=== PATIENT | female | born 1955 | race Caucasian/White ===

== ENCOUNTER → 2021-01-14 08:43 | Outpatient (BNVA) | payer MEDICARE, SELFPAY | PROVIDERS: PCP Family Medicine; Visit Provider Hospitalist | DX: J45.50 Severe persistent asthma, uncomplicated (principal); F19.20 Other psychoactive substance dependence, uncomplicated | CPT/HCPCS: 99212 ==

== ENCOUNTER 2021-05-17 10:59 | Outpatient (REF) | payer MEDICARE, SELFPAY ==
[2021-05-17 11:12] LABS: MANUAL DIFF FLAG NO
[2021-05-17 11:59] LABS: Basophils Absolute Auto 0.1 X10*3/uL (0.0-0.2); Basophils Percent Auto 1.3 % (0-2); Eosinophils Absolute Auto 0.3 X10*3/uL (0.0-0.4); Eosinophils Percent Auto 3.7 % (0-4); Hematocrit 37.8 % (37.0-47.0); Imm Gran Abs Auto 0.05 X10*3/uL (0.00-0.03); Imm Gran Pct Auto 0.7 % (0.0-0.4); Lymphocytes Absolute Auto 1.1 X10*3/uL (1.2-4.9); Lymphocytes Percent Auto 15.7 % (20-40); Mean Corpuscular HGB Conc 31.7 g/dl (31.0-35.0); Mean Corpuscular Hemoglobin 33.2 pg (27.0-33.0); Mean Corpuscular Volume 104.7 fL (80.0-98.0); Mean Platelet Volume 11.7 fL (9.4-12.3); Monocytes Absolute Auto 0.4 X10*3/uL (0.1-1.2); Monocytes Percent Auto 5.3 % (2-11); Neutrophils Percent Auto 73.3 % (45-73); Platelet Count 364 X10*3/uL (160-400); Red Blood Count 3.61 X10*6/uL (4.20-5.50); Red Cell Distribution Width 17.5 % (11.0-16.0); White Blood Count 6.8 X10*3/uL (4.8-10.8)
[2021-05-17 12:52] LABS: Erythrocyte Sedimentation Rate 12 MM/HR (0-20)
[2021-05-18 10:57] LABS: Immunoglobulin E 227 kU/L (<OR=114)
[2021-05-19 11:51] LABS: IgA 116 mg/dL (70-320); IgG 635 mg/dL (600-1540); IgM 51 mg/dL (50-300)
== END 2021-05-17 11:00 | disposition home or self-care (01) ==
LOC: HO.LAB 10:59
PROVIDERS: PCP Family Medicine; Visit Provider Hospitalist
DX: J45.909 Unspecified asthma, uncomplicated (principal)
CPT/HCPCS: 36415; 82784; 82785; 85025; 85652

== ENCOUNTER → 2021-05-25 08:20 | Outpatient (BNVA) | payer MEDICARE, SELFPAY | PROVIDERS: PCP Family Medicine; Visit Provider Hospitalist | DX: J45.50 Severe persistent asthma, uncomplicated (principal); F19.20 Other psychoactive substance dependence, uncomplicated | CPT/HCPCS: 99212 ==

== ENCOUNTER → 2021-06-04 08:54 | Outpatient (BNVA) | payer MEDICARE, SELFPAY | PROVIDERS: PCP Family Medicine; Visit Provider Hospitalist | DX: J45.50 Severe persistent asthma, uncomplicated (principal); Z87.891 Personal history of nicotine dependence | CPT/HCPCS: 99211 ==

== ENCOUNTER 2021-07-27 08:28 | Outpatient (REF) | payer MEDICARE, SELFPAY ==
--- NOTE | ~2021-07-27 | XR_ITS ---
EXAMINATION: XR CHEST 2 VIEWS CLINICAL INFORMATION: History of asthma. COMPARISON: Chest radiographs dated 03/14/2019. TECHNIQUE: Frontal and lateral views of the chest were obtained. FINDINGS: The heart, great vessels, pulmonary vasculature and mediastinum are normal. The lungs show no focal infiltrate, effusion or pneumothorax. There is no acute osseous abnormality. There is multi-level thoracolumbar degenerative disc disease and spondylosis. XR/XR chest 2V IMPRESSION: No active cardiopulmonary disease.
== END 2021-07-27 08:29 | disposition home or self-care (01) ==
LOC: HO.XRAY 08:28
PROVIDERS: PCP Family Medicine; Visit Provider Hospitalist
DX: J45.50 Severe persistent asthma, uncomplicated (principal); J45.909 Unspecified asthma, uncomplicated; F19.20 Other psychoactive substance dependence, uncomplicated
CPT/HCPCS: 71046; 99212

== ENCOUNTER → 2021-11-29 10:42 | Outpatient (BNVA) | payer MEDICARE, SELFPAY | PROVIDERS: PCP Family Medicine; Visit Provider Hospitalist | DX: J45.50 Severe persistent asthma, uncomplicated (principal); F19.20 Other psychoactive substance dependence, uncomplicated; Z79.52 Long term (current) use of systemic steroids | CPT/HCPCS: 99212 ==

== ENCOUNTER 2022-07-27 09:50 | Outpatient (REF) | payer MEDICARE, SELFPAY ==
--- NOTE | ~2022-07-27 | XR_ITS ---
EXAMINATION: XR CHEST CLINICAL INFORMATION: Asthma uncomplicated. Cough x2 weeks COMPARISON: None TECHNIQUE: 2 views of the chest were obtained. FINDINGS: The lungs are well-expanded with patchy atelectatic changes in left lung base.. The heart size and pulmonary vascularity is normal. No gross bony abnormality seen. XR/XR chest 2V IMPRESSION: Minimal atelectatic changes left lung base
== END 2022-07-27 09:51 | disposition home or self-care (01) ==
LOC: HO.XRAY 09:50
PROVIDERS: PCP Family Medicine; Visit Provider Hospitalist
DX: J40 Bronchitis, not specified as acute or chronic (principal); J45.51 Severe persistent asthma with (acute) exacerbation; R06.2 Wheezing; F19.20 Other psychoactive substance dependence, uncomplicated; Z79.52 Long term (current) use of systemic steroids
CPT/HCPCS: 71046; 94640; 96372; 99212; J2930

== ENCOUNTER → 2022-08-12 15:02 | Outpatient (BNVA) | payer MEDICARE, SELFPAY | PROVIDERS: PCP Family Medicine; Visit Provider Hospitalist | DX: J45.50 Severe persistent asthma, uncomplicated (principal); J40 Bronchitis, not specified as acute or chronic; F19.20 Other psychoactive substance dependence, uncomplicated | CPT/HCPCS: 99212 ==

== ENCOUNTER → 2022-10-05 10:27 | Outpatient (BNVA) | payer MEDICARE, SELFPAY | PROVIDERS: PCP Family Medicine; Visit Provider Nurse Practitioner Family | DX: M54.32 Sciatica, left side (principal); J45.50 Severe persistent asthma, uncomplicated; J40 Bronchitis, not specified as acute or chronic; F19.20 Other psychoactive substance dependence, uncomplicated | CPT/HCPCS: 99212 ==

== ENCOUNTER 2022-10-06 09:59 | Outpatient (REF) | payer MEDICARE, SELFPAY ==
[2022-10-06 10:51] LABS: D Dimer High Sensitivity 490 NG/ML
== END 2022-10-06 10:00 | disposition home or self-care (01) ==
LOC: HO.LAB 09:59
PROVIDERS: PCP Family Medicine; Visit Provider Nurse Practitioner Family
DX: R06.02 Shortness of breath (principal)
CPT/HCPCS: 36415; 85379

== ENCOUNTER 2022-10-07 09:50 | Outpatient (REF) | payer MEDICARE, SELFPAY ==
--- NOTE | ~2022-10-07 | CT_ITS ---
EXAMINATION: CT ANGIOGRAM OF THE CHEST WITH AND WITHOUT CONTRAST (CT PULMONARY ANGIOGRAM FOR PE) CLINICAL INFORMATION: Reason for Exam R78.89 - Finding of other specified substances, not normally found in blood COMPARISON: Previous chest x-ray July 2022 TECHNIQUE: Prior to contrast administration, noncontrast localization images were obtained. Subsequently, multidetector volumetric imaging was performed from the thoracic inlet to below the diaphragms following the administration of 80 mL Omnipaque 350 intravenous contrast. No contrast reaction reported Sagittal, coronal, and MIP oblique sagittal reformatted images were obtained on the CT workstation, uploaded to PACS, and reviewed. This CT examination was performed using dose optimization techniques as appropriate, variously including the following: *Automated exposure control *Adjustment of mA and/or kV according to patient size (this includes techniques or standardized protocols for targeted exams where dose is matched to indication/reason for exam; i.e. extremities or head) *Use of iterative reconstruction technique Total exam dose-length product 232 mGy-cm FINDINGS: QUALITY OF STUDY/CONTRAST BOLUS: Satisfactory. PULMONARY ARTERIES: No pulmonary emboli. THORACIC AORTA: No aneurysm. LUNG: No focal consolidation, nodules or masses. PLEURA: No pleural effusion or pneumothorax. MEDIASTINUM: Normal heart size. No pericardial effusion. No hilar or mediastinal lymphadenopathy. No evidence of septal bowing or right heart strain. CORONARY ARTERY CALCIFICATION: None visualized on this study. CHEST WALL/AXILLA: No axillary or internal mammary lymphadenopathy. OSSEOUS STRUCTURES: Degenerative changes of the spine. Old severe T12 vertebral body compression fracture. UPPER ABDOMEN: Gastric lap band. There may be diverticulosis of the colon. No reflux of contrast into the hepatic veins to suggest elevated right heart pressures. CT/CT angio chest PE protocol IMPRESSION: No evidence of pulmonary embolism. Gastric lap band. Old severe T12 vertebral body compression fracture. VTE: negative
[2022-10-07 11:14] LABS: Anion Gap 18 (12-20); Blood Urea Nitrogen 25 mg/dL (9-16); Calcium 9.7 mg/dL (8.4-10.2); Carbon Dioxide 24 mmol/L (22-29); Chloride 106 mmol/L (96-108); Estimated Glomerular Filt Rate > 60; Glucose Random 165 mg/dL (60-115); Potassium 5.6 mmol/L (3.3-5.1); Sodium 142 mmol/L (135-145)
[2022-10-07] MEDS: iohexoL 350 MG/ML 100 ML INFUS..BTL 65 ML IV (11:59)
== END 2022-10-07 09:51 | disposition home or self-care (01) ==
LOC: HO.CT 09:50
PROVIDERS: PCP Family Medicine; Visit Provider Hospitalist
DX: R06.00 Dyspnea, unspecified (principal); R00.2 Palpitations; R78.89 Finding of other specified substances, not normally found in blood
CPT/HCPCS: 36415; 71275; 80048; Q9967

== ENCOUNTER → 2022-10-18 13:03 | Outpatient (BNVA) | payer MEDICARE, SELFPAY | PROVIDERS: PCP Family Medicine; Visit Provider Internal Medicine Cardiovascular Disease | DX: R06.02 Shortness of breath (principal); R00.2 Palpitations | CPT/HCPCS: 99202 ==

== ENCOUNTER → 2022-11-01 07:46 | Outpatient (REF) | payer MEDICARE, SELFPAY ==
--- NOTE | ~2022-11-01 | NM_ITS ---
Myocardial perfusion study Indication: Dyspnea to evaluate for myocardial ischemia Technique: The patient was brought in for a Lexiscan perfusion study on 11/01/2022. Patient performed low-level exercise and was injected 0.4 mg of Lexiscan intravenously. Within a minute of injection, 40 mCi of sestamibi was given intravenously. Images were obtained using the SPECT gamma camera interlaced with the gating device. Images were obtained in supine position. Resting perfusion study was performed on 11/02/2022. Patient was administered 40 mCi of sestamibi intravenously at rest. Images were then obtained in supine position. Images obtained with and without CT attenuation. Total DLP 178 mGy-cm. Images were processed with the software and compared side to side in short axis, horizontal long axis and vertical long axis views. Findings: The stress perfusion study showed non attenuated images show minimal thinning of the basal and mid septum of the LV myocardium. Remainder of the LV myocardium is normally perfused. There is suggestion of left ventricle hypertrophy. Attenuation corrected images show normal uptake of radiotracer in all segments of LV myocardium. The gated study shows normal LV systolic function with calculated LVEF of 47%, although visually LV ejection fraction appears to be higher. LV cavity is normal in size. The gated study shows normal systolic wall thickening and contraction of segments. Resting study shows non attenuated images show mildly reduced uptake in the anterolateral wall of the LV myocardium. Attenuation corrected images show minimally reduced uptake in the apical septum.. Gating at rest reveals normal systolic wall motion with ejection fraction at 53%. The findings are consistent with normal myocardial perfusion. NM/NM tor perf SPECT rest & str Impression: 1. Myocardial perfusion imaging study shows normal myocardial perfusion 2. Gated LVEF is 53% 3. Transient ischemic dilatation not present EKG is nondiagnostic for ischemia
--- NOTE | 2022-11-01 07:49 | CA_ITS ---
Acquisition Time: 2022-11-01 07:55:30 Total Exercise Time: 00:02:00 Test Indications: Dyspnea Medications: SEE H Protocol: LEXISCAN Max HR: 123 BPM 81% of Pred: 151 BPM Max BP: 134/086 mmHG Max Work Load: 1.0 METS Pharmacological stress test with Lexican injection, while sitting and squeezing ball in left hand, without anginal symptoms, with nausea and dry heaves post injection, with very frequent PACs, with normotensive response to injection, with nondiagnostic EKG for ischemia. In recovery she was treated with Aminophylline 75mg IVP to reverse Lexiscan. Nuclear images pending. Test reviewed with Dr Steward. Referred By: Varinder Steward Overread By: NAHUM REDD
== END ==
LOC: HO.CARD 07:46
PROVIDERS: PCP Family Medicine; Visit Provider Internal Medicine Cardiovascular Disease
DX: R06.00 Dyspnea, unspecified (principal)
CPT/HCPCS: 78452; 93017; A9500; J0280; J2785

== ENCOUNTER → 2022-11-08 09:05 | Outpatient (REF) | payer MEDICARE, SELFPAY ==
--- NOTE | 2022-11-08 09:08 | CA_ITS ---
Transthoracic Echocardiogram Patient (Last, First, Middle): Vanessa Isaacs, Gender: Female Date of : 1955 Age: 67 Procedure Date: 11/08/2022 Procedure Type: Transthoracic Echocardiogram Location: OP Height: 162.56 cm Weight: 112.04 kg BSA: 2.14 m2 Heart Rate: bpm BP: 138 / 64 mmHg Cash Accountant: TO Referring MD: Varinder Steward MD Symptoms: R06.00 - Dyspnea, unspecified Study Quality: Adequate with contrast ECG Rhythm: Sinus with PACs Conclusions: - The left ventricular systolic function is normal. The calculated ejection fraction is 61% by biplane method. - There is moderate septal and moderate basal asymmetric hypertrophy. - No obvious valvular pathology seen on this study. - Small plaque is seen in the sino tubular ridge. Findings Left Ventricle Normal left ventricular cavity size. The left ventricular systolic function is normal. The calculated ejection fraction is 61% by biplane method. There is no evidence of regional wall motion abnormalities. Diastolic function is normal for age. There is moderate septal and moderate basal asymmetric hypertrophy. Right Ventricle Normal right ventricular cavity size and systolic function. Atria Both atria are normal in size. Aortic Valve There is a normal trileaflet aortic valve. There is mild calcification of the aortic valve. There is no aortic valve stenosis. There is no aortic valve regurgitation. Mitral Valve The mitral valve appears normal. There is mild mitral valve regurgitation. There is no mitral valve stenosis. Pulmonic Valve The pulmonic valve is likely normal. Tricuspid Valve There is trace tricuspid valve regurgitation. Mild pulmonary hypertension is present. Great Vessels There is mild dilatation of the ascending aorta measuring 3.70 cm. Small plaque is seen in the sino tubular ridge. Venous The inferior vena cava is mildly dilated and collapses greater than 50% with inspiration. Pericardium/Pleural There is no evidence of pericardial effusion. Prior Study Comparison No prior study available for comparison. Recommendations, Care & Conclusions No obvious valvular pathology seen on this study. Measurements 2D Linear Measurements IVSd: 1.31 0.6-0.9/0.6-1.0 cm LVIDd: 4.43 3.9-5.3/4.2-5.9 cm LVIDd Index: 2.07 2.4-3.2/2.2-3.1 cm/m2 LVIDs: 2.72 2.0-3.6 cm LVPWd: 0.97 0.7-1.1 cm LA Diam: 3.20 2.7-3.8/3.0-4.0 cm LAIDs Index: 1.50 1.5-2.3 cm/m2 LV Mass: 224.34 67-162/88-224 g LV Mass Index: 104.83 43-95/49-115 g/m2 LVOT Diam: 2.00 3.0+(-)1.3 cm 2D Systolic Function EF 4C: 60.10 >55% EF 2C: 61.40 >55% EF BiP: 61.00 >55% Mitral Valve MV VTI: 0.29 MV Pk Lauri: 1.02 MV Mn Lauri: 0.66 MV Pk Grad: 4.00 MV Mn Grad: 2.00 MV Pk E: 1.07 MV PK A: 0.80 MV Decel Time: 217.00 E/A: 1.30 E'Lateral: 9.14 E'Medial: 6.74 E/E' Med: 15.90 E/E' Lat: 11.70 PHT: 64.00 MVA PHT: 3.44 MVA Continuity: 2.40 Decel Saunders: 4.93 Aortic Valve AoV Pk Lauri: 1.57 AoV Mn Lauri: 1.08 AoV VTI: 0.32 AoV Pk Grad: 10.00 Aov Mn Grad: 5.00 JORGE Cont.VTI: 2.14 LVOT LVOT Pk Lauri: 0.97 LVOT Mn Lauri: 0.68 LVOT VTI: 0.22 LVOT Pk Grad: 4.00 LVOT Mn Grad: 2.00 LVOT Diam: 2.00 LVOT Area: 3.14 Diastolic Function MV Pk E: 1.07 MV Pk A: 0.80 E/A: 1.30 E'Medial: 6.74 E/E' Med: 15.90 E' Laterial: 9.14 E/E' Lat: 11.70 Right Ventricle TAPSE (mm): 26.30 TVS' Lauri: 11.60 Tricuspid Valve TR Pk Lauri: 2.88 TR Pk Grad: 33.00 RA Press: 8.00 RVSP: 41.00 Great Vessels Aorta Sinus of Valsalva: 3.18 2.0-3.5 cm Ao Asc: 3.70 2.1-3.4 cm Updated in Other Vendor System with Status of Final Gaetano Johnson MD electronically signed on 11/10/2022 9:43:15 AM with status of Final
== END ==
LOC: HO.CARD 09:05
PROVIDERS: PCP Family Medicine; Visit Provider Internal Medicine Cardiovascular Disease
DX: R06.00 Dyspnea, unspecified (principal)
CPT/HCPCS: 93306; Q9957

== ENCOUNTER → 2022-11-10 14:47 | Outpatient (BNVA) | payer MEDICARE, SELFPAY | PROVIDERS: PCP Family Medicine; Visit Provider Hospitalist | DX: R06.00 Dyspnea, unspecified (principal); J44.9 Chronic obstructive pulmonary disease, unspecified; J40 Bronchitis, not specified as acute or chronic; J45.50 Severe persistent asthma, uncomplicated; Z87.891 Personal history of nicotine dependence; Z79.52 Long term (current) use of systemic steroids | CPT/HCPCS: 99212 ==

== ENCOUNTER 2022-11-11 06:39 | Outpatient (REF) | payer MEDICARE, SELFPAY ==
[2022-11-11 07:28] LABS: Basophils Absolute Auto 0.3 X10*3/uL (0.0-0.2); Basophils Percent Auto 3.1 % (0-2); Eosinophils Absolute Auto 0.6 X10*3/uL (0.0-0.4); Eosinophils Percent Auto 6.5 % (0-4); Hematocrit 29.6 % (37.0-47.0); Imm Gran Pct Auto 1.2 % (0.0-0.4); Lymphocytes Absolute Auto 1.2 X10*3/uL (1.2-4.9); Lymphocytes Percent Auto 13.7 % (20-40); MANUAL DIFF FLAG SCAN; Mean Corpuscular HGB Conc 30.4 g/dl (31.0-35.0); Mean Corpuscular Hemoglobin 36.1 pg (27.0-33.0); Monocytes Absolute Auto 0.7 X10*3/uL (0.1-1.2); Monocytes Percent Auto 8.6 % (2-11); Neutrophils Absolute Auto 5.6 x10*3/uL (2.0-8.3); Neutrophils Percent Auto 66.9 % (45-73); Platelet Count 535 X10*3/uL (160-400); Red Blood Count 2.49 X10*6/uL (4.20-5.50); Red Cell Distribution Width 18.4 % (11.0-16.0); SCAN SMEAR FLAG 1; White Blood Count 8.4 X10*3/uL (4.8-10.8)
[2022-11-11 07:31] LABS: Mean Corpuscular Volume 118.9 fL (80.0-98.0)
[2022-11-11 07:57] LABS: SLIDE REVIEW VERIFIED
[2022-11-11 08:01] LABS: Anion Gap 15 (12-20); Blood Urea Nitrogen 21 mg/dL (9-16); Calcium 9.8 mg/dL (8.4-10.2); Carbon Dioxide 26 mmol/L (22-29); Chloride 106 mmol/L (96-108); Estimated Glomerular Filt Rate > 60; Glucose Random 170 mg/dL (60-115); Potassium 4.6 mmol/L (3.3-5.1); Sodium 142 mmol/L (135-145)
[2022-11-11 08:12] LABS: Erythrocyte Sedimentation Rate 33 MM/HR (0-20)
[2022-11-15 02:53] LABS: Immunoglobulin E 201 kU/L (<OR=114)
== END 2022-11-11 06:40 | disposition home or self-care (01) ==
LOC: HO.MRI 06:39
PROVIDERS: Absent Provider Hospitalist; PCP Family Medicine; Visit Provider Neurological Surgery
DX: R06.00 Dyspnea, unspecified (principal)
CPT/HCPCS: 36415; 80048; 82785; 85025; 85652

== ENCOUNTER 2022-12-20 12:29 | Outpatient (AMB) | payer MEDICARE, SELFPAY ==
[2022-12-20 13:19] VITALS: BP 132/60; PULSE 88; BMI 41.8
--- NOTE | 2022-12-20 13:19 | A.OFFVIS_ITS ---
Intake Vital Signs 12/20/22 13:19 Height 5 ft 3 in Weight 236 lb BMI 41.8 BP 132/60 Blood Pressure Location Rt brachial Position Sitting Pulse 88 Pulse Source Pulse Oximeter Intake Visit Reasons: f/up echo/ mibi Intake Note: f/u echo /mibi Senior Policy Analyst Required: No Allergies pregabalin Allergy (Severe, Verified 12/20/22 13:25) Manic Sulfa (Sulfonamide Antibiotics) Allergy (Severe, Verified 12/20/22 13:25) Hives Medication List - Last Reconciled 12/20/22 by Eileen Looney NP-C albuterol sulfate 2.5 mg (3 mL) inhalation Q6H PRN 30 days alendronate (Fosamax) 70 mg PO QWEEK cholecalciferol (vitamin D3) 25 mcg PO DAILY mlfvkidzxlh-ngkvextlp-axukjzot 200-62.5-25 mcg (Trelegy Ellipta) 1 inh inhalation DAILY 30 days folic acid 1 mg PO DAILY gabapentin 800 mg PO BEDTIME gabapentin 400 mg PO .am levothyroxine 112 mcg PO DAILY losartan 50 mg PO DAILY metformin 500 mg PO BID nebulizers As directed omeprazole 20 mg PO DAILY paroxetine HCl 40 mg PO DAILY prednisone PO daily; Take 6 tabs daily x 3 days, then 5 tabs x 3 days, then 4 tabs x 3 days, then 3 tabs x 3 days, then 2 tabs daily x 3 days, then 1 tab x 3 days to complete. 18 days prednisone 10 mg PO DAILY simvastatin 40 mg PO DAILY tirzepatide (Mounjaro) 5 mg subcut QWEEK Ventolin HFA 90 mcg/actuation (albuterol sulfate) 2 puffs PO Q4H PRN NS HPI f/up echo/ mibi HPI Details Vanessa is a 67-year-old female with past medical history of morbid obesity advanced COPD with steroid dependence who was recently evaluated for shortness of breath. She underwent an echocardiogram and stress test and now presents for follow-up. Today she reports that her chronic shortness of breath has been stable. She follows closely with Dr. Peña for pulmonology. Her prednisone doses adjusted as needed for symptoms. No recent illness with fever. No chest discomfort at rest or with activity. She has not been using updraft treatments recently. She has been noticing less heart palpitations. No PND, orthopnea or edema. Does light physical activity only. She ambulates with a cane. Takes all her meds as directed. [facility] Medical History Asthma Compression fracture COPD (chronic obstructive pulmonary disease) Steroid dependence Family History Father COPD (chronic obstructive pulmonary disease) Mother ASCVD (arteriosclerotic cardiovascular disease) Sister Stented coronary artery Social History Patient Tobacco Use Status: Former Tobacco user Tobacco use type: Cigarette Years Smoked: 30 years Review of Systems Const All systems reviewed & are unremarkable except as noted in HPI and below ENT Reports dizziness Card Denies chest pain, Denies chest pain at rest, Denies chest pain with activity, Denies rapid heart rate, Denies pedal edema, Denies edema, Denies leg edema, Denies lightheadedness, Denies palpitations, Denies dyspnea, Reports dyspnea on exertion and Denies orthopnea Resp Denies cough, Denies dyspnea and Reports dyspnea on exertion GI Denies hematochezia and Denies change in stool character Musc Denies abnormal gait, Reports limited range of motion, Reports muscle cramps, Denies muscle weakness, Denies numbness, Denies radiating pain into limb, Denies stiffness and Denies tingling Neuro Denies abnormal gait, Reports dizziness, Denies numbness and Denies tingling Endo Denies palpitations Physical Exam Vital Signs: Last Vital Signs Pulse 88 12/20/22 13:19 BP 132/60 12/20/22 13:19 BMI result Body Mass Index 41.8 Const Other: Ambulates with cane, morbidly obese General: cooperative, comfortable and no acute distress Orientation/consciousness: patient oriented x3 Neck Neck: Yes normal visual inspection Resp Other: Lung sounds diminished bilaterally Effort & Inspection: normal respiratory effort Auscultation: clear to auscultation bilaterally, no rales, no rhonchi and no wheezes Cardio Jugular venous distension: no JVD Rate: regular rate Rhythm: regular rhythm Heart sounds: S1 normal heart sound present, S2 normal heart sound present, no murmurs and no rubs Neuro General: patient oriented x3 Extrem General: Yes normal to inspection and No no pedal edema Psych Appearance: grossly normal Mental Status: mental status grossly normal Speech and movement: Normal speech and movement present Assessment & Plan Assessment & Plan (1) Dyspnea: Code(s): R06.00 - Dyspnea, unspecified Plan: Cardiac evaluation for shortness of breath. She has history of asthma, COPD, steroid dependent. She follows with Dr. Peña for pulmonology. EKG done 10/05/2022 showed sinus tach with T-wave abnormality, rate 103. He then underwent echocardiogram on 11/08/2022 showing EF 61%, moderate septal and moderate basal asymmetric hypertrophy, no report of obstruction, No valve abnormalities. A pharmacological nuclear stress test was done on 11/01/2022 showing normal myocardial perfusion imaging, EF 53%. She has no cardiac history and no reports of any cardiac sounding chest discomfort. Her shortness of breath is chronic and most likely related to COPD. At present no cardiac recommendations with the exception of cardiac risk factor modification. Blood pressure normal range at present. Continue with blood pressure goal ideally less than 130/85. Continue good diabetes control with hemoglobin A1c goal less than 70. Follow closely with pulmonology. Cardiology follow-up as needed. (2) COPD (chronic obstructive pulmonary disease): Code(s): J44.9 - Chronic obstructive pulmonary disease, unspecified (3) Steroid dependence: Code(s): F19.20 - Other psychoactive substance dependence, uncomplicated (4) Anemia: Code(s): D64.9 - Anemia, unspecified Plan: Recent finding of mild anemia. Labs done on 11/11/22 shows hemoglobin 9.0. She tells me she did this stool test for her PCP and it came back normal. No evidence of bleeding. No bleeding history. She will continue to follow with her PCP regarding this informed that increasing anemia can cause symptoms of fatigue and shortness of breath. Coding Level of Care Code Est Pt Level 3 (58833) Diagnoses Dyspnea R06.00 COPD (chronic obstructive pulmonary disease) J44.9 Steroid dependence F19.20 Anemia D64.9 Time Spent (min) 24 Comment Chart review, documentation, interview, assessment
== END 2022-12-20 13:52 | disposition home or self-care (01) ==
PROVIDERS: Visit Provider Nurse Practitioner Family
DX: R06.00 Dyspnea, unspecified (principal); J44.9 Chronic obstructive pulmonary disease, unspecified; F19.20 Other psychoactive substance dependence, uncomplicated; D64.9 Anemia, unspecified
CPT/HCPCS: 99213

== ENCOUNTER → 2022-12-20 12:29 | Outpatient (BNVA) | payer MEDICARE, SELFPAY | PROVIDERS: Visit Provider Nurse Practitioner Family | DX: R06.00 Dyspnea, unspecified (principal); J44.9 Chronic obstructive pulmonary disease, unspecified; F19.20 Other psychoactive substance dependence, uncomplicated; D64.9 Anemia, unspecified | CPT/HCPCS: 99212 ==

== ENCOUNTER → 2023-01-17 10:48 | Outpatient (BNV) | payer MEDICARE, SELFPAY | PROVIDERS: PCP Family Medicine; Visit Provider Internal Medicine | DX: D46.9 Myelodysplastic syndrome, unspecified (principal) | CPT/HCPCS: 99204; 99212; 99213; 99214; G2211 ==

== ENCOUNTER 2023-02-09 08:13 | Day surgery (SDC) | payer MEDICARE, SELFPAY ==
--- NOTE | ~2023-02-09 | CT_ITS ---
Bone marrow biopsy INDICATIONS: Macrocytic anemia After informed and written consent was obtained an official timeout was performed immediately prior to the procedure. I was personally responsible for the administration of moderate sedation services, all requirements were followed, an independent trained observer was utilized. PROCEDURE: With the patient in a prone position scans through the pelvis were obtained. The skin was prepped and draped in usual fashion. 1% Xylocaine was used for local anesthetic. Under CT guidance a bone biopsy needle was placed into the right initial wing. Bloody aspirates were obtained in the syringes coated with heparin as well as EDTA . The needle was then repositioned into the anterior aspect of the initial wing and a core bone biopsy specimen was obtained. The needles were removed and manual pressure held for [address]/CT biopsy aspirate bone marrow IMPRESSION: CT-guided bone marrow biopsy of the right initial wing
[2023-02-09 09:09] LABS: Glucose, Whole Blood 124 mg/dL (60-115)
[2023-02-09 09:14] VITALS: BP 151/69; PULSE 96; RESP 20; TEMP 36.1; O2SAT 96; BMI 39.5
[2023-02-09 09:21] LABS: MANUAL DIFF FLAG NO
[2023-02-09 09:26] LABS: Basophils Absolute Auto 0.2 X10*3/uL (0.0-0.2); Basophils Percent Auto 2.1 % (0-2); Eosinophils Absolute Auto 0.3 X10*3/uL (0.0-0.4); Eosinophils Percent Auto 3.6 % (0-4); Hematocrit 30.9 % (37.0-47.0); Hemoglobin 9.9 g/dl (12.0-16.0); Imm Gran Abs Auto 0.09 X10*3/uL (0.00-0.03); Lymphocytes Percent Auto 11.1 % (20-40); Mean Corpuscular Hemoglobin 34.4 pg (27.0-33.0); Mean Corpuscular Volume 107.3 fL (80.0-98.0); Mean Platelet Volume 11.4 fL (9.4-12.3); Monocytes Absolute Auto 0.8 X10*3/uL (0.1-1.2); Monocytes Percent Auto 8.5 % (2-11); Neutrophils Absolute Auto 6.6 x10*3/uL (2.0-8.3); Neutrophils Percent Auto 73.7 % (45-73); Platelet Count 535 X10*3/uL (160-400); Red Blood Count 2.88 X10*6/uL (4.20-5.50); Red Cell Distribution Width 21.2 % (11.0-16.0)
[2023-02-09 09:32] LABS: INTERNATIONAL NORM RATIO 0.9 (0.9-1.1)
[2023-02-09 09:39] LABS: Blood Urea Nitrogen 15 mg/dL (9-16)
[2023-02-09 11:22] LABS: Bone Marrow SEE SEPARATE REPORT
[2023-02-09 11:25] VITALS: BP 100/42; PULSE 92; RESP 14; TEMP 36.8; O2SAT 100
[2023-02-09 11:40] VITALS: BP 114/43; PULSE 98; RESP 18; O2SAT 92
[2023-02-09 11:55] VITALS: BP 109/30; PULSE 109; RESP 18; O2SAT 94
[2023-02-09 12:10] VITALS: BP 127/64; PULSE 98; RESP 18; TEMP 36.9; O2SAT 95
== END 2023-02-09 13:05 | disposition home or self-care (01) ==
LOC: HO.SSS 08:15
PROVIDERS: Pathology Anatomic Pathology & Clinical Pathology; Radiology Diagnostic Radiology; PCP Family Medicine; Visit Provider Internal Medicine
DX: D64.9 Anemia, unspecified (principal); R53.83 Other fatigue; D75.89 Other specified diseases of blood and blood-forming organs; I10 Essential (primary) hypertension; E11.9 Type 2 diabetes mellitus without complications; J44.9 Chronic obstructive pulmonary disease, unspecified; J45.40 Moderate persistent asthma, uncomplicated; Z87.891 Personal history of nicotine dependence; Z79.85 Long-term (current) use of injectable non-insulin antidiabetic drugs
CPT/HCPCS: 36415; 38222; 82947; 84520; 85025; 85610; 85730; 88184; 88185; 88237; 88264; 88280; 88305; 88311; 88313; 88374; 99152; J1642; J2250; J3010

== ENCOUNTER → 2023-02-09 10:32 | Outpatient (BNV) | payer MEDICARE, SELFPAY | PROVIDERS: PCP Family Medicine; Visit Provider Radiology Vascular & Interventional Radiology | DX: D53.9 Nutritional anemia, unspecified (principal) | CPT/HCPCS: 38222; 77012 ==

== ENCOUNTER 2023-02-22 10:53 | Outpatient (REF) | payer MEDICARE, SELFPAY | END 2023-02-22 10:54 | disposition home or self-care (01) | LOC: HO.HMGCX 10:53 | PROVIDERS: PCP Family Medicine; Visit Provider Internal Medicine | DX: D64.9 Anemia, unspecified (principal); D75.839 Thrombocytosis, unspecified | CPT/HCPCS: 76700 ==

== ENCOUNTER 2023-03-27 07:36 | Outpatient (AMB) | payer MEDICARE, SELFPAY ==
--- NOTE | 2023-03-27 07:54 | A.OFFVIS_ITS ---
Intake Vital Signs 03/27/23 07:59 Height 5 ft 4 in Weight 236 lb BMI 40.5 BP 126/57 L Blood Pressure Location Lt brachial Position Sitting Pulse 96 Intake Visit Reasons: Anemia, [place] Screening Intake Note: Patient new consult for Anemia and 2nd pre colonoscopy screening. Patient cc: diarrhea on and off, fatigue, dizziness, and denies any other GI issues. Allergies pregabalin Allergy (Severe, Verified 03/27/23 07:51) Manic Sulfa (Sulfonamide Antibiotics) Allergy (Severe, Verified 03/27/23 07:51) Hives Medication List - Last Reconciled 03/27/23 by Iris Blackman PA-C albuterol sulfate 2.5 mg (3 mL) inhalation Q6H PRN 30 days alendronate (Fosamax) 70 mg PO QWEEK cholecalciferol (vitamin D3) 25 mcg PO DAILY dulaglutide (Trulicity) 0.75 mg subcut QWEEK fluticasone propion-salmeterol 115-21 mcg/actuation (Advair HFA) 2 puffs inhalation Q12H 30 days ojasjlsyiyo-acdtaxnnc-mbvpcger 200-62.5-25 mcg (Trelegy Ellipta) 1 inh inhalation DAILY 30 days folic acid 1 mg PO DAILY gabapentin 800 mg PO BEDTIME gabapentin 400 mg PO .am levothyroxine 112 mcg PO DAILY losartan 50 mg PO DAILY metformin 500 mg PO ONCE metformin 1,000 mg PO DAILY nebulizers As directed nirmatrelvir-ritonavir 300 mg (150 mg x 2)-100 mg (Paxlovid) take TWO 150 mg tablets of nirmatrelvir with ONE 100 mg tablet of ritonavir twice daily for 5 days PO 5 days omeprazole 20 mg PO DAILY paroxetine HCl 40 mg PO DAILY prednisone PO daily; Take 6 tabs daily x 3 days, then 5 tabs x 3 days, then 4 tabs x 3 days, then 3 tabs x 3 days, then 2 tabs daily x 3 days, then 1 tab x 3 days to complete. 18 days prednisone 10 mg PO DAILY simvastatin 40 mg PO DAILY Ventolin HFA 90 mcg/actuation (albuterol sulfate) 2 puffs PO Q4H PRN NS HPI HPI Comments History of Present Illness Details A 67 y/o female myelodysplastic syndrome-anemia transfusion dependent, she follows with Hematology -she will follow there today, she has questions about a up her disease She has been referred by PCP for screening colonoscopy. She does not feel she is up to having a colonoscopy- [place]- missed transfusion- feeling fatigued-she did not enjoy her vacation, she had leg swelling. Did not have much energy. No CP- She has intermittent diarrhea- when it happens -2-3 times a day- no blood She is fatigued appetite is fair-she is using a walker it gives her better support- Intermittent nausea, no vomiting, fever or chills. No hematemesis or hematochezia - FORMERLY [facility], 1928–1983 Medical History Current chronic use of systemic steroids T12 compression fracture Breast calcifications Macular degeneration of both eyes Lumbar spondylolysis Adrenal insufficiency Moderate persistent asthma in adult without complication Anxiety Obstructive sleep apnea Osteoporosis Osteopenia Fibromyalgia GERD (gastroesophageal reflux disease) Hypothyroidism Mixed hyperlipidemia Essential hypertension Morbid obesity Diabetes mellitus, type II Steroid dependence Compression fracture Asthma COPD (chronic obstructive pulmonary disease) Surgical History History of cataract surgery History of left hip replacement History of total right knee replacement (TKR) Family History Father COPD (chronic obstructive pulmonary disease) Mother ASCVD (arteriosclerotic cardiovascular disease) Sister Stented coronary artery Social History Household Members: Spouse Housing: House Patient Tobacco Use Status: Former Tobacco user Tobacco use type: Cigarette Years Smoked: 30 years Use of substances other than those prescribed or required for medical reasons: No Have you been hit, kicked, punched, or otherwise hurt by someone within the past year? If so, by whom?: No Do you feel safe in your current relationship?: Yes Do you have thoughts of harming others: None Do you have a plan to hurt others: No Plan Do you have the means to hurt others: No Recently lost weight without trying: No service: No Current occupational status: retired Review of Systems Const All systems reviewed & are unremarkable except as noted in HPI and below Denies chills, Reports fatigue, Denies fever(s) and Reports headache(s) ENT Reports headache(s) GI Denies hematochezia Neuro Reports headache(s) Endo Reports fatigue Physical Exam Vital Signs: Last Vital Signs Pulse 96 03/27/23 07:59 BP 126/57 L 03/27/23 07:59 BMI result Body Mass Index 40.5 Pallor Const Other: Pallor General: cooperative and comfortable Orientation/consciousness: patient oriented x3 Limitations: ambulation with walker Cardio Rate: tachycardic (APR 100- regular) Rhythm: regular rhythm GI Palpation (GI): Soft to palpation and nontender Auscultation: normal bowel sounds Skin General skin exam: no rashes or lesions noted Neuro General: patient oriented x3 Extrem General: Yes edema Psych Appearance: well kempt Mental Status: mental status grossly normal Speech and movement: Normal speech and movement present and Clear speech present Affect: normal affect Attitude: cooperative Thought process: Normal thought process present Thought content: Normal thought content present Insight: Good insight present (Psych) Judgement: Good judgement present (Psych) Assessment & Plan Assessment & Plan (1) Anemia: Comment: Anemia, infusion dependent Code(s): D64.9 - Anemia, unspecified Plan: ? plan input Dr Waters (2) Asthma: Code(s): J45.909 - Unspecified asthma, uncomplicated Qualifiers: Asthma complication type: uncomplicated Asthma persistence: persistent Asthma severity: severe Qualified Code(s): J45.50 - Severe persistent asthma, uncomplicated Plan: Follows usual medications (3) COPD (chronic obstructive pulmonary disease): Code(s): J44.9 - Chronic obstructive pulmonary disease, unspecified (4) Steroid dependence: Code(s): F19.20 - Other psychoactive substance dependence, uncomplicated Plan Anesthesia consult Patient Instructions: She will discuss Colonoscopy-vs he Cologuard with shop helper today, plan dependent on above anesthesia consult, COPD, asthma Discussed procedure, rare risks However we did discuss procedure, rare risks, Need for escorted due to anesthesia Continue usual medications Encouraged to call with any questions or concerns Coding Level of Care Code New Pt Level 4 (63970) Diagnoses Anemia D64.9 Severe persistent asthma without complication J45.50 Asthma complication type: uncomplicated Asthma persistence: persistent Asthma severity: severe COPD (chronic obstructive pulmonary disease) J44.9 Steroid dependence F19.20 Time Spent (min) 40
[2023-03-27 07:59] VITALS: BP 126/57; PULSE 96; BMI 40.5
== END 2023-03-27 09:18 | disposition home or self-care (01) ==
PROVIDERS: PCP Family Medicine; Visit Provider Physician Assistant
DX: D64.9 Anemia, unspecified (principal); J45.50 Severe persistent asthma, uncomplicated; J44.9 Chronic obstructive pulmonary disease, unspecified; F19.20 Other psychoactive substance dependence, uncomplicated
CPT/HCPCS: 99204

== ENCOUNTER → 2023-03-27 07:36 | Outpatient (BNVA) | payer MEDICARE, SELFPAY | PROVIDERS: PCP Family Medicine; Visit Provider Physician Assistant | DX: D64.9 Anemia, unspecified (principal); J45.50 Severe persistent asthma, uncomplicated; J44.9 Chronic obstructive pulmonary disease, unspecified; F19.20 Other psychoactive substance dependence, uncomplicated | CPT/HCPCS: 99202 ==

== ENCOUNTER 2023-04-10 10:48 | Outpatient (AMB) | payer MEDICARE, SELFPAY ==
--- NOTE | 2023-04-10 10:52 | MHC.OFFVIS ---
Intake Vital Signs 04/10/23 10:53 Height 5 ft 3.5 in Weight 228 lb BMI 39.8 Pulse 92 Pulse Source Pulse Oximeter Pulse Oximetry (%) 93 Oxygen Delivery Method Room Air Intake Visit Reasons: copd Chip Tuner Required: No Allergies pregabalin Allergy (Severe, Verified 04/10/23 10:54) Manic Sulfa (Sulfonamide Antibiotics) Allergy (Severe, Verified 04/10/23 10:54) Hives HPI HPI Comments History of Present Illness Details The patient is a 67-year-old woman with a known history of severe persistent asthma now steroid dependent. She has tried to come off the prednisone but has been unsuccessful. She also had issues with a vertebral fracture causing significant back pain but that now is better. She continues to use all her respiratory inhalers. More recently she started developing worsening cough productive in nature with yellow sputum. She has been using her rescue inhaler more often as well. Symptoms seem to be worse at nighttime. ? 05/25/2021 the patient is here for a pulmonary follow-up visit. She continues on 10 mg of prednisone. He has been difficult to cut her down because of her significant symptoms. Unfortunately she has had issues with osteopenia and I am concerned that the current use of prednisone is going to result in more complications in the future. We did review her blood work demonstrating significant elevations in her IgE suggesting an allergic component to her asthma. Her eosinophils are normal but, she is on chronic steroids which will affect the eosinophil measurement. Based on her severe persistent asthma and her need for prednisone she will be a good candidate for Dupixent. I will request Dupixent to be started from her pharmacy. In the meantime the patient will start weaning down the prednisone when she is able to start the biologic therapy. The patient has been on prednisone now for many years we have to be very careful in decreasing the steroids slowly and closely monitoring for any symptoms of secondary adrenal insufficiency. 07/27/2021 the patient is here for a pulmonary follow-up visit. Overall the patient has been feeling better now. Initially she cut down the prednisone in addition to starting the Dupixent and she started developing significant bone pain and tingling sensations. Moderate severity. She was unsure if he was cutting down the prednisone or if it was a Dupixent. Now she is doing well on the 8 mg of prednisone and she is tolerating it well. She has not taking that Dupixent as of yet. Now that his symptoms subsided will rechallenge with the Dupixent. If she has recurrent symptoms as stated above then will have to consider being adverse effect from the biologic medication. In the meantime will continue with the prednisone 8 mg. She has been on prednisone for more than 30 years therefore it is likely that she will be able to come off completely. However, just trying to get her to the lowest most effective dose. She does have some dyspnea on exertion. Her pulse ox has been on the low side. She has been complaining of a cough at times. Her exam is relatively normal except for diminished breath sounds. Will have her get a chest x-ray today. 11/29/2021 the patient is here for a pulmonary follow-up visit. Overall the patient has been doing well from a respiratory status. Unfortunately, she could not tolerate the Dupixent. She has subsequently stopped it. She continues to be on prednisone. she has been taking 10 mg daily. She also has been taking Fosamax for her osteoporosis. She is also dealing with significant hyper paresthesias of her upper extremities and neck pain. In addition to sacroiliac discomfort. She is working closely with her physicians regarding these issues. She did undergo an MRI of her cervical spine and a CT scan of her lower back. She still waiting for the results. She continues on the other respiratory medicine. We did talk about other biologics to consider in the future. In concerned that with her osteoporosis the prednisone is going to cause significant have it. She also is going to work on trying to decrease her dose of prednisone to the lowest most effective dose. Ideally around 7.5 Mg. 07/27/2022 the patient is here for sick visit. She has had worsening respiratory symptoms now for little bit more than a week. Started having significant chest tightness and wheezing. She also had a productive cough with dark sputum. She did call the office and she was sent a course of prednisone in addition to levofloxacin. She is now almost completed the levofloxacin and is down to 30 mg of prednisone. However, she is no better still having significant chest tightness and wheezing. Denies any fevers and chills. In the office she was given 2 DuoNeb treatments. He has significantly helped her breathing although she still having significant wheezing. Therefore, she was given 125 mg of Solu-Medrol IM. The patient did benefit from the nebulizer and she does not have an available. I will make when available for her before she is discharged. In addition to that the patient will increase her prednisone to 40 and start doxycycline. If the patient is no better worsen she may need to go to the ER require office for further recommendations. I do not appreciate any focality, but, with her significant symptoms she will have an x-ray before she goes home. 11/10/2022 the patient is here for pulmonary follow-up visit. The patient overall complains of dyspnea on exertion. Even with minimal activity. The patient is having back issues and leg issues and will be getting MRI soon. She does use a walker. The patient complains that her breathing is very limited. Even with minimal things like getting dressed she gets very short of breath breath less. She feels a heaviness in the chest area. She had a full cardiac workup including echocardiogram demonstrating hypertrophy in a nuclear stress test that was reasonable. The patient has been using the new inhaler Trelegy 200 and seems to be working well for her. On examination she does not have any wheezing just diminished breath sounds. I do pre she ate some pale conjunctiva in the patient has not had any recent blood work. I would definitely check her for anemia to make sure that this is not the cause of her underlying shortness of breath as her respiratory exam is relatively normal. Will go ahead and request additional PFTs and she can increase the prednisone some to see if this provides some relief. 04/10/2023 the patient is here for a pulmonary follow-up visit. The patient continues to have fatigue and also headaches and dyspnea on exertion. Moderate in severity. In part this is likely a component of her significant anemia. She has been working closely with Hematology regarding the her myelodysplastic syndrome. She is also on the Procrit. The patient has required multiple transfusions in the past. She did have blood work today demonstrating her hemoglobin now drop below 8. She is going to monitor that closely with her bilingual sales representative. She also has a follow-up in [place] [facility] for stem cell therapy. From a respiratory status the patient is responding well to the current respiratory regimen which will continue at this time. PENDING SALE TO [facility] Medical History Current chronic use of systemic steroids T12 compression fracture Breast calcifications Macular degeneration of both eyes Lumbar spondylolysis Adrenal insufficiency Moderate persistent asthma in adult without complication Anxiety Obstructive sleep apnea Osteoporosis Osteopenia Fibromyalgia GERD (gastroesophageal reflux disease) Hypothyroidism Mixed hyperlipidemia Essential hypertension Morbid obesity Diabetes mellitus, type II Steroid dependence Compression fracture Asthma COPD (chronic obstructive pulmonary disease) Surgical History History of cataract surgery History of left hip replacement History of total right knee replacement (TKR) Family History Father COPD (chronic obstructive pulmonary disease) Mother ASCVD (arteriosclerotic cardiovascular disease) Sister Stented coronary artery Social History Household Members: Spouse Housing: House Patient Tobacco Use Status: Former Tobacco user Tobacco use type: Cigarette Years Smoked: 30 years service: No Current occupational status: retired Review of Systems Const Reports fatigue, Denies fever(s), Reports headache(s), Denies malaise and Denies night sweats ENT Denies change in voice, Reports headache(s), Denies lip swelling, Denies mouth pain, Reports nasal congestion, Reports nasal discharge and Denies tongue swelling Card Denies chest pain, Denies dyspnea and Reports dyspnea on exertion Resp Denies change in phlegm color, Denies chest congestion, Reports cough, Denies dyspnea, Reports dyspnea on exertion and Reports wheezing GI Denies abdominal pain Musc Denies no additional complaints, Reports abnormal gait and Reports back pain Neuro Denies Neuro-related abnormal movements, Reports abnormal gait and Reports headache(s) Psych Denies no additional complaints Endo Reports fatigue Chris/Lymph Denies easy bleeding and Denies lymphadenopathy Aller/Immun Denies lip swelling, Denies tongue swelling and Reports wheezing Physical Exam Vital Signs: Last Vital Signs Pulse 92 04/10/23 10:53 Pulse Ox 93 04/10/23 10:53 Oxygen Delivery Method Room Air 04/10/23 10:53 BMI result Body Mass Index 39.8 Const General: alert Neck Neck: Yes normal visual inspection, Yes full ROM and Yes no lymphadenopathy Chest Chest palpation & inspection: normal inspection of the chest Resp Effort & Inspection: normal respiratory effort and able to speak in complete sentences Auscultation: no rhonchi, no wheezes and diminished lung sounds Cardio Rate: regular rate Rhythm: regular rhythm Heart sounds: S1 normal heart sound present and S2 normal heart sound present GI Palpation (GI): Soft to palpation and nontender Auscultation: normal bowel sounds Skin General skin exam: rashes and/or lesions noted Immunizations pneumoc 20-quinn conj-dip cr(PF) 0.5 mL IM syringe Performing Provider: Josiah Peña MD Performing Location: [facility] [place] Administered by: Jacinta Torres LPN on 04/10/23 11:16 Dose Route Admin Location Dispensed Lot Number Expiration Date NDC Planning Manager 0.5 mL IM Right Deltoid 0.5 mL [id number] 12/20/23 6058-4387-30 [employer] VIS Given Date VIS Provided VIS Publication Date 04/10/23 Single Vaccine 22 Eligibility Eligibility Date Funding Source Not [facility] Eligible 04/10/23 Private Assessment & Plan Assessment & Plan (1) Asthma: Code(s): J45.909 - Unspecified asthma, uncomplicated Qualifiers: Asthma severity: severe Asthma persistence: persistent Asthma complication type: uncomplicated Qualified Code(s): J45.50 - Severe persistent asthma, uncomplicated (2) Steroid dependence: Code(s): F19.20 - Other psychoactive substance dependence, uncomplicated (3) Compression fracture: (4) Bronchitis: Code(s): J40 - Bronchitis, not specified as acute or chronic (5) Dyspnea: Code(s): R06.00 - Dyspnea, unspecified (6) Myelodysplasia, 5q- syndrome: Code(s): D46.C - 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 consider Tezspire. Holding for now while dealing with the MDS continue Trelegy Short-acting beta agonist as needed Follow-up in 6 months Orders: Orders Pneumococcal 20 Immunization Today Z23 - Encounter for immunization Coding Level of Care Code Est Pt Level 4 (61145) Diagnoses Severe persistent asthma without complication J45.50 Asthma severity: severe Asthma persistence: persistent Asthma complication type: uncomplicated Steroid dependence F19.20 Compression fracture Bronchitis J40 Dyspnea R06.00 Myelodysplasia, 5q- syndrome D46.C Time Spent (min) 16
[2023-04-10 10:53] VITALS: PULSE 92; O2SAT 93; BMI 39.8
== END 2023-04-10 11:17 | disposition home or self-care (01) ==
PROVIDERS: PCP Family Medicine; Visit Provider Hospitalist
DX: J45.50 Severe persistent asthma, uncomplicated (principal); F19.20 Other psychoactive substance dependence, uncomplicated; J40 Bronchitis, not specified as acute or chronic; R06.00 Dyspnea, unspecified; D46.C Myelodysplastic syndrome with isolated del(5q) chromosomal abnormality
CPT/HCPCS: 99214

== ENCOUNTER → 2023-04-10 10:48 | Outpatient (BNVA) | payer MEDICARE, SELFPAY | PROVIDERS: PCP Family Medicine; Visit Provider Hospitalist | DX: J44.9 Chronic obstructive pulmonary disease, unspecified (principal); J45.50 Severe persistent asthma, uncomplicated; J40 Bronchitis, not specified as acute or chronic; R06.00 Dyspnea, unspecified; D46.C Myelodysplastic syndrome with isolated del(5q) chromosomal abnormality; F19.20 Other psychoactive substance dependence, uncomplicated; Z23 Encounter for immunization; Z87.891 Personal history of nicotine dependence; Z79.52 Long term (current) use of systemic steroids | CPT/HCPCS: 90471; 90677; 99212 ==

== ENCOUNTER 2023-06-23 09:31 | Outpatient (AMB) | payer MEDICARE, SELFPAY ==
[2023-06-23 09:48] VITALS: PULSE 89; O2SAT 95; BMI 40.9
--- NOTE | 2023-06-23 09:48 | A.OFFVIS_ITS ---
Intake Vital Signs 06/23/23 09:48 Height 5 ft 3 in Weight 231 lb BMI 40.9 Pulse 89 Pulse Source Pulse Oximeter Pulse Oximetry (%) 95 Oxygen Delivery Method Room Air Intake Visit Reasons: copd Chief Dispatcher Service Required: No Allergies pregabalin Allergy (Severe, Verified 06/23/23 09:50) Manic Sulfa (Sulfonamide Antibiotics) Allergy (Severe, Verified 06/23/23 09:50) Hives HPI HPI Comments History of Present Illness Details The patient is a 68-year-old woman with a known history of severe persistent asthma now steroid dependent. She has tried to come off the prednisone but has been unsuccessful. She also had issues with a vertebral fracture causing significant back pain but that now is better. She continues to use all her respiratory inhalers. More recently she started developing worsening cough productive in nature with yellow sputum. She has been using her rescue inhaler more often as well. Symptoms seem to be worse at nighttime. ? 05/25/2021 the patient is here for a pulmonary follow-up visit. She continues on 10 mg of prednisone. He has been difficult to cut her down because of her significant symptoms. Unfortunately she has had issues with osteopenia and I am concerned that the current use of prednisone is going to result in more complications in the future. We did review her blood work demonstrating significant elevations in her IgE suggesting an allergic component to her asthma. Her eosinophils are normal but, she is on chronic steroids which will affect the eosinophil measurement. Based on her severe persistent asthma and her need for prednisone she will be a good candidate for Dupixent. I will request Dupixent to be started from her pharmacy. In the meantime the patient will start weaning down the prednisone when she is able to start the biologic therapy. The patient has been on prednisone now for many years we have to be very careful in decreasing the steroids slowly and closely monitoring for any symptoms of secondary adrenal insufficiency. 07/27/2021 the patient is here for a pulmonary follow-up visit. Overall the patient has been feeling better now. Initially she cut down the prednisone in addition to starting the Dupixent and she started developing significant bone pain and tingling sensations. Moderate severity. She was unsure if he was cutting down the prednisone or if it was a Dupixent. Now she is doing well on the 8 mg of prednisone and she is tolerating it well. She has not taking that Dupixent as of yet. Now that his symptoms subsided will rechallenge with the Dupixent. If she has recurrent symptoms as stated above then will have to consider being adverse effect from the biologic medication. In the meantime will continue with the prednisone 8 mg. She has been on prednisone for more than 30 years therefore it is likely that she will be able to come off completely. However, just trying to get her to the lowest most effective dose. She does have some dyspnea on exertion. Her pulse ox has been on the low side. She has been complaining of a cough at times. Her exam is relatively normal except for diminished breath sounds. Will have her get a chest x-ray today. 11/29/2021 the patient is here for a pulmonary follow-up visit. Overall the patient has been doing well from a respiratory status. Unfortunately, she could not tolerate the Dupixent. She has subsequently stopped it. She continues to be on prednisone. she has been taking 10 mg daily. She also has been taking Fosamax for her osteoporosis. She is also dealing with significant hyper paresthesias of her upper extremities and neck pain. In addition to sacroiliac discomfort. She is working closely with her physicians regarding these issues. She did undergo an MRI of her cervical spine and a CT scan of her lower back. She still waiting for the results. She continues on the other respiratory medicine. We did talk about other biologics to consider in the future. In concerned that with her osteoporosis the prednisone is going to cause significant have it. She also is going to work on trying to decrease her dose of prednisone to the lowest most effective dose. Ideally around 7.5 Mg. 07/27/2022 the patient is here for sick visit. She has had worsening respiratory symptoms now for little bit more than a week. Started having significant chest tightness and wheezing. She also had a productive cough with dark sputum. She did call the office and she was sent a course of prednisone in addition to levofloxacin. She is now almost completed the levofloxacin and is down to 30 mg of prednisone. However, she is no better still having significant chest tightness and wheezing. Denies any fevers and chills. In the office she was given 2 DuoNeb treatments. He has significantly helped her breathing although she still having significant wheezing. Therefore, she was given 125 mg of Solu-Medrol IM. The patient did benefit from the nebulizer and she does not have an available. I will make when available for her before she is discharged. In addition to that the patient will increase her prednisone to 40 and start doxycycline. If the patient is no better worsen she may need to go to the ER require office for further recommendations. I do not appreciate any focality, but, with her significant symptoms she will have an x-ray before she goes home. 11/10/2022 the patient is here for pulmonary follow-up visit. The patient overall complains of dyspnea on exertion. Even with minimal activity. The patient is having back issues and leg issues and will be getting MRI soon. She does use a walker. The patient complains that her breathing is very limited. Even with minimal things like getting dressed she gets very short of breath breath less. She feels a heaviness in the chest area. She had a full cardiac workup including echocardiogram demonstrating hypertrophy in a nuclear stress test that was reasonable. The patient has been using the new inhaler Trelegy 200 and seems to be working well for her. On examination she does not have any wheezing just diminished breath sounds. I do pre she ate some pale conjunctiva in the patient has not had any recent blood work. I would definitely check her for anemia to make sure that this is not the cause of her underlying shortness of breath as her respiratory exam is relatively normal. Will go ahead and request additional PFTs and she can increase the prednisone some to see if this provides some relief. 04/10/2023 the patient is here for a pulmonary follow-up visit. The patient continues to have fatigue and also headaches and dyspnea on exertion. Moderate in severity. In part this is likely a component of her significant anemia. She has been working closely with Hematology regarding the her myelodysplastic syndrome. She is also on the Procrit. The patient has required multiple transfusions in the past. She did have blood work today demonstrating her hemoglobin now drop below 8. She is going to monitor that closely with her digital research analyst. She also has a follow-up in [place] or [facility] for an evaluation for stem cell therapy. From a respiratory status the patient is responding well to the current respiratory regimen which will continue at this time. 06/23/2023 the patient is here for a pulmonary follow-up visit. She continues to have significant fatigue headaches dizziness and dyspnea on exertion. Unfortunately a lot of her symptoms have to do with her significant anemia and myelodysplastic syndrome. She will be following up with Hematology in [place]. She is also being followed closely here. We did go for brief walking oximetry in her oxygen was actually very very good so therefore oxygen supplementation will not help her situation. Respiratory status breathing well. No significant wheezing. Therefore, the Trelegy is working just fine. She is also on small dose of prednisone. [facility] Medical History Current chronic use of systemic steroids T12 compression fracture Breast calcifications Macular degeneration of both eyes Lumbar spondylolysis Adrenal insufficiency Moderate persistent asthma in adult without complication Anxiety Obstructive sleep apnea Osteoporosis Osteopenia Fibromyalgia GERD (gastroesophageal reflux disease) Hypothyroidism Mixed hyperlipidemia Essential hypertension Morbid obesity Diabetes mellitus, type II Steroid dependence Compression fracture Asthma COPD (chronic obstructive pulmonary disease) Surgical History History of cataract surgery History of left hip replacement History of total right knee replacement (TKR) Family History Father COPD (chronic obstructive pulmonary disease) Mother ASCVD (arteriosclerotic cardiovascular disease) Sister Stented coronary artery Social History Household Members: Spouse Housing: House Patient Tobacco Use Status: Former Tobacco user Tobacco use type: Cigarette Years Smoked: 30 years service: No Current occupational status: retired Review of Systems Const Reports fatigue, Denies fever(s), Reports headache(s), Denies malaise and Denies night sweats ENT Denies change in voice, Reports headache(s), Denies lip swelling, Denies mouth pain, Reports nasal congestion, Reports nasal discharge and Denies tongue swelling Card Denies chest pain, Denies dyspnea and Reports dyspnea on exertion Resp Denies change in phlegm color, Denies chest congestion, Reports cough, Denies dyspnea, Reports dyspnea on exertion and Reports wheezing GI Denies abdominal pain Musc Denies no additional complaints, Reports abnormal gait and Reports back pain Neuro Denies Neuro-related abnormal movements, Reports abnormal gait and Reports headache(s) Psych Denies no additional complaints Endo Reports fatigue Chris/Lymph Denies easy bleeding and Denies lymphadenopathy Aller/Immun Denies lip swelling, Denies tongue swelling and Reports wheezing Physical Exam Vital Signs: Last Vital Signs Pulse 89 06/23/23 09:48 Pulse Ox 95 06/23/23 09:48 Oxygen Delivery Method Room Air 06/23/23 09:48 BMI result Body Mass Index 40.9 Const General: alert Neck Neck: Yes normal visual inspection, Yes full ROM and Yes no lymphadenopathy Chest Chest palpation & inspection: normal inspection of the chest Resp Effort & Inspection: normal respiratory effort and able to speak in complete sentences Auscultation: clear to auscultation bilaterally, no rhonchi and no wheezes Cardio Rate: regular rate Rhythm: regular rhythm Heart sounds: S1 normal heart sound present and S2 normal heart sound present GI Palpation (GI): Soft to palpation and nontender Auscultation: normal bowel sounds Skin General skin exam: rashes and/or lesions noted Assessment & Plan Assessment & Plan (1) Asthma: Code(s): J45.909 - Unspecified asthma, uncomplicated Qualifiers: Asthma complication type: uncomplicated Asthma persistence: persistent Asthma severity: severe Qualified Code(s): J45.50 - Severe persistent asthma, uncomplicated (2) Steroid dependence: Code(s): F19.20 - Other psychoactive substance dependence, uncomplicated (3) Compression fracture: (4) Dyspnea: Code(s): R06.00 - Dyspnea, unspecified (5) Myelodysplasia, 5q- syndrome: Comment: with significant anemia Code(s): D46.C - 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 consider Tezspire. Holding for now while dealing with the MDS continue Trelegy Short-acting beta agonist as needed pain management Follow-up in 6 months Medications: New tramadol 50 mg PO Q8H 10 days PRN 30 tabs 0RF pain Coding Level of Care Code Est Pt Level 4 (54584) Diagnoses Severe persistent asthma without complication J45.50 Asthma complication type: uncomplicated Asthma persistence: persistent Asthma severity: severe Steroid dependence F19.20 Compression fracture Dyspnea R06.00 Myelodysplasia, 5q- syndrome D46.C Time Spent (min) 17
== END 2023-06-23 10:30 | disposition home or self-care (01) ==
PROVIDERS: PCP Family Medicine; Visit Provider Hospitalist
DX: J45.50 Severe persistent asthma, uncomplicated (principal); F19.20 Other psychoactive substance dependence, uncomplicated; R06.00 Dyspnea, unspecified; D46.C Myelodysplastic syndrome with isolated del(5q) chromosomal abnormality
CPT/HCPCS: 99214

== ENCOUNTER → 2023-06-23 09:31 | Outpatient (BNVA) | payer MEDICARE, SELFPAY | PROVIDERS: PCP Family Medicine; Visit Provider Hospitalist | DX: J45.50 Severe persistent asthma, uncomplicated (principal); R06.00 Dyspnea, unspecified; D46.C Myelodysplastic syndrome with isolated del(5q) chromosomal abnormality; F19.20 Other psychoactive substance dependence, uncomplicated | CPT/HCPCS: 99212 ==

== ENCOUNTER → 2023-08-09 09:04 | Outpatient (BNV) | payer MEDICARE, SELFPAY | PROVIDERS: PCP Family Medicine; Visit Provider Internal Medicine | DX: R00.2 Palpitations (principal) | CPT/HCPCS: 93010 ==

== ENCOUNTER 2023-08-10 14:11 | Outpatient (AMB) | payer MEDICARE, SELFPAY ==
--- NOTE | 2023-08-10 15:59 | MHC.OFFVIS ---
Intake Vital Signs 08/10/23 16:01 Height 5 ft 3 in BMI Reason not done Patient refused/unable BP 138/68 Blood Pressure Location Lt brachial Position Sitting Pulse 82 Intake Visit Reasons: Anemia; EKG PACs/Bigeminy Intake Note: PT is following up with [employer] Due to results in EKG PT feels good with no chest pain Allergies pregabalin Allergy (Severe, Verified 07/05/23 09:30) Manic Sulfa (Sulfonamide Antibiotics) Allergy (Severe, Verified 07/05/23 09:30) Hives Medication List - Last Reconciled 08/10/23 by KISHAN Archer albuterol sulfate 2.5 mg (3 mL) inhalation Q6H PRN 30 days alendronate (Fosamax) 70 mg PO QWEEK aspirin (Aspirin Childrens) 81 mg PO DAILY bisacodyl (Dulcolax (bisacodyl)) 20 mg (4 x 5 mg) PO ONCE 1 day cholecalciferol (vitamin D3) 25 mcg PO DAILY dulaglutide (Trulicity) 0.75 mg subcut QWEEK fluticasone propion-salmeterol 115-21 mcg/actuation (Advair HFA) 2 puffs inhalation Q12H 30 days [id number]-ikcgiqjqg-nsioncqc 200-62.5-25 mcg (Trelegy Ellipta) 1 inh inhalation DAILY 30 days folic acid 1 mg PO DAILY gabapentin 800 mg PO BEDTIME gabapentin 400 mg PO .am lenalidomide 10 mg PO DAILY lenalidomide (Revlimid) 10 mg PO DAILY levothyroxine 112 mcg PO DAILY losartan 50 mg PO DAILY meclizine 12.5 mg PO TID PRN metformin 500 mg PO ONCE metformin 1,000 mg PO DAILY nebulizers As directed omeprazole 20 mg PO DAILY ondansetron 8 mg PO Q8H PRN paroxetine HCl 40 mg PO DAILY polyethylene glycol 3350 (Miralax) 238 grams PO ONCE 1 day prednisone 10 mg PO DAILY simvastatin 40 mg PO DAILY tramadol 50 mg PO Q8H PRN 10 days Ventolin HFA 90 mcg/actuation (albuterol sulfate) 2 puffs PO Q4H PRN NS HPI Anemia; EKG PACs/Bigeminy HPI Details Vanessa is a 68-year-old female past medical history of morbid obesity, advanced COPD with steroid dependence, myelodysplastic syndrome, receives regular blood transfusions who was in Oncology yesterday and had elevated heart rate. An EKG was done showing sinus rhythm with atrial bigeminy. She was referred back to cardiology for evaluation. Today she reports that she is feeling good today as she got her blood transfusions yesterday. Prior to the transfusion she notices fatigue and shortness of breath. She has no signs of active bleeding. She denies having any chest discomfort, lightheadedness, presyncope, syncope, PND, orthopnea or edema. She will notice some occasional heart palpitations. No sustained rapid or irregular rates. Taking meds as directed. [facility] Medical History Current chronic use of systemic steroids T12 compression fracture Breast calcifications Macular degeneration of both eyes Lumbar spondylolysis Adrenal insufficiency Moderate persistent asthma in adult without complication Anxiety Obstructive sleep apnea Osteoporosis Osteopenia Fibromyalgia GERD (gastroesophageal reflux disease) Hypothyroidism Mixed hyperlipidemia Essential hypertension Morbid obesity Diabetes mellitus, type II Steroid dependence Compression fracture Asthma COPD (chronic obstructive pulmonary disease) Surgical History History of cataract surgery History of left hip replacement History of total right knee replacement (TKR) Family History Father COPD (chronic obstructive pulmonary disease) Mother ASCVD (arteriosclerotic cardiovascular disease) Sister Stented coronary artery Social History Household Members: Spouse Housing: House Patient Tobacco Use Status: Former Tobacco user Tobacco use type: Cigarette Years Smoked: 30 years service: No Current occupational status: retired Review of Systems Const All systems reviewed & are unremarkable except as noted in HPI and below Denies weakness ENT Denies dizziness Card Denies chest pain, Denies chest pain with activity, Denies syncope, Denies rapid heart rate, Denies pedal edema, Denies edema, Denies leg edema, Denies lightheadedness, Denies palpitations, Denies dyspnea, Reports dyspnea on exertion and Denies orthopnea Resp Denies cough, Denies dyspnea and Reports dyspnea on exertion GI Denies hematochezia and Denies change in stool character Musc Denies abnormal gait, Denies muscle cramps, Denies muscle weakness, Denies numbness, Denies radiating pain into limb and Denies tingling Neuro Denies abnormal gait, Denies dizziness, Denies syncope, Denies numbness, Denies tingling and Denies weakness Endo Denies palpitations Physical Exam Vital Signs: Last Vital Signs Pulse 82 08/10/23 16:01 BP 138/68 08/10/23 16:01 Const General: cooperative, healthy appearing, comfortable and no acute distress Orientation/consciousness: patient oriented x3 Neck Neck: Yes normal visual inspection and Yes no JVD Resp Effort & Inspection: normal respiratory effort Auscultation: clear to auscultation bilaterally, no rales, no rhonchi and no wheezes Cardio Jugular venous distension: no JVD Rate: regular rate and tachycardic Heart sounds: S1 normal heart sound present, S2 normal heart sound present, no murmurs and no rubs Neuro General: patient oriented x3 Extrem General: Yes normal to inspection and No no pedal edema Psych Appearance: grossly normal Mental Status: mental status grossly normal Speech and movement: Normal speech and movement present Office Procedures EKG Details: Today, read by me, sinus rhythm with run of atrial tachycardia, confirmed with Dr. Steward, rate 97, QTC 462 milliseconds [id number], Complete Assessment & Plan Assessment & Plan (1) Atrial tachycardia: Code(s): I47.19 - Other supraventricular tachycardia Plan: Pulse elevated when in Oncology yesterday with anemia and receiving blood transfusions. An EKG showing atrial bigeminy, rate 74. She will notice occasional palpitations however no sustained rapid or irregular rates. On my exam today she is noted to have bursts of rapid heart rate when auscultating heart tones. EKG done confirming runs of we will tachycardia followed by sinus beats. For the most part she is asymptomatic. Reviewed EKG tracings with Dr. Steward and confirmed to be atrial tachycardia. She has no known history of atrial fibrillation. She does have chronic pulmonary issues. An echocardiogram was done 11/08/2022 showing EF 61%, moderate septal and moderate basal asymmetric hypertrophy, normal atria sizes. Will avoid use of beta-lakesha with her advanced COPD. Will start on diltiazem CD 120 mg daily. Will check a Holter monitor to further assess rate and rhythm. Plan to call her with results and adjust medications if warranted. Cardiology office visit 1 month, sooner if needed (2) PAC (premature atrial contraction): Code(s): I49.1 - Atrial premature depolarization Plan: Atrial bigeminy noted on EKG done 08/09/2023 (3) Dyspnea: Code(s): R06.00 - Dyspnea, unspecified Plan: Prior Cardiac evaluation for shortness of breath. She has history of asthma, COPD, steroid dependent. She follows with Dr. Peña for pulmonology. EKG done 10/05/2022 showed sinus tach with T-wave abnormality, rate 103. She had echocardiogram on 11/08/2022 showing EF 61%, moderate septal and moderate basal asymmetric hypertrophy, no report of obstruction, No valve abnormalities. A pharmacological nuclear stress test was done on 11/01/2022 showing normal myocardial perfusion imaging, EF 53%. She has no cardiac history and no reports of any cardiac sounding chest discomfort. Her shortness of breath is chronic and most likely related to COPD. At present no cardiac recommendations with the exception of cardiac risk factor modification. Blood pressure normal range at present. Continue with blood pressure goal ideally less than 130/85. Continue good diabetes control with hemoglobin A1c goal less than 70. Follow closely with pulmonology. (4) COPD (chronic obstructive pulmonary disease): Code(s): J44.9 - Chronic obstructive pulmonary disease, unspecified Plan: As above (5) Anemia: Comment: Anemia, infusion dependent Code(s): D64.9 - Anemia, unspecified Plan: Recent finding of mild anemia. Currently following with Oncology/Hematology. Notes indicate myelodysplastic syndrome. Has symptomatic anemia and is transfusion dependent. Was given blood transfusions yesterday. She has no reported history of bleeding. No need for antibiotic time with atrial tach. If she is noted to have atrial flutter then will need is coagulation use with her labor standards director Dr. Rashid. Plan Time spent on chart review, documentation, interview and assessment Orders: Orders ECG 3 day holter monitor 3 Days I47.19 - Other supraventricular tachycardia, I49.1 - Atrial premature depolarization Medications: New diltiazem HCl 120 mg PO DAILY 30 caps 5RF atorvastatin Replaces Simvastatin which does not go well with Diltiazem 20 mg PO BEDTIME 30 tabs 3RF Coding Level of Care Code Est Pt Level 4 (26824) Diagnoses Atrial tachycardia I47.19 PAC (premature atrial contraction) I49.1 Dyspnea R06.00 COPD (chronic obstructive pulmonary disease) J44.9 Anemia D64.9 CPT Codes EKG - CPT: 11709-[id number], Complete ([id number]) Time Spent (min) 30
[2023-08-10 16:01] VITALS: BP 138/68; PULSE 82
== END 2023-08-10 16:46 | disposition home or self-care (01) ==
PROVIDERS: PCP Family Medicine; Visit Provider Nurse Practitioner Family
DX: R00.0 Tachycardia, unspecified (principal)
CPT/HCPCS: 93010; 99214

== ENCOUNTER → 2023-08-10 14:11 | Outpatient (BNVA) | payer MEDICARE, SELFPAY | PROVIDERS: PCP Family Medicine; Visit Provider Nurse Practitioner Family | DX: I47.19 Other supraventricular tachycardia (principal); I49.1 Atrial premature depolarization; J44.9 Chronic obstructive pulmonary disease, unspecified; D64.9 Anemia, unspecified; R06.00 Dyspnea, unspecified | CPT/HCPCS: 93005; 99212 ==

== ENCOUNTER 2023-09-05 10:23 | Day surgery (SDC) | payer MEDICARE, SELFPAY ==
--- NOTE | ~2023-09-05 | CT_ITS ---
MDS. Oncology requests repeat bone marrow biopsy to assess treatment response. PROCEDURES: 1. Limited preprocedure CT of the pelvis. Permanent images saved in PACS. 2. 11 g bone marrow core biopsy of the right posterior iliac spine 3. 11 g bone marrow aspirate of the right posterior iliac spine CLINICIANS: Rafal Ivory PA-C MEDICATIONS: -Versed 2 mg, Fentanyl 100 mcg, and lidocaine 1% 10 mL SQ -Antibiotics: None -For additional details, please see nursing flowsheet. COMPLICATIONS: None ESTIMATED BLOOD LOSS: < 5 ml CONTRAST: None SPECIMENS: 11 g core placed in formalin. Bone marrow aspirate placed in EDTA and sodium heparin tubes MODERATE SEDATION TIME: 20 min PROCEDURE NOTE: The procedure, risks, benefits, and alternatives were carefully explained to the patient and written informed consent was obtained. The patient was placed prone on the CT table. A timeout was performed. A limited CT of the pelvis was performed to localize posterior iliac spine and choose appropriate needle entry and trajectory. The patient was prepped and draped in usual sterile fashion. The skin, subcutaneous tissues, and periosteum were anesthetized with lidocaine. Under CT guidance, an 11-gauge bone marrow biopsy needle was advanced into the posterior iliac spine, with the tip positioned slightly cephalad. An 11-gauge core biopsy of the bone marrow was performed and was placed in formalin. Next, the 11-gauge bone marrow biopsy needle was then advanced into the posterior iliac spine, under CT guidance, with the tip positioned slightly caudal. A bone marrow aspirate was performed. The specimen was placed in the provided EDTA and sodium heparin tubes. The needle was removed. A dry dressing was applied and secured with Tegaderm. There were no immediate complications. The patient was stable after the procedure and was transferred to the post anesthesia care unit. The procedure was done under moderate sedation with a dedicated nurse for monitoring of vital signs. CT/CT biopsy asp core bone marrow Impression: CT-guided bone marrow biopsy and aspirate This procedure was performed by Rafal Ivory PA-C and supervised by Dr. Bustos.
[2023-09-05 12:03] VITALS: BMI 39.9
[2023-09-05 12:17] LABS: Glucose, Whole Blood 139 mg/dL (60-115)
--- NOTE | 2023-09-05 13:07 | MHC.SHP ---
Pre-Procedural Eval Section A - 24 Hr Update-Section A only Date of Service: 09/05/23 Section B - Complete if H&P > 30 days Chief Complaint: BONE MARROW BIO/ASPIRATION,MYELODYSPLASTIC SYND Details of Present Illness: MDS, assess for treatment response Relevant Family History (Specify if Yes): No Relevant Social History: None Present Medications: see Short Stay Collaborative assessment Medical History: Significant History History of Previous Operations: No relevant previous surgery Allergies: Allergies Allergy/AdvReac Type Severity Reaction Status Date / Time pregabalin Allergy Severe Manic Verified 08/23/23 08:12 Sulfa (Sulfonamide Allergy Severe Hives Verified 08/23/23 08:12 Antibiotics) Review of Systems Sugical H&P ROS: Negative: Cardiovascular, Respiratory and Gastrointestinal Exam Surgical H&P Exam: Normal: Heart, Normal: Lungs, Normal: Skin and Normal: Neurological and Not Evaluated: HEENT Plan Diagnosis/Plan: Unchanged I have reviewed the history and physical and performed a pertinent physical examination on my patient. No changes have occurred unless specified. Time Spent With Patient Time: Total time managing care of this patient today ____ minutes.
[2023-09-05 13:50] VITALS: BP 115/49; PULSE 84; RESP 16; TEMP 37.2; O2SAT 94
[2023-09-05] MEDS: Lidocaine HCl 1 % MPF 30 ML VIAL 15 ML SUBCUT (13:58)
[2023-09-05 14:05] VITALS: BP 104/54; PULSE 80; RESP 16; O2SAT 94
[2023-09-05 14:14] LABS: Bone Marrow SEE SEPARATE REPORT
[2023-09-05 14:15] VITALS: BP 110/26; PULSE 88; RESP 16; TEMP 36.9; O2SAT 94
== END 2023-09-05 14:19 | disposition home or self-care (01) ==
PROVIDERS: Pathology Anatomic Pathology & Clinical Pathology; Radiology Vascular & Interventional Radiology; PCP Family Medicine; Visit Provider Internal Medicine
PROC: (CPT 38221; principal; 2023-09-05 13:00)
DX: D46.C Myelodysplastic syndrome with isolated del(5q) chromosomal abnormality (principal); E11.9 Type 2 diabetes mellitus without complications; I10 Essential (primary) hypertension; E78.2 Mixed hyperlipidemia; J44.9 Chronic obstructive pulmonary disease, unspecified; J45.40 Moderate persistent asthma, uncomplicated; G47.33 Obstructive sleep apnea (adult) (pediatric); Z79.84 Long term (current) use of oral hypoglycemic drugs; Z79.85 Long-term (current) use of injectable non-insulin antidiabetic drugs; Z79.52 Long term (current) use of systemic steroids; Z88.2 Allergy status to sulfonamides; Z88.8 Allergy status to other drugs, medicaments and biological substances; Z98.890 Other specified postprocedural states; Z98.84 Bariatric surgery status; Z87.891 Personal history of nicotine dependence
CPT/HCPCS: 36415; 38222; 81455; 82947; 88184; 88185; 88237; 88264; 88280; 88305; 88311; 88313; 88341; 88342; 99152; J2250; J2310; J3010

== ENCOUNTER → 2023-09-05 13:08 | Outpatient (BNV) | payer MEDICARE, SELFPAY | PROVIDERS: PCP Family Medicine; Visit Provider Physician Assistant Surgical | DX: D46.C Myelodysplastic syndrome with isolated del(5q) chromosomal abnormality (principal) | CPT/HCPCS: 38222; 77012; 99152 ==

== ENCOUNTER 2023-09-18 08:14 | Outpatient (AMB) | payer MEDICARE, SELFPAY ==
[2023-09-18 09:28] VITALS: BP 122/60; PULSE 84
--- NOTE | 2023-09-18 09:28 | MHC.OFFVIS ---
Vital Signs 09/18/23 09:28 Height 5 ft 3 in BP 122/60 Blood Pressure Location Lt brachial Position Sitting Pulse 84 Pulse Source Pulse Oximeter Intake Visit Reasons: 1 month follow-up with ekg [employer] Required: No Allergies pregabalin Allergy (Severe, Verified 09/18/23 09:30) Manic Sulfa (Sulfonamide Antibiotics) Allergy (Severe, Verified 09/18/23 09:30) Hives Medication List - Last Reconciled 09/18/23 by KISHAN Archer albuterol sulfate 2.5 mg (3 mL) inhalation Q6H PRN 30 days alendronate (Fosamax) 70 mg PO QWEEK aspirin (Aspirin Childrens) 81 mg PO DAILY atorvastatin 20 mg PO BEDTIME bisacodyl (Dulcolax (bisacodyl)) 20 mg (4 x 5 mg) PO ONCE 1 day cholecalciferol (vitamin D3) 25 mcg PO DAILY diltiazem HCl CD 120 mg PO DAILY dulaglutide (Trulicity) 0.75 mg subcut QWEEK fluticasone propion-salmeterol 115-21 mcg/actuation (Advair HFA) 2 puffs inhalation Q12H 30 days vjesansraqz-zgnpipjqc-rvddpswm 200-62.5-25 mcg (Trelegy Ellipta) 1 inh inhalation DAILY 30 days folic acid 1 mg PO DAILY gabapentin 800 mg PO BEDTIME gabapentin 400 mg PO .am lenalidomide (Revlimid) 10 mg PO DAILY levothyroxine 112 mcg PO DAILY losartan 50 mg PO DAILY meclizine 12.5 mg PO TID PRN metformin 500 mg PO ONCE metformin 1,000 mg PO DAILY nebulizers As directed omeprazole 20 mg PO DAILY ondansetron 8 mg PO Q8H PRN paroxetine HCl 40 mg PO DAILY polyethylene glycol 3350 (Miralax) 238 grams PO ONCE 1 day prednisone 10 mg PO DAILY tramadol 50 mg PO Q8H PRN 10 days Ventolin HFA 90 mcg/actuation (albuterol sulfate) 2 puffs PO Q4H PRN NS HPI HPI 1 month follow-up with ekg: Details: Vanessa is a 68-year-old female past medical history of morbid obesity, advanced COPD with steroid dependence, myelodysplastic syndrome, receives regular blood transfusions who was in Oncology recently and had elevated heart rate. An EKG was done showing sinus rhythm with atrial bigeminy. She was referred back to cardiology for evaluation. On last visit her EKG did show sinus rhythm with short atrial runs. He was started on diltiazem for heart rate control. A Holter monitor was ordered however not completed as of yet. Today she reports that she is feeling fatigued today. She says she is going to get her blood counts checked after this visit. She frequently has issues with anemia and notices fatigue, shortness of breath. She does not have signs of active bleeding. She denies having any chest discomfort, lightheadedness, presyncope, syncope, PND, orthopnea or edema. She is currently not bothered by heart palpitations. No sustained rapid or irregular rates. Taking meds as directed. [facility] Medical History Current chronic use of systemic steroids T12 compression fracture Breast calcifications Macular degeneration of both eyes Lumbar spondylolysis Adrenal insufficiency Moderate persistent asthma in adult without complication Anxiety Obstructive sleep apnea Osteoporosis Osteopenia Fibromyalgia GERD (gastroesophageal reflux disease) Hypothyroidism Mixed hyperlipidemia Essential hypertension Morbid obesity Diabetes mellitus, type II Steroid dependence Compression fracture Asthma COPD (chronic obstructive pulmonary disease) Surgical History History of cataract surgery History of left hip replacement History of total right knee replacement (TKR) Family History Father COPD (chronic obstructive pulmonary disease) Mother ASCVD (arteriosclerotic cardiovascular disease) Sister Stented coronary artery Social History Household Members: Spouse Housing: House Patient Tobacco Use Status: Former Tobacco user Tobacco use type: Cigarette Years Smoked: 30 years service: No Current occupational status: retired Review of Systems Const All systems reviewed & are unremarkable except as noted in HPI and below ENT Denies dizziness Card Denies chest pain, Denies chest pain at rest, Denies chest pain with activity, Denies rapid heart rate, Denies pedal edema, Denies edema, Reports leg edema, Denies lightheadedness, Denies palpitations, Denies dyspnea, Denies dyspnea on exertion and Denies orthopnea Resp Denies cough, Denies dyspnea and Denies dyspnea on exertion GI Denies hematochezia and Denies change in stool character Musc Denies abnormal gait, Reports limited range of motion, Reports muscle cramps, Denies muscle weakness, Denies numbness, Denies radiating pain into limb, Denies stiffness and Denies tingling Neuro Denies abnormal gait, Denies dizziness, Denies numbness and Denies tingling Endo Denies palpitations Physical Exam Vital Signs: Last Vital Signs Pulse 84 09/18/23 09:28 BP 122/60 09/18/23 09:28 Const General: cooperative, healthy appearing, comfortable and no acute distress Orientation/consciousness: patient oriented x3 Neck Neck: Yes normal visual inspection and Yes no JVD Resp Effort & Inspection: normal respiratory effort Auscultation: clear to auscultation bilaterally, no rales, no rhonchi and no wheezes Cardio Jugular venous distension: no JVD Rate: regular rate and tachycardic Heart sounds: S1 normal heart sound present, S2 normal heart sound present, no murmurs and no rubs Neuro General: patient oriented x3 Extrem General: Yes normal to inspection and No no pedal edema Psych Appearance: grossly normal Mental Status: mental status grossly normal Speech and movement: Normal speech and movement present Office Procedures EKG Details: Today, read by me, sinus rhythm with sinus arrhythmia and PACs, first-degree AV block, nonspecific T-wave abnormality, rate 84, QTC 415 milliseconds [id number], Complete Assessment & Plan Assessment & Plan (1) Atrial tachycardia: Code(s): I47.19 - Other supraventricular tachycardia Category: Medical Plan: Pulse elevated when in Oncology recently with anemia and receiving blood transfusions. An EKG showing atrial bigeminy, rate 74. She reported occasional palpitations however no sustained rapid or irregular rates. On last visit she was noted to have bursts of rapid heart rate when auscultating heart tones. EKG done confirming runs of atrial tachycardia followed by sinus beats. For the most part she is asymptomatic. Reviewed EKG tracings with Dr. Steward and confirmed to be atrial tachycardia. She has no known history of atrial fibrillation. She does have chronic pulmonary issues. An echocardiogram was done 11/08/2022 showing EF 61%, moderate septal and moderate basal asymmetric hypertrophy, normal atria sizes. We avoided use of beta-lakesha with her advanced COPD. She was started on diltiazem CD 120 mg daily. Holter monitor was ordered however not completed as of yet. Today she reports she has not been having heart palpitations. An EKG does show sinus rhythm with frequent PACs, atrial bigeminy pattern noted, rate 84. Blood pressure 122/60. At this time will continue on current diltiazem dose. Will complete the Holter monitor. May need to increase diltiazem to lessen atrial ectopy. Plan to call her with results. Cardiology office visit in 4 months, sooner if needed. (2) PAC (premature atrial contraction): Code(s): I49.1 - Atrial premature depolarization Category: Medical Plan: Atrial bigeminy noted on EKG done 08/09/2023, again on EKG today. (3) Dyspnea: Code(s): R06.00 - Dyspnea, unspecified Category: Medical Plan: Prior Cardiac evaluation for shortness of breath. She has history of asthma, COPD, steroid dependent. She follows with Dr. Peña for pulmonology. EKG done 10/05/2022 showed sinus tach with T-wave abnormality, rate 103. She had echocardiogram on 11/08/2022 showing EF 61%, moderate septal and moderate basal asymmetric hypertrophy, no report of obstruction, No valve abnormalities. A pharmacological nuclear stress test was done on 11/01/2022 showing normal myocardial perfusion imaging, EF 53%. She has no known history of CAD. Her shortness of breath is chronic and most likely related to COPD. Recommend she continue with cardiac risk factor modification. Blood pressure normal range at present. Continue with blood pressure goal ideally less than 130/85. Continue good diabetes control with hemoglobin A1c goal less than 70. Follow closely with pulmonology. (4) COPD (chronic obstructive pulmonary disease): Code(s): J44.9 - Chronic obstructive pulmonary disease, unspecified Category: Medical Plan: As above (5) Anemia: Comment: Anemia, infusion dependent Code(s): D64.9 - Anemia, unspecified Category: Medical Plan: Recent finding of mild anemia. Currently following with Oncology/Hematology. Notes indicate myelodysplastic syndrome. Has symptomatic anemia and is transfusion dependent. She has no reported history of bleeding. No need for anticoagulation with atrial tach. If she is noted to have atrial fibrillation/ flutter then will need to discuss anticoagulation use with her fac engineer Dr. Rashid. Plan Time spent on chart review, documentation, interview and assessment Coding Level of Care Code Est Pt Level 3 (67627) Diagnoses Atrial tachycardia I47.19 PAC (premature atrial contraction) I49.1 Dyspnea R06.00 COPD (chronic obstructive pulmonary disease) J44.9 Anemia D64.9 CPT Codes EKG - CPT: [id number], Complete ([id number]) Time Spent (min) 24
== END 2023-09-18 09:58 | disposition home or self-care (01) ==
PROVIDERS: PCP Family Medicine; Visit Provider Nurse Practitioner Family
DX: I47.19 Other supraventricular tachycardia (principal); I49.1 Atrial premature depolarization; R06.00 Dyspnea, unspecified; J44.9 Chronic obstructive pulmonary disease, unspecified; D64.9 Anemia, unspecified
CPT/HCPCS: 93010; 99213

== ENCOUNTER → 2023-09-18 08:14 | Outpatient (BNVA) | payer MEDICARE, SELFPAY | PROVIDERS: PCP Family Medicine; Visit Provider Nurse Practitioner Family | DX: I47.19 Other supraventricular tachycardia (principal); I49.1 Atrial premature depolarization; J44.9 Chronic obstructive pulmonary disease, unspecified; R06.00 Dyspnea, unspecified; D64.9 Anemia, unspecified; E66.01 Morbid (severe) obesity due to excess calories | CPT/HCPCS: 93005; 99212 ==

== ENCOUNTER → 2023-09-27 08:06 | Outpatient (REF) | payer MEDICARE, SELFPAY ==
--- NOTE | 2023-09-27 08:10 | HM_ITS ---
* Total monitoring time 3 days. * Underlying rhythm is sinus with an average rate of 78/Min. * Frequent supraventricular ectopy with a burden of 12%. Multiple short runs noted. Longest is 1 minute 33 seconds. Maximum rate 136/Min. * Rare ventricular ectopy. * No significant pauses or high grade AV blocks. * Patient marker used in association with sinus rhythm and supraventricular ectopy. * No diary events. MTDD
== END ==
LOC: HO.CARD 08:06
PROVIDERS: PCP Family Medicine; Visit Provider Nurse Practitioner Family
DX: I47.19 Other supraventricular tachycardia (principal); I49.1 Atrial premature depolarization
CPT/HCPCS: 93242

== ENCOUNTER → 2023-09-27 08:10 | Outpatient (BNV) | payer MEDICARE, SELFPAY | PROVIDERS: PCP Family Medicine; Visit Provider Internal Medicine | DX: I47.10 Supraventricular tachycardia, unspecified (principal) | CPT/HCPCS: 93244 ==

== ENCOUNTER 2023-11-22 10:16 | Outpatient (AMB) | payer MEDICARE, SELFPAY ==
[2023-11-22 10:35] VITALS: PULSE 79; O2SAT 94; BMI 40.1
--- NOTE | 2023-11-22 10:35 | A.OFFVIS_ITS ---
Vital Signs 11/22/23 10:35 Height 5 ft 3.5 in Weight 229 lb 15.074 oz BMI 40.1 Pulse 79 Pulse Source Pulse Oximeter Pulse Oximetry (%) 94 Oxygen Delivery Method Room Air Intake Visit Reasons: COPD Unishear Operator Required: No Allergies pregabalin Allergy (Severe, Verified 11/22/23 10:36) Manic Sulfa (Sulfonamide Antibiotics) Allergy (Severe, Verified 11/22/23 10:36) Hives HPI Comments Details: The patient is a 68-year-old woman with a known history of severe persistent asthma now steroid dependent. She has tried to come off the prednisone but has been unsuccessful. She also had issues with a vertebral fracture causing significant back pain but that now is better. She continues to use all her respiratory inhalers. More recently she started developing worsening cough pr oductive in nature with yellow sputum. She has been using her rescue inhaler more often as well. Symptoms seem to be worse at nighttime. ? 05/25/2021 the patient is here for a pulmonary follow-up visit. She continues on 10 mg of prednisone. He has been difficult to cut her down because of her significant symptoms. Unfortunately she has had issues with osteopenia and I am concerned that the current use of prednisone is going to result in more complications in the future. We did review her blood work demonstrating significant elevations in her IgE suggesting an allergic component to her asthma. Her eosinophils are normal but, she is on chronic steroids which will affect the eosinophil measurement. Based on her severe persistent asthma and her need for prednisone she will be a good candidate for Dupixent. I will request Dupixent to be started from her pharmacy. In the meantime the patient will start weaning down the prednisone when she is able to start the biologic therapy. The patient has been on prednisone now for many years we have to be very careful in decreasing the steroids slowly and closely monitoring for any symptoms of secondary adrenal insufficiency. 07/27/2021 the patient is here for a pulmonary follow-up visit. Overall the patient has been feeling better now. Initially she cut down the prednisone in addition to starting the Dupixent and she started developing significant bone pain and tingling sensations. Moderate severity. She was unsure if he was cutting down the prednisone or if it was a Dupixent. Now she is doing well on the 8 mg of prednisone and she is tolerating it well. She has not taking that Dupixent as of yet. Now that his symptoms subsided will rechallenge with the Dupixent. If she has recurrent symptoms as stated above then will have to consider being adverse effect from the biologic medication. In the meantime will continue with the prednisone 8 mg. She has been on prednisone for more than 30 years therefore it is likely that she will be able to come off completely. However, just trying to get her to the lowest most effective dose. She does have some dyspnea on exertion. Her pulse ox has been on the low side. She has been complaining of a cough at times. Her exam is relatively normal except for diminished breath sounds. Will have her get a chest x-ray today. 11/29/2021 the patient is here for a pulmonary follow-up visit. Overall the patient has been doing well from a respiratory status. Unfortunately, she could not tolerate the Dupixent. She has subsequently stopped it. She continue s to be on prednisone. she has been taking 10 mg daily. She also has been taking Fosamax for her osteoporosis. She is also dealing with significant hyper paresthesias of her upper extremities and neck pain. In addition to sacroiliac discomfort. She is working closely with her physicians regarding these issues. She did undergo an MRI of her cervical spine and a CT scan of her lower back. She still waiting for the results. She continues on the other respiratory medicine. We did talk about other biologics to consider in the future. In concerned that with her osteoporosis the prednisone is going to cause significant have it. She also is going to work on trying to decrease her dose of prednisone to the lowest most effective dose. Ideally around 7.5 Mg. 07/27/2022 the patient is here for sick visit. She has had worsening respiratory symptoms now for little bit more than a week. Started having significant chest tightness and wheezing. She also had a productive cough with dark sputum. She did call the office and she was sent a course of prednisone in addition to levofloxacin. She is now almost completed the levofloxacin and is down to 30 mg of prednisone. However, she is no better still having significant chest tightness and wheezing. Denies any fevers and chills. In the office she was given 2 DuoNeb treatments. He has significantly helped her breathing although she still having significant wheezing. Therefore, she was given 125 mg of Solu-Medrol IM. The patient did benefit from the nebulizer and she does not have an available. I will make when available for her before she is discharged. In addition to that the patient will increase her prednisone to 40 and start doxycycline. If the patient is no better worsen she may need to go to the ER require office for further recommendations. I do not appreciate any focality, but, with her significant symptoms she will have an x-ray before she goes home. 11/10/2022 the patient is here for pulmonary follow-up visit. The patient overall complains of dyspnea on exertion. Even with minimal activity. The patient is having back issues and leg issues and will be getting MRI soon. She does use a walker. The patient complains that her breathing is very limited. Even with minimal things like getting dressed she gets very short of breath breath less. She feels a heaviness in the chest area. She had a full cardiac workup including echocardiogram demonstrating hypertrophy in a nuclear stress test that was reasonable. The patient has been using the new inhaler Trelegy 200 and seems to be working well for her. On examination she does not have any wheezing just diminished breath sounds. I do pre she ate some pale conjunctiva in the patient has not had any recent blood work. I would definitely check her for anemia to make sure that this is not the cause of her underlying shortness of breath as her respiratory exam is relatively normal. Will go ahead and request additional PFTs and she can increase the prednisone some to see if this provides some relief. 04/10/2023 the patient is here for a pulmonary follow-up visit. The patient continues to have fatigue and also headaches and dyspnea on exertion. Moderate in severity. In part this is likely a component of her significant anemia. She has been working closely with Hematology regarding the her myelodysplastic syndrome. She is also on the Procrit. The patient has required multiple transfusions in the past. She did have blood work today demonstrating her hemoglobin now drop below 8. 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 She also has a follow-up in [place] or [facility] for an evaluation for stem cell therapy. From a respiratory status the patient is responding well to the current respiratory regimen which will continue at this time. 06/23/2023 the patient is here for a pulmonary follow-up visit. She continues to have significant fatigue headaches dizziness and dyspnea on exertion. Unfortunately a lot of her symptoms have to do with her significant anemia and myelodysplastic syndrome. She will be following up with Hematology in [place]. She is also being followed closely here. We did go for brief walking oximetry in her oxygen was actually very very good so therefore oxygen supplementation will not help her situation. Respiratory status breathing well. No significant wheezing. Therefore, the Trelegy is working just fine. She is also on small dose of prednisone. 11/22/2023 the patient is here for a pulmonary follow-up visit. Overall she is doing better. Seems like her myelodysplastic syndrome has been better controlled with medications. Hemoglobin stable. Therefore she is less short of breath and she has not having any significant headaches. Her main complaint is diarrhea. She is working closely with GI on primary care. I do not see any medications at least will result in diarrhea symptoms that is from a respiratory status. She will continue with the Trelegy. The patient is doing well off the biologics. Asthma stable. She continues on the 10 mg of prednisone without any adverse effects. Otherwise patient is without any other respiratory complaints. Will follow-up in 6-8 months. If she has any problems prior to that she will call for an earlier assessment. [facility] Medical History Current chronic use of systemic steroids T12 compression fracture Breast calcifications Macular degeneration of both eyes Lumbar spondylolysis Adrenal insufficiency Moderate persistent asthma in adult without complication Anxiety Obstructive sleep apnea Osteoporosis Osteopenia Fibromyalgia GERD (gastroesophageal reflux disease) Hypothyroidism Mixed hyperlipidemia Essential hypertension Morbid obesity Diabetes mellitus, type II Steroid dependence Compression fracture Asthma COPD (chronic obstructive pulmonary disease) Surgical History History of cataract surgery History of left hip replacement History of total right knee replacement (TKR) Family History Father COPD (chronic obstructive pulmonary disease) Mother ASCVD (arteriosclerotic cardiovascular disease) Sister Stented coronary artery Social History Household Members: Spouse Housing: House Patient Tobacco Use Status: Former Tobacco user Tobacco use type: Cigarette Years Smoked: 30 years service: No Current occupational status: retired Review of Systems Const Reports fatigue, Denies fever(s), Reports headache(s), Denies malaise and Denies night sweats ENT Denies change in voice, Reports headache(s), Denies lip swelling, Denies mouth pain, Reports nasal congestion, Reports nasal discharge and Denies tongue swelling Card Denies chest pain, Denies dyspnea and Reports dyspnea on exertion Resp Denies change in phlegm color, Denies chest congestion, Reports cough, Denies dyspnea, Reports dyspnea on exertion and Reports wheezing GI Reports as per HPI, Reports diarrhea and Reports loose stools Musc Denies no additional complaints, Reports abnormal gait and Reports back pain Neuro Denies Neuro-related abnormal movements, Reports abnormal gait and Reports headache(s) Psych Denies no additional complaints Endo Reports fatigue Chris/Lymph Denies easy bleeding and Denies lymphadenopathy Aller/Immun Denies lip swelling, Denies tongue swelling and Reports wheezing Physical Exam Vital Signs: Last Vital Signs Pulse 79 11/22/23 10:35 Pulse Ox 94 11/22/23 10:35 Oxygen Delivery Method Room Air 11/22/23 10:35 BMI result Body Mass Index 40.1 Const General: alert Neck Neck: Yes normal visual inspection, Yes full ROM and Yes no lymphadenopathy Chest Chest palpation & inspection: normal inspection of the chest Resp Effort & Inspection: normal respiratory effort and able to speak in complete sentences Auscultation: clear to auscultation bilaterally, no rhonchi and no wheezes Cardio Rate: regular rate Rhythm: regular rhythm Heart sounds: S1 normal heart sound present and S2 normal heart sound present GI Palpation (GI): Soft to palpation and nontender Auscultation: normal bowel sounds Skin General skin exam: rashes and/or lesions noted Assessment & Plan Assessment & Plan (1) Asthma: Code(s): J45.909 - Unspecified asthma, uncomplicated Category: Medical Qualifiers: Asthma complication type: uncomplicated Asthma persistence: persistent Asthma severity: severe Qualified Code(s): J45.50 - Severe persistent asthma, uncomplicated (2) Steroid dependence: Code(s): F19.20 - Other psychoactive substance dependence, uncomplicated Category: Medical (3) Compression fracture: Category: Medical (4) Dyspnea: Code(s): R06.00 - Dyspnea, unspecified Category: Medical Qualifiers: Dyspnea type: dyspnea on exertion Qualified Code(s): R06.09 - Other forms of dyspnea (5) Myelodysplasia, 5q- syndrome: Comment: with significant anemia Code(s): D46.C - Myelodysplastic syndrome with isolated del(5q) chromosomal abnormality Category: Medical Plan continue Prednisone 10mg daily continue Trelegy Short-acting beta agonist as needed pain management Follow-up in 6-8 months Medications: New loperamide (Imodium A-D) administer after each loose stool until symptoms controlled; do not exceed 8 mg per 24 hrs 2 mg PO Q4H PRN 30 caps 3RF Diarrhea Agustina Farr MD cetirizine (Zyrtec) 10 mg PO DAILY 30 tabs 6RF 30 days Josiah Peña MD Coding Level of Care Code Est Pt Level 4 (00287) Diagnoses Severe persistent asthma without complication J45.50 Asthma complication type: uncomplicated Asthma persistence: persistent Asthma severity: severe Steroid dependence F19.20 Compression fracture Dyspnea on exertion R06.09 Dyspnea type: dyspnea on exertion Myelodysplasia, 5q- syndrome D46.C Time Spent (min) 16
== END 2023-11-22 10:58 | disposition home or self-care (01) ==
PROVIDERS: PCP Family Medicine; Visit Provider Hospitalist
DX: J45.50 Severe persistent asthma, uncomplicated (principal); F19.20 Other psychoactive substance dependence, uncomplicated; R06.09 Other forms of dyspnea; D46.C Myelodysplastic syndrome with isolated del(5q) chromosomal abnormality
CPT/HCPCS: 99214

== ENCOUNTER → 2023-11-22 10:16 | Outpatient (BNVA) | payer MEDICARE, SELFPAY | PROVIDERS: PCP Family Medicine; Visit Provider Hospitalist | DX: J44.9 Chronic obstructive pulmonary disease, unspecified (principal); J45.50 Severe persistent asthma, uncomplicated; R19.7 Diarrhea, unspecified; R06.09 Other forms of dyspnea; D46.C Myelodysplastic syndrome with isolated del(5q) chromosomal abnormality; Z87.891 Personal history of nicotine dependence; Z79.52 Long term (current) use of systemic steroids | CPT/HCPCS: 99212 ==

== ENCOUNTER 2024-01-29 13:05 | Outpatient (AMB) | payer MEDICARE, SELFPAY ==
--- NOTE | 2024-01-29 14:03 | MHC.OFFVIS ---
Vital Signs 01/29/24 14:04 Height 5 ft 3.5 in Weight 223 lb BMI 38.9 BP 142/52 H Blood Pressure Location Rt brachial Position Sitting Pulse 67 Pulse Source Pulse Oximeter Intake Visit Reasons: r/s 01/18/24 4 mos followup Hotel Service Supervisor Required: No Allergies pregabalin Allergy (Severe, Verified 01/29/24 14:21) Manic Sulfa (Sulfonamide Antibiotics) Allergy (Severe, Verified 01/29/24 14:21) Hives Medication List - Last Reconciled 01/29/24 by KISHAN Archer albuterol sulfate 2.5 mg (3 mL) inhalation Q6H PRN 30 days alendronate (Fosamax) 70 mg PO QWEEK aspirin (Aspirin Childrens) 81 mg PO DAILY atorvastatin 20 mg PO BEDTIME cetirizine (Zyrtec) 10 mg PO DAILY 30 days cholecalciferol (vitamin D3) 25 mcg PO DAILY ciprofloxacin HCl 500 mg PO BID diltiazem HCl CD 180 mg PO DAILY dulaglutide (Trulicity) 0.75 mg subcut QWEEK fluticasone propion-salmeterol 115-21 mcg/actuation (Advair HFA) 2 puffs inhalation Q12H 30 days zkohjlzhmdo-phwfdgatx-iketazyh 200-62.5-25 mcg (Trelegy Ellipta) 1 inh inhalation DAILY 30 days folic acid 1 mg PO DAILY gabapentin 800 mg PO BEDTIME gabapentin 400 mg PO .am lenalidomide (Revlimid) 10 mg PO DAILY levothyroxine 112 mcg PO DAILY loperamide (Imodium A-D) 2 mg PO Q4H PRN loperamide (Imodium A-D) 2 mg PO Q4H PRN losartan 50 mg PO DAILY meclizine 12.5 mg PO TID PRN metformin 1,000 mg PO .AM metformin 500 mg PO .PM nebulizers As directed omeprazole 20 mg PO DAILY ondansetron 8 mg PO Q8H PRN paroxetine HCl 40 mg PO DAILY prednisone 10 mg PO DAILY tramadol 100 mg PO Q6H PRN Ventolin HFA 90 mcg/actuation (albuterol sulfate) 2 puffs PO Q4H PRN NS HPI HPI r/s 01/18/24 4 mos followup: Details: Vanessa is a 68-year-old female past medical history of morbid obesity, advanced COPD with steroid dependence, myelodysplastic syndrome, receives regular blood transfusions who follows with Oncology, newer finding of atrial tachycardia who presents for follow-up. Today she reports that she was recently admitted to [facility] with weakness and found to have UTI and sepsis. She tells me she is still on antibiotics at this time. She is not fully recovered as she still has weakness and fatigue. She frequently has issues with anemia and notices fatigue, shortness of breath but her last CBC was quite good. She does not have signs of active bleeding. She denies having any chest discomfort, lightheadedness, presyncope, syncope, PND, orthopnea or edema. She is currently not bothered by heart palpitations. No sustained rapid or irregular rates. Taking meds as directed. [facility] Medical History Current chronic use of systemic steroids T12 compression fracture Breast calcifications Macular degeneration of both eyes Lumbar spondylolysis Adrenal insufficiency Moderate persistent asthma in adult without complication Anxiety Obstructive sleep apnea Osteoporosis Osteopenia Fibromyalgia GERD (gastroesophageal reflux disease) Hypothyroidism Mixed hyperlipidemia Essential hypertension Morbid obesity Diabetes mellitus, type II Steroid dependence Compression fracture Asthma COPD (chronic obstructive pulmonary disease) Surgical History History of cataract surgery History of left hip replacement History of total right knee replacement (TKR) Family History Father COPD (chronic obstructive pulmonary disease) Mother ASCVD (arteriosclerotic cardiovascular disease) Sister Stented coronary artery Social History Household Members: Spouse Housing: House Patient Tobacco Use Status: Former Tobacco user Tobacco use type: Cigarette Years Smoked: 30 years service: No Current occupational status: retired Review of Systems Const All systems reviewed & are unremarkable except as noted in HPI and below Reports fatigue and Reports weakness ENT Denies dizziness Card Denies chest pain, Denies chest pain at rest, Denies chest pain with activity, Denies rapid heart rate, Denies pedal edema, Denies edema, Denies leg edema, Denies lightheadedness, Denies palpitations, Denies dyspnea, Denies dyspnea on exertion and Denies orthopnea Resp Denies cough, Denies dyspnea and Denies dyspnea on exertion GI Denies hematochezia and Denies change in stool character Musc Details: hand tremors Denies abnormal gait, Denies limited range of motion, Denies muscle cramps, Denies muscle weakness, Denies numbness, Denies radiating pain into limb, Denies stiffness and Denies tingling Neuro Denies abnormal gait, Denies dizziness, Denies numbness, Denies tingling and Reports weakness Endo Reports fatigue and Denies palpitations Physical Exam Vital Signs: Last Vital Signs Pulse 67 01/29/24 14:04 BP 142/52 H 01/29/24 14:04 BMI result Body Mass Index 38.9 Const General: cooperative, healthy appearing, comfortable and no acute distress Orientation/consciousness: patient oriented x3 Neck Neck: Yes normal visual inspection and Yes no JVD Resp Effort & Inspection: normal respiratory effort Auscultation: clear to auscultation bilaterally, no rales, no rhonchi and no wheezes Cardio Jugular venous distension: no JVD Rate: regular rate and tachycardic Heart sounds: S1 normal heart sound present, S2 normal heart sound present, no murmurs and no rubs Neuro General: patient oriented x3 Extrem Other: hand tremors noted General: No normal to inspection and No no pedal edema Psych Appearance: grossly normal Mental Status: mental status grossly normal Speech and movement: Normal speech and movement present Assessment & Plan Assessment & Plan (1) Atrial tachycardia: Code(s): I47.19 - Other supraventricular tachycardia Category: Medical Plan: Newer finding of short runs of atrial tachycardia. Patient did have symptoms of heart palpitations. She was put on diltiazem for heart rate control. We avoided use of beta-lakesha with her advanced COPD. An echocardiogram was done 11/08/2022 showing EF 61%, moderate septal and moderate basal asymmetric hypertrophy, normal atria sizes. Holter monitor done on 09/27/2023 for 3 days showed sinus rhythm with average heart rate 78, PACs 12% of the time, short runs, longest 1 minute 33 seconds with max heart rate 136. At that time her diltiazem dose was increased to 180 mg daily. Today she reports she has not been having heart palpitations. Pulse is regular on examination. Blood pressure initially mildly elevated at 140 2/52 however recheck done by me 118/48. Will continue on current med management. Cardiology office visit in 6 months, sooner if needed. (2) PAC (premature atrial contraction): Code(s): I49.1 - Atrial premature depolarization Category: Medical Plan: Atrial bigeminy noted on EKG done 08/09/2023. Frequent PACs and brief atrial runs noted on Holter monitor. On diltiazem. (3) Dyspnea: Code(s): R06.00 - Dyspnea, unspecified Category: Medical Qualifiers: Dyspnea type: dyspnea on exertion Qualified Code(s): R06.09 - Other forms of dyspnea Plan: Prior Cardiac evaluation for shortness of breath. She has history of asthma, COPD, steroid dependent. She follows with Dr. Peña for pulmonology. EKG done 10/05/2022 showed sinus tach with T-wave abnormality, rate 103. She had echocardiogram on 11/08/2022 showing EF 61%, moderate septal and moderate basal asymmetric hypertrophy, no report of obstruction, No valve abnormalities. A pharmacological nuclear stress test was done on 11/01/2022 showing normal myocardial perfusion imaging, EF 53%. She has no known history of CAD. Her shortness of breath is chronic and most likely related to COPD. Recommend she continue with cardiac risk factor modification. Blood pressure normal range at present. Continue with blood pressure goal ideally less than 130/85. Continue good diabetes control with hemoglobin A1c goal less than 70. Follow closely with pulmonology. (4) COPD (chronic obstructive pulmonary disease): Code(s): J44.9 - Chronic obstructive pulmonary disease, unspecified Category: Medical Plan: As above (5) Anemia: Comment: Anemia, infusion dependent Code(s): D64.9 - Anemia, unspecified Category: Medical Plan: Recent finding of mild anemia. Currently following with Oncology/Hematology. Notes indicate myelodysplastic syndrome. Has symptomatic anemia and is transfusion dependent. She has no reported history of bleeding. No need for anticoagulation with atrial tach. If she is noted to have atrial fibrillation/ flutter then will need to discuss anticoagulation use with her activities specialist Dr. Rashid. Plan Time spent on chart review, documentation, interview and assessment Coding Level of Care Code Est Pt Level 4 (76239) Diagnoses Atrial tachycardia I47.19 PAC (premature atrial contraction) I49.1 Dyspnea on exertion R06.09 Dyspnea type: dyspnea on exertion COPD (chronic obstructive pulmonary disease) J44.9 Anemia D64.9 Time Spent (min) 28
[2024-01-29 14:04] VITALS: BP 142/52; PULSE 67; BMI 38.9
== END 2024-01-29 14:47 | disposition home or self-care (01) ==
PROVIDERS: PCP Family Medicine; Visit Provider Nurse Practitioner Family
DX: I47.19 Other supraventricular tachycardia (principal); I49.1 Atrial premature depolarization; R06.09 Other forms of dyspnea; J44.9 Chronic obstructive pulmonary disease, unspecified; D64.9 Anemia, unspecified
CPT/HCPCS: 99214

== ENCOUNTER → 2024-01-29 13:05 | Outpatient (BNVA) | payer MEDICARE, SELFPAY | PROVIDERS: PCP Family Medicine; Visit Provider Nurse Practitioner Family | DX: J44.9 Chronic obstructive pulmonary disease, unspecified (principal); I47.19 Other supraventricular tachycardia; I49.1 Atrial premature depolarization; R06.09 Other forms of dyspnea; D64.9 Anemia, unspecified; E66.01 Morbid (severe) obesity due to excess calories; Z79.52 Long term (current) use of systemic steroids; Z68.38 Body mass index [BMI] 38.0-38.9, adult | CPT/HCPCS: 99212 ==

== ENCOUNTER 2024-05-08 11:37 | Outpatient (AMB) | payer MEDICARE, SELFPAY ==
--- OUTSIDE RECORDS SUMMARY | 2024-05-08 11:39 | XMS_ITS | Clinical Summary ---
Author Organization Unknown Care Team Providers Care Bottom P[employer] Name Role Phone MARYANN GOULD, ANTOINE Unavailable Unavailable REY PT, ARIEL Unavailable Unavailable APRIL SECURITY DIRECTOR, [facility] Unavailable Unavailable Payers Payer Name Policy Type Policy Number Effective Date Expira tion Date [facility] [id number] Problems Condition Name Condition Details Condition Category Status Onset Date Resolution Date Last Treatment Date Treating Clinician Comments OTHER CYSTITIS WITHOUT HEMATURIA Active 01-15 00:00: 00 KLEBSIELLA PNEUMONIAE THE CAUSE OF DISEASES CLASSD ELSWHR Active 01-15 00:00: 00 ESSENTIAL (PRIMARY) HYPERTENSION Active 05-22 00:00: 00 TYPE 2 DIABETES MELLITUS WITH DIABETIC CATARACT Active 05-22 00:00: 00 OTHER SPECIFIED CHRONIC OBSTRUCTIVE PULMONARY DISEASE Active 05-22 00:00: 00 OBSTRUCTIVE SLEEP APNEA (ADULT) (PEDIATRIC) Active 05-22 00:00: 00 OBESITY, UNSPECIFIED Active 05-22 00:00: 00 MYELODYSPLAS TIC SYNDROME, UNSPECIFIED Active 05-22 00:00: 00 HYPOTHYROIDI SM, UNSPECIFIED Active 05-22 00:00: 00 ANXIETY DISORDER, UNSPECIFIED Active 05-22 00:00: 00 DEPRESSION, UNSPECIFIED Active 05-22 00:00: 00 HYPERLIPIDEM IA, UNSPECIFIED Active 05-22 00:00: 00 OTH DISRD OF BONE DENSITY AND STRUCTURE, UNSPECIFIED SITE Active 05-22 00:00: 00 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 OF ORAL HYPOGLYCEMIC DRUGS Active 05-22 00:00: 00 LNG TRM (CRNT) USE INJECTABLE NON-INSULIN ANTIDIABETIC DRUGS Active 05-22 00:00: 00 BODY MASS INDEX [BMI]40.0-44 .9, ADULT Active 05-22 00:00: 00 PERSONAL HISTORY OF NICOTINE DEPENDENCE Active 05-22 00:00: 00 Allergies, Adverse Reactions, Alerts Allergy Name Allergy Type Status Severity Reaction(s) Onset Date Inactive Date Treating Clinician Comments PENICILLINS Propensity to adverse reactions Active 01-15 15:41: 02 BACTRIM Propensity to adverse reactions Active 01-15 15:41: 07 LYRICA Propensity to adverse reactions Active 01-15 15:41: 13 BANDAGE ADHESIVE Propensity to adverse reactions Active 01-15 15:41: 24 Medications Ordered Medication Name Filled Medication Name Start Date Stop Date Current Medication? Ordering Clinician Indication Dosage Frequency Signature (SIG) Comments Components cephalexin 500 mg capsule 01-15 00:00: 00 01-17 00:00 :00 No [id number] Per instruc tions Per instructio ns (route: oral) Med Classific ation: Anti-Infe ctive Agents aspirin 81 mg chewable tablet 01-03 00:00: 00 Yes [id number] BLOOD THINNER 1 tablet DAILY 1 tablet DAILY (route: oral) Med Classific ation: Hematolog ical Agents gabapentin 400 mg capsule 01-03 00:00: 00 01-18 09:19 :02.1 23 No [id number] PAIN Per instruc tions 2 TIMES DAILY Per instructio ns 2 TIMES DAILY (route: oral) Med Classific ation: Central Nervous System Agents Trelegy Ellipta 200 mcg-62.5 mcg-25 mcg powder for inhalation 01-03 00:00: 00 01-17 00:00 :00 No [id number] Per instruc tions ONE INHALATION DAILY Per instructio ns ONE INHALATION DAILY (route: inhalation ) Med Classific ation: Respirato ry Therapy Agents metformin 500 mg tablet 12-26 00:00: 00 01-18 09:19 :51.2 No [id number] DM Per instruc tions EVERY EVERY Per instructio ns EVERY EVERY (route: oral) Med Classific ation: Endocrine Revlimid 10 mg capsule 12-18 00:00: 00 Yes [id number] CANCER 1 capsule DAILY 1 capsule DAILY (route: oral) Med Classific ation: Antineopl astics Advair HFA 115 mcg-21 mcg/actuati on aerosol inhaler 01-17 00:00: 00 Yes [id number] COPD 2 puff 2 TIMES DAILY 2 puff 2 TIMES DAILY (route: inhalation ) Med Classific ation: Respirato ry Therapy Agents albuterol sulfate 2.5 mg/3 mL (0.083 %) solution for nebulizatio n 01-17 00:00: 00 Yes [id number] COPD Per instruc tions EVERY 6 HOURS Per instructio ns EVERY 6 HOURS (route: inhalation ) Med Classific ation: Respirato ry Therapy Agents atorvastati n 20 mg tablet 01-17 00:00: 00 Yes [id number] CHOLESTEROL 1 tablet DAILY 1 tablet DAILY (route: oral) Med Classific ation: Cardiovas cular Therapy Agents diltiazem CD 180 mg capsule,ext ended release 24 hr 01-17 00:00: 00 01-18 09:25 :24.2 33 No [id number] HEART DISEASE 1 capsule DAILY 1 capsule DAILY (route: oral) Med Classific ation: Cardiovas cular Therapy Agents folic acid 1 mg tablet 01-17 00:00: 00 Yes [id number] SUPPLEMENT 1 tablet DAILY 1 tablet DAILY (route: oral) Med Classific ation: Electroly te Balance-N utritiona l Products Fosamax 70 mg tablet 01-17 00:00: 00 Yes [id number] OSTEOPOROSI S 1 tablet WEEKLY 1 tablet WEEKLY (route: oral) Med Classific ation: Endocrine levothyroxi ne 112 mcg capsule 01-17 00:00: 00 Yes [id number] THYROID 1 capsule DAILY 1 capsule DAILY (route: oral) Med Classific ation: Endocrine losartan 50 mg tablet 01-17 00:00: 00 01-18 09:25 :51.5 No [id number] BP 1 tablet DAILY 1 tablet DAILY (route: oral) Med Classific ation: Cardiovas cular Therapy Agents meclizine 12.5 mg tablet 01-17 00:00: 00 Yes [id number] DIZZINESS 1 tablet DAILY 1 tablet DAILY (route: oral) Med Classific ation: Gastroint estinal Therapy Agents omeprazole 20 mg capsule,del ayed release 01-17 00:00: 00 Yes [id number] INDIGESTION 1 capsule DAILY 1 capsule DAILY (route: oral) Med Classific ation: Gastroint estinal Therapy Agents paroxetine 40 mg tablet 01-17 00:00: 00 Yes [id number] DEPRESION 1 tablet DAILY 1 tablet DAILY (route: oral) Med Classific ation: Central Nervous System Agents prednisone 10 mg tablet 01-17 00:00: 00 Yes [id number] STEROID 1 tablet DAILY 1 tablet DAILY (route: oral) Med Classific ation: Endocrine tramadol 100 mg tablet 01-17 00:00: 00 Yes [id number] PAIN 1 tablet EVERY 6 HOURS 1 tablet EVERY 6 HOURS (route: oral) Med Classific ation: Analgesic , Anti-infl ammatory or Antipyret ic Trelegy Ellipta 200 mcg-62.5 mcg-25 mcg powder for inhalation 01-17 00:00: 00 Yes [id number] COPD 1 inhalat ion DAILY 1 inhalation DAILY (route: inhalation ) Med Classific ation: Respirato ry Therapy Agents Trulicity 0.75 mg/0.5 mL subcutaneou s pen injector 01-17 00:00: 00 Yes [id number] DM 0.75 mg WEEKLY 0.75 mg WEEKLY (route: subcutaneo us) Alternate Route: SUBCUTANE OUS. Med Classific ation: Endocrine Tylenol Extra Strength 500 mg tablet 01-17 00:00: 00 Yes [id number] PAIN 1-2 tablet EVERY 6 HOURS 1-2 tablet EVERY 6 HOURS (route: oral) Med Classific ation: Analgesic , Anti-infl ammatory or Antipyret ic Vitamin D3 125 mcg (5,000 unit) tablet 01-17 00:00: 00 Yes [id number] SUPPLEMENT 1 tablet DAILY 1 tablet DAILY (route: oral) Med Classific ation: Electroly te Balance-N utritiona l Products Zyrtec 10 mg capsule 01-17 00:00: 00 Yes [id number] ALLERGY 1 capsule DAILY 1 capsule DAILY (route: oral) Med Classific ation: Respirato ry Therapy Agents gabapentin 300 mg capsule 01-15 00:00: 00 Yes [id number] PAIN 1 capsule 3 TIMES DAILY 1 capsule 3 TIMES DAILY (route: oral) Med Classific ation: Central Nervous System Agents glipizide 5 mg tablet 01-15 00:00: 00 Yes [id number] DM 2 tablet 2 TIMES DAILY 2 tablet 2 TIMES DAILY (route: oral) Med Classific ation: Endocrine losartan 25 mg tablet 01-15 00:00: 00 Yes [id number] HTN 1 tablet DAILY 1 tablet DAILY (route: oral) Med Classific ation: Cardiovas cular Therapy Agents albuterol sulfate HFA 90 mcg/actuati on aerosol inhaler 01-15 00:00: 00 Yes [id number] SOB/WHEEZIN G 2 puff 4 TIMES DAILY 2 puff 4 TIMES DAILY (route: inhalation ) Med Classific ation: Respirato ry Therapy Agents metformin 1,000 mg tablet 01-15 00:00: 00 Yes [id number] DM 1 tablet 2 TIMES DAILY 1 tablet 2 TIMES DAILY (route: oral) Med Classific ation: Endocrine Incruse Ellipta 62.5 mcg/actuati on powder for inhalation 01-15 00:00: 00 Yes [id number] COPD 1 inhalat ion DAILY 1 inhalation DAILY (route: inhalation ) Med Classific ation: Respirato ry Therapy Agents ciprofloxac in 500 mg tablet 01-25 00:00: 00 01-31 23:59 :00 No [id number] UTI 1 tablet 2 TIMES DAILY 1 tablet 2 TIMES DAILY (route: oral) Med Classific ation: Anti-Infe ctive Agents Vital Signs Vital Name Observation Time Observation Value Commen ts Temperature 2024-03-01 09:07:00.000 97.4 [degF] Temperature 2024-02-20 10:22:00.000 97.1 [degF] Temperature 2024-02-13 11:03:00.000 97.1 [degF] Temperature 2024-02-06 09:53:00.000 97.5 [degF] Temperature 2024-01-30 10:59:00.000 97.1 [degF] Temperature 2024-01-26 10:31:00.000 97.3 [degF] Temperature 2024-01-24 11:11:00.000 97.3 [degF] Temperature 2024-01-18 08:58:00.000 97.9 [degF] BMI (%) 2024-01-18 08:58:00.000 40 kg/m2 Height 2024-01-18 08:58:00.000 63 [in_us] Pulse 2024-03-01 09:07:00.000 70 /min Pulse 2024-02-20 10:22:00.000 69 /min Pulse 2024-02-13 11:03:00.000 74 /min Pulse 2024-02-06 09:53:00.000 76 /min Pulse 2024-01-30 10:59:00.000 72 /min Pulse 2024-01-26 10:31:00.000 75 /min Pulse 2024-01-24 11:11:00.000 62 /min Pulse 2024-01-18 08:58:00.000 85 /min O2 Saturation (%) 2024-03-01 09:07:00.000 96 % O2 Saturation (%) 2024-02-20 10:22:00.000 96 % O2 Saturation (%) 2024-02-13 11:03:00.000 97 % O2 Saturation (%) 2024-02-06 09:53:00.000 97 % O2 Saturation (%) 2024-01-30 10:59:00.000 96 % O2 Saturation (%) 2024-01-26 10:31:00.000 96 % O2 Saturation (%) 2024-01-24 11:11:00.000 96 % Respirations 2024-03-01 09:07:00.000 16 /min Respirations 2024-02-20 10:22:00.000 18 /min Respirations 2024-02-13 11:03:00.000 16 /min Respirations 2024-02-06 09:53:00.000 16 /min Respirations 2024-01-30 10:59:00.000 18 /min Respirations 2024-01-26 10:31:00.000 18 /min Respirations 2024-01-24 11:11:00.000 18 /min Respirations 2024-01-18 08:58:00.000 18 /min Weight (lbs) 2024-01-18 08:58:00.000 226 [lb_av] Systolic Blood Pressure 2024-03-01 09:07:00.000 138 mm [Hg] Systolic Blood Pressure 2024-02-20 10:22:00.000 138 mm [Hg] Systolic Blood Pressure 2024-02-13 11:03:00.000 132 mm [Hg] Systolic Blood Pressure 2024-02-06 09:53:00.000 140 mm [Hg] Systolic Blood Pressure 2024-01-30 10:59:00.000 120 mm [Hg] Systolic Blood Pressure 2024-01-26 10:31:00.000 120 mm [Hg] Systolic Blood Pressure 2024-01-24 11:11:00.000 130 mm [Hg] Systolic Blood Pressure 2024-01-18 08:58:00.000 126 mm [Hg] Diastolic Blood Pressure 2024-03-01 09:07:00.000 70 mm [Hg] Diastolic Blood Pressure 2024-02-20 10:22:00.000 70 mm [Hg] Diastolic Blood Pressure 2024-02-13 11:03:00.000 60 mm [Hg] Diastolic Blood Pressure 2024-02-06 09:53:00.000 66 mm [Hg] Diastolic Blood Pressure 2024-01-30 10:59:00.000 54 mm [Hg] Diastolic Blood Pressure 2024-01-26 10:31:00.000 60 mm [Hg] Diastolic Blood Pressure 2024-01-24 11:11:00.000 60 mm [Hg] Diastolic Blood Pressure 2024-01-18 08:58:00.000 64 mm [Hg] Plan of Treatment Planned Activity Planned Date Details Comments Future Scheduled Test PT/SECURITY DIRECTOR TO PROVIDE GAIT TRAINING FOR IMPROVED MOBILITY AND /OR TO NORMALIZE GAIT PATTERN [code = PT/SECURITY DIRECTOR TO PROVIDE GAIT TRAINING FOR IMPROVED MOBILITY AND /OR TO NORMALIZE GAIT PATTERN] Future Scheduled Test THERAPEUTI C EXERCISES AND ESTABLISHING A HOME EXERCISE PROGRAM (PT/SECURITY DIRECTOR) [code = THERAPEUTIC EXERCISES AND ESTABLISHING A HOME EXERCISE PROGRAM (PT/SECURITY DIRECTOR)] Future Scheduled Test PT/SECURITY DIRECTOR TO IDENTIFY FALL RISK FACTORS; EDUCATE THE PATIENT/CAREGIVER ON WAYS TO REDUCE FALL RISK FACTORS AND ESTABLISH HOME EXERCISE PROGRAM TO MINIMIZE FALL RISK. MAY TEACH THE PATIENT FLOOR RECOVERY WHEN CLINICALLY APPROPRIATE [code = PT/SECURITY DIRECTOR TO IDENTIFY FALL RISK FACTORS; EDUCATE THE PATIENT/CAREGIVER ON WAYS TO REDUCE FALL RISK FACTORS AND ESTABLISH HOME EXERCISE PROGRAM TO MINIMIZE FALL RISK. MAY TEACH THE PATIENT FLOOR RECOVERY WHEN CLINICALLY APPROPRIATE] Future Scheduled Test PT/SECURITY DIRECTOR TO PROVIDE STAIR TRAINING [code = PT/SECURITY DIRECTOR TO PROVIDE STAIR TRAINING] Future Scheduled Test SIT TO/FRO M STAND TRANSFERS (PT/SECURITY DIRECTOR) [code = SIT TO/FROM STAND TRANSFERS (PT/SECURITY DIRECTOR)] Future Scheduled Test PT / SECURITY DIRECTOR T O MONITOR AND EDUCATE ON OXYGEN SATURATION DURING ADLS/IADLS, NOTIFY PHYSICIAN AND/OR THE RN CLINICAL NETWORK ANNOUNCER FOR PHYSICIAN NOTIFICATION AND IF O2 SATS BELOW PHYSICIAN ORDERED PARAMETERS AFTER 10 MIN OF REST [code = PT / SECURITY DIRECTOR TO MONITOR AND EDUCATE ON OXYGEN SATURATION DURING ADLS/IADLS, NOTIFY PHYSICIAN AND/OR THE RN CLINICAL NETWORK ANNOUNCER FOR PHYSICIAN NOTIFICATION AND IF O2 SATS BELOW PHYSICIAN ORDERED PARAMETERS AFTER 10 MIN OF REST] Future Scheduled Test PT / SECURITY DIRECTOR M AY EDUCATE ON PAIN MANAGEMENT CLINICALLY INDICATED, INCLUDING NON-PHARMACOLOGICAL PAIN REDUCTION TECHNIQUES. [code = PT / SECURITY DIRECTOR MAY EDUCATE ON PAIN MANAGEMENT CLINICALLY INDICATED, INCLUDING NON-PHARMACOLOGICAL PAIN REDUCTION TECHNIQUES.] Future Scheduled Test AGENCY MAY PERFORM A RESUMPTION OF CARE VISIT FOLLOWING ANY HOSPITAL ADMISSION. PT TO EVALUATE, OBSERVE / ASSESS, AND MONITOR, SECURITY DIRECTOR TO OBSERVE AND MONITOR, PROVIDE SKILLED THERAPEUTIC INTERVENTION, ACTIVITY, EDUCATION, AND TRAINING TO ADDRESS; [code = AGENCY MAY PERFORM A RESUMPTION OF CARE VISIT FOLLOWING ANY HOSPITAL ADMISSION. PT TO EVALUATE, OBSERVE / ASSESS, AND MONITOR, SECURITY DIRECTOR TO OBSERVE AND MONITOR, PROVIDE SKILLED THERAPEUTIC INTERVENTION, ACTIVITY, EDUCATION, AND TRAINING TO ADDRESS;] Future Scheduled Test NEUROMUSCU LAR RE-EDUCATION / BALANCE / POSTURAL CONTROL (PT) [code = NEUROMUSCULAR RE-EDUCATION / BALANCE / POSTURAL CONTROL (PT)] Goal 2024-03-01 Patient Goal - I WANT TO GE T STRONGER Goal Provider Goal - PATIENT WILL IMPROVE HOUSEHOLD AMBULATION AND STAIRS FROM CGA AND MINIMAL ASSISTANCE TO INDEPENDENT WITH SPC INCLUDING COMMUNITY ACCESS IN 8 WEEKS TO ALLOW IMPROVED FUNCTIONAL MOBILITY Goal Provider Goal - PATIENT WILL DEMO INDEPENDENT PERFORMANCE OF STANDING HEP AND BALANCE ACTIVITY INCLUDING AMBULATION PROGRAM IN 4 WEEKS TO PROMOTE LE STABILITY AND ACTIVITY TOLERANCE Goal Provider Goal - PT LTG: PATIENT/CAREGIVER WILL DEMONSTRATE ADHERENCE TO FALL REDUCTION SELF-MANAGEMENT AND REDUCING FALL RISK FACTORS TO MINIMIZE FALL RISK BY END OF EPISODE PT LTG: PATIENT WILL BE INDEPENDENT WITH IMPLEMENTATION OF HEP WITHIN 5 WEEKS PT LTG: CAREGIVER WILL BE INDEPENDENT ASSISTING PATIENT TO COMPLETE HEP WITHIN 4 WEEKS Goal Provider Goal - PATIENT WILL IMPROVE HOUSEHOLD TRANSFERS FROM CGA TO INDEPENDENT WITH SPC USE IN 4 WEEKS TO ALLOW SAFE MOBILITY AND HOME ENVIRONMENT Goal Provider Goal - PT LTG: PATIENT WILL MAINTAIN OXYGEN SATURATION WITHIN PHYSICIAN ORDERED PARAMETERS THROUGHOUT EPISODE OF CARE. Goal Provider Goal - PT GOAL: PATIENT WILL DEMONSTRATE UNDERSTANDING OF PAIN MANAGEMENT TECHNIQUES BY END OF EPISODE. Goal Provider Goal - PATIENT WILL IMPROVE TUG SCORE WITH SPC FROM 24 DOWN TO 20 SECONDS AND FIVE TIMES SIT TO STAND FROM 28 TO 20 SECONDS IN 8 WEEKS TO PROMOTE BALANCE INPUT INTEGRATION. Reason for Visit INDEPENDENT WITH USE OF ASSISTIVE DEVICE Encounters Start Date/Time End Date/Time Encounter Type Admission Type Attending [facility] Care Department Encounter ID Discharge Date Discharge Status Discharge Condition Discharge Reason Percent Goals Met 2024-01-18 00:00:00 2024-03-01 00:00:00 Outpatient NEW ADMISSION [facility] [id number] 2024-03-01 00:00:00 DISCHARGE TO HOME OR SELF CARE INDEPENDEN T WITH USE OF ASSISTIVE DEVICE HH OR PAL- GOALS MET 100.00
--- NOTE | 2024-05-08 11:44 | A.OFFVIS_ITS ---
Vital Signs 05/08/24 11:52 Height 5 ft 3.5 in BMI Reason not done Patient refused/unable BP 146/65 H Blood Pressure Location Lt brachial Position Sitting Pulse 88 Intake Visit Reasons: Fecal Incontinence (Previous Patient of [facility] [place]) Intake Note: Vanessa presents in the office as a [facility] patient for Fecal Incontinence. CC: She states that she is here today. She states that she went through cologuard about 3 times and they never came and picked it up but she states that she would rather just do the colonoscopy. She states that she is having both bowel and bladder incontinence. She states there are days she can have 8 BMs and no warning that she will need to go. She wants to talk to you about a possible side effect to a medication that could be causing the diarrhea. She states she takes imodium but she feels she might need to take it daily. Chief [employer] Shelter Required: No Allergies pregabalin Allergy (Severe, Verified 05/08/24 12:09) Manic Sulfa (Sulfonamide Antibiotics) Allergy (Severe, Verified 05/08/24 12:09) Hives HPI Comments Details: 69 y.o F with PMH of MDS on Revlimid who is here to discuss colo for issues as below. 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 However, since starting Revlimid, pt has noticed severe diarrhea with loose watery BMs 2-5 times a day often with urgency. NO abd pain, no blood in stool. No unintentional weight loss. Last colo was > 10 years ago. Diarrhea seems to have been worse the last couple of months and she has therefore reached out to our office. [facility] Medical History Current chronic use of systemic steroids T12 compression fracture Breast calcifications Macular degeneration of both eyes Lumbar spondylolysis Adrenal insufficiency Moderate persistent asthma in adult without complication Anxiety Obstructive sleep apnea Osteoporosis Osteopenia Fibromyalgia GERD (gastroesophageal reflux disease) Hypothyroidism Mixed hyperlipidemia Essential hypertension Morbid obesity Diabetes mellitus, type II Steroid dependence Compression fracture Asthma COPD (chronic obstructive pulmonary disease) Surgical History History of cataract surgery History of left hip replacement History of total right knee replacement (TKR) Family History Father COPD (chronic obstructive pulmonary disease) Mother ASCVD (arteriosclerotic cardiovascular disease) Sister Stented coronary artery Social History Household Members: Spouse Housing: House Patient Tobacco Use Status: Former Tobacco user Tobacco use type: Cigarette Years Smoked: 30 years service: No Current occupational status: retired Review of Systems Const All systems reviewed & are unremarkable except as noted in HPI and below Physical Exam Vital Signs: Last Vital Signs Pulse 88 05/08/24 11:52 BP 146/65 H 05/08/24 11:52 No apparent distress Nonicteric Abdomen soft, nondistended Alert and oriented x3, normal gait Assessment & Plan Assessment & Plan (1) Diarrhea: Code(s): R19.7 - Diarrhea, unspecified Category: Medical (2) Anemia: Code(s): D64.9 - Anemia, unspecified Category: Medical Plan 1. Chronic diarrhea Ddx include med side effect vs IBD vs microscopic colitis vs chronic infection Plan: - Hold off on imodium for now - Labs as below - EGD/colo to be booked - Suprep Rxed as per pt preference. - Can discuss imodium vs cholestyramine if non-infectious, non-inflammatory diarrhea 2. Macrocytic anemia Likely 2/2 MDS. Plan: - Will get iron B12 and folate for any correctable causes Follow up after scopes Orders: Orders Ferritin Today D64.9 - Anemia, unspecified TSH reflex Free T4 Today R19.7 - Diarrhea, unspecified IRON PROFILE Today D64.9 - Anemia, unspecified Vitamin B12 and Folate Today D64.9 - Anemia, unspecified Transglutaminase IgA Today R19.7 - Diarrhea, unspecified Immunoglobulin A Today R19.7 - Diarrhea, unspecified CDiff Gene PCR Today R19.7 - Diarrhea, unspecified Calprotectin, Fecal Today R19.7 - Diarrhea, unspecified C Reactive Protein Today R19.7 - Diarrhea, unspecified Medications: New sodium,potassium,mag sulfates 17.5-3.13-1.6 gram (Suprep Bowel Prep Kit) DILUTE; drink full amount early evening before AND next morning at least 2 hr before procedure; follow w 960 mL water PO 354 mL 0RF Coding Level of Care Code Est Pt Level 4 (28215) Diagnoses Diarrhea R19.7 Anemia D64.9
[2024-05-08 11:52] VITALS: BP 146/65; PULSE 88
== END 2024-05-08 12:56 | disposition home or self-care (01) ==
PROVIDERS: PCP Family Medicine; Visit Provider Internal Medicine
DX: R19.7 Diarrhea, unspecified (principal); D64.9 Anemia, unspecified
CPT/HCPCS: 99214

== ENCOUNTER → 2024-05-08 11:37 | Outpatient (BNVA) | payer MEDICARE, SELFPAY | PROVIDERS: PCP Family Medicine; Visit Provider Internal Medicine | DX: R19.7 Diarrhea, unspecified (principal); D64.9 Anemia, unspecified | CPT/HCPCS: 99212 ==

== ENCOUNTER 2024-05-20 06:30 | Outpatient (REF) | payer MEDICARE, SELFPAY ==
--- OUTSIDE RECORDS SUMMARY | 2024-05-20 06:32 | XMS_ITS | Clinical Summary ---
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 DRUGS Active [...] 01-15 00:00: 00 01-17 00:00 :00 No [id number] Per instruc tions Per instructio ns (route: oral) Med Classific ation: Anti-Infe ctive Agents aspirin 81 mg chewable tablet 01-03 00:00: 00 Yes [id number] BLOOD THINNER 1 tablet DAILY 1 tablet DAILY (route: oral) Med Classific ation: Hematolog ical Agents gabapentin 400 mg capsule 01-03 00:00: 00 01-18 09:19 :02.1 23 No [id number] PAIN Per instruc tions 2 TIMES DAILY Per instructio ns 2 TIMES DAILY (route: oral) Med Classific ation: Central Nervous System Agents Trelegy Ellipta 200 mcg-62.5 mcg-25 mcg powder for inhalation 01-03 00:00: 00 01-17 00:00 :00 No [id number] Per instruc tions ONE INHALATION DAILY Per instructio ns ONE INHALATION DAILY (route: inhalation ) Med Classific ation: Respirato ry Therapy Agents metformin 500 mg tablet 12-26 00:00: 00 01-18 09:19 :51.2 No [id number] DM Per instruc tions EVERY EVERY Per instructio ns EVERY EVERY (route: oral) Med Classific ation: Endocrine Revlimid 10 mg capsule 12-18 00:00: 00 Yes [id number] CANCER 1 capsule DAILY 1 capsule DAILY (route: oral) Med Classific ation: Antineopl astics Advair HFA 115 mcg-21 mcg/actuati on aerosol inhaler 01-17 00:00: 00 Yes [id number] COPD 2 puff 2 TIMES DAILY 2 puff 2 TIMES DAILY (route: inhalation ) Med Classific ation: Respirato ry Therapy Agents albuterol sulfate 2.5 mg/3 mL (0.083 %) solution for nebulizatio n 01-17 00:00: 00 Yes [id number] COPD Per instruc tions EVERY 6 HOURS Per instructio ns EVERY 6 HOURS (route: inhalation ) Med Classific ation: Respirato ry Therapy Agents atorvastati n 20 mg tablet 01-17 00:00: 00 Yes [id number] CHOLESTEROL 1 tablet DAILY 1 tablet DAILY (route: oral) Med Classific ation: Cardiovas cular Therapy Agents diltiazem CD 180 mg capsule,ext ended release 24 hr 01-17 00:00: 00 01-18 09:25 :24.2 33 No [id number] HEART DISEASE 1 capsule DAILY 1 capsule DAILY (route: oral) Med Classific ation: Cardiovas cular Therapy Agents folic acid 1 mg tablet 01-17 00:00: 00 Yes [id number] SUPPLEMENT 1 tablet DAILY 1 tablet DAILY (route: oral) Med Classific ation: Electroly te Balance-N utritiona l Products Fosamax 70 mg tablet 01-17 00:00: 00 Yes [id number] OSTEOPOROSI S 1 tablet WEEKLY 1 tablet WEEKLY (route: oral) Med Classific ation: Endocrine levothyroxi ne 112 mcg capsule 01-17 00:00: 00 Yes [id number] THYROID 1 capsule DAILY 1 capsule DAILY (route: oral) Med Classific ation: Endocrine losartan 50 mg tablet 01-17 00:00: 00 01-18 09:25 :51.5 No [id number] BP 1 tablet DAILY 1 tablet DAILY (route: oral) Med Classific ation: Cardiovas cular Therapy Agents meclizine 12.5 mg tablet 01-17 00:00: 00 Yes [id number] DIZZINESS 1 tablet DAILY 1 tablet DAILY (route: oral) Med Classific ation: Gastroint estinal Therapy Agents omeprazole 20 mg capsule,del ayed release 01-17 00:00: 00 Yes [id number] INDIGESTION 1 capsule DAILY 1 capsule DAILY (route: oral) Med Classific ation: Gastroint estinal Therapy Agents paroxetine 40 mg tablet 01-17 00:00: 00 Yes [id number] DEPRESION 1 tablet DAILY 1 tablet DAILY (route: oral) Med Classific ation: Central Nervous System Agents prednisone 10 mg tablet 01-17 00:00: 00 Yes [id number] STEROID 1 tablet DAILY 1 tablet DAILY (route: oral) Med Classific ation: Endocrine tramadol 100 mg tablet 01-17 00:00: 00 Yes [id number] PAIN 1 tablet EVERY 6 HOURS 1 tablet EVERY 6 HOURS (route: oral) Med Classific ation: Analgesic , Anti-infl ammatory or Antipyret ic Trelegy Ellipta 200 mcg-62.5 mcg-25 mcg powder for inhalation 01-17 00:00: 00 Yes [id number] COPD 1 inhalat ion DAILY 1 inhalation DAILY (route: inhalation ) Med Classific ation: Respirato ry Therapy Agents Trulicity 0.75 mg/0.5 mL subcutaneou s pen injector 01-17 00:00: 00 Yes [id number] DM 0.75 mg WEEKLY 0.75 mg WEEKLY (route: subcutaneo us) Alternate Route: SUBCUTANE OUS. Med Classific ation: Endocrine Tylenol Extra Strength 500 mg tablet 01-17 00:00: 00 Yes [id number] PAIN 1-2 tablet EVERY 6 HOURS 1-2 tablet EVERY 6 HOURS (route: oral) Med Classific ation: Analgesic , Anti-infl ammatory or Antipyret ic Vitamin D3 125 mcg (5,000 unit) tablet 01-17 00:00: 00 Yes [id number] SUPPLEMENT 1 tablet DAILY 1 tablet DAILY (route: oral) Med Classific ation: Electroly te Balance-N utritiona l Products Zyrtec 10 mg capsule 01-17 00:00: 00 Yes [id number] ALLERGY 1 capsule DAILY 1 capsule DAILY (route: oral) Med Classific ation: Respirato ry Therapy Agents gabapentin 300 mg capsule 01-15 00:00: 00 Yes [id number] PAIN 1 capsule 3 TIMES DAILY 1 capsule 3 TIMES DAILY (route: oral) Med Classific ation: Central Nervous System Agents glipizide 5 mg tablet 01-15 00:00: 00 Yes [id number] DM 2 tablet 2 TIMES DAILY 2 tablet 2 TIMES DAILY (route: oral) Med Classific ation: Endocrine losartan 25 mg tablet 01-15 00:00: 00 Yes [id number] HTN 1 tablet DAILY 1 tablet DAILY (route: oral) Med Classific ation: Cardiovas cular Therapy Agents albuterol sulfate HFA 90 mcg/actuati on aerosol inhaler 01-15 00:00: 00 Yes [id number] SOB/WHEEZIN G 2 puff 4 TIMES DAILY 2 puff 4 TIMES DAILY (route: inhalation ) Med Classific ation: Respirato ry Therapy Agents metformin 1,000 mg tablet 01-15 00:00: 00 Yes [id number] DM 1 tablet 2 TIMES DAILY 1 tablet 2 TIMES DAILY (route: oral) Med Classific ation: Endocrine Incruse Ellipta 62.5 mcg/actuati on powder for inhalation 01-15 00:00: 00 Yes [id number] COPD 1 inhalat ion DAILY 1 inhalation DAILY (route: inhalation ) Med Classific ation: Respirato ry Therapy Agents ciprofloxac in 500 mg tablet 01-25 00:00: 00 01-31 23:59 :00 No [id number] UTI 1 tablet 2 TIMES DAILY 1 [...] Planned Date Details Comments Future Scheduled Test PT/FEATHER SEPARATOR TO PROVIDE GAIT TRAINING FOR IMPROVED MOBILITY AND /OR TO NORMALIZE GAIT PATTERN [code = PT/FEATHER SEPARATOR TO PROVIDE GAIT TRAINING FOR IMPROVED MOBILITY AND /OR TO NORMALIZE GAIT PATTERN] Future Scheduled Test THERAPEUTI C EXERCISES AND ESTABLISHING A HOME EXERCISE PROGRAM (PT/FEATHER SEPARATOR) [code = THERAPEUTIC EXERCISES AND ESTABLISHING A HOME EXERCISE PROGRAM (PT/FEATHER SEPARATOR)] Future Scheduled Test PT/FEATHER SEPARATOR TO IDENTIFY FALL RISK FACTORS; EDUCATE THE PATIENT/CAREGIVER ON WAYS TO REDUCE FALL RISK FACTORS AND ESTABLISH HOME EXERCISE PROGRAM TO MINIMIZE FALL RISK. MAY TEACH THE PATIENT FLOOR RECOVERY WHEN CLINICALLY APPROPRIATE [code = PT/FEATHER SEPARATOR TO IDENTIFY FALL RISK FACTORS; EDUCATE THE PATIENT/CAREGIVER ON WAYS TO REDUCE FALL RISK FACTORS AND ESTABLISH HOME EXERCISE PROGRAM TO MINIMIZE FALL RISK. MAY TEACH THE PATIENT FLOOR RECOVERY WHEN CLINICALLY APPROPRIATE] Future Scheduled Test PT/FEATHER SEPARATOR TO PROVIDE STAIR TRAINING [code = PT/FEATHER SEPARATOR TO PROVIDE STAIR TRAINING] Future Scheduled Test SIT TO/FRO M STAND TRANSFERS (PT/FEATHER SEPARATOR) [code = SIT TO/FROM STAND TRANSFERS (PT/FEATHER SEPARATOR)] Future Scheduled Test PT / FEATHER SEPARATOR T O MONITOR AND EDUCATE ON OXYGEN SATURATION DURING ADLS/IADLS, NOTIFY PHYSICIAN AND/OR THE RN CLINICAL SURVEILLANCE OFFICER FOR PHYSICIAN NOTIFICATION AND IF O2 SATS BELOW PHYSICIAN ORDERED PARAMETERS AFTER 10 MIN OF REST [code = PT / FEATHER SEPARATOR TO MONITOR AND EDUCATE ON OXYGEN SATURATION DURING ADLS/IADLS, NOTIFY PHYSICIAN AND/OR THE RN CLINICAL SURVEILLANCE OFFICER FOR PHYSICIAN NOTIFICATION AND IF O2 SATS BELOW PHYSICIAN ORDERED PARAMETERS AFTER 10 MIN OF REST] Future Scheduled Test PT / FEATHER SEPARATOR M AY EDUCATE ON PAIN MANAGEMENT CLINICALLY INDICATED, INCLUDING NON-PHARMACOLOGICAL PAIN REDUCTION TECHNIQUES. [code = PT / FEATHER SEPARATOR MAY EDUCATE ON PAIN MANAGEMENT CLINICALLY INDICATED, INCLUDING NON-PHARMACOLOGICAL PAIN REDUCTION TECHNIQUES.] Future Scheduled Test AGENCY MAY PERFORM A RESUMPTION OF CARE VISIT FOLLOWING ANY HOSPITAL ADMISSION. PT TO EVALUATE, OBSERVE / ASSESS, AND MONITOR, FEATHER SEPARATOR TO OBSERVE AND MONITOR, PROVIDE SKILLED THERAPEUTIC INTERVENTION, ACTIVITY, EDUCATION, AND TRAINING TO ADDRESS; [code = AGENCY MAY PERFORM A RESUMPTION OF CARE VISIT FOLLOWING ANY HOSPITAL ADMISSION. PT TO EVALUATE, OBSERVE / ASSESS, AND MONITOR, FEATHER SEPARATOR TO OBSERVE AND MONITOR, PROVIDE SKILLED THERAPEUTIC [...] End Date/Time Encounter Type Admission Type Attending [facility] Care Department Encounter ID Discharge Date Discharge Status Discharge Condition Discharge Reason Percent Goals Met 2024-01-18 00:00:00 2024-03-01 00:00:00 Outpatient NEW ADMISSION ARIEL LE [facility] [id number] 2024-03-01 00:00:00 DISCHARGE TO HOME OR SELF CARE INDEPENDEN T WITH USE OF ASSISTIVE DEVICE HH OR PAL- GOALS MET 100.00
--- OUTSIDE RECORDS SUMMARY | 2024-05-20 06:33 | XMS_ITS | Clinical Summary ---
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 Active [...] 01-15 00:00: 00 01-17 00:00 :00 No [id number] Per instruc tions Per instructio ns (route: oral) Med Classific ation: Anti-Infe ctive Agents aspirin 81 mg chewable tablet 01-03 00:00: 00 Yes [id number] BLOOD THINNER 1 tablet DAILY 1 tablet DAILY (route: oral) Med Classific ation: Hematolog ical Agents gabapentin 400 mg capsule 01-03 00:00: 00 01-18 09:19 :02.1 23 No [id number] PAIN Per instruc tions 2 TIMES DAILY Per instructio ns 2 TIMES DAILY (route: oral) Med Classific ation: Central Nervous System Agents Trelegy Ellipta 200 mcg-62.5 mcg-25 mcg powder for inhalation 01-03 00:00: 00 01-17 00:00 :00 No [id number] Per instruc tions ONE INHALATION DAILY Per instructio ns ONE INHALATION DAILY (route: inhalation ) Med Classific ation: Respirato ry Therapy Agents metformin 500 mg tablet 12-26 00:00: 00 01-18 09:19 :51.2 No [id number] DM Per instruc tions EVERY EVERY Per instructio ns EVERY EVERY (route: oral) Med Classific ation: Endocrine Revlimid 10 mg capsule 12-18 00:00: 00 Yes [id number] CANCER 1 capsule DAILY 1 capsule DAILY (route: oral) Med Classific ation: Antineopl astics Advair HFA 115 mcg-21 mcg/actuati on aerosol inhaler 01-17 00:00: 00 Yes [id number] COPD 2 puff 2 TIMES DAILY 2 puff 2 TIMES DAILY (route: inhalation ) Med Classific ation: Respirato ry Therapy Agents albuterol sulfate 2.5 mg/3 mL (0.083 %) solution for nebulizatio n 01-17 00:00: 00 Yes [id number] COPD Per instruc tions EVERY 6 HOURS Per instructio ns EVERY 6 HOURS (route: inhalation ) Med Classific ation: Respirato ry Therapy Agents atorvastati n 20 mg tablet 01-17 00:00: 00 Yes [id number] CHOLESTEROL 1 tablet DAILY 1 tablet DAILY (route: oral) Med Classific ation: Cardiovas cular Therapy Agents diltiazem CD 180 mg capsule,ext ended release 24 hr 01-17 00:00: 00 01-18 09:25 :24.2 33 No [id number] HEART DISEASE 1 capsule DAILY 1 capsule DAILY (route: oral) Med Classific ation: Cardiovas cular Therapy Agents folic acid 1 mg tablet 01-17 00:00: 00 Yes [id number] SUPPLEMENT 1 tablet DAILY 1 tablet DAILY (route: oral) Med Classific ation: Electroly te Balance-N utritiona l Products Fosamax 70 mg tablet 01-17 00:00: 00 Yes [id number] OSTEOPOROSI S 1 tablet WEEKLY 1 tablet WEEKLY (route: oral) Med Classific ation: Endocrine levothyroxi ne 112 mcg capsule 01-17 00:00: 00 Yes [id number] THYROID 1 capsule DAILY 1 capsule DAILY (route: oral) Med Classific ation: Endocrine losartan 50 mg tablet 01-17 00:00: 00 01-18 09:25 :51.5 No [id number] BP 1 tablet DAILY 1 tablet DAILY (route: oral) Med Classific ation: Cardiovas cular Therapy Agents meclizine 12.5 mg tablet 01-17 00:00: 00 Yes [id number] DIZZINESS 1 tablet DAILY 1 tablet DAILY (route: oral) Med Classific ation: Gastroint estinal Therapy Agents omeprazole 20 mg capsule,del ayed release 01-17 00:00: 00 Yes [id number] INDIGESTION 1 capsule DAILY 1 capsule DAILY (route: oral) Med Classific ation: Gastroint estinal Therapy Agents paroxetine 40 mg tablet 01-17 00:00: 00 Yes [id number] DEPRESION 1 tablet DAILY 1 tablet DAILY (route: oral) Med Classific ation: Central Nervous System Agents prednisone 10 mg tablet 01-17 00:00: 00 Yes [id number] STEROID 1 tablet DAILY 1 tablet DAILY (route: oral) Med Classific ation: Endocrine tramadol 100 mg tablet 01-17 00:00: 00 Yes [id number] PAIN 1 tablet EVERY 6 HOURS 1 tablet EVERY 6 HOURS (route: oral) Med Classific ation: Analgesic , Anti-infl ammatory or Antipyret ic Trelegy Ellipta 200 mcg-62.5 mcg-25 mcg powder for inhalation 01-17 00:00: 00 Yes [id number] COPD 1 inhalat ion DAILY 1 inhalation DAILY (route: inhalation ) Med Classific ation: Respirato ry Therapy Agents Trulicity 0.75 mg/0.5 mL subcutaneou s pen injector 01-17 00:00: 00 Yes [id number] DM 0.75 mg WEEKLY 0.75 mg WEEKLY (route: subcutaneo us) Alternate Route: SUBCUTANE OUS. Med Classific ation: Endocrine Tylenol Extra Strength 500 mg tablet 01-17 00:00: 00 Yes [id number] PAIN 1-2 tablet EVERY 6 HOURS 1-2 tablet EVERY 6 HOURS (route: oral) Med Classific ation: Analgesic , Anti-infl ammatory or Antipyret ic Vitamin D3 125 mcg (5,000 unit) tablet 01-17 00:00: 00 Yes [id number] SUPPLEMENT 1 tablet DAILY 1 tablet DAILY (route: oral) Med Classific ation: Electroly te Balance-N utritiona l Products Zyrtec 10 mg capsule 01-17 00:00: 00 Yes [id number] ALLERGY 1 capsule DAILY 1 capsule DAILY (route: oral) Med Classific ation: Respirato ry Therapy Agents gabapentin 300 mg capsule 01-15 00:00: 00 Yes [id number] PAIN 1 capsule 3 TIMES DAILY 1 capsule 3 TIMES DAILY (route: oral) Med Classific ation: Central Nervous System Agents glipizide 5 mg tablet 01-15 00:00: 00 Yes [id number] DM 2 tablet 2 TIMES DAILY 2 tablet 2 TIMES DAILY (route: oral) Med Classific ation: Endocrine losartan 25 mg tablet 01-15 00:00: 00 Yes [id number] HTN 1 tablet DAILY 1 tablet DAILY (route: oral) Med Classific ation: Cardiovas cular Therapy Agents albuterol sulfate HFA 90 mcg/actuati on aerosol inhaler 01-15 00:00: 00 Yes [id number] SOB/WHEEZIN G 2 puff 4 TIMES DAILY 2 puff 4 TIMES DAILY (route: inhalation ) Med Classific ation: Respirato ry Therapy Agents metformin 1,000 mg tablet 01-15 00:00: 00 Yes [id number] DM 1 tablet 2 TIMES DAILY 1 tablet 2 TIMES DAILY (route: oral) Med Classific ation: Endocrine Incruse Ellipta 62.5 mcg/actuati on powder for inhalation 01-15 00:00: 00 Yes [id number] COPD 1 inhalat ion DAILY 1 inhalation DAILY (route: inhalation ) Med Classific ation: Respirato ry Therapy Agents ciprofloxac in 500 mg tablet 01-25 00:00: 00 01-31 23:59 :00 No [id number] UTI 1 tablet 2 TIMES DAILY 1 [...] Planned Date Details Comments Future Scheduled Test PT/MEMS DEVICE SCIENTIST TO PROVIDE GAIT TRAINING FOR IMPROVED MOBILITY AND /OR TO NORMALIZE GAIT PATTERN [code = PT/MEMS DEVICE SCIENTIST TO PROVIDE GAIT TRAINING FOR IMPROVED MOBILITY AND /OR TO NORMALIZE GAIT PATTERN] Future Scheduled Test THERAPEUTI C EXERCISES AND ESTABLISHING A HOME EXERCISE PROGRAM (PT/MEMS DEVICE SCIENTIST) [code = THERAPEUTIC EXERCISES AND ESTABLISHING A HOME EXERCISE PROGRAM (PT/MEMS DEVICE SCIENTIST)] Future Scheduled Test PT/MEMS DEVICE SCIENTIST TO IDENTIFY FALL RISK FACTORS; EDUCATE THE PATIENT/CAREGIVER ON WAYS TO REDUCE FALL RISK FACTORS AND ESTABLISH HOME EXERCISE PROGRAM TO MINIMIZE FALL RISK. MAY TEACH THE PATIENT FLOOR RECOVERY WHEN CLINICALLY APPROPRIATE [code = PT/MEMS DEVICE SCIENTIST TO IDENTIFY FALL RISK FACTORS; EDUCATE THE PATIENT/CAREGIVER ON WAYS TO REDUCE FALL RISK FACTORS AND ESTABLISH HOME EXERCISE PROGRAM TO MINIMIZE FALL RISK. MAY TEACH THE PATIENT FLOOR RECOVERY WHEN CLINICALLY APPROPRIATE] Future Scheduled Test PT/MEMS DEVICE SCIENTIST TO PROVIDE STAIR TRAINING [code = PT/MEMS DEVICE SCIENTIST TO PROVIDE STAIR TRAINING] Future Scheduled Test SIT TO/FRO M STAND TRANSFERS (PT/MEMS DEVICE SCIENTIST) [code = SIT TO/FROM STAND TRANSFERS (PT/MEMS DEVICE SCIENTIST)] Future Scheduled Test PT / MEMS DEVICE SCIENTIST T O MONITOR AND EDUCATE ON OXYGEN SATURATION DURING ADLS/IADLS, NOTIFY PHYSICIAN AND/OR THE RN CLINICAL SUPERINTENDENT GENERAL FOR PHYSICIAN NOTIFICATION AND IF O2 SATS BELOW PHYSICIAN ORDERED PARAMETERS AFTER 10 MIN OF REST [code = PT / MEMS DEVICE SCIENTIST TO MONITOR AND EDUCATE ON OXYGEN SATURATION DURING ADLS/IADLS, NOTIFY PHYSICIAN AND/OR THE RN CLINICAL SUPERINTENDENT GENERAL FOR PHYSICIAN NOTIFICATION AND IF O2 SATS BELOW PHYSICIAN ORDERED PARAMETERS AFTER 10 MIN OF REST] Future Scheduled Test PT / MEMS DEVICE SCIENTIST M AY EDUCATE ON PAIN MANAGEMENT CLINICALLY INDICATED, INCLUDING NON-PHARMACOLOGICAL PAIN REDUCTION TECHNIQUES. [code = PT / MEMS DEVICE SCIENTIST MAY EDUCATE ON PAIN MANAGEMENT CLINICALLY INDICATED, INCLUDING NON-PHARMACOLOGICAL PAIN REDUCTION TECHNIQUES.] Future Scheduled Test AGENCY MAY PERFORM A RESUMPTION OF CARE VISIT FOLLOWING ANY HOSPITAL ADMISSION. PT TO EVALUATE, OBSERVE / ASSESS, AND MONITOR, MEMS DEVICE SCIENTIST TO OBSERVE AND MONITOR, PROVIDE SKILLED THERAPEUTIC INTERVENTION, ACTIVITY, EDUCATION, AND TRAINING TO ADDRESS; [code = AGENCY MAY PERFORM A RESUMPTION OF CARE VISIT FOLLOWING ANY HOSPITAL ADMISSION. PT TO EVALUATE, OBSERVE / ASSESS, AND MONITOR, MEMS DEVICE SCIENTIST TO OBSERVE AND MONITOR, PROVIDE SKILLED THERAPEUTIC [...] End Date/Time Encounter Type Admission Type Attending [facility] Care Department Encounter ID Discharge Date Discharge Status Discharge Condition Discharge Reason Percent Goals Met 2024-01-18 00:00:00 2024-03-01 00:00:00 Outpatient NEW ADMISSION ARIEL [facility] [id number] 2024-03-01 00:00:00 DISCHARGE TO HOME OR SELF CARE INDEPENDEN T WITH USE OF ASSISTIVE DEVICE HH OR PAL- GOALS MET 100.00
[2024-05-20 07:58] LABS: C Reactive Protein 0.21 mg/dL (< or = 0.50); Iron 90 mcg/dL (30-160); Percent Iron Saturation 34 % (15-50); Total Iron Binding Capacity 265 mcg/dL (228-428); Unsaturated Iron Binding 175 ug/dL
[2024-05-20 08:13] LABS: Ferritin 802 ng/mL (10-250); TSH reflex Free T4 28.31 uIU/mL (0.32-4.0)
[2024-05-20 08:27] LABS: Folate 8.8 ng/mL (> or = 4.0); Vitamin B12 255 pg/mL (200-900)
[2024-05-20 08:51] LABS: Free T4 (Free Thyroxine) 0.75 ng/dL (0.71-1.85)
[2024-05-20 15:47] LABS: CDiff Gene PCR NEGATIVE (Negative)
[2024-05-21 10:57] LABS: Immunoglobulin A 81 mg/dL (70-320)
[2024-05-21 21:08] LABS: Transglutaminase IgA <1.0 U/mL
[2024-05-25 20:19] LABS: Calprotectin, Fecal 56 mcg/g
== END 2024-05-20 06:31 | disposition home or self-care (01) ==
LOC: HO.LAB 06:30
PROVIDERS: PCP Family Medicine; Visit Provider Internal Medicine
DX: D64.9 Anemia, unspecified (principal); R19.7 Diarrhea, unspecified
CPT/HCPCS: 36415; 82607; 82728; 82746; 82784; 83540; 83993; 84439; 84443; 86140; 86364; 87493

== ENCOUNTER 2024-07-23 11:08 | Day surgery (SDC) | payer MEDICARE, SELFPAY ==
--- NOTE | 2024-07-22 13:52 | P.CONAN_ITS ---
Documented by User: Hillary Pringle NP 07/22/24 13:54 HPI - Anesthesia Eval Consult details Narrative: 69yo F for Upper Endoscopy and Colonoscopy Chronic steroids Anesthesia Pre-Procedure Meds Is the patient on any of the following meds?: GLP1/DPP4 PMFSH Active Problems Active Problems: All Active Problems Diarrhea (Acute) PAC (premature atrial contraction) (Acute) Atrial tachycardia (Acute) Encounter for screening colonoscopy (Acute) Myelodysplasia, 5q- syndrome (Acute) Anemia (Chronic) Blood D-dimer assay positive (Acute) Dyspnea (Acute) Left sided sciatica (Acute) Heart palpitations (Acute) Shortness of breath (Acute) Bronchitis (Acute) Steroid dependence (Acute) Compression fracture (Acute) Asthma (Acute) COPD (chronic obstructive pulmonary disease) (Acute) Past Medical History Medical History Current chronic use of systemic steroids T12 compression fracture Breast calcifications Macular degeneration of both eyes Lumbar spondylolysis Adrenal insufficiency Moderate persistent asthma in adult without complication Anxiety Obstructive sleep apnea Osteoporosis Osteopenia Fibromyalgia GERD (gastroesophageal reflux disease) Hypothyroidism Mixed hyperlipidemia Essential hypertension Morbid obesity Diabetes mellitus, type II Steroid dependence Compression fracture Asthma COPD (chronic obstructive pulmonary disease) Family History Family History Father COPD (chronic obstructive pulmonary disease) Mother ASCVD (arteriosclerotic cardiovascular disease) Sister Stented coronary artery Surgical History Surgical History History of cataract surgery History of left hip replacement History of total right knee replacement (TKR) Social History Social History Household Members: Spouse Housing: House Are you a primary care clinician to a significant other at home: No Do you presently have visiting nurse or other home services: No Patient Tobacco Use Status: Former Tobacco user Tobacco use type: Cigarette Years Smoked: 30 years Have you been hit, kicked, punched, or otherwise hurt by someone within the past year? If so, by whom?: No Are you DNR?: No Advance Directives: No Advance Directives Information Provided: Yes Recently lost weight without trying: No Nutrition Risks: No Nutritional Risk service: No Current occupational status: retired Meds Allergies Allergy/AdvReac Type Severity Reaction Status Date / Time pregabalin Allergy Severe Manic Verified 07/23/24 12:11 Sulfa (Sulfonamide Allergy Severe Hives Verified 07/23/24 12:11 Antibiotics) Home Medications ?Medication ?Instructions ?Recorded ?Confirmed ?Last Taken ?Type alendronate 70 mg tablet (Fosamax) 70 mg PO QWEEK 01/14/21 06/05/24 Unknown History cholecalciferol (vitamin D3) 25 25 mcg PO DAILY 01/14/21 06/05/24 Unknown History mcg (1,000 unit) capsule losartan 50 mg tablet 50 mg PO DAILY 01/14/21 06/05/24 Unknown History omeprazole 20 mg capsule,delayed 20 mg PO DAILY 01/14/21 06/05/24 Unknown History release paroxetine HCl 40 mg tablet 40 mg PO DAILY 01/14/21 06/05/24 Unknown History gabapentin 400 mg capsule 400 mg PO .am 11/10/22 06/05/24 Unknown History gabapentin 800 mg tablet 800 mg PO BEDTIME 11/10/22 06/05/24 Unknown History nebulizers 11/10/22 06/05/24 Unknown History dulaglutide 0.75 mg/0.5 mL 0.75 mg subcut QWEEK 02/28/23 06/05/24 08/22/23 Histo ry subcutaneous pen injector (Trulicity) metformin 1,000 mg tablet 1,000 mg PO .AM 11/22/23 06/05/24 Unknown History metformin 500 mg tablet 500 mg PO .PM 11/22/23 06/05/24 Unknown History cyanocobalamin (vitamin B-12) 1,000 mcg PO DAILY 05/08/24 06/05/24 Unknown History 1,000 mcg tablet folic acid 800 mcg tablet 0.8 mg PO DAILY 05/08/24 06/05/24 Unknown History levothyroxine 112 mcg tablet 112 mcg PO DAILY 05/08/24 06/05/24 Unknown History simvastatin 40 mg tablet 40 mg PO BEDTIME 05/08/24 06/05/24 Unknown History meloxicam 30 mg/mL intravenous 100 mg IV DAILY 06/05/24 06/05/24 Unknown History suspension Exam Pertinent Lab Results Pertinent Lab Results: Laboratory Tests 07/18/24 09:58 WBC 6.9 Hgb 13.4 Hct 40.7 Plt Count 230 D Sodium 138 Potassium 4.3 Chloride 104 Carbon Dioxide 19 L BUN 23 H Creatinine 0.97 Narrative Narrative: Holter 2023 * Total monitoring time 3 days. * Underlying rhythm is sinus with an average rate of 78/Min. * Frequent supraventricular ectopy with a burden of 12%. Multiple short runs noted. Longest is 1 minute 33 seconds. Maximum rate 136/Min. * Rare ventricular ectopy. * No significant pauses or high grade AV blocks. * Patient marker used in association with sinus rhythm and supraventricular ectopy. * No diary events. Assessment and Plan Assessment Anesthesia Assessment: Chart Reviewed Documented by User: Alfonso Alvarado MD 07/23/24 13:19 [facility] Past Medical History Medical History Current chronic use of systemic steroids T12 compression fracture Breast calcifications Macular degeneration of both eyes Lumbar spondylolysis Adrenal insufficiency Moderate persistent asthma in adult without complication Anxiety Obstructive sleep apnea Osteoporosis Osteopenia Fibromyalgia GERD (gastroesophageal reflux disease) Hypothyroidism Mixed hyperlipidemia Essential hypertension Morbid obesity Diabetes mellitus, type II Steroid dependence Compression fracture Asthma COPD (chronic obstructive pulmonary disease) Family History Family History Father COPD (chronic obstructive pulmonary disease) Mother ASCVD (arteriosclerotic cardiovascular disease) Sister Stented coronary artery Family history of problems with anesthesia: No Surgical History Surgical History History of cataract surgery History of left hip replacement History of total right knee replacement (TKR) History of Problems with Anesthesia: No Social History Social History Household Members: Spouse Housing: House Are you a primary care clinician to a significant other at home: No Do you presently have visiting nurse or other home services: No Patient Tobacco Use Status: Former Tobacco user Tobacco use type: Cigarette Years Smoked: 30 years Have you been hit, kicked, punched, or otherwise hurt by someone within the past year? If so, by whom?: No Are you DNR?: No Advance Directives: No Advance Directives Information Provided: Yes Recently lost weight without trying: No Nutrition Risks: No Nutritional Risk service: No Current occupational status: retired Meds Allergies Allergy/AdvReac Type Severity Reaction Status Date / Time pregabalin Allergy Severe Manic Verified 07/23/24 12:11 Sulfa (Sulfonamide Allergy Severe Hives Verified 07/23/24 12:11 Antibiotics) Home Medications ?Medication ?Instructions ?Recorded ?Confirmed ?Last Taken ?Type alendronate 70 mg tablet (Fosamax) 70 mg PO QWEEK 01/14/21 06/05/24 Unknown History cholecalciferol (vitamin D3) 25 25 mcg PO DAILY 01/14/21 06/05/24 Unknown History mcg (1,000 unit) capsule losartan 50 mg tablet 50 mg PO DAILY 01/14/21 06/05/24 Unknown History omeprazole 20 mg capsule,delayed 20 mg PO DAILY 01/14/21 06/05/24 Unknown History release paroxetine HCl 40 mg tablet 40 mg PO DAILY 01/14/21 06/05/24 Unknown History gabapentin 400 mg capsule 400 mg PO .am 11/10/22 06/05/24 Unknown History gabapentin 800 mg tablet 800 mg PO BEDTIME 11/10/22 06/05/24 Unknown History nebulizers 11/10/22 06/05/24 Unknown History dulaglutide 0.75 mg/0.5 mL 0.75 mg subcut QWEEK 02/28/23 06/05/24 08/22/23 History subcutaneous pen injector (Trulicity) metformin 1,000 mg tablet 1,000 mg PO .AM 11/22/23 06/05/24 Unknown History metformin 500 mg tablet 500 mg PO .PM 11/22/23 06/05/24 Unknown History cyanocobalamin (vitamin B-12) 1,000 mcg PO DAILY 05/08/24 06/05/24 Unknown History 1,000 mcg tablet folic acid 800 mcg tablet 0.8 mg PO DAILY 05/08/24 06/05/24 Unknown History levothyroxine 112 mcg tablet 112 mcg PO DAILY 05/08/24 06/05/24 Unknown History simvastatin 40 mg tablet 40 mg PO BEDTIME 05/08/24 06/05/24 Unknown History meloxicam 30 mg/mL intravenous 100 mg IV DAILY 06/05/24 06/05/24 Unknown History suspension Exam Narrative Narrative: Holter 2023 * Total monitoring time 3 days. * Underlying rhythm is sinus with an average rate of 78/Min. * Frequent supraventricular ectopy with a burden of 12%. Multiple short runs noted. Longest is 1 minute 33 seconds. Maximum rate 136/Min. * Rare ventricular ectopy. * No significant pauses or high grade AV blocks. * Patient marker used in association with sinus rhythm and supraventricular ectopy. * No diary events. Preop EKG: New first degree AV block Airway Denture: Upper and Lower Assessment and Plan Assessment Anesthesia Assessment: Anesthesia Plan Discussed Final Anesthetic Review Family History of Problems with Anesthesia: No History of Problems with Anesthesia: No NPO: Yes ASA Class: III Final Preanesthetic Review: No Changes in Pt Med Stat, Meds/Allgs Chart Reviewed, Consent Obtained/Reviewed and Anes Risks/Benef Reviewed Patient Risk: Intermediate Procedure Risk: Low Anesthetic Plan Anesthetic Plan: MAC: Disposition: Standard PACU
[2024-07-23] MEDS: Lactated Ringers 1,000 ML 100 ML IVCONT (11:47)
--- NOTE | 2024-07-23 11:58 | ECG_ITS ---
Test Reason : PREOP Blood Pressure : */* mmHG Vent. Rate : 109 BPM Atrial Rate : 109 BPM P-R Int : 216 ms QRS Dur : 76 ms QT Int : 426 ms P-R-T Axes : 59 16 116 degrees QTcB Int : 573 ms Sinus tachycardia with 1st degree A-V block ST & T wave abnormality, consider lateral ischemia Abnormal ECG When compared with ECG of 09-Aug-2023 09:09, Premature atrial complexes are no longer Present ST now depressed in Anterior leads T wave inversion now evident in Anterior leads QT has lengthened Referred By: Alfonso Alvarado Electronically Signed By: LIANG MCLEAN MD
--- NOTE | 2024-07-23 11:59 | MHC.SHP ---
Pre-Procedural Eval Section A - 24 Hr Update-Section A only Date of Service: 07/23/24 Section B - Complete if H&P > 30 days Chief Complaint: anemia,diarrhea Details of Present Illness: Current chronic use of systemic steroids T12 compression fracture Breast calcifications Macular degeneration of both eyes Lumbar spondylolysis Adrenal insufficiency Moderate persistent asthma in adult without complication Anxiety Obstructive sleep apnea Osteoporosis Osteopenia Fibromyalgia GERD (gastroesophageal reflux disease) Hypothyroidism Mixed hyperlipidemia Essential hypertension Morbid obesity Diabetes mellitus, type II Steroid dependence Compression fracture Asthma COPD (chronic obstructive pulmonary disease) Surgical History History of cataract surgery History of left hip replacement History of total right knee replacement (TKR) Present Medications: see Short Stay Collaborative assessment Allergies: Allergies Allergy/AdvReac Type Severity Reaction Status Date / Time pregabalin Allergy Severe Manic Verified 05/08/24 12:09 Sulfa (Sulfonamide Allergy Severe Hives Verified 05/08/24 12:09 Antibiotics) Review of Systems Review of Systems Comment: Ten point ROS negative Exam Exam Comment: Gen appear: No acute distress HEENT: no icterus Chest: No overt resp distress Abd: soft, nontender, nondistended Psych: Stable affect, answering questions appropriately Neuro: A/Ox3 noted to move all extremities spontaneously Ext: no peripheral edema Plan Diagnosis/Plan: Unchanged I have reviewed the history and physical and performed a pertinent physical examination on my patient. No changes have occurred unless specified. Time Spent With Patient Time: Total time managing care of this patient today ____ minutes.
[2024-07-23 12:00] VITALS: BP 174/82; PULSE 109; RESP 18; TEMP 36.6; O2SAT 97
[2024-07-23 12:24] VITALS: BP 157/76
[2024-07-23 12:26] VITALS: BMI 40.0
[2024-07-23 12:36] LABS: Glucose, Whole Blood 203 mg/dL (60-115)
--- NOTE | 2024-07-23 13:25 | P.OPN-COLO_ITS ---
Colonoscopy Operative Note Operative Note Date of Service: 07/23/24 Narrative: Procedure: Upper endoscopy and colonoscopy Indication: Chronic diarrhea, anemia Endoscopist: Joan Kirkpatrick MD Anesthesia Provider: Dr Alfonso Alvarado Anesthesia type: MAC Instrument: [id number] and [id number] EGD Procedure:?? The procedure, indications, preparation and potential complications were reviewed with the patient, who indicated understanding and gave written informed consent to proceed. The endoscope was introduced through the mouth, and advanced to the 2nd part of the duodenum. The mucosa was carefully examined on slow withdrawal of the endoscope. The patient tolerated the procedure well. There were no immediate complications.? EGD Findings:? * Esophagus:? Normal esophageal mucosa was noted. The Z-line was at 36 cm and displaced upwards due to hiatal hernia with the diaphragmatic hiatus at 39 cm. There were small linear erosions present within the hiatal hernia consistent with Sourav erosions. * Stomach:?Erythema and erosions present in antrum. Retroflexion was performed in the cardia that showed Hill grade III hiatal hernia. Random cold forceps biopsies were taken from the stomach. * Duodenum:? Normal duodenal mucosa. Cold forceps biopsies were taken from the duodenal bulb and 2nd portion of the duodenum to rule out celiac sprue. Colonoscopy Procedure:? The patient was then turned for the colonoscopy. A digital rectal exam was performed which was normal.? A distal attachment cap was affixed to the tip of the scope and the colonoscope was then inserted through the anus and advanced through the colon and advanced to the cecum at 80 cm and terminal ileum.? Appendiceal orifice and ileocecal valve were identified. Mucosa was carefully examined under high definition white light as the instrument was slowly withdrawn in a retrograde panoramic fashion. Retroflexion was performed in rectum. The procedure was not difficult. The quality of the prep was BBPS: 3+2+3 = adequate Withdrawal time 30 minutes Limitations: No limitations Findings: Mucosa: Normal colon and terminal ileum mucosa. Cold forceps biopsies were taken right and left side of the colon to rule out microscopic colitis. Protruding lesions: * 2 sessile polyps of size 3-6 mm in cecum. The small polyp was removed with cold forceps and cold snare polypectomy was performed for the larger polyp. The polyps were completely removed and retrieved. * 1 sessile polyp of size 8 mm present in transverse colon. Cold snare polypectomy was performed. The polyps were completely removed and retrieved. * 4 sessile polyps of size 2-6 mm in sigmoid colon. Cold snare polypectomy was performed. The polyps were completely removed and retrieved. * Medium internal hemorrhoids without stigmata of recent bleeding. Impression: 1. Normal esophageal mucosa 2. Hiatal hernia 3. Sourav erosions 4. Gastritis (biopsy) 5. Normal duodenum (biopsy) 6. Normal colon and terminal ileum mucosa (biopsy) 7. Total of 7 polyps removed 8. Internal hemorrhoids Recommendations:?? * Follow-up path results * Avoid NSAIDs * Continue omeprazole * H Pylori treatment if biopsies + * Repeat colonoscopy for CRC screening in 3 years if at least 3 polyps are adenoma
[2024-07-23 13:35] VITALS: BP 127/71; PULSE 79; RESP 18; TEMP 36.1; O2SAT 98
[2024-07-23 13:50] VITALS: BP 120/80; PULSE 92; RESP 18; TEMP 36.1; O2SAT 96
== END 2024-07-23 14:51 | disposition home or self-care (01) ==
PROVIDERS: PCP Family Medicine; Visit Provider Internal Medicine
PROC: (CPT 45385; principal; 2024-07-23 12:00)
DX: R19.7 Diarrhea, unspecified (principal); D46.9 Myelodysplastic syndrome, unspecified; D12.0 Benign neoplasm of cecum; D12.3 Benign neoplasm of transverse colon; D12.5 Benign neoplasm of sigmoid colon; K64.8 Other hemorrhoids; K44.9 Diaphragmatic hernia without obstruction or gangrene; K29.50 Unspecified chronic gastritis without bleeding; K25.9 Gastric ulcer, unspecified as acute or chronic, without hemorrhage or perforation; I10 Essential (primary) hypertension; E27.40 Unspecified adrenocortical insufficiency; E78.2 Mixed hyperlipidemia; E11.9 Type 2 diabetes mellitus without complications; E66.01 Morbid (severe) obesity due to excess calories; M79.7 Fibromyalgia; M81.0 Age-related osteoporosis without current pathological fracture; J44.9 Chronic obstructive pulmonary disease, unspecified; J45.40 Moderate persistent asthma, uncomplicated; Z79.52 Long term (current) use of systemic steroids; Z79.51 Long term (current) use of inhaled steroids; Z79.84 Long term (current) use of oral hypoglycemic drugs; Z79.85 Long-term (current) use of injectable non-insulin antidiabetic drugs; Z79.899 Other long term (current) drug therapy; Z88.2 Allergy status to sulfonamides; Z98.890 Other specified postprocedural states; Z87.891 Personal history of nicotine dependence
CPT/HCPCS: 45385; 45380; 43239; 82947; 88305; 88342; 93005; J2003; J2704

== ENCOUNTER → 2024-07-23 11:08 | Outpatient (BNV) | payer MEDICARE, SELFPAY | PROVIDERS: PCP Family Medicine; Visit Provider Internal Medicine | DX: D64.9 Anemia, unspecified (principal); K52.9 Noninfective gastroenteritis and colitis, unspecified; D12.0 Benign neoplasm of cecum; D12.3 Benign neoplasm of transverse colon; D12.5 Benign neoplasm of sigmoid colon; K64.8 Other hemorrhoids; K25.9 Gastric ulcer, unspecified as acute or chronic, without hemorrhage or perforation; K29.70 Gastritis, unspecified, without bleeding | CPT/HCPCS: 43239; 45380; 45385 ==

== ENCOUNTER → 2024-07-23 11:58 | Outpatient (BNV) | payer MEDICARE, SELFPAY | PROVIDERS: PCP Family Medicine; Visit Provider Internal Medicine Cardiovascular Disease | DX: I44.0 Atrioventricular block, first degree (principal); R00.0 Tachycardia, unspecified | CPT/HCPCS: 93010 ==

== ENCOUNTER 2024-09-12 14:56 | Inpatient (IN) | payer MEDICARE, SELFPAY ==
--- NOTE | ~2024-09-12 | US_ITS ---
CLINICAL HISTORY: pain VENOUS DUPLEX ULTRASOUND RIGHT UPPER EXTREMITY Comparison: None Findings: Accessible deep venous segments are fully compressible with normal Doppler color flow and spectral tracings. Accessible basilic and cephalic veins which are part of the superficial system are also patent. IMPRESSION: 1. Negative for right upper extremity deep vein thrombosis. This document has been electronically signed by: Anyi Kenny DO on 09/12/2024 18:18:05
--- NOTE | ~2024-09-12 | CT_ITS ---
CLINICAL HISTORY: fall CT CERVICAL SPINE WITHOUT CONTRAST Comparison: None Findings: Vertebral alignment is within normal limits. Advanced degenerative changes. No acute fractures or dislocations. There is pannus formation around the dens which can be seen in the setting of rheumatoid arthritis. Visualized intracranial contents are unremarkable. No cervical fluid collections or masses. Dense vertebral and carotid artery calcifications. IMPRESSION: No acute fracture in the cervical spine. This document has been electronically signed by: Anyi Kenny DO on 09/12/2024 20:55:55
--- NOTE | ~2024-09-12 | CT_ITS ---
EXAMINATION: CT SHOULDER WITHOUT CONTRAST, RIGHT CLINICAL INFORMATION: Severe pain. COMPARISON: No prior CT. Radiographs right shoulder 09/12/2024. TECHNIQUE: Spiral CT imaging of the right shoulder spine performed in axial plane without contrast. Multiplanar reformatted images were constructed from the axial data set. This CT examination was performed using dose optimization techniques as appropriate, variously including the following: *Automated exposure control *Adjustment of mA and/or kV according to patient size (this includes techniques or standardized protocols for targeted exams where dose is matched to indication/reason for exam; i.e. extremities or head) *Use of iterative reconstruction technique FINDINGS: No acute bony fracture identified. There is a healed impacted fracture of the surgical neck of the right humerus. Severe degenerative arthrosis of the glenohumeral joint with complete cartilage loss, [id number] appearance. There are subchondral cystic changes and sclerotic changes within both the humeral head and glenoid. There is bony remodeling of the glenoid fossa. There is moderate spurring of the AC joint both superiorly and inferiorly. There is complete loss of the subacromial space indicating full thickness supraspinatus rotator cuff tear. There is atrophy of the supraspinatus muscle. There is a joint effusion of the right shoulder, with fluid in the bursal spaces as well. There are subtle calcifications within these fluid collections, indicating most likely hydroxyapatite deposition. 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 There may be associated calcific tendinopathy of the remaining rotator cuff tendons. There is severe degenerative arthropathy of the right sternoclavicular joint. Partially imaged degenerative spondylosis of the cervical spine. CT/CT shoulder RT wo IV con IMPRESSION: 1. No acute fracture or acute bony abnormality. 2. End-stage arthrosis right glenohumeral joint, [id number] appearance with subchondral cystic changes and sclerosis. There is bony remodeling of the glenoid. Severe arthrosis of the AC joint as well. 3. There is a healed impacted fracture of the surgical neck of the humerus. 4. There is a joint effusion and there are bursal fluid collections, both with subtle calcifications within, findings suggesting CPPD arthrosis and related calcific bursitis. 5. There is total loss of the subacromial space indicating full thickness rotator cuff tearing. Electronically signed by: Alen Ames MD 09/16/2024 10:55 AM EDT RP
--- NOTE | ~2024-09-12 | CT_ITS ---
CLINICAL HISTORY: fall CT HEAD WITHOUT CONTRAST Comparison: None Findings: Despite multiple attempts at image acquisition, there is extensive motion artifact limiting evaluation. No definite intracranial hemorrhage. No hydrocephalus or midline shift. Age appropriate generalized parenchymal atrophy. There are periventricular and subcortical white matter hypodensities which are most likely related to microangiopathic gliosis. Intracranial arteriosclerosis. No definite sinus or mastoid fluid. Visualized orbits: Bilateral aphakia. Nondiagnostic for a skull fracture. IMPRESSION: 1. Image degradation secondary to extensive motion artifact with no definite intracranial hemorrhage where visualized. 2. If pathology remains suspect, might consider repeat imaging when the patient is better able to cooperate or after sedation. This document has been electronically signed by: Anyi Kenny DO on 09/12/2024 20:53:15
--- NOTE | ~2024-09-12 | XR_ITS ---
EXAMINATION: XR SHOULDER, RIGHT CLINICAL INFORMATION: pain COMPARISON: None available. TECHNIQUE: AP external rotation, Grashey, scapular Y, and axillary views of the right shoulder. FINDINGS: Old healed fracture deformity of the surgical neck. No acute fracture, dislocation, or suspicious bone lesion. Normal alignment. The glenohumeral joint demonstrates moderate to advanced degenerative arthrosis. The AC joint demonstrates moderate predominantly undersurface spurring. There is a type II acromion. Mild undersurface spurring. Mild narrowing of the subacromial space. Remainder of the soft tissue and bony structures appear normal. XR/XR shoulder RT min 2V IMPRESSION: No acute findings of the right shoulder. Chronic findings as discussed. Electronically signed by: Alen Ames MD 09/12/2024 04:20 PM EDT
--- NOTE | ~2024-09-12 | XR_ITS ---
CLINICAL HISTORY: tachy 1 view chest x-ray Comparison: CR/SR - XR CHEST 2V - 07/27/22 11:43 EST Findings: No consolidation, pleural effusion or pneumothorax. Borderline heart size. No CHF. Advanced degenerative changes in the bilateral shoulders. Questionable distal left claviculectomy. Nodular densities in the left hemithorax probably related to callus in multiple old rib fractures. IMPRESSION: No acute cardiopulmonary process. This document has been electronically signed by: Anyi Kenny DO on 09/12/2024 17:59:33
--- NOTE | ~2024-09-12 | CT_ITS ---
CLINICAL HISTORY: rule out PE CT ANGIOGRAPHY CHEST WITH CONTRAST. 3D POSTPROCESSING. Comparison: CT/SR - CT ANGIO CHEST PE PROTOCOL - 10/07/22 11:25 EDT Findings: The heart size is upper limits of normal. RV/LV ratio is normal. No significant pericardial effusion. Atherosclerotic changes in the thoracic aorta. No aneurysm or dissection. No acute pulmonary embolus. Surgically absent or atrophic thyroid gland. No lymphadenopathy. Small hiatal hernia. Bilateral lower lobe opacities, right greater than left. Mild right upper lobe scarring. No consolidation, pleural effusion or pneumothorax. Gastric lap band artifact. Multiple old rib fractures. Chronic T12 compression fracture. IMPRESSION: 1. Respiratory motion artifact with no definite pulmonary embolus. 2. Bilateral lower lobe atelectasis and/or infiltrates, right greater than left. This document has been electronically signed by: Anyi Kenny DO on 09/12/2024 21:03:13
--- NOTE | ~2024-09-12 | XR_ITS ---
EXAMINATION: XR ELBOW 1-2 VIEWS RIGHT, XR HUMERUS RIGHT HISTORY: right arm pain COMPARISON: Comparison is made with the prior examination of the right shoulder dated 09/12/2024. FINDINGS: Three views of the right elbow and AP and lateral views of the right humerus are submitted. Osseous mineralization is normal. Again seen is an old healed fracture deformity of the humeral neck. There is no acute fracture or dislocation. The joint spaces are preserved. There are vascular calcifications. There is no joint effusion. There is calcification at the insertion of the triceps tendon. XR/XR elbow RT 2V IMPRESSION: Old healed fracture of the humeral neck. No acute fracture of the right elbow or humerus. Electronically signed by: Jeffrey Soares MD 09/13/2024 09:57 AM EDT
--- NOTE | ~2024-09-12 | XR_ITS ---
EXAMINATION: XR ELBOW 1-2 VIEWS RIGHT, XR HUMERUS RIGHT HISTORY: right arm pain COMPARISON: Comparison is made with the prior examination of the right shoulder dated 09/12/2024. FINDINGS: Three views of the right elbow and AP and lateral views of the right humerus are submitted. Osseous mineralization is normal. Again seen is an old healed fracture deformity of the humeral neck. There is no acute fracture or dislocation. The joint spaces are preserved. There are vascular calcifications. There is no joint effusion. There is calcification at the insertion of the triceps tendon. XR/XR humerus RT IMPRESSION: Old healed fracture of the humeral neck. No acute fracture of the right elbow or humerus. Electronically signed by: Jeffrey Soares MD 09/13/2024 09:57 AM EDT
[2024-09-12 15:19] VITALS: BP 140/80; PULSE 110; RESP 20; TEMP 36.6; O2SAT 99; BMI 40.1
--- NOTE | 2024-09-12 17:10 | ECG_ITS ---
Test Reason : FALL Blood Pressure : */* mmHG Vent. Rate : 118 BPM Atrial Rate : 118 BPM P-R Int : 248 ms QRS Dur : 76 ms QT Int : 290 ms P-R-T Axes : 98 22 209 degrees QTcB Int : 406 ms Sinus tachycardia with 1st degree A-V block with Premature atrial complexes Nonspecific ST and T wave abnormality Abnormal ECG When compared with ECG of 23-Jul-2024 12:03, No significant changes seen Referred By: Timoteo Toney Electronically Signed By: EVE DREW
--- NOTE | 2024-09-12 17:12 | ED_ITS ---
HPI - Extremity Problem General Chief complaint: Extremity Injury, Upper Stated complaint: RUE PAIN X1D PER EMS Time Seen by Provider: 09/12/24 16:39 History of Present Illness HPI Narrative: 69-year-old female presenting for body aches, confusion and right shoulder pain. Symptoms have been ongoing for the past 3-4 days. Patient was reportedly seen at [facility] and discharge after unremarkable workup. She presents today still complaining of right shoulder pain, confusion and body aches. Patient's spouse is at bedside and also reports episodes of confusion. Patient reportedly suffered a fall however reportedly had head imaging at [facility] that was negative. She is currently complaining of right shoulder pain Related Data Home Medications ?Medication ?Instructions ?Recorded ?Confirmed alendronate 70 mg tablet (Fosamax) 70 mg PO QWEEK 01/14/21 06/05/24 cholecalciferol (vitamin D3) 25 25 mcg PO DAILY 01/14/21 06/05/24 mcg (1,000 unit) capsule losartan 50 mg tablet 50 mg PO DAILY 01/14/21 06/05/24 omeprazole 20 mg capsule,delayed 20 mg PO DAILY 01/14/21 06/05/24 release paroxetine HCl 40 mg tablet 40 mg PO DAILY 01/14/21 06/05/24 gabapentin 400 mg capsule 400 mg PO .am 11/10/22 06/05/24 gabapentin 800 mg tablet 800 mg PO BEDTIME 11/10/22 06/05/24 nebulizers 11/10/22 06/05/24 dulaglutide 0.75 mg/0.5 mL 0.75 mg subcut QWEEK 02/28/23 06/05/24 subcutaneous pen injector (Trulicity) metformin 1,000 mg tablet 1,000 mg PO .AM 11/22/23 06/05/24 metformin 500 mg tablet 500 mg PO .PM 11/22/23 06/05/24 cyanocobalamin (vitamin B-12) 1,000 mcg PO DAILY 05/08/24 06/05/24 1,000 mcg tablet folic acid 800 mcg tablet 0.8 mg PO DAILY 05/08/24 06/05/24 levothyroxine 112 mcg tablet 112 mcg PO DAILY 05/08/24 06/05/24 simvastatin 40 mg tablet 40 mg PO BEDTIME 05/08/24 06/05/24 meloxicam 30 mg/mL intravenous 100 mg IV DAILY 06/05/24 06/05/24 suspension Previous Rx's ?Medication ?Instructions ?Recorded meclizine 12.5 mg tablet 12.5 mg PO TID PRN Dizziness #30 05/30/23 tabs cetirizine 10 mg tablet (Zyrtec) 10 mg PO DAILY 30 days #30 tabs 11/22/23 fluticasone fur. 200 mcg-umeclid 1 inh inhalation DAILY 30 days #60 02/26/24 62.5 mcg-vilant 25 mcg ea inhalat.powder (Trelegy Ellipta) diltiazem HCl 180 mg 180 mg PO DAILY #90 caps 03/05/24 capsule,extended release 24 hr ondansetron 8 mg disintegrating 8 mg PO Q8H #30 tabs 03/24/24 tablet ondansetron 8 mg disintegrating 8 mg PO Q8H PRN Nausea #60 tabs 03/25/24 tablet lorazepam 0.5 mg tablet (Ativan) 0.5 mg PO BID PRN Anxiety #60 tabs 03/27/24 azithromycin 500 mg tablet 500 mg PO DAILY 5 days #5 tabs 04/05/24 prednisone 20 mg tablet See Rx Instructions PO DAILY 10 04/05/24 days #15 tabs atorvastatin 20 mg tablet 20 mg PO BEDTIME #90 tabs 04/22/24 aspirin 81 mg chewable tablet 81 mg PO DAILY #90 tabs 07/09/24 (Aspirin Childrens) loperamide 2 mg capsule (Imodium 2 mg PO Q4H PRN Constipation #30 07/10/24 A-D) caps lenalidomide 10 mg capsule 10 mg PO DAILY #21 caps 08/09/24 (Revlimid) prednisone 10 mg tablet 10 mg PO DAILY #90 tabs 08/13/24 Ventolin HFA 90 mcg/actuation 2 puff PO Q4H PRN for wheezing #18 08/16/24 aerosol inhaler (albuterol sulfate) ea albuterol sulfate 2.5 mg/3 mL 2.5 mg (3 mL) inhalation Q6H PRN 08/18/24 (0.083 %) solution for nebulization shortness of breath or wheezing 30 days #180 mL fluticasone propionate 115 2 puff inhalation Q12H 30 days #12 08/18/24 mcg-salmeterol 21 mcg/actuation grams HFA inhaler (Advair HFA) albuterol sulfate 90 mcg/actuation 2 inh inhalation Q6H PRN shortness 08/20/24 aerosol inhaler of breath or wheezing 30 days #3 ea tramadol 100 mg tablet 100 mg PO Q6H PRN Pain (Scale 08/21/24 Score 7-10) #90 tabs lenalidomide 10 mg capsule 10 mg PO DAILY #21 caps 09/10/24 (Revlimid) Allergies Allergy/AdvReac Type Severity Reaction Status Date / Time pregabalin Allergy Severe Manic Verified 09/12/24 15:30 Sulfa (Sulfonamide Allergy Severe Hives Verified 09/12/24 15:30 Antibiotics) Review of Systems 2 Review of Systems: Yes all other systems are reviewed and are negative PMFSH Past Medical History Medical History Current chronic use of systemic steroids T12 compression fracture Breast calcifications Macular degeneration of both eyes Lumbar spondylolysis Adrenal insufficiency Moderate persistent asthma in adult without complication Anxiety Obstructive sleep apnea Osteoporosis Osteopenia Fibromyalgia GERD (gastroesophageal reflux disease) Hypothyroidism Mixed hyperlipidemia Essential hypertension Morbid obesity Diabetes mellitus, type II Steroid dependence Compression fracture Asthma COPD (chronic obstructive pulmonary disease) Surgical History History of cataract surgery History of left hip replacement History of total right knee replacement (TKR) Family History Family History Father COPD (chronic obstructive pulmonary disease) Mother ASCVD (arteriosclerotic cardiovascular disease) Sister Stented coronary artery Social History Social History Household Members: Spouse Housing: House Are you a primary pet care associate to a significant other at home: No Do you presently have visiting nurse or other home services: No Patient Tobacco Use Status: Former Tobacco user Tobacco use type: Cigarette Years Smoked: 30 years Smoked in Last 30 Days: No Use of substances other than those prescribed or required for medical reasons: No Advance Directives: No Advance Directives Information Provided: Yes Do you have a plan to hurt others: No Plan service: No Current occupational status: retired Physical Exam 2 Vital Signs: Vital Signs: Last Vital Signs Temp 97.8 F 09/12/24 15:19 Pulse 109 H 09/12/24 20:00 Resp 20 09/12/24 20:00 BP 161/62 H 09/12/24 20:00 Pulse Ox 95 09/12/24 20:00 O2 Del Method Room Air 09/12/24 20:00 BMI result Body Mass Index 40.1 Anxious affect Head normocephalic and atraumatic No midline C-spine tenderness to palpation Lungs clear to auscultation bilaterally Normal S1-S2 tachycardic Abdomen is soft, nontender nondistended Right shoulder tenderness to palpation with range of motion limited secondary to pain; palpable radial pulse Medications Administered Discontinued Medications Generic Name Dose Route Start Last Admin Trade Name Freq PRN Reason Stop Dose Admin Magnesium Sulfate 2 gm in 50 mls @ 25 mls/hr 09/12/24 18:55 09/12/24 19:10 Magnesium Sulfate/H2o IV 09/12/24 20:54 25 mls/hr ONCE ONE Administration Iohexol 100 ml 09/12/24 20:01 09/12/24 20:02 Iohexol 350 Mg/Ml 100 Ml Infus..Btl IV 09/12/24 20:02 75 ml ONCE ONE Administration Midazolam HCl 1 mg 09/12/24 18:55 09/12/24 19:09 Midazolam Hcl 2 Mg/2 Ml Vial IVPUSH 09/12/24 18:56 1 mg ONCE ONE Administration Medical Decision Making Medical Decision Making [facility] Narrative: 69-year-old female presenting for right shoulder pain and altered mental status - I am concerned for the following; shoulder fracture, DVT, underlying infection, PE, head trauma - labs and imaging studies ordered My independent lab and imaging interpretation: - EKG showing sinus tach, normal QTC and no ST-elevation - stable H&H, no white count, low magnesium, negative troponin x2 - no head bleed appreciated; Correa impression is also negative for - no obvious fracture appreciated on shoulder x-ray and no discrepancies on radiology impression - UA concerning for UTI - no large emboli appreciated on CT scan; radiologist's impression notes no definite thrombus Antibiotics ordered for UTI and patient admitted to medicine Lab Data 09/12/24 17:53 09/12/24 17:53 Labs: Lab Results 09/12/24 09/12/24 09/12/24 Range/Units 17:53 20:03 20:30 WBC 5.5 (4.8-10.8) X10*3/uL RBC 3.75 L (4.20-5.50) X10*6/uL Hgb 11.9 L (12.0-16.0) g/dl Hct 37.0 (37.0-47.0) % MCV 98.7 H (80.0-98.0) fL MCH 31.7 (27.0-33.0) pg MCHC 32.2 (31.0-35.0) g/dl RDW 18.4 H (11.0-16.0) % Plt Count 211 (160-400) X10*3/uL MPV 10.5 (9.4-12.3) fL Immature Gran % (Auto) 0.7 H (0.0-0.4) % Neut % (Auto) 57.7 (45-73) % Lymph % (Auto) 17.7 L (20-40) % [place] % (Auto) 21.5 H (2-11) % Eos % (Auto) 1.5 (0-4) % Baso % (Auto) 0.9 (0-2) % Lymph # (Auto) 1.0 L (1.2-4.9) X10*3/uL [place] # (Auto) 1.2 (0.1-1.2) X10*3/uL Eos # (Auto) 0.1 (0.0-0.4) X10*3/uL Baso # (Auto) 0.1 (0.0-0.2) X10*3/uL Abs Immat Gran (auto) 0.04 H (0.00-0.03) X10*3/uL Absolute Neuts (auto) 3.2 (2.0-8.3) x10*3/uL Absolute Nucleated RBC 0.000 (0.0-0.012) X10*3/uL Nucleated RBC % (auto) 0.0 (0.0-0.2) /100WBC Smear Tech's Comments VERIFIED D-Dimer High Sensitivty 477 NG/ML Sodium 137 (135-145) mmol/L Potassium 3.4 D (3.3-5.1) mmol/L Chloride 98 (96-108) mmol/L Carbon Dioxide 29 (22-29) mmol/L Anion Gap 13 (12-20) BUN 17 H (9-16) mg/dL Creatinine 0.72 (0.5-1.4) mg/dL Estim Creat Clear Calc 85.1 Estimated GFR > 60 Random Glucose 178 H (60-115) mg/dL Calcium 8.7 (8.4-10.2) mg/dL Magnesium 1.1 L* (1.6-2.6) mg/dL Total Bilirubin 1.0 (0.0-1.0) mg/dL Direct Bilirubin 0.4 (0.0-0.5) mg/dL AST 16 (5-31) U/L ALT 14 (0-31) U/L Alkaline Phosphatase 53 (39-117) U/L Troponin I Hi Sens Base 16.4 (<3.5-17.0) ng/L Troponin I Hi Sens 2 Hr 17.2 H (<3.5-17.0) ng/L B-Natriuretic Peptide 43 (<100) pg/mL Total Protein 5.9 L (6.5-8.0) g/dL Albumin 3.5 (3.5-5.0) g/dL Urine Color Yellow Urine Appearance Cloudy Urine pH 6.0 (5.0-9.0) Ur Specific [place] 1.015 (1.005-1.025) Urine Protein 100 (2+) H (Neg-Trace) mg/dL Urine Glucose (UA) 100 H (Negative) mg/dL Urine Ketones 15 (Negative) mg/dL Urine Blood Large (3+) H (Negative) Urine Nitrite Positive H (Negative) Ur Leukocyte Esterase Moderate (2+) H (Negative) Urine RBC 6-10 H (0-2) /HPF Urine WBC >50 H (0-5) /HPF Ur Squamous Epith Cells 11-20 (0-2) /HPF Urine Bacteria 4+ (None Seen) Hyaline Casts 0-2 (0-2) /LPF Discharge Plan Discharge Clinical Impression: Acute UTI Patient Disposition: Admitted As Inpatient Prescriptions: No Action Trelegy Ellipta 200-62.5-25 mcg blister with device 1 inh inhalation DAILY 30 Days Qty: 60 4RF diltiazem HCl 180 mg capsule,extended release 24hr 180 mg PO DAILY Qty: 90 1RF ondansetron 8 mg Tablet,Disintegrating 8 mg PO Q8H Qty: 30 3RF lorazepam [Ativan] 0.5 mg Tablet 0.5 mg PO BID PRN (Reason: Anxiety) Qty: 60 2RF azithromycin 500 mg tablet 500 mg PO DAILY 5 Days Qty: 5 0RF prednisone 20 mg tablet See Rx Instructions PO DAILY 10 Days Qty: 15 0RF Rx Instructions: PO daily; Take 2 tabs daily x 5 days, then 1 tablet daily x 5 days atorvastatin 20 mg tablet 20 mg PO BEDTIME Qty: 90 3RF aspirin [Aspirin Childrens] 81 mg Tablet,Chewable 81 mg PO DAILY Qty: 90 3RF prednisone 10 mg tablet 10 mg PO DAILY Qty: 90 0RF albuterol sulfate [Ventolin HFA] 90 mcg/actuation HFA aerosol inhaler 2 puff PO Q4H PRN (Reason: for wheezing) Qty: 18 0RF albuterol sulfate 2.5 mg /3 mL (0.083 %) solution for nebulization 2.5 mg inhalation Q6H PRN (Reason: shortness of breath or wheezing) 30 Days Qty: 180 11RF fluticasone propion-salmeterol [Advair HFA] 115-21 mcg/actuation HFA aerosol inhaler 2 puff inhalation Q12H 30 Days Qty: 12 11RF albuterol sulfate 90 mcg/actuation HFA aerosol inhaler 2 inh inhalation Q6H PRN (Reason: shortness of breath or wheezing) 30 Days Qty: 3 3RF loperamide [Imodium A-D] 2 mg Capsule 2 mg PO Q4H PRN (Reason: Constipation) Qty: 30 0RF Rx Instructions: administer after each loose stool until symptoms controlled; do not exceed 8 mg per 24 hrs Trulicity 0.75 mg/0.5 mL pen injector 0.75 mg subcut QWEEK meclizine 12.5 mg Tablet 12.5 mg PO TID PRN (Reason: Dizziness) Qty: 30 2RF ondansetron 8 mg Tablet,Disintegrating 8 mg PO Q8H PRN (Reason: Nausea) Qty: 60 2RF meloxicam 30 mg/mL Suspension 100 mg IV DAILY lenalidomide [Revlimid] 10 mg Capsule 10 mg PO DAILY Qty: 21 0RF Rx Instructions: swallow whole with glass of water; do not open, crush, chew , break, or dissolve tramadol 100 mg Tablet 100 mg PO Q6H PRN (Reason: Pain (Scale Score 7-10)) Qty: 90 0RF lenalidomide [Revlimid] 10 mg Capsule 10 mg PO DAILY Qty: 21 0RF Rx Instructions: swallow whole with glass of water; do not open, crush, chew , break, or dissolve losartan 50 mg tablet 50 mg PO DAILY omeprazole 20 mg capsule,delayed release(DR/EC) 20 mg PO DAILY cholecalciferol (vitamin D3) 25 mcg (1,000 unit) capsule 25 mcg PO DAILY paroxetine HCl 40 mg tablet 40 mg PO DAILY alendronate [Fosamax] 70 mg tablet 70 mg PO QWEEK gabapentin 800 mg tablet 800 mg PO BEDTIME metformin 500 mg tablet 500 mg PO .PM Rx Instructions: 2 am 1 pm gabapentin 400 mg capsule 400 mg PO .am (DME) nebulizers Misc See Rx Instructions .Route Rx Instructions: As directed metformin 1,000 mg tablet 1,000 mg PO .AM cetirizine [Zyrtec] 10 mg tablet 10 mg PO DAILY 30 Days Qty: 30 6RF simvastatin 40 mg tablet 40 mg PO BEDTIME levothyroxine 112 mcg tablet 112 mcg PO DAILY cyanocobalamin (vitamin B-12) 1,000 mcg tablet 1,000 mcg PO DAILY folic acid 800 mcg tablet 0.8 mg PO DAILY Print Language: Sammarinese
[2024-09-12 17:59] LABS: Basophils Absolute Auto 0.1 X10*3/uL (0.0-0.2); Basophils Percent Auto 0.9 % (0-2); Eosinophils Absolute Auto 0.1 X10*3/uL (0.0-0.4); Eosinophils Percent Auto 1.5 % (0-4); Hemoglobin 11.9 g/dl (12.0-16.0); Imm Gran Abs Auto 0.04 X10*3/uL (0.00-0.03); Imm Gran Pct Auto 0.7 % (0.0-0.4); Lymphocytes Percent Auto 17.7 % (20-40); MANUAL DIFF FLAG SCAN; Mean Corpuscular HGB Conc 32.2 g/dl (31.0-35.0); Mean Corpuscular Hemoglobin 31.7 pg (27.0-33.0); Mean Corpuscular Volume 98.7 fL (80.0-98.0); Mean Platelet Volume 10.5 fL (9.4-12.3); Monocytes Absolute Auto 1.2 X10*3/uL (0.1-1.2); Monocytes Percent Auto 21.5 % (2-11); Neutrophils Absolute Auto 3.2 x10*3/uL (2.0-8.3); Neutrophils Percent Auto 57.7 % (45-73); Platelet Count 211 X10*3/uL (160-400); Red Blood Count 3.75 X10*6/uL (4.20-5.50); Red Cell Distribution Width 18.4 % (11.0-16.0); SCAN SMEAR FLAG 1; White Blood Count 5.5 X10*3/uL (4.8-10.8)
[2024-09-12 18:07] LABS: D Dimer High Sensitivity 477 NG/ML
[2024-09-12 18:17] LABS: SLIDE REVIEW VERIFIED
[2024-09-12 18:22] LABS: B Type Natriuretic Peptide 43 pg/mL (<100); Troponin-I High Sens Reflx 2hr 16.4 ng/L (<3.5-17.0)
--- OUTSIDE RECORDS SUMMARY | 2024-09-12 18:27 | XMS_ITS | Clinical Summary ---
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 Operator Name Role Phone Unavailable Primary Care Provider Unavailabl e Social History Tobacco Use Types Packs/Day Years Used Date Smoking Tobacco: Never Assessed Sex and Gender Information Value Date Recorded Sex Assigned at Not on file Gender Identity Not on file Sexual Orientation Not on file Job Start Date Occupation Industry Not on file Not on file Not on file Plan of Treatment Health Maintenance Due Date Last Done Comments Hepatitis C Screening 1955 COVID-19 Vaccine (#1) 1953 Depression Screening 1965 Preventative Health Evaluation 1971 DTap / Tdap / Td (1 - Tdap) 1972 Colon Cancer Screening (Colonoscopy) 1998 Breast Cancer Screening (Mammogram) 2003 Shingrix-Zoster Vaccine (1 of 2) 2003 Fall Risk Assessment 2018 Osteoporosis Screening (DEXA Scan) 2018 Pneumococcal Vaccine (1 of 1 - PCV) 2018 Influenza Vaccine (#1) 2024 RSV Adult > 60+ Yrs or Pregn ant (1 - 1-dose 75+ series) 2028 Hepatitis B Vaccines Aged Out No long er eligible based on patient's age to complete this topic RSV Ped < 20 months Aged Out No longe r eligible based on patient's age to complete this topic
--- OUTSIDE RECORDS SUMMARY | 2024-09-12 18:27 | XMS_ITS | Clinical Summary ---
Author Organization [facility] Address [address] [place] [address] Care Team Providers Care Back Tender Fourdrinier Name Role Phone Unavailable Primary Care Provider Unavailabl e Social History Tobacco Use Types Packs/Day Years Used Date Smoking Tobacco: Never Assessed Comments Unknown Sex and Gender Information Value Date Recorded Sex Assigned at Not on file Legal Sex Female 12:59 PM EDT Gender Identity Not on file Sexual Orientation Not on file Plan of Treatment Health Maintenance Due Date Last Done Comments Hepatitis C Virus Screening 1955 DTaP/Tdap/Td Vaccines (1 - Tdap) 1972 Pneumococcal Vaccines 50+ (1 of 1 - PCV) 2003 Zoster (Shingles) Vaccine (1 of 2) 2003 COVID-19 Vaccine ( - 2023-2 5 season) 2024 RSV Vaccine 60 years and old er and Patients (1 - 1-dose 75+ series) 2028 Hepatitis B Vaccines Aged Out No long er eligible based on patient's age to complete this topic
--- OUTSIDE RECORDS SUMMARY | 2024-09-12 18:27 | XMS_ITS | Encounter Summary ---
Author Organization [facility] Address [address] [place] [address] Care Team Providers Care Locomotive Firer Name Role Phone Tran Blackwell Primary Care Provider [phone] Encounter Details Date Type Department Care Team (Late st Contact Info) Description 04/05/2023 Lab Requisition [facility] [address] [place] [id number] Dre Ronquillo MD PhD [address] [place] [id number] Social History Tobacco Use Types Packs/Day Years Used Date Smoking Tobacco: Never Assessed Comments Unknown Sex and Gender Information Value Date Recorded Sex Assigned at Female 03/27/2023 3:46 PM EST Legal Sex Female 3:22 PM EST Gender Identity Not on file Sexual Orientation Not on file documented as of this encounter Plan of Treatment Not on file documented as of this encounter Procedures * Due to [place] [employer] law, this organization might not be sharing negative HIV tests. Procedure Name Priority Date/Time Associated Diagnosis Comments TISSUE EXAM Routine 04/05/2023 2:14 PM EST documented in this encounter Results * Due to [place] [employer] law, this organization might not be sharing negative HIV tests. 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 BONE MARROW BIOPSY: Cellularity: 30-40% Megakaryocytes: Increased Myeloid Series: Normal maturation Erythroid Series: Normal maturation Myeloid:Erythroid Ratio: Normal Infiltrative process: None identified. BONE MARROW DIFFERENTIAL: aspicular, hemodilute SPECIAL STAINS: Iron: Stainable iron - Increased storage iron Ringed sideroblasts - Absent COMMENT: The bone marrow biopsy reveals a mildly hypercellular bone marrow for the patient's age. There is mild hyperplasia in the megakaryocytic lineage with dysplastic forms noted. A number of the megakaryocytes appear small and hypolobate with hyperchromatic chromatin. The submitted marrow smears did not show dysplasia in the erythroid or myeloid series. Blasts are not increased. The submitted flow cytometry report was reported to be negative. Review of the patient's chart shows persistent anemia (macrocytic) since 2020. A recent CBC shows a hemoglobin of 8.5, the platelets were noted to be on the upper end of the normal range and the white blood cells were within normal range (6.9). Chart review reveals a negative JAK2 mutation. Outside FISH testing was performed and demonstrated a 5q deletion. 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 Clinical correlation is warranted. [facility] MANUAL 04/06/2023 2:43 PM EST [facility] at 1443 EST Clinical History Macrocytic anemia [facility] 04/06/2023 2:43 PM EST [facility] Gross Consult Client Facility: [facility] Slide Identification: [id number] Number of Glass Slides Received: 11 Number of Blocks Received: 0 Client Pathologist: Jude Fong MD Accompanying Report Received: yes [facility] MANUAL 04/06/2023 2:43 PM EST [facility] Embedded Images [facility] 04/06/2023 2:43 PM EST [facility] Resulting Agency Case was signed out at [facility], Department of Pathology, [facility] CLIA [id number] [facility] MANUAL 04/06/2023 2:43 PM EST [facility] Report Header Surgical Pathology Report ? Case: [id number] ? Authorizing Provider: ??Dre Ronquillo MD PhD ?Collected: ? 04/05/2023 1414 ? Ordering Location: ? [facility] ? Received: ?04/05/2023 1414 ? [facility] ? Pathologist: ? Manny Villanueva MD ? Specimen: ?Bone Marrow Aspirate, Right Ischial Wing, Aspirate and Clot ? 04/06/2023 2:43 PM EST [facility] Tissue Specimen from bone marrow obtained by aspiration / Unknown 04/05/2023 2:14 PM EST 04/05/2023 2:14 PM EST us Dre Ronquillo MD PhD LAB PATHOLOGY/CYTOLOGY ORDERABL ES Final Result [facility] [address] [place] [address], documented in this encounter Visit Diagnoses Not on filedocumented in this encounter Care Teams Locomotive Firer Relationship Specialty Start Date End Date Tran Blackwell [address] [place] [address] PCP - General Family Medicine 03/27/23 documented as of this encounter
--- OUTSIDE RECORDS SUMMARY | 2024-09-12 18:27 | XMS_ITS | Continuity of Care Document ---
Author Organization [facility] ter Address [address] [place] [id number]- Care Team Providers Care Marketing Pr Intern Name Role Phone Tran Blackwell MD Primary Care Phys[id number] Date(s): 09/11/24 - 09/11/[address] [address]- Discharge Disposition: A-D/C Home Attending Physician: Victor Hugo Ibarra MD Admitting Physician: Victor Hugo Ibarra MD Referring Physician: Not on Staff, Referring MD Encounter Type: Disch ES Allergies, Adverse Reactions, Alerts Substance Criticality Severity Reaction Reaction Severity Status penicillin doesn't work Active Lyrica irritable Active Bactrim anaphalaxis Active Adhesive Bandage Unable to assess criticality Persistent Severe inflamation rash Active Medications acetaminophen 325 mg oral tablet 975 mg, By Mouth, 3 times a day, Refills 0, Maintenance, 03/29/18 4:12:47 PM EST Start Date: 03/29/18 Status: Ordered Repeat number: 1 Advair HFA 230 mcg / 21 mcg 2 puffs, Inhalation, 2 times a day, # 180 each, 0 Refills, Maintenance, 07/24/17 12:27:05 AM EST, Aerosol Start Date: 07/24/17 Status: Ordered Quantity: 180.0 Unit: each Repeat number: 1 Aspirin Low Dose 81 mg oral tablet, chewable TAKE 1 TABLET BY MOUTH EVERY DAY Start Date: 01/12/24 Status: Ordered Repeat number: 1 gabapentin 300 mg oral capsule 300 mg, 1, capsule, By Mouth, 3 times a day, # 90 capsule, Refills 0, Maintenance, 03/07/18 8:55:22AM EDT Start Date: 03/07/18 Status: Ordered Quantity: 90.0 Unit: capsule Repeat number: 1 glipiZIDE 5 mg oral tablet 10 mg, 2, tablet, By Mouth, 2 times a day, # 30 tablet, Refills 0, Maintenance, 07/24/17 12:25:32 AM EST Start Date: 07/24/17 Status: Ordered Quantity: 30.0 Unit: tablet Repeat number: 1 Incruse Ellipta 62.5 mcg/inh inhalation powder 1 each, Inhalation, Every 24 hours, doses should be taken at least 24 hours apart, # 30 each, 0 Refills, Maintenance, 07/24/17 12:27:20 AM EST, Powder Start Date: 07/24/17 Status: Ordered Quantity: 30.0 Unit: each Repeat number: 1 LENALIDOMIDE 10MG CAP LENALIDOMIDE 10MG CAP, 0 Refills, Maintenance, 01/12/24 5:49:00 AM EDT Start Date: 01/12/24 Status: Ordered Repeat number: 1 levothyroxine 0.112 mg oral tablet TAKE 1 TABLET BY MOUTH EVERY DAY Start Date: 01/12/24 Status: Ordered Repeat number: 1 losartan 25 mg oral tablet 25 mg, 1, tablet, By Mouth, Daily, # 30 tablet, Refills 0, Maintenance, 07/24/17 12:26:42 AM EST Start Date: 07/24/17 Status: Ordered Quantity: 30.0 Unit: tablet Repeat number: 1 Metformin = 1,000 mg, By Mouth, 2 times a day, 0 Refills, Maintenance, 08/31/15 7:54:49 AM EDT Start Date: 08/31/15 Status: Ordered Repeat number: 1 MorPHINE Inj 4 mg, Injection, IV Push Slowly, Every 5 minutes for 3 doses/times, PRN for Pain , Moderate, and SBP greater than 100, STAT, 09/11/24 10:18:00 AM EDT Start Date: 09/11/24 Stop Date: 09/12/24 Status: Discontinued Repeat number: 1 naproxen 250 mg oral tablet 500 mg, By Mouth, 2 times a day, # 60 tablet, Refills 0, Tot. Refills 0, Maintenance, 03/29/18 4:13:16 PM EST, Route to Pharmacy Electronically, [facility] Start Date: 03/29/18 Status: Ordered Quantity: 60.0 Unit: tablet Repeat number: 1 omeprazole 20 mg oral enteric coated capsule TAKE ONE CAPSULE BY MOUTH EVERY DAY Start Date: 03/28/18 Status: Ordered Repeat number: 1 Paxil 40 mg oral tablet 40 mg, 1, tablet, By Mouth, Daily, Refills 0, Maintenance, 10/06/15 7:48:41 AM EDT Start Date: 10/06/15 Status: Ordered Repeat number: 1 prednisone 10 mg oral tablet 1 tablet = 10 mg, By Mouth, Daily, Dependent Since 1984, 0 Refills, Maintenance, 04/23/14 1:24:24 PMEST Start Date: 04/23/14 Status: Ordered Repeat number: 1 Proventil PRN, Proventil HFC CFC free, Maintenance, 04/23/14 1:25:07 PM EST Start Date: 04/23/14 Status: Ordered Repeat number: 1 simvastatin 40 mg oral tablet 1 tablet = 40 mg, By Mouth, Daily at bedtime, Plus 1/2 extra Tab Per Week., # 30 tablet, 0 Refills,Maintenance, 04/23/14 1:26:16 PM EST, Tablet Start Date: 04/23/14 Status: Ordered Quantity: 30.0 Unit: tablet Repeat number: 1 Trelegy Ellipta 200 mcg-62.5 mcg-25 mcg/inh inhalation powder 1 puffs, Inhalation, Daily, at the same time every day, 0 Refills, Maintenance, 01/12/24 1:06:00 AM EDT, Powder, Partial fill upon patient request if the prescription is for a schedule II opioid drug. Start Date: 01/12/24 Status: Ordered Repeat number: 1 Trulicity Pen 0.75 mg/0.5 mL subcutaneous solution 0.5 mL = 0.75 mg, Subcutaneous Injection, Every week, rotate injection sites, # 2 mL, 0 Refills, Maintenance, 06/07/21 1:05:00 PM EST, Solution, Partial fill upon patient request if the prescription is for a schedule II opioid drug. Start Date: 06/07/21 Status: Ordered Quantity: 2.0 Unit: mL Repeat number: 1 Vitamin B12 500 mcg oral tablet 1 tablet = 500 mcg, By Mouth, Daily, # 30 tablet, 0 Refills, Maintenance, 06/07/21 1:09:00 PM EST, Tablet, Partial fill upon patient request if the prescription is for a schedule II opioid drug. Start Date: 06/07/21 Status: Ordered Quantity: 30.0 Unit: tablet Repeat number: 1 Vitamin D3 1000 intl units oral tablet 1 tablet = 25 mcg, 2 times a day, 0 Refills, Maintenance, 06/07/21 1:02:00 PM EST, Tablet, Partial fill upon patient request if the prescription is for a schedule II opioid drug. Start Date: 06/07/21 Status: Ordered Repeat number: 1 Problem List Condition Confirmation Course Effective Dates Status Health St atus Informant Acute UTI Confirmed Active Asthma Confirmed Active Steroid-dependent asthma Confirmed Active Cataracts, bilateral Confirmed Active Diabetes Confirmed Active Former cigarette smoker Confirmed Active Limitation due to disability 1 Confirmed Active Drug or alcohol risk assessment or counseling 2 Confirmed Active History of surgery 3 Confirmed Active History of kidney stones Confirmed Active Low back pain Confirmed Active Obstructive sleep apnea 4 Confirmed Active Osteopenia Confirmed Active Severe obesity Confirmed Active Shoulder pain Confirmed Active Moderate somatic symptom disorder with predominant pain Confirmed Active 1initial Oswestry Disability Index: 28% ( moderate disability ) on 10/22/15; initial [place] Back Pain Scale: 44 on 10/22/15; initial Fibromyalgia Impact Questionnaire (FIQ):44.57 on 10/22/15 2SOAPP-R: 18 on 10/22/15 3Pilonidal cyst procedures, cataract surgery bilaterally, hysterectomy, right knee operation, right knee replacement 2002, left shoulder bone spur procedure 2011, bicep tenotomy 2012 4Unable to tolerate noninvasive ventilation owing to claustrophobia Results Radiology Reports * Exam Date Time Procedure Performing Provider Status 09/11/24 1:04 PM Humerus Min 2 Views Right Melchor Lee son; Auth (Verified) Notes: (Humerus Min 2 Views Right) Reason For Exam: Pain RESULT: Humerus Min 2 Views Right Shoulder Min 2 Views Right, Elbow Min 3 Views Right, Humerus Min 2 Views Right, (2 views of the shoulder, 2 views of the humerus, 3 views of the elbow) HX OF PRESENT ILLNESS: from orthopedic office w 7 10 right shoulder pain unable to lift right arm difficulty ambulating w walker due to not being able to use right arm, hx of arthritis in both shoulders, worsening pain since yesterday took tylenol tramadol w no relief; Reason: Pain; Clinical Question(s): Fracture COMPARISON: CXR 01/10/2025 FINDINGS: No acute fracture or dislocation. Chronic appearing healed right humeral neck fracture, unchanged from 01/11/2024. Mild glenohumeral joint space narrowing and marginal spurring. Mild degenerative changes of the AC joint. The portion of the clavicle included on the exam is normal. Normal alignment at the elbow. There are atherosclerotic vascular calcifications. IMPRESSION: No evidence of acute osseous abnormality. WSN: [id number] Ordering Physician: Gissel Oliveira Dictated By: Martin Martin MD Dictated Date/Time: 09/11/24 1:18 pm Reviewed By: Martin Martin MD Signed By: Martin Martin MD Signed Date/Time: 09/11/24 1:18 pm Transcribed By: MARY Transcribed Date/Time: 09/11/24 1:15 pm * Exam Date Time Procedure Performing Provider Status 09/11/24 1:04 PM Elbow Min 3 Views Right Jacob Lee n; Auth (Verified) Notes: (Elbow Min 3 Views Right) Reason For Exam: Pain RESULT: Elbow Min 3 Views Right Shoulder Min 2 Views Right, Elbow Min 3 Views Right, Humerus Min 2 Views Right, (2 views of the shoulder, 2 views of the humerus, 3 views of the elbow) HX OF PRESENT ILLNESS: from orthopedic office w 7 10 right shoulder pain unable to lift right arm difficulty ambulating w walker due to not being able to use right arm, hx of arthritis in both shoulders, worsening pain since yesterday took tylenol tramadol w no relief; Reason: Pain; Clinical Question(s): Fracture COMPARISON: CXR 01/10/2025 FINDINGS: No acute fracture or dislocation. Chronic appearing healed right humeral neck fracture, unchanged from 01/11/2024. Mild glenohumeral joint space narrowing and marginal spurring. Mild degenerative changes of the AC joint. The portion of the clavicle included on the exam is normal. Normal alignment at the elbow. There are atherosclerotic vascular calcifications. IMPRESSION: No evidence of acute osseous abnormality. WSN: [id number] Ordering Physician: Gissel Oliveira Dictated By: Martin Martin MD Dictated Date/Time: 09/11/24 1:18 pm Reviewed By: Martin Martin MD Signed By: Martin Martin MD Signed Date/Time: 09/11/24 1:18 pm Transcribed By: MARY Transcribed Date/Time: 09/11/24 1:15 pm * Exam Date Time Procedure Performing Provider Status 09/11/24 1:04 PM Shoulder Min 2 Views Right Harpal Lee rolanda; Auth (Verified) Notes: (Shoulder Min 2 Views Right) Reason For Exam: Pain RESULT: Shoulder Min 2 Views Right Shoulder Min 2 Views Right, Elbow Min 3 Views Right, Humerus Min 2 Views Right, (2 views of the shoulder, 2 views of the humerus, 3 views of the elbow) HX OF PRESENT ILLNESS: from orthopedic office w 7 10 right shoulder pain unable to lift right arm difficulty ambulating w walker due to not being able to use right arm, hx of arthritis in both shoulders, worsening pain since yesterday took tylenol tramadol w no relief; Reason: Pain; Clinical Question(s): Fracture COMPARISON: CXR 01/10/2025 FINDINGS: No acute fracture or dislocation. Chronic appearing healed right humeral neck fracture, unchanged from 01/11/2024. Mild glenohumeral joint space narrowing and marginal spurring. Mild degenerative changes of the AC joint. The portion of the clavicle included on the exam is normal. Normal alignment at the elbow. There are atherosclerotic vascular calcifications. IMPRESSION: No evidence of acute osseous abnormality. WSN: [id number] Ordering Physician: Gissel Oliveira Dictated By: Martin Martin MD Dictated Date/Time: 09/11/24 1:18 pm Reviewed By: Martin Martin MD Signed By: Martin Martin MD Signed Date/Time: 09/11/24 1:18 pm Transcribed By: AMRY Transcribed Date/Time: 09/11/24 1:15 pm * Exam Date Time Procedure Performing Provider Status 09/11/24 12:40 PM US Doppler Ext Upper Venous Right Mimi Valadez; Auth (Verified) Notes: (US Doppler Ext Upper Venous Right) Reason For Exam: Pain in limb;Other: RESULT: US Doppler Ext Upper Venous Right US Doppler Ext Upper Venous Right Hx of Present Illness: from orthopedic office w 7 10 right shoulder pain unable to lift right arm difficulty ambulating w walker due to not being able to use right arm, Reason: Pain in limb; ClinicalQuestion(s): Thrombosis COMPARISON: None. IMAGING TECHNIQUE: Ultrasound examination of the upper extremity deep venous system was performed using grayscale, color, and spectral wave analysis including response to compression. Assessment includes the contralateral jugular and subclavian vein. FINDINGS: Internal jugular vein: Patent. No thrombosis. Subclavian vein: Patent. No thrombosis. Axillary vein: Patent. No thrombosis. Brachial vein: Patent. No thrombosis. Basilic vein: Patent. No thrombosis. Cephalic vein: Patent. No thrombosis. Contralateral internal jugular vein: Patent. No thrombosis. Contralateral subclavian vein: Patent. No thrombosis. Curvilinear fluid collection seen in the right upper arm measuring up to 1.0 cm in thickness. IMPRESSION: No evidence of venous thrombosis. WSN: [id number] Ordering Physician: Gissel Oliveira Dictated By: Darryl La MD Dictated Date/Time: 09/11/24 12:49 p Reviewed By: Darryl La MD Signed By: Darryl La MD Signed Date/Time: 09/11/24 12:49 pm Transcribed By: MARY Transcribed Date/Time: 09/11/24 12:47 pm Vital Signs Most recent to oldest [Reference Range]: 1 2 3 Oxygen Saturation [94-100 %] 98 % (09/11/24 1:42 PM) 95 % (09/11/24 9:53 AM) Pulse Rate [55-90 bpm] 80 bpm (09/11/24 1:42 PM) 88 bpm (09/11/24 9:53 AM) Blood Pressure [90-138/55-84 mm Hg] 145/86mm Hg *H* (09/11/24 1:42 PM) 150/82mm Hg *H* (09/11/24 9:53 AM) Respiratory Rate [16-30 br/min] 20 br/min (09/11/24 1:42 PM) 18 br/min (09/11/24 11:54 AM) 20 br/min (09/11/24 11:11 AM) Temperature [96.8-100.4 DegF] 98.0 DegF (09/11/24 9:53 AM) Mode of Delivery (Oxygen) Room air (09/11/24 1:42 PM) Room air (09/11/24 9:53 AM) Temperature Route Oral (09/11/24 9:53 AM) Social History Social History Type Response Smoking Status Former smoker; Type: Cigarettes; Stopped at age: 28; entered on: 10/22/15 Sex Sex Representation Female (finding) Note * Gissel Rodriguez: PERFORM Event Display: Patient Education Leaflets Authored Date: [id number] Shoulder Pain With Uncertain Cause ?? [id number] Shoulder Pain With Uncertain Cause Shoulder pain can have many causes. Pain often comes from the structures that surround the shoulderjoint. These are the joint capsule, ligaments, tendons, muscles, and bursa. Pain can also come fromcartilage in the joint. Cartilage can become worn out or injured. It???s important to know what???scausing your pain so the health care provider can use the correct treatment. But sometimes it???s hard to find the exact cause of shoulder pain. You may need to see a specialist (orthopedist). You may also need special tests, such as a CT scan or an MRI. The provider may need to use special tools to look inside the joint (arthroscopy). Shoulder pain can be treated with a sling or a device that keeps your shoulder from moving. You cantake an anti-inflammatory medicine, such as ibuprofen, to ease pain. You may need to do special shoulder exercises. Follow up with a specialist if the pain is bad or doesn???t go away after a few weeks. Home care Follow these tips when caring for yourself at home: ??? If you were given a sling, leave it in place for the time advised by your health care provider. If you aren???t sure how long to wear it, ask for advice. If the sling becomes loose, adjust it so that your forearm is level with the ground. Yourshoulder should feel well supported. ??? Put an ice pack on the injured area for 20 minutes every 1to 2 hours the first day. You can make your own ice pack by putting ice cubes in a plastic bag. Wrap the bag in a thin towel. Do not place the ice directly on skin. Continue with ice packs 3 or 4 times a day for the next 2 days. Then use the pack as needed to ease pain and swelling. ??? You may useacetaminophen or ibuprofen to control pain, unless another pain medicine was prescribed.??If you have chronic liver or kidney disease, talk with your provider before you use these medicines. Also talk with your provider if you???ve ever had a stomach ulcer or digestive bleeding or if you take blood thinners. ??? Shoulder pain may seem worse at night, when there is less to distract you from the pain. If you sleep on your side, try to keep weight off your painful shoulder. Propping pillows behindyou may stop you from rolling over onto that shoulder during sleep.? Shoulder and elbow jointscan become stiff if left in a sling for too long. You may be instructed to start hbnfo-ir-nrbdon exercises about 7 to 10 days after the injury. Talk with your provider to find out what type of exercises to do and how soon to start. ??? You can take the sling off to shower or bathe. ?? Follow-up care Follow up with your health care provider if you don???t start to get better in the next 5 days. ?? When to get medical advice Contact your health care provider right away??if: ??? Pain or swelling gets worse??or lasts for more than a few days. ??? Your hand or fingers become cold, blue, numb, or tingly. ??? You have a largeamount of bruising on your shoulder or upper arm. ??? You have trouble moving your hand or fingers.??? You have weakness in your hand or fingers. ??? Your shoulder becomes stiff. ??? It feels like your shoulder is popping out. ??? You are less able to do your daily activities. ?? Last Reviewed Date: 2024 00:00:00 ?? [employer] All rights reserved. This information is not intended as a substitute for professional medical care. Always follow your healthcare professional's instructions. ?? Patient Care team information Care Team Personnel Name: Tran Blackwell MD Position: S Physician - Primary Care Member Role: PCP Address: [address] [place] [address] Telecom: Name: [employer] MAIN, Herminia Pagan Position: [facility] Onco RN Member Role: Primary Care Nurse Name: Mary Guerrero RN Position: [facility] SN RN Member Role: Primary Care Nurse Care Team Related Persons Name: JENISE MONROY Name: LYRIC AGUILERA Insurance Providers Guarantor name: CASSIDY AGUILERA Health Plan Information #: 1 Payer: [employer] PPO Member Number: [id number] Policy Number: NA Group Number: [id number] Health Plan Information #: 2 Payer: [employer]V PPO Member Number: [id number] Policy Number: NA Group Number: [id number]
--- OUTSIDE RECORDS SUMMARY | 2024-09-12 18:27 | XMS_ITS | Data Portability ---
Author Organization [facility] Address [address] [facility],[address] [place] [address] Care Team Providers Care Morale Officer Name Role Phone DEMETRIUS DUNNEISSA Referring Provider LYRIC FISHER Primary Care Provider [phone] Assessment Encounter Date Assessment Date Assessment LastModified by Organization Details LastModified Time 02/06/2018 02/06/2018 Vanessa Abbott is a 62 year old woman with low back pain since 2013. On exam she has positive facet loading with tenderness in L4-5 and L5-S1 facet region in the left lumbar region. MRI Lumbar spine shows arthritic changes in the facet at L4-5 and L5-S1 levels. Currently his back pain is his worse pain. She is here for a trial of Lumbar facet joint steroid injections under fluoroscopic guidance .The risks and benefits of the procedure were discussed in detail. She wishes to proceed. She needs to follow up in four weeks. [email or web address] Not available 02/06/2018 09:05:21 03/22/2018 03/22/2018 Vanessa Abbott is a 62 year old woman with low back pain since 2013. On exam she has positive straight leg raising test on the left with tenderness in L4-5 and L5-S1 facet region in the left lumbar region. MRI Lumbar spine shows multilevel broad based disc bulges with bilateral foraminal stenosis. Trial of Lumbar epidural steroid injection under fluoroscopic guidance was recommended. The risks and benefits of the procedure were discussed in detail. She wishes to proceed. An appointment has been booked for the same . She needs a trailer truck driver on the day of the procedure. I have advised her to take oxycodone for pain relief until the injection. [email or web address] Not available 03/22/2018 11:50:54 03/27/2018 03/27/2018 Vanessa Abbott is a 62 year old woman with low back pain since 2013. On exam she has positive straight leg raising test on the left with tenderness in L4-5 and L5-S1 facet region in the left lumbar region. MRI Lumbar spine shows multilevel broad based disc bulges with bilateral foraminal stenosis. She is here for a lumbar epidural steroid injection under fluoroscopic guidance . She states she has been in severe pain. She is having a hard time moving . She was unable to lay prone on the fluoroscopy table. She was tachycardic and sweating profusely. She states she has history of UTIs and kidney stones. I recommend that she should be seen at the emergency room for further investigations. Ambulance called and she was transported to [facility] Emergency room . Addendum: Patient had a MRI at [facility] and was found to have a compression fracture of T12 vertebrae. She also had kidney stones in her CT Scan and an UTI. [email or web address] Not available 03/30/2018 08:51:50 06/08/2018 06/08/2018 Vanessa Abbott is a 62 year old woman with low back pain since 2013. On exam she has positive straight leg raising test on the left with tenderness in L4-5 and L5-S1 facet region in the left lumbar region. MRI Lumbar spine shows multilevel broad based disc bulges with bilateral foraminal stenosis. Trial of Lumbar epidural steroid injection under fluoroscopic guidance was recommended. The risks and benefits of the procedure were discussed in detail. She wishes to proceed. An appointment has been booked for the same . She needs a trailer truck driver on the day of the procedure. [email or web address] Not available 07/02/2018 14:33:12 07/03/2018 07/03/2018 Vanessa Abbott is a 63 year old woman with low back pain since 2014. On exam she has positive straight leg raising test on the left with tenderness in L4-5 and L5-S1 facet region in the left lumbar region. MRI Lumbar spine shows multilevel broad based disc bulges with bilateral foraminal stenosis. She is here for a trial of Lumbar epidural steroid injection under fluoroscopic guidance . The risks and benefits of the procedure were discussed in detail. She wishes to proceed. She needs to follow up in four weeks. [email or web address] Not available 07/11/2018 10:56:12 Plan of Treatment Reminders Order Date Submit Date Provider Last Modified By Organization Details Last Modified Time Details Appointments None record ed. Lab None record ed. Referral None record ed. Procedures None record ed. Surgeries None record ed. Imaging None record ed. Medication Orders None record ed. Patient TargetsNo targets recorded. Patient Instructions Encounter Date Encounter Id Patient Instructions Last Modified By Organization Details Last Modified Time 02/06/2018 [id number] She is a diabetic . Blood sugar levels may temporarily increase after steroid injections. She was advised to check blood glucose levels three times a day post procedure. If levels are above 250, she was advised to contact the PCP. [email or web address] Not available 02/06/2018 09:04:45 She was advised against bed rest lasting longer than four days and to continue activities as tolerated. [email or web address] Not available 02/06/2018 09:04:48 03/22/2018 [id number] She is a diabetic . Blood sugar levels may temporarily increase after steroid injections. She was advised to check blood glucose levels three times a day post procedure. If levels are above 250, she was advised to contact the PCP. tmanikantan Not available 03/22/2018 11:44:57 She was advised against bed rest lasting longer than four days and to continue activities as tolerated. tmanikantan Not available 03/22/2018 11:45:00 03/27/2018 [id number] She was advised against bed rest lasting longer than four days and to continue activities as tolerated. [email or web address] Not available 03/30/2018 08:48:47 06/08/2018 [id number] She is a diabetic . Blood sugar levels may temporarily increase after steroid injections. She was advised to check blood glucose levels three times a day post procedure. If levels are above 250, she was advised to contact the PCP. tmanikantan Not available 07/02/2018 14:32:35 She was advised against bed rest lasting longer than four days and to continue activities as tolerated. tmanikantan Not available 07/02/2018 14:32:40 07/03/2018 [id number] She is a diabetic . Blood sugar levels may temporarily increase after steroid injections. She was advised to check blood glucose levels three times a day post procedure. If levels are above 250, she was advised to contact the PCP. tmanikantan Not available 07/11/2018 10:12:17 She was advised against bed rest lasting longer than four days and to continue activities as tolerated. [email or web address] Not available 07/11/2018 10:12:20 Reason for Referral None Reported. Problems Name Problem SNOMED Code Status Onset Date Resolution Date Notes Provider Name and Address Organization Details Recorded Time Degeneration of lumbar intervertebral disc 09342034 Active Dino santa MD [address] , [address], [place], [address], [place] [facility] 8 09:05:20 Lumbosacral spondylosis without myelopathy 91826821 Active Dino santa MD [address] , [address], [place], [address], [place] [facility] 8 09:49:41 Spinal stenosis of lumbar region 96953561 Active Dino santa MD [address] , [address], [facility] [place], [address], [place] [facility] 8 09:50:00 Diabetic peripheral neuropathy 699553923 Active Dino santa MD [address] , [address], [place], [address], [place] [facility] 8 10:01:20 Problem Notes None recorded. Procedures Surgical History Date Name Laterality Status Provider Name and Address Organization Details Recorded Time 07/03/19 19 Lumbar Epidural steroid injection under fluoroscopic guidance completed Dino Alcala MD [address] , [address], [place], [address], [place] [facility] 07/11/2018 10:14:00 02/07/20 18 Fluoroscopic Guided Lumbar Facet Steroid Injections of levels completed Dino Alcala MD [address] , [address], [place], [address], [place] [facility] 02/06/2018 13:42:29 Joint Replacement completed Shantelle Brantley [place] [facility] 01/10/2018 08:55:53 Other completed Shantelle Brantley [place] [facility] 01/10/2018 08:56:34 Joint Replacement completed Shantelle Brantley [place] [facility] 01/10/2018 08:57:25 Imaging Results None recorded. Procedure Notes None recorded. Medical Equipment None Reported. Allergies Allergen ID Allergen Name Allergen Category Reaction Reaction Severity Criticality Documentation Date Start Date Code Code System Note Provider Name and Address Organization Details Recorded Time 37072 Bactrim medicatio n anaphylax is Not available Not available 01/10/2018 54374 9 RxNorm Shantelle vanegas, [facility] 8 08:48:53 62801 Lyrica medicatio n Not available Not available Not available 01/10/2018 11348 1 RxNorm Aggre sive behav ior Shantelle Dolaner romina, [facility] 8 09:00:22 Medications Name Sig Start Date Stop Date Status Note LastModified by Organization Details LastModified Time levothyroxi ne 137 mcg tablet 06/08 completed Not Available Not Available Not Available prednisone 10 mg tablet active Not Available Not Available Not Available azithromyci n 250 mg tablet 01/10 completed Not Available Not Available Not Available meloxicam 15 mg tablet 01/10 completed Not Available Not Available Not Available gabapentin 400 mg capsule 1 tab TID active Not Available Not Available No t Available glipizide ER 5 mg tablet, extended release 24 hr Pt taking 2 tab s in am active Not Available Not Available No t Available ciprofloxac in 500 mg tablet 01/10 completed Not Available Not Available Not Available simvastatin 40 mg tablet active Not Available Not Available Not Available hydromorpho ne 2 mg tablet 01/10 completed Not Available Not Available Not Available calcitonin (salmon) 200 unit/actuat ion nasal spray SPRAY 1 SPRAY INTO EACH NOSTRIL EVERY DAY active Not Available Not Available No t Available cephalexin 500 mg capsule 01/10 completed Not Available Not Available Not Available simvastatin 20 mg tablet 01/10 completed Not Available Not Available Not Available levothyroxi ne 125 mcg tablet active Not Available Not Available Not Available lisinopril 10 mg tablet active Not Available Not Available Not Available lidocaine 5 % topical patch APPLY 2 PATCHES BY TRANSDERM AL ROUTE ONCE DAILY (MAY WEAR UP TO 12HOURS.) active Not Available Not Available No t Available losartan 25 mg tablet active Not Available Not Available No t Available gabapentin 300 mg capsule 06/08 completed Not Available Not Available Not Available omeprazole 20 mg capsule,del ayed release active Not Available Not Available Not Available paroxetine 40 mg tablet active Not Available Not Available Not Available metformin ER 500 mg tablet,exte nded release 24 hr active Not Available Not Available Not Available amoxicillin 875 mg-fatuma arce clavulanate 125 mg tablet 01/10 completed Not Available Not Available Not Available oxycodone 5 mg tablet 06/08 completed Not Available Not Available Not Available ProAir HFA 90 mcg/actuati on aerosol inhaler active Not Available Not Available Not Available Advair HFA 230 mcg-21 mcg/actuati on aerosol inhaler active Not Available Not Available Not Available Incruse Ellipta 62.5 mcg/actuati on powder for inhalation active Not Available Not Available N ot Available OneTouch Ultra Blue Test Strip active Not Available Not Available N ot Available Vitals Date Recorded Body height Heart rate Oxygen saturation Oxygen saturation in Arterial blood by Pulse oximetry Systolic blood pressure Diastolic blood pressure Provider Name and Address Organization Details Last Updated DateTime 8 160.02 cm 81 /min 94 % 94 % 143 mm[Hg] 74 mm[Hg] Shantelle Brantley [facility] 8 08:34:10 Date Recorded Body height Heart rate Oxygen saturation Oxygen saturation in Arterial blood by Pulse oximetry Systolic blood pressure Diastolic blood pressure Provider Name and Address Organization Details Last Updated DateTime 8 160.02 cm 90 /min 96 % 96 % 137 mm[Hg] 54 mm[Hg] Dino santa MD [address] , [address], [place], [address], [facility] 8 08:46:32 Date Recorded Pain severity - 0-10 verbal numeric rating [Score] - Reported Provider Name and Address Organization Details Last Updated DateTime 03/22/2018 10 Not Available [facility] 8 05:02:19 Date Recorded Body height Heart rate Oxygen saturation Oxygen saturation in Arterial blood by Pulse oximetry Systolic blood pressure Diastolic blood pressure Provider Name and Address Organization Details Last Updated DateTime 8 160.02 cm 98 /min 96 % 96 % 188 mm[Hg] 48 mm[Hg] Dino santa MD [address] , [address], [place], [address], [facility] 8 14:34:38 Date Recorded Body height Heart rate Oxygen saturation Oxygen saturation in Arterial blood by Pulse oximetry Body mass index (BMI) Body weight Systolic blood pressure Diastolic blood pressure Provider Name and Address Organization Details Last Updated DateTime 9 160.02 cm 104 /min 96 % 96 % 44.1 kg/m2 558844. 5 g 176 mm[Hg] 85 mm[Hg] Shantelle Dolaner [facility] 9 08:57:54 Date Recorded Body height Heart rate Oxygen saturation Oxygen saturation in Arterial blood by Pulse oximetry Systolic blood pressure Diastolic blood pressure Provider Name and Address Organization Details Last Updated DateTime 9 160.02 cm 87 /min 97 % 97 % 143 mm[Hg] 46 mm[Hg] Shantelle Dolaner [facility] 9 09:04:35 Social History Question Answer Notes LastModified by Organizat ion Details LastModified Time Tobacco Smoking Status Former Smoker Quit x 30 years Not Available [facility] 03/06/2020 03:16:11 What Is Your Level Of Alcohol Consumption? None [id number] Information not available 03/06/2020 Are You Currently Employed? Yes [employer] [id number] Information not available 03/06/2020 Which Illicit Or Recreational Drugs Have You Used? 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 With Others And Mother-in- law [email or web address] Information not available 01/10/2018 [email or web address] Informatio n not available 01/10/2018 What Was The Date Of Your Most Recent Tobacco Screening? 07/11/2018 [id number] Information not available 03/06/2020 How Many Years Have You Smoked Tobacco? 20 [id number] Information not available 03/06/2020 Sex: Unknown Functional Status None recorded. Mental Status None recorded. Family History Nothing Reported. Medical History Condition Response Kidney Stones Y Hypothyroidism Y COPD Y Anxiety Disorder Y Diabetes Y Arthritis Y Cancer Y Asthma Y GERD/Reflux Y High Cholesterol Y Fibromyalgia Y Hypertension Y Gynecological HistoryNo gynecological history recorded. Obstetrics History GPAL:G 0 P 0 0 0 0 Past Encounters Encounter ID Performer Location Encounter Start Date Encounter Closed Date Diagnosis/Indication Diagnosis SNOMED-CT Code Diagnosis ICD10 Code Diagnosis Note [id number] Dino Alcala MD PAIN OFFICE [address] [place] [address] 01/10/2018 08:33:33 01/10/2018 11:47:32 Diabetic peripheral neuropathy 625860045 E11.40 Lumbosacra l spondylosis without myelopathy 49220650 M47.817 Degenerati on of lumbar intervertebral disc 88068931 M51.36 Spinal maryellen nosis of lumbar region 05956164 M48.061 [id number] Dino Alcala MD PAIN OFFICE [address] [place] [address] 02/06/2018 08:09:18 02/06/2018 13:30:09 Diabetic peripheral neuropathy 459365284 E11.40 Lumbosacra l spondylosis without myelopathy 33886527 M47.817 Degenerati on of lumbar intervertebral disc 74339086 M51.36 Spinal maryellen nosis of lumbar region 19421873 M48.061 [id number] Dino Alcala MD PAIN OFFICE [address] [place] [address] 03/22/2018 08:25:33 03/22/2018 11:52:05 Diabetic peripheral neuropathy 992445124 E11.40 Lumbosacra l spondylosis without myelopathy 57386562 M47.817 Degenerati on of lumbar intervertebral disc 71304960 M51.36 Spinal maryellen nosis of lumbar region 85905222 M48.061 [id number] Dino Alcala MD PAIN OFFICE [address] [place] [address] 03/27/2018 14:05:42 03/30/2018 08:52:39 Diabetic peripheral neuropathy 846547416 E11.40 Lumbosacra l spondylosis without myelopathy 56976075 M47.817 Degenerati on of lumbar intervertebral disc 38431686 M51.36 Spinal maryellen nosis of lumbar region 82377281 M48.061 [id number] Dino Alcala MD [facility] [address] [place] [address] 06/08/2018 08:46:10 07/02/2018 14:35:55 Diabetic peripheral neuropathy 255768917 E11.40 Lumbosacra l spondylosis without myelopathy 55556487 M47.817 Degenerati on of lumbar intervertebral disc 17068823 M51.36 Spinal maryellen nosis of lumbar region 46308460 M48.061 [id number] Dino Alcala MD [facility] [address] [place] [address] 07/03/2018 08:44:34 07/11/2018 11:06:00 Diabetic peripheral neuropathy 100658921 E11.40 Lumbosacra l spondylosis without myelopathy 79489614 M47.817 Degenerati on of lumbar intervertebral disc 49475514 M51.36 Spinal maryellen nosis of lumbar region 02293686 M48.061 Health Concerns Section Related Observation LastModified by Organization Detai ls LastModified Time None Recorded Concern Status LastModified by Organization Details LastModified Time None Recorded Advance Directives Directive None Recorded Payers Encounter Date Sequence Insurance Name Policy Number Policy Tom Covered Member ID Tom Member ID Guarantor Name 02/06/2018 2 [employer] [id number] Vanessa Mitchell liver [id number] Vanessa Isaacs Mehdi 02/06/2018 2 [place] [employer] [place]) [id number] Vanessa Mitchell liver [id number] Vanessa Isaacs Mehdi 03/22/2018 2 [facility] (MEDICARE REPLACEMENT/A DVANTAGE - PPO) [id number] Vanessa Isaacs Mehdi [id number] Vanessa Isaacs Mehdi 03/27/2018 2 [facility] (MEDICARE REPLACEMENT/A DVANTAGE - PPO) [id number] Vanessa Araizaradha Harding [id number] Vanessa Araizaradha Harding 06/08/2018 2 [facility] (MEDICARE REPLACEMENT/A DVANTAGE - PPO) [id number] Vanessa Araizaradha Harding [id number] Vanessa Isaacs Mehdi 07/03/2018 1 [facility] (MEDICARE REPLACEMENT/A DVANTAGE - PPO) [id number] Vanessa Isaacs [id number] Vanessa Harding Notes Date Note Type Note Provider Name and Address Organization Details Recorded Time 02/06/2018 text/html She is here for a left facet joint injection under fluoroscopic guidance Dino Alcala MD [address] [facility] , [address], [place], [address], [facility] 02/09/2018 11:27:05 03/22/2018 text/html She is here for a follow up after left facet joint injections under fluoroscopic guidance. She reports some pain benefit. She now has return of pain back to baseline. She is complaining of low back pain now radiating into both lower extremities. She states she has been in severe pain for the past couple days and has been unable to move due to pain. She was thinking of going to the ER due to pain. She state she has been having muscle spasms .She was scheduled to have shoulder surgrey but was canceled as her diabetes is not well controlled. She is seeing Dr. Betancur for her diabetes. She has some oxycodone fo her surgery and was planning on taking it for her pain.She is using lidocaine patches with pain benefit. Dino Alcala MD [address] [facility] , [address], [place], [address], [facility] 03/26/2018 08:52:51 03/27/2018 text/html She is here for a lumbar epidural steroid injection under fluoroscopic guidance . She states she has been in severe pain. She is having a hard time moving . She was unable to lay prone on the fluoroscopy table. She was tachycardic and sweating profusely. She states she has history of UTIs and kidney stones. Dino Alcala MD [address] [facility] , [address], [place], [address], [facility] 04/09/2018 10:16:37 06/08/2018 text/html She is here for a follow up . She states she was admitted to [facility] and had a MRI which showed compression Fracture. She was given opioid pain medication and felt she was becoming addicted to them and has stopped using them . She was in rehab weaning off opioid medication. She is complaining of low back pain now radiating into both lower extremities. She state she has been having muscle spasms .She was scheduled to have shoulder surgrey but was canceled as her diabetes is not well controlled. She is seeing Dr. Betancur for her diabetes.She is using lidocaine patches with pain benefit. Dino Alcala MD [address] [facility] , [address], [place], [address], [facility] 07/10/2018 10:40:51 07/03/2018 text/html She is here for a trial of lumbar epidural steroid injection under fluoroscopic guidance. Dino Alcala MD [address] [facility] , [address], [place], [address], [facility] 07/12/2018 13:29:32 OBGyn Episode No OBEpisode recorded.
--- OUTSIDE RECORDS SUMMARY | 2024-09-12 18:27 | XMS_ITS | Referral Summary ---
Author Organization [facility] Address [address] [place] [address] Care Team Providers Care Office Director Name Role Phone Tran Blackwell Primary Care Provider [phone] Allergies Active Allergy Reactions Criticality Noted Date Comments Multivit, Min No.[id number] Dyspnea High 04/12 Pregabalin Mood Disturbance 04/12/2023 Medications albuterol 2.5 mg/3 mL (0.083%) nebulizer solution Inhale 1 vial via nebulizer every 6 hours as needed for wheezing or shortness of breath. Active alendronate (FOSAMAX) 70 mg tablet Take 70 mg by mouth once a week. Take in the morning with a full glass of water, on an empty stomach, and do not take anything else by mouth or lie down for the next 30 min. Active cholecalciferol (VITAMIN D3) 1,000 unit tablet Take 1,000 Units by mouth once a day. Active fluticasone propion-salmete roL (ADVAIR DISKUS) 100-50 mcg inhaler Inhale 1 puff by mouth 2 times a day. Rinse mouth with water after use. Do not swallow. Active folic acid (FOLVITE) 1 mg tablet Take 1 mg by mouth once a day. Active gabapentin (NEURONTIN) 800 mg tablet Take 800 mg by mouth once a day. Active gabapentin (NEURONTIN) 400 mg capsule Take 400 mg by mouth once. Active levothyroxine (SYNTHROID, LEVOTHROID) 112 mcg tablet Take 112 mcg by mouth daily. Active losartan (COZAAR) 50 mg tablet Take 50 mg by mouth once a day. Active metFORMIN (GLUCOPHAGE) 1,000 mg tablet Take 1,000 mg by mouth 2 times a day with meals. Active omeprazole (PriLOSEC) 20 mg capsule Take 20 mg by mouth once a day. Active PARoxetine (PAXIL) 40 mg tablet Take 40 mg by mouth every morning. Active predniSONE (DELTASONE) 10 mg tablet Take 10 mg by mouth once a day. Active simvastatin (ZOCOR) 40 mg tablet Take 40 mg by mouth once a day. Active albuterol 5 mg/mL (0.5%) nebulizer solution Inhale 2.5 mg via nebulizer every 6 hours as needed for wheezing or shortness of breath. Active Social History Tobacco Use Types Packs/Day Years Used Date Smoking Tobacco: Never Smokeless Tobacco: Never Tobacco Cessation:Counseling Given: Not Answered Comments Unknown Sex and Gender Information Value Date Recorded Sex Assigned at Female 03/27/2023 3:46 PM EST Legal Sex Female 3:22 PM EST Gender Identity Not on file Sexual Orientation Not on file Last Filed Vital Signs Vital Sign Reading Time Taken Comments Blood Pressure 134/71 04/12/2023 1:48 PM EST Pulse 119 04/12/2023 1:48 PM EST Temperature 36.7 ??C (98.1 ??F) 04/12/2023 1:48 PM ES T Respiratory Rate 20 04/12/2023 1:48 PM EST Oxygen Saturation 96% 04/12/2023 1:48 PM EST Inhaled Oxygen Concentration - - Weight 105.7 kg (233 lb 2.2 oz) 04/12/2023 1:48 PM EST Height 156.4 cm (5' 1.58 ) 04/12/2023 1:48 PM ES T Body Mass Index 43.23 04/12/2023 1:48 PM EST Plan of Treatment Not on file Insurance [employer]NA [facility] Care Teams Office Director Relationship Specialty Start Date End Date Tran Blackwell [address] [place] [address] PCP - General Family Medicine 03/27/23
--- OUTSIDE RECORDS SUMMARY | 2024-09-12 18:28 | XMS_ITS | Clinical Summary ---
Author Organization [facility] Address [address] [place] [address] Care Team Providers Care Him Coder Name Role Phone Tran Blackwell Primary Care Provider [phone] Allergies Active Allergy Reactions Criticality Noted Date Comments Multivit, Min No.[id number] Dyspnea High 04/12 Pregabalin Mood Disturbance 04/12/2023 [...] 04/12/2023 1:48 PM EST Plan of Treatment Health Maintenance Due Date Last Done Comments Cologuard 1955 Colon Cancer Screening 1955 Colonoscopy 1953 FOBT / Fit Test 1953 Hepatitis C Screening 1955 Sigmoidoscopy 1953 DTaP,Tdap,and Td Vaccines (1 - Tdap) 1975 Osteoporosis Screening 2003 Zoster Vaccines (1 of 2) 2003 RSV Vaccine (60+ years old and patients) (1 - Risk 60-74 years 1-dose series) 2013 COVID-19 Vaccine ( season) 2024 Alcohol/Substance Use Screening 05/22/2024 Depression Screening and Follow-Up 05/22/2024 Health Care Proxy Review 05/22/2024 Social Drivers of Health Annual Screening 05/22/2024 Mammogram 12/26/2024 12/26/2022, 11/19, 11/24/2020, Additional history exists Influenza Vaccine (Season Ended) 2025 Pneumococcal Vaccine: 50+ Years Completed 04/10/2023 Hepatitis B Vaccines Aged Out No long er eligible based on patient's age to complete this topic Insurance [employer] Care Teams Him Coder Relationship Specialty Start Date End Date RishiDavidTran [address] [place] [id number] PCP - General Family Medicine 03/27/23
[2024-09-12 18:29] LABS: Anion Gap 13 (12-20); Blood Urea Nitrogen 17 mg/dL (9-16); Calcium 8.7 mg/dL (8.4-10.2); Carbon Dioxide 29 mmol/L (22-29); Chloride 98 mmol/L (96-108); Creatinine Clr Calc Pharmacy 85.1; Estimated Glomerular Filt Rate > 60; Glucose Random 178 mg/dL (60-115); Magnesium 1.1 mg/dL (1.6-2.6); Potassium 3.4 mmol/L (3.3-5.1); Sodium 137 mmol/L (135-145)
[2024-09-12] MEDS: Midazolam HCl 2 MG/2 ML VIAL 1 MG IVPUSH (19:09)
[2024-09-12] MEDS: Magnesium Sulfate/H2O 2 GM/50 ML PIGGYBACK IV (19:10)
[2024-09-12 19:56] LABS: Reflex Trop? Y
[2024-09-12 20:00] VITALS: BP 161/62; PULSE 109; RESP 20; O2SAT 95
[2024-09-12] MEDS: iohexoL 350 MG/ML 100 ML INFUS..BTL IV (20:02)
[2024-09-12 20:10] LABS: Appearance Urine Cloudy; Color Urine Yellow; Glucose Urine UA 100 mg/dL (Negative); Leukocyte Esterase Urine Moderate (2+) (Negative); Nitrite Urine Positive (Negative); Specific Gravity - Urine 1.015 (1.005-1.025); UMIC TRIGGER UACC YES; Urine Blood Large (3+) (Negative); Urine Ketones 15 mg/dL (Negative); Urine Protein 100 (2+) mg/dL (Neg-Trace)
[2024-09-12 20:32] LABS: Bacteria Urine 4+ (None Seen); Hyaline Casts Urine 0-2 /LPF (0-2); UACC Culture Trigger YES; WBC Urine >50 /HPF (0-5)
[2024-09-12 20:47] LABS: Alanine Aminotransferase 14 U/L (0-31); Albumin Level 3.5 g/dL (3.5-5.0); Alkaline Phosphatase 53 U/L (39-117); Aspartate Amino Transferase 16 U/L (5-31); Bilirubin Direct 0.4 mg/dL (0.0-0.5); Total Protein 5.9 g/dL (6.5-8.0)
[2024-09-12 20:54] LABS: zTroponin-I High Sen Reflex #2 17.2 ng/L (<3.5-17.0)
[2024-09-12] MEDS: cefTRIAXone sodium 1 GM VIAL IVPUSH (21:20)
[2024-09-12 21:24] VITALS: BP 131/113; PULSE 94
[2024-09-12 21:25] VITALS: BP 121/61; PULSE 107
[2024-09-12 21:28] VITALS: BP 112/50; PULSE 59
[2024-09-12 21:45] LABS: Influenza A PCR NEGATIVE (Negative); Influenza B PCR NEGATIVE (Negative); Resp Syncy Virus RNA Qual PCR NEGATIVE (Negative); SARS COV2 PCR INHOUSE NEGATIVE (Negative)
[2024-09-12 21:46] VITALS: BP 117/55; PULSE 107; RESP 14; TEMP 37.3; O2SAT 94
[2024-09-12 21:51] LABS: Glucose, Whole Blood 161 mg/dL (60-115)
[2024-09-12] MEDS: Enoxaparin Sodium 40 MG/0.4 ML SYRINGE SUBCUT (21:57)
[2024-09-12] MEDS: Lactated Ringers 500 ML 999 ML IV (22:00)
--- NOTE | 2024-09-12 22:07 | PM.IMHP ---
History of Present Illness Date of Service: 09/12/24 Attending physician on admission: Leonidas Guerin Chief Complaint: confusion, body aches, urinary urgency Patient is a 69-year-old female with a past medical history significant for sinus tachycardia, myelodysplasia, UTIs, type 2 diabetes, COPD/asthma overlap, who presented to the ED due to confusion, body aches and urinary urgency for the past few days. She describes anxiety and tachycardia. She also has chronic right upper arm pain, unchanged from baseline. She reports a fall with head strike earlier today when standing up from a sitting position. She had the back of her head but did not lose any consciousness or lacerate. She denies any nausea, vomiting or dizziness. Review of Systems Constitutional: Constitutional: Reports body ache(s), Denies chills, Denies fatigue, Denies fever(s) and Denies headache(s) Eyes: Eyes: Denies change in vision and Denies photophobia ENT: Denies headache(s), Denies nasal congestion, Denies nasal discharge and Denies sore throat Cardiovascular: Cardiovascular: Denies chest pain, Denies rapid heart rate, Denies leg edema, Denies lightheadedness and Denies dyspnea Respiratory: Respiratory: Denies chest congestion, Denies cough, Denies dyspnea and Denies wheezing Gastrointestinal: Gastrointestinal: Denies diarrhea, Denies nausea and Denies vomiting Genitourinary: Genitourinary: Denies hematuria, Denies dysuria and Reports urinary urgency Musculoskeletal: Musculoskeletal: Denies back pain and Reports myalgias Integumentary/Breasts: Skin/Breast: Denies rash Neurologic: Reports confusion, Denies headache(s) and Denies seizure-like activity Psychiatric: Psychiatric: Reports confusion Endocrine: Endocrine: Denies fatigue Hematologic/Lymphatic: Hematologic/Lymphatic: Denies easy bleeding and Denies easy bruising Allergic/Immunologic: Allergic/Immunologic: Denies wheezing [facility] Medical History Current chronic use of systemic steroids T12 compression fracture Breast calcifications Macular degeneration of both eyes Lumbar spondylolysis Adrenal insufficiency Moderate persistent asthma in adult without complication Anxiety Obstructive sleep apnea Osteoporosis Osteopenia Fibromyalgia GERD (gastroesophageal reflux disease) Hypothyroidism Mixed hyperlipidemia Essential hypertension Morbid obesity Diabetes mellitus, type II Steroid dependence Compression fracture Asthma COPD (chronic obstructive pulmonary disease) Functional capacity: uses cane/walker Family History Father COPD (chronic obstructive pulmonary disease) Mother ASCVD (arteriosclerotic cardiovascular disease) Sister Stented coronary artery Surgical History History of cataract surgery History of left hip replacement History of total right knee replacement (TKR) Social History Household Members: Spouse Housing: House Are you a primary medicare insurance specialist to a significant other at home: No Do you presently have visiting nurse or other home services: No Patient Tobacco Use Status: Former Tobacco user Tobacco use type: Cigarette Years Smoked: 30 years Smoked in Last 30 Days: No Use of substances other than those prescribed or required for medical reasons: No Advance Directives: No Advance Directives Information Provided: Yes Do you have a plan to hurt others: No Plan service: No Current occupational status: retired Narrative: No smoking, alcohol or drug use Meds Allergies Allergy/AdvReac Type Severity Reaction Status Date / Time pregabalin Allergy Severe Manic Verified 09/12/24 15:30 Sulfa (Sulfonamide Allergy Severe Hives Verified 09/12/24 15:30 Antibiotics) Active Medications: Current Medications Acetaminophen (Acetaminophen 325 Mg Tablet) 975 mg PO Q6H PRN PRN Reason: Pain, Mild 1-3,fever,headache Calcium Carbonate (Calcium Carbonate 750 Mg Tab.Chew) 750 mg PO Q4H PRN PRN Reason: Heartburn Ceftriaxone Sodium (Ceftriaxone Sodium 1 Gm Vial) 1 gm IVPUSH Q24H ONUR Dextrose (Dextrose 50 % 25 Gm/50 Ml Syringe) 25 gm IVPUSH Q15M PRN; Protocol PRN Reason: per Hypoglycemia Standing Ord. Enoxaparin Sodium (Enoxaparin Sodium 40 Mg/0.4 Ml Syringe) 40 mg SUBCUT Q24H ONUR Last Admin: 09/12/24 21:57 Dose: 40 mg Glucose (Glucose Gel 15 Gm Gel..Gram.) 15 gm PO Q15M PRN; Protocol PRN Reason: per Hypoglycemia Standing Ord. Lactated Ringer's (Lr) 500 mls @ 999 mls/hr IV .Q31M ONUR Stop: 09/12/24 22:30 Last Admin: 09/12/24 22:00 Dose: 999 mls/hr Insulin Human Lispro (Insulin Lispro 100 Unit/Ml 3 Ml Vial) 0 unit SUBCUT QIDACHS [facility]; Protocol Magnesium Hydroxide (Milk Of Magnesia 30 Ml Oral.Susp) 30 ml PO DAILY PRN PRN Reason: Constipation Melatonin (Melatonin 3 Mg Tablet) 6 mg PO BEDTIME PRN PRN Reason: Insomnia Ondansetron HCl (Ondansetron Hcl 4 Mg/2 Ml Vial) 4 mg IVPUSH Q8H PRN PRN Reason: Nausea and Vomiting Oxycodone HCl (Oxycodone Hcl Immed Release 5 Mg Tablet) 5 mg PO Q6H PRN PRN Reason: Pain, Moderate(Pain Scale 4-6) Sodium Chloride (0.9 % Sodium Chloride Flush 3 Ml Syringe) 3 [facility] Medications ?Medication ?Instructions ?Recorded ?Confirmed ?Last Taken ?Type alendronate 70 mg tablet (Fosamax) 70 mg PO QWEEK 01/14/21 06/05/24 Unknown History cholecalciferol (vitamin D3) 25 25 mcg PO DAILY 01/14/21 06/05/24 Unknown History mcg (1,000 unit) capsule losartan 50 mg tablet 50 mg PO DAILY 01/14/21 06/05/24 Unknown History omeprazole 20 mg capsule,delayed 20 mg PO DAILY 01/14/21 06/05/24 Unknown History release paroxetine HCl 40 mg tablet 40 mg PO DAILY 01/14/21 06/05/24 Unknown History gabapentin 400 mg capsule 400 mg PO .am 11/10/22 06/05/24 Unknown History gabapentin 800 mg tablet 800 mg PO BEDTIME 11/10/22 06/05/24 Unknown History nebulizers 11/10/22 06/05/24 Unknown History dulaglutide 0.75 mg/0.5 mL 0.75 mg subcut QWEEK 02/28/23 06/05/24 08/22/23 History [facility] metformin 1,000 mg tablet 1,000 mg PO .AM 11/22/23 06/05/24 Unknown History metformin 500 mg tablet 500 mg PO .PM 11/22/23 06/05/24 Unknown History cyanocobalamin (vitamin B-12) 1,000 mcg PO DAILY 05/08/24 06/05/24 Unknown History 1,000 mcg tablet folic acid 800 mcg tablet 0.8 mg PO DAILY 05/08/24 06/05/24 Unknown History levothyroxine 112 mcg tablet 112 mcg PO DAILY 05/08/24 06/05/24 Unknown History simvastatin 40 mg tablet 40 mg PO BEDTIME 05/08/24 06/05/24 Unknown History meloxicam 30 mg/mL intravenous 100 mg IV DAILY 06/05/24 06/05/24 Unknown History suspension Physical Exam Vital Signs and Narrative: Vital Signs: Last Vital Signs Temp 99.2 F 09/12/24 21:46 Pulse 107 H 09/12/24 21:46 Resp 14 09/12/24 21:46 BP 117/55 L 09/12/24 21:46 Pulse Ox 94 09/12/24 21:46 O2 Del Method Room Air 09/12/24 21:46 BMI result Body Mass Index 40.1 General: AOx3, no acute distress Resp: CTA bilaterally CVS: S1, S2, tachycardic, normal rhythm GI: +BS, NT, no distention Skin: Warm, dry Neuro: Cranial nerves II-XII grossly intact bilaterally. Motor grossly intact bilaterally Extremities: 1+ pitting edema Psych: Appropriate affect Const: General: confusion Orientation/consciousness: confusion Eyes: Direct Ophthalmoscopy: No photophobia Neuro: General: confusion Results Labs 09/12/24 17:53 09/12/24 17:53 Labs: Laboratory Results - last 24 hr 09/12/24 09/12/24 09/12/24 17:53 20:03 20:30 MCV 98.7 H MCH 31.7 MCHC 32.2 RDW 18.4 H Plt Count 211 MPV 10.5 Immature Gran % (Auto) 0.7 H Neut % (Auto) 57.7 Lymph % (Auto) 17.7 L Trimble % (Auto) 21.5 H Eos % (Auto) 1.5 Baso % (Auto) 0.9 Lymph # (Auto) 1.0 L [place] # (Auto) 1.2 Eos # (Auto) 0.1 Baso # (Auto) 0.1 Abs Immat Gran (auto) 0.04 H Absolute Neuts (auto) 3.2 Absolute Nucleated RBC 0.000 Nucleated RBC % (auto) 0.0 Smear Tech's Comments VERIFIED D-Dimer High Sensitivty 477 Anion Gap 13 Estim Creat Clear Calc 85.1 Estimated GFR > 60 POC Glucose Random Glucose 178 H Calcium 8.7 Magnesium 1.1 L* Total Bilirubin 1.0 Direct Bilirubin 0.4 AST 16 ALT 14 Alkaline Phosphatase 53 Troponin I Hi Sens Base 16.4 Troponin I Hi Sens 2 Hr 17.2 H B-Natriuretic Peptide 43 Total Protein 5.9 L Albumin 3.5 Urine Color Yellow Urine Appearance Cloudy Urine pH 6.0 Ur Specific Butner 1.015 Urine Protein 100 (2+) H Urine Glucose (UA) 100 H Urine Ketones 15 Urine Blood Large (3+) H Urine Nitrite Positive H Ur Leukocyte Esterase Moderate (2+) H Urine RBC 6-10 H Urine WBC >50 H Ur Squamous Epith Cells 11-20 Urine Bacteria 4+ Hyaline Casts 0-2 Influenza Type A (PCR) Influenza Type B (PCR) RSV RNA Qual (PCR) SARS-CoV-2 RNA (RT-PCR) 09/12/24 09/12/24 21:04 21:48 MCV MCH MCHC RDW Plt Count MPV Immature Gran % (Auto) Neut % (Auto) Lymph % (Auto) Trimble % (Auto) Eos % (Auto) Baso % (Auto) Lymph # (Auto) Trimble # (Auto) Eos # (Auto) Baso # (Auto) Abs Immat Gran (auto) Absolute Neuts (auto) Absolute Nucleated RBC Nucleated RBC % (auto) Smear Tech's Comments D-Dimer High Sensitivty Anion Gap Estim Creat Clear Calc Estimated GFR POC Glucose 161 H Random Glucose Calcium Magnesium Total Bilirubin Direct Bilirubin AST ALT Alkaline Phosphatase Troponin I Hi Sens Base Troponin I Hi Sens 2 Hr B-Natriuretic Peptide Total Protein Albumin Urine Color Urine Appearance Urine pH Ur Specific Butner Urine Protein Urine Glucose (UA) Urine Ketones Urine Blood Urine Nitrite Ur Leukocyte Esterase Urine RBC Urine WBC Ur Squamous Epith Cells Urine Bacteria Hyaline Casts Influenza Type A (PCR) NEGATIVE Influenza Type B (PCR) NEGATIVE RSV RNA Qual (PCR) NEGATIVE SARS-CoV-2 RNA (RT-PCR) NEGATIVE Imaging Radiologist's Impressions: Impressions Shoulder X-Ray 09/12/24 16:00 IMPRESSION: No acute findings of the right shoulder. Chronic findings as discussed. Electronically signed by: Alen Ames MD 09/12/2024 04:20 PM EDT Assessment and Plan (1) Acute metabolic encephalopathy: Status: Acute (2) Acute UTI: Status: Acute (3) Hypomagnesemia: Status: Acute (4) Elevated d-dimer: Status: Acute (5) Sinus tachycardia: Status: Acute (6) Fall: Status: Acute (7) Orthostatic hypotension: Status: Acute (8) Class 3 obesity: Status: Acute Plan Patient is a 69-year-old female with a past medical history significant for sinus tachycardia, myelodysplasia, UTIs, type 2 diabetes, COPD/asthma overlap, who presented to the ED due to confusion, body aches and urinary urgency for the past few days. acute metabolic encephalopathy secondary to UTI - WBC normal, tachycardia chronic, lactic acid normal, no sepsis - UA + , culture pending - CXR negative - head CT negative - CTA negative for PE, does show Bilateral lung artifact vs infiltrate, no URI sx of fever. - started on ceftriaxone, continue - monitor CBC and BMP hypomagnesemia - mag 1.1, repleated 2g IV - recheck in AM elevated d-dimer - CTA negative for PE chronic R shoulder pain - xray and US for DVT negative - no change from baseline sinus tachycardia, chronic - monitor on tele fall, orthostatic hypotension - head CT negative - c-spine CT negative - orthostatics + - give 500ml LR - recheck orthostatics in AM stage III COPD/asthma overlap, no acute exacerbation - continue home inhalers T2DM - sliding scale insulin - hold metformin - diabetic diet class III obesity - BMI 40.1 - weight loss encouraged full code VTE prophy: lovenox Patient with acute metabolic encephalopathy secondary to UTI, complicated by fall and orthostatic hypotension, requiring admission for at least 2 midnights stay for IV antibiotics, IV fluids and monitoring. Quality Stroke Does the patient have a stroke diagnosis?: No VTE Prior VTE?: No VTE Risk Level:: Medical - moderate - high VTE Device Contraindication: Treatment Not Indicated VTE Drug Contraindication: N/A - Med Ordered
--- NOTE | 2024-09-12 23:50 | PC.NURSE ---
Report taken from Laureen MAIN assumed care of pt at 2300. Pt A&Ox3, skin pwd respirations even unlabored. Assisted to bathroom in wheelchair. Offers no complaints. Back to bed without incident. Awaiting bed assignment for admission, aware of plan of care.
[2024-09-12] MEDS: 0.9 % Sodium Chloride Flush 3 ML SYRINGE IVFLUSH (23:59)
[2024-09-13] VITALS (8 sets, daily range): BP systolic 111–167; BP diastolic 64–83; PULSE 78–110; RESP 14–18; TEMP 36.2–36.9; O2SAT 92–96; BMI 39.7
--- NOTE | 2024-09-13 | ECG_ITS ---
Test Reason : AFIB Blood Pressure : */* mmHG Vent. Rate : 95 BPM Atrial Rate : 95 BPM P-R Int : 196 ms QRS Dur : 80 ms QT Int : 348 ms P-R-T Axes : 59 6 93 degrees QTcB Int : 437 ms Sinus rhythm with Premature atrial complexes with Aberrant conduction Nonspecific T wave abnormality Abnormal ECG When compared with ECG of 12-Sep-2024 17:15, No significant changes seen Referred By: Chery Liz Electronically Signed By: EVE DREW
[2024-09-13] MEDS: Acetaminophen 325 MG TABLET 975 MG PO (00:06)
--- NOTE | 2024-09-13 02:00 | PC.NURSE ---
Pt resting in bed NAD, respirations even unlabored. Continues to await bed assignment for admission.
--- NOTE | 2024-09-13 02:59 | PC.NURSE ---
Report given to Cinda MAIN pt exits my care at this time.
--- NOTE | 2024-09-13 03:23 | PC.NURSE ---
resumed care of pt at 0300, she is currently sleeping in bed, call saldaña within reach, all safety measures in place. Pt awaiting bed placement at this time
[2024-09-13 05:44] LABS: MANUAL DIFF FLAG NO
[2024-09-13 06:06] LABS: Basophils Absolute Auto 0.1 X10*3/uL (0.0-0.2); Basophils Percent Auto 1.1 % (0-2); Eosinophils Absolute Auto 0.1 X10*3/uL (0.0-0.4); Eosinophils Percent Auto 1.9 % (0-4); Hematocrit 34.3 % (37.0-47.0); Hemoglobin 10.9 g/dl (12.0-16.0); Imm Gran Abs Auto 0.06 X10*3/uL (0.00-0.03); Imm Gran Pct Auto 1.3 % (0.0-0.4); Lymphocytes Percent Auto 21.6 % (20-40); Mean Corpuscular HGB Conc 31.8 g/dl (31.0-35.0); Mean Corpuscular Hemoglobin 31.1 pg (27.0-33.0); Mean Corpuscular Volume 97.7 fL (80.0-98.0); Mean Platelet Volume 10.7 fL (9.4-12.3); Monocytes Absolute Auto 0.9 X10*3/uL (0.1-1.2); Monocytes Percent Auto 18.2 % (2-11); Neutrophils Absolute Auto 2.6 x10*3/uL (2.0-8.3); Neutrophils Percent Auto 55.9 % (45-73); Red Blood Count 3.51 X10*6/uL (4.20-5.50); Red Cell Distribution Width 18.3 % (11.0-16.0)
[2024-09-13 06:07] LABS: White Blood Count 4.7 X10*3/uL (4.8-10.8)
--- NOTE | 2024-09-13 06:07 | PC.NURSE ---
This RN went into pt room after she called staff in, pt foudn to be undressed, this RN redressed pt, helped her get up to the commode as she stated she needed to use the bathroom, pt had sweat through her sheets vitals obtained but no fever noted. Hygeine care provided, bed sheets changed at this time. Pt was unable to use the bathroom, helped back into bed, pt noted to have a dry cough, water given at this time. Pt reporting her arms are sore, denies Oxycodone for 4/10 pain stating she only really wants APAP. Pt not yet in window for next dose. Pt given warm blanket per request. Call saldaña within reach. Critical mag reported on morning lab work.
[2024-09-13 06:08] LABS: Platelet Count 190 X10*3/uL (160-400)
[2024-09-13 06:12] LABS: Anion Gap 18 (12-20); Blood Urea Nitrogen 17 mg/dL (9-16); Calcium 8.1 mg/dL (8.4-10.2); Carbon Dioxide 21 mmol/L (22-29); Chloride 102 mmol/L (96-108); Creatinine Clr Calc Pharmacy 92.8; Estimated Glomerular Filt Rate > 60; Glucose Random 137 mg/dL (60-115); Magnesium 1.4 mg/dL (1.6-2.6); Potassium 3.6 mmol/L (3.3-5.1); Sodium 137 mmol/L (135-145)
[2024-09-13 07:01] LABS: Glucose, Whole Blood 127 mg/dL (60-115)
[2024-09-13] MEDS: 0.9 % Sodium Chloride Flush 3 ML SYRINGE IVFLUSH ×3 (07:31→19:42)
[2024-09-13] MEDS: Magnesium Sulfate/H2O 2 GM/50 ML PIGGYBACK IV (07:56)
[2024-09-13] MEDS: ondansetron HCL 4 MG/2 ML VIAL IVPUSH ×2 (08:12→17:17)
[2024-09-13] MEDS: Morphine Sulfate 2 MG/ML CARTRIDGE IVPUSH (09:20)
[2024-09-13] MEDS: dilTIAZem HCL CD 180 MG CAP.ER.24H PO (10:25)
--- NOTE | 2024-09-13 11:22 | PHA.MEDREC ---
Addendum entered by Christin Frederick [facility] 09/13/24 12:04: Reviewed by [facility] Original Note: Pharmacy Consult ? Medication Reconciliation Pharmacy has completed the medication reconciliation. Spoke with patient this morning and patient was in a lot of pain and only able to confirm a few of her medications with us before being in too much pain to continue. Went down a little later to confirm medications with patients spouse (Gabby) who was now at bedside and patient was more alert and able to remember more of her medications. The patient confirmed she takes the Alendronate 70mg and now instead of Trulicity the patient takes a Monjaro 5mg injection once a week on Sundays and states she took them both this past Monday. Patient and spouse confirmed the Revlimid 10mg tab once daily for 3 weeks then taking 1 week off before restarting that regimen; patient and spouse state the patient stopped in the last week and is due to restart that. The patient was not sure the last time she took her medications.
--- NOTE | 2024-09-13 12:02 | PC.NURSE ---
Patient is a 69-year-old female with a past medical history significant for sinus tachycardia, myelodysplasia, UTIs, type 2 diabetes, COPD/asthma overlap, who presented to the ED due to confusion, body aches and urinary urgency for the past few days. Diagnosed with a UTI which is chronic. Also has chronic right shoulder pain. Patient alert and able to follow commands. monitoring tech maintained and shows afib in the low 100's. Lungs essentially clear bilat. Respirations even and non-labored. Abdomen large soft, non-tender with positive bowel sounds. Purewick patent and draining carmela urine. Positive pedal pulses with trace edema noted.
[2024-09-13 12:09] LABS: Glucose, Whole Blood 126 mg/dL (60-115)
[2024-09-13] MEDS: PARoxetine HCL 40 MG TABLET PO (13:14)
[2024-09-13] MEDS: Losartan Potassium 50 MG TABLET PO (13:14)
[2024-09-13] MEDS: LORazepam 0.5 MG TABLET PO ×2 (13:14→20:31)
[2024-09-13] MEDS: predniSONE 10 MG TABLET PO (13:15)
--- NOTE | 2024-09-13 13:24 | P.PNIM_ITS ---
Subjective Subjective Date of Service: 09/13/24 Interval History: Seen and examined this morning Follow-up for UTI, encephalopathy Patient reporting right arm pain, otherwise somewhat vague Review of Systems Review of Systems: Yes all other systems are reviewed and are negative Constitutional Constitutional: Denies chills and Denies fever(s) Physical Exam 2 Vital Signs: Vital Signs: Last Vital Signs Temp 98.2 F 09/13/24 07:57 Pulse 107 H 09/13/24 10:25 Resp 14 09/13/24 07:57 BP 159/79 H 09/13/24 10:25 Pulse Ox 96 09/13/24 07:57 O2 Del Method Room Air 09/13/24 07:57 BMI result Body Mass Index 40.1 Const: Other: uncomfortable General: alert, awake and Physically active Nutritional Appearance: o bese Orientation/consciousness: oriented to person and oriented to place Resp: Effort & Inspection: normal respiratory effort, able to speak in complete sentences, no respiratory distress and no use of accessory muscles A uscultation: clear to auscultation bilaterally Cardio: Rate: tachycardic GI: Inspection: No distended Palpation (GI): Soft to palpation and nontender Neuro: General: oriented to person, oriented to place and moves all extremities Extrem: Other: right upper arm pain reported. 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 pain with lifting arm, full passive ROM Objective Data Active Medications Acetaminophen (Acetaminophen 325 Mg Tablet) 975 mg PO Q6H PRN PRN Reason: Pain, Mild 1-3,fever,headache Last Admin: 09/13/24 00:06 Dose: 975 mg Documented By: RELL Albuterol Sulfate (Albuterol Sulfate (0.083%) 2.5 Mg/3 Ml Vial.Neb) 2.5 mg INHALE RQ6H PRN PRN Reason: shortness of breath or wheezing Aspirin (Aspirin 81 Mg Tab.Chew) 81 mg PO DAILY ONUR Atorvastatin Calcium (Atorvastatin Calcium 20 Mg Tablet) 20 mg PO BEDTIME ONUR Calcium Carbonate (Calcium Carbonate 750 Mg Tab.Chew) 750 mg PO Q4H PRN PRN Reason: Heartburn Ceftriaxone Sodium (Ceftriaxone Sodium 1 Gm Vial) 1 gm IVPUSH Q24H ONUR Cyanocobalamin (Cyanocobalamin (Vitamin B-12) 1,000 Mcg Tablet) 1,000 mcg PO DAILY [facility] Dextrose (Dextrose 50 % 25 Gm/50 Ml Syringe) 25 gm IVPUSH Q15M PRN; Protocol PRN Reason: per Hypoglycemia Standing Ord. Diltiazem HCl (Diltiazem Hcl Cd 180 Mg Cap.Er.24h) 180 mg PO DAILY [facility]; Protocol Enoxaparin Sodium (Enoxaparin Sodium 40 Mg/0.4 Ml Syringe) 40 mg SUBCUT Q24H [facility] Last Admin: 09/12/24 21:57 Dose: 40 mg Documented By: BLANE Fluticasone/Umeclidinium/Vilanterol (Fluticasone/Umeclidinium/Vilanterol 200/62.5/25 Blst.W.Dev) 1 puff INHALE RDAILY [facility] Gabapentin (Gabapentin 400 Mg Capsule) 800 mg PO BEDTIME ONUR Gabapentin (Gabapentin 400 Mg Capsule) 400 mg PO DAILY [facility] Glucose (Glucose Gel 15 Gm Gel..Gram.) 15 gm PO Q15M PRN; Protocol PRN Reason: per Hypoglycemia Standing Ord. Insulin Human Lispro (Insulin Lispro 100 Unit/Ml 3 Ml Vial) 0 unit SUBCUT QIDACHS [facility]; Protocol Last Admin: 09/13/24 12:28 Dose: Not Given Documented By: ELY Non-Admin Reason: No Insulin Coverage Levothyroxine Sodium (Levothyroxine Sodium 112 Mcg Tablet) 112 mcg PO DAILY@0600 [facility] Lorazepam (Lorazepam 0.5 Mg Tablet) 0.5 mg PO BID PRN PRN Reason: Anxiety Last Admin: 09/13/24 13:14 Dose: 0.5 mg Documented By: ELY Losartan Potassium (Losartan Potassium 50 Mg Tablet) 50 mg PO DAILY [facility]; Protocol Last Admin: 09/13/24 13:14 Dose: 50 mg Documented By: ELY Magnesium Hydroxide (Milk Of Magnesia 30 Ml Oral.Susp) 30 ml PO DAILY PRN PRN Reason: Constipation Melatonin (Melatonin 3 Mg Tablet) 6 mg PO BEDTIME PRN PRN Reason: Insomnia Omeprazole (Omeprazole 20 Mg Capsule.Dr) 20 mg PO DAILY@0630 [facility] Ondansetron HCl (Ondansetron Hcl 4 Mg/2 Ml Vial) 4 mg IVPUSH Q8H PRN PRN Reason: Nausea and Vomiting Last Admin: 09/13/24 08:12 Dose: 4 mg Documented By: TRES Paroxetine HCl (Paroxetine Hcl 40 Mg Tablet) 40 mg PO DAILY [facility] Last Admin: 09/13/24 13:14 Dose: 40 mg Documented By: ELY Prednisone (Prednisone 10 Mg Tablet) 10 mg PO DAILY [facility] Last Admin: 09/13/24 13:15 Dose: 10 mg Documented By: ELY Sodium Chloride (0.9 % Sodium Chloride Flush 3 Ml Syringe) 3 ml IVFLUSH QSHIFT [facility] Last Admin: 09/13/24 07:31 Dose: 3 ml Documented By: TRES Tramadol HCl (Tramadol Hcl 50 Mg Tablet) 100 mg PO Q6H PRN PRN Reason: Pain (Scale Score 7-10) Vitamin D (Cholecalciferol (Vitamin D3) 25 Mcg Tablet) 25 mcg PO DAILY [facility] Labs 09/13/24 05:35 09/13/24 05:35 Labs: Laboratory Results - last 24 hr 09/12/24 09/12/24 09/12/24 17:53 20:03 20:30 MCV 98.7 H MCH 31.7 MCHC 32.2 RDW 18.4 H Plt Count 211 MPV 10.5 Immature Gran % (Auto) 0.7 H Neut % (Auto) 57.7 Lymph % (Auto) 17.7 L [place] % (Auto) 21.5 H Eos % (Auto) 1.5 Baso % (Auto) 0.9 Lymph # (Auto) 1.0 L [place] # (Auto) 1.2 Eos # (Auto) 0.1 Baso # (Auto) 0.1 Abs Immat Gran (auto) 0.04 H Absolute Neuts (auto) 3.2 Absolute Nucleated RBC 0.000 Nucleated RBC % (auto) 0.0 Smear Tech's Comments VERIFIED D-Dimer High Sensitivty 477 Anion Gap 13 Estim Creat Clear Calc 85.1 Estimated GFR > 60 POC Glucose Random Glucose 178 H Calcium 8.7 Magnesium 1.1 L* Total Bilirubin 1.0 Direct Bilirubin 0.4 AST 16 ALT 14 Alkaline Phosphatase 53 Troponin I Hi Sens Base 16.4 Troponin I Hi Sens 2 Hr 17.2 H B-Natriuretic Peptide 43 Total Protein 5.9 L Albumin 3.5 Urine Color Yellow Urine Appearance Cloudy Urine pH 6.0 Ur Specific [place] 1.015 Urine Protein 100 (2+) H Urine Glucose (UA) 100 H Urine Ketones 15 Urine Blood Large (3+) H Urine Nitrite Positive H Ur Leukocyte Esterase Moderate (2+) H Urine RBC 6-10 H Urine WBC >50 H Ur Squamous Epith Cells 11-20 Urine Bacteria 4+ Hyaline Casts 0-2 Influenza Type A (PCR) Influenza Type B (PCR) RSV RNA Qual (PCR) SARS-CoV-2 RNA (RT-PCR) 09/12/24 09/12/24 09/13/24 21:04 21:48 05:35 MCV 97.7 MCH 31.1 MCHC 31.8 RDW 18.3 H Plt Count 190 MPV 10.7 Immature Gran % (Auto) 1.3 H Neut % (Auto) 55.9 Lymph % (Auto) 21.6 [place] % (Auto) 18.2 H Eos % (Auto) 1.9 Baso % (Auto) 1.1 Lymph # (Auto) 1.0 L [place] # (Auto) 0.9 Eos # (Auto) 0.1 Baso # (Auto) 0.1 Abs Immat Gran (auto) 0.06 H Absolute Neuts (auto) 2.6 Absolute Nucleated RBC 0.000 Nucleated RBC % (auto) 0.0 Smear Tech's Comments D-Dimer High Sensitivty Anion Gap 18 Estim Creat Clear Calc 92.8 Estimated GFR > 60 POC Glucose 161 H Random Glucose 137 H Calcium 8.1 L D Magnesium 1.4 L* Total Bilirubin Direct Bilirubin AST ALT Alkaline Phosphatase Troponin I Hi Sens Base Troponin I Hi Sens 2 Hr B-Natriuretic Peptide Total Protein Albumin Urine Color Urine Appearance Urine pH Ur Specific [place] Urine Protein Urine Glucose (UA) Urine Ketones Urine Blood Urine Nitrite Ur Leukocyte Esterase Urine RBC Urine WBC Ur Squamous Epith Cells Urine Bacteria Hyaline Casts Influenza Type A (PCR) NEGATIVE Influenza Type B (PCR) NEGATIVE RSV RNA Qual (PCR) NEGATIVE SARS-CoV-2 RNA (RT-PCR) NEGATIVE 09/13/24 09/13/24 06:57 12:06 MCV MCH MCHC RDW Plt Count MPV Immature Gran % (Auto) Neut % (Auto) Lymph % (Auto) [place] % (Auto) Eos % (Auto) Baso % (Auto) Lymph # (Auto) [place] # (Auto) Eos # (Auto) Baso # (Auto) Abs Immat Gran (auto) Absolute Neuts (auto) Absolute Nucleated RBC Nucleated RBC % (auto) Smear Tech's Comments D-Dimer High Sensitivty Anion Gap Estim Creat Clear Calc Estimated GFR POC Glucose 127 H 126 H Random Glucose Calcium Magnesium Total Bilirubin Direct Bilirubin AST ALT Alkaline Phosphatase Troponin I Hi Sens Base Troponin I Hi Sens 2 Hr B-Natriuretic Peptide Total Protein Albumin Urine Color Urine Appearance Urine pH Ur Specific [place] Urine Protein Urine Glucose (UA) Urine Ketones Urine Blood Urine Nitrite Ur Leukocyte Esterase Urine RBC Urine WBC Ur Squamous Epith Cells Urine Bacteria Hyaline Casts Influenza Type A (PCR) Influenza Type B (PCR) RSV RNA Qual (PCR) SARS-CoV-2 RNA (RT-PCR) Microbiology Microbiology Results: Microbiology 09/12/24 20:32 Urine Culture - Preliminary Urine clean catch - Clean Catch Midstream Culture too young to evaluate. Assessment and Plan (1) Sinus tachycardia: Status: Acute (2) Orthostatic hypotension: Status: Acute (3) Acute UTI: Status: Acute (4) Acute metabolic encephalopathy: Status: Acute Plan Patient is a 69-year-old female with a past medical history significant for sinus tachycardia, myelodysplasia, UTIs, type 2 diabetes, COPD/asthma overlap, who presented to the ED due to confusion, body aches and urinary urgency for the past few days. acute metabolic encephalopathy secondary to UTI no sepsis head CT negative, no focal neuro deficits CTA negative for PE, does show Bilateral lung artifact vs infiltrate, no URI sx of fever. Continue IV ceftriaxone Urine culture pending hypomagnesemia Magnesium remains low, give additional 2 g of IV magnesium Recheck in a.m. elevated d-dimer CTA negative for PE chronic R shoulder pain All imaging negative Reportedly chronic, continue baseline pain medication sinus tachycardia Has history of atrial tachycardia previous outpatient Holter with no AFib/a flutter resume home dose of diltiazem fall, orthostatic hypotension head CT negative, c-spine CT negative orthostatics borderline s/p fluid; BP high today, hold further fluid for now recheck orthostatics in AM stage III COPD/asthma overlap, no acute exacerbation continue home inhalers T2DM SSI, POCs, ADA diet hold metformin, Mounjaro class III obesity BMI 40.1 weight loss encouraged full code VTE prophy: lovenox Patient with acute metabolic encephalopathy secondary to UTI, complicated by fall and orthostatic hypotension, requiring admission for at least 2 midnights stay for IV antibiotics, IV fluids and monitoring. Quality Stroke Does the patient have a stroke diagnosis?: No VTE Prior VTE?: No VTE Risk Level:: Medical - moderate - high VTE Device Contraindication: Treatment Not Indicated VTE Drug Contraindication: N/A - Med Ordered
--- NOTE | 2024-09-13 15:10 | MHC.HEMONC ---
Pt is impatient for UTI,fall. Revlimid cannot be shipped to pt as she is inpatient per Medicare guidelines ([facility] notified us). I will check status on Monday and let [facility] know once pt is discharged. I notified her partner of this update.
[2024-09-13 16:31] LABS: Glucose, Whole Blood 197 mg/dL (60-115)
[2024-09-13] MEDS: traMADoL HCL 50 MG TABLET 100 MG PO (17:17)
[2024-09-13 19:18] LABS: Glucose, Whole Blood 213 mg/dL (60-115)
[2024-09-13] MEDS: Prochlorperazine Edisylate 10 MG/2 ML VIAL 5 MG IVPUSH (19:42)
[2024-09-13] MEDS: Atorvastatin Calcium 20 MG TABLET PO (20:31)
[2024-09-13] MEDS: Gabapentin 400 MG CAPSULE 800 MG PO (20:31)
[2024-09-13] MEDS: cefTRIAXone sodium 1 GM VIAL IVPUSH (20:31)
[2024-09-13] MEDS: Enoxaparin Sodium 40 MG/0.4 ML SYRINGE SUBCUT (20:32)
[2024-09-13] MEDS: Insulin Lispro 100 UNIT/ML 3 ML VIAL SUBCUT (20:33)
[2024-09-14] VITALS (7 sets, daily range): BP systolic 102–125; BP diastolic 50–65; PULSE 74–80; RESP 16–18; TEMP 36.1–36.4; O2SAT 91–95
[2024-09-14] MEDS: traMADoL HCL 50 MG TABLET 100 MG PO ×4 (03:32→21:13)
[2024-09-14] MEDS: Omeprazole 20 MG CAPSULE.DR PO (05:35)
[2024-09-14] MEDS: Levothyroxine Sodium 112 MCG TABLET PO (05:35)
[2024-09-14 07:36] LABS: Glucose, Whole Blood 144 mg/dL (60-115)
[2024-09-14 08:01] LABS: MANUAL DIFF FLAG NO
[2024-09-14 08:11] LABS: Basophils Percent Auto 0.7 % (0-2); Eosinophils Absolute Auto 0.1 X10*3/uL (0.0-0.4); Eosinophils Percent Auto 1.5 % (0-4); Hematocrit 34.5 % (37.0-47.0); Imm Gran Abs Auto 0.03 X10*3/uL (0.00-0.03); Imm Gran Pct Auto 0.7 % (0.0-0.4); Lymphocytes Percent Auto 21.7 % (20-40); Mean Corpuscular HGB Conc 31.9 g/dl (31.0-35.0); Mean Corpuscular Hemoglobin 31.3 pg (27.0-33.0); Mean Corpuscular Volume 98.3 fL (80.0-98.0); Mean Platelet Volume 10.4 fL (9.4-12.3); Monocytes Absolute Auto 0.7 X10*3/uL (0.1-1.2); Monocytes Percent Auto 15.2 % (2-11); Neutrophils Absolute Auto 2.8 x10*3/uL (2.0-8.3); Neutrophils Percent Auto 60.2 % (45-73); Platelet Count 208 X10*3/uL (160-400); Red Blood Count 3.51 X10*6/uL (4.20-5.50); Red Cell Distribution Width 18.5 % (11.0-16.0); White Blood Count 4.6 X10*3/uL (4.8-10.8)
[2024-09-14 08:22] LABS: Anion Gap 15 (12-20); Blood Urea Nitrogen 20 mg/dL (9-16); Calcium 8.6 mg/dL (8.4-10.2); Carbon Dioxide 24 mmol/L (22-29); Chloride 99 mmol/L (96-108); Creatinine Clr Calc Pharmacy 76.1; Estimated Glomerular Filt Rate > 60; Glucose Random 132 mg/dL (60-115); Magnesium 1.8 mg/dL (1.6-2.6); Potassium 3.4 mmol/L (3.3-5.1); Sodium 135 mmol/L (135-145)
[2024-09-14] MEDS: Aspirin 81 MG TAB.CHEW PO (09:01)
[2024-09-14] MEDS: Gabapentin 400 MG CAPSULE PO (09:01)
[2024-09-14] MEDS: Losartan Potassium 50 MG TABLET PO (09:01)
[2024-09-14] MEDS: Cholecalciferol (Vitamin D3) 25 MCG TABLET PO (09:01)
[2024-09-14] MEDS: PARoxetine HCL 40 MG TABLET PO (09:01)
[2024-09-14] MEDS: dilTIAZem HCL CD 180 MG CAP.ER.24H PO (09:02)
[2024-09-14] MEDS: predniSONE 10 MG TABLET PO (09:02)
[2024-09-14] MEDS: Cyanocobalamin (Vitamin B-12) 1,000 MCG TABLET 1000 MCG PO (09:02)
[2024-09-14] MEDS: 0.9 % Sodium Chloride Flush 3 ML SYRINGE IVFLUSH ×2 (09:02→15:00)
[2024-09-14] MEDS: Fluticasone/Umeclidinium/Vilanterol 200/62.5/25 BLST.W.DEV 1 PUFF INHALE (10:14)
--- NOTE | 2024-09-14 10:44 | MHC.CM.PN ---
PT LIVE WITH SPOUSE IS INDEPENDENT HAS OWN RIDE HOME DC PLAN HOME N/S
[2024-09-14 11:31] LABS: Glucose, Whole Blood 181 mg/dL (60-115)
[2024-09-14] MEDS: Insulin Lispro 100 UNIT/ML 3 ML VIAL SUBCUT ×3 (11:42→21:14)
--- NOTE | 2024-09-14 12:26 | P.PNIM_ITS ---
Subjective Subjective Date of Service: 09/14/24 Interval History: Follow-up for UTI, encephalopathy Patient reporting right arm pain, otherwise somewhat vague Review of Systems Review of Systems: Yes all other systems are reviewed and are negative Constitutional Constitutional: Denies chills and Denies fever(s) Physical Exam 2 Vital Signs: Vital Signs: Last Vital Signs Temp 97.6 F 09/14/24 07:38 Pulse 77 09/14/24 10:16 Resp 18 09/14/24 10:16 BP 125/50 L 09/14/24 07:38 Pulse Ox 93 09/14/24 07:38 O2 Del Method Room Air 09/14/24 07:38 BMI result Body Mass Index 39.7 Appearing in no acute distress lung sounds are clear to auscultation heart regular rate rhythm, clear S1, S2 positive bowel sounds, abdomen is soft, nontender neuro patient is alert x3, no focal deficits Objective Data Active Medications Acetaminophen (Acetaminophen 325 Mg Tablet) 975 mg PO Q6H PRN PRN Reason: Pain, Mild 1-3,fever,headache Last Admin: 09/13/24 00:06 Dose: 975 mg Documented By: RELL Albuterol Sulfate (Albuterol Sulfate (0.083%) 2.5 Mg/3 Ml Vial.Neb) 2.5 mg INHALE RQ6H PRN PRN Reason: shortness of breath or wheezing Aspirin (Aspirin 81 Mg Tab.Chew) 81 mg PO DAILY [facility] Last Admin: 09/14/24 09:01 Dose: 81 mg Documented By: JEET Atorvastatin Calcium (Atorvastatin Calcium 20 Mg Tablet) 20 mg PO BEDTIME [facility] Last Admin: 09/13/24 20:31 Dose: 20 mg Documented By: DAR Calcium Carbonate (Calcium Carbonate 750 Mg Tab.Chew) 750 mg PO Q4H PRN PRN Reason: Heartburn Ceftriaxone Sodium (Ceftriaxone Sodium 1 Gm Vial) 1 gm IVPUSH Q24H [facility] Last Admin: 09/13/24 20:31 Dose: 1 gm Documented By: DAR Cyanocobalamin (Cyanocobalamin (Vitamin B-12) 1,000 Mcg Tablet) 1,000 mcg PO DAILY [facility] Last Admin: 09/14/24 09:02 Dose: 1,000 mcg Documented By: JEET Dextrose (Dextrose 50 % 25 Gm/50 Ml Syringe) 25 gm IVPUSH Q15M PRN; Protocol PRN Reason: per Hypoglycemia Standing Ord. Diltiazem HCl (Diltiazem Hcl Cd 180 Mg Cap.Er.24h) 180 mg PO DAILY [facility]; Protocol Last Admin: 09/14/24 09:02 Dose: 180 mg Documented By: JEET Enoxaparin Sodium (Enoxaparin Sodium 40 Mg/0.4 Ml Syringe) 40 mg SUBCUT Q24H [facility] Last Admin: 09/13/24 20:32 Dose: 40 mg Documented By: DAR Fluticasone/Umeclidinium/Vilanterol (Fluticasone/Umeclidinium/Vilanterol 200/62.5/25 Blst.W.Dev) 1 puff INHALE RDAILY [facility] Last Admin: 09/14/24 10:14 Dose: 1 puff Documented By: ELOISE Gabapentin (Gabapentin 400 Mg Capsule) 800 mg PO BEDTIME [facility] Last Admin: 09/13/24 20:31 Dose: 800 mg Documented By: DAR Gabapentin (Gabapentin 400 Mg Capsule) 400 mg PO DAILY [facility] Last Admin: 09/14/24 09:01 Dose: 400 mg Documented By: JEET Glucose (Glucose Gel 15 Gm Gel..Gram.) 15 gm PO Q15M PRN; Protocol PRN Reason: per Hypoglycemia Standing Ord. Insulin Human Lispro (Insulin Lispro 100 Unit/Ml 3 Ml Vial) 0 unit SUBCUT QIDACHS [facility]; Protocol Last Admin: 09/14/24 11:42 Dose: 2 unit Documented By: JEET Levothyroxine Sodium (Levothyroxine Sodium 112 Mcg Tablet) 112 mcg PO DAILY@0600 [facility] Last Admin: 09/14/24 05:35 Dose: 112 mcg Documented By: DAR Lorazepam (Lorazepam 0.5 Mg Tablet) 0.5 mg PO BID PRN PRN Reason: Anxiety Last Admin: 09/13/24 20:31 Dose: 0.5 mg Documented By: DAR Comments: Pt requesting. Okay to give now per Dr. Burton written order. Losartan Potassium (Losartan Potassium 50 Mg Tablet) 50 mg PO DAILY [facility]; Protocol Last Admin: 09/14/24 09:01 Dose: 50 mg Documented By: JEET Magnesium Hydroxide (Milk Of Magnesia 30 Ml Oral.Susp) 30 ml PO DAILY PRN PRN Reason: Constipation Melatonin (Melatonin 3 Mg Tablet) 6 mg PO BEDTIME PRN PRN Reason: Insomnia Morphine Sulfate (Morphine Sulfate 2 Mg/Ml Cartridge) 2 mg IVPUSH Q4H PRN; Protocol PRN Reason: Pain, Severe (Pain Scale 7-10) Omeprazole (Omeprazole 20 Mg Capsule.Dr) 20 mg PO DAILY@0630 [facility] Last Admin: 09/14/24 05:35 Dose: 20 mg Documented By: DAR Ondansetron HCl (Ondansetron Hcl 4 Mg/2 Ml Vial) 4 mg IVPUSH Q8H PRN PRN Reason: Nausea and Vomiting Last Admin: 09/13/24 17:17 Dose: 4 mg Documented By: VAUGHN Paroxetine HCl (Paroxetine Hcl 40 Mg Tablet) 40 mg PO DAILY [facility] Last Admin: 09/14/24 09:01 Dose: 40 mg Documented By: JEET Prednisone (Prednisone 10 Mg Tablet) 10 mg PO DAILY [facility] Last Admin: 09/14/24 09:02 Dose: 10 mg Documented By: JEET Sodium Chloride (0.9 % Sodium Chloride Flush 3 Ml Syringe) [facility] Admin: 09/14/24 09:02 Dose: 3 ml Documented By: JEET Tramadol HCl (Tramadol Hcl 50 Mg Tablet) 100 mg PO Q6H PRN PRN Reason: Pain (Scale Score 7-10) Last Admin: 09/14/24 09:01 Dose: 100 mg Documented By: JEET Vitamin D (Cholecalciferol (Vitamin D3) 25 Mcg Tablet) 25 mcg PO DAILY [facility] Last Admin: 09/14/24 09:01 Dose: 25 mcg Documented By: JEET Labs 09/14/24 07:35 09/14/24 07:35 Labs: Laboratory Results - last 24 hr 09/13/24 09/13/24 09/14/24 16:24 19:09 07:23 MCV MCH MCHC RDW Plt Count MPV Immature Gran % (Auto) Neut % (Auto) Lymph % (Auto) [place] % (Auto) Eos % (Auto) Baso % (Auto) Lymph # (Auto) [place] # (Auto) Eos # (Auto) Baso # (Auto) Abs Immat Gran (auto) Absolute Neuts (auto) Absolute Nucleated RBC Nucleated RBC % (auto) Anion Gap Estim Creat Clear Calc Estimated GFR POC Glucose 197 H 213 H 144 H Random Glucose Calcium Magnesium 09/14/24 09/14/24 07:35 11:23 MCV 98.3 H MCH 31.3 MCHC 31.9 RDW 18.5 H Plt Count 208 MPV 10.4 Immature Gran % (Auto) 0.7 H Neut % (Auto) 60.2 Lymph % (Auto) 21.7 [place] % (Auto) 15.2 H Eos % (Auto) 1.5 Baso % (Auto) 0.7 Lymph # (Auto) 1.0 L [place] # (Auto) 0.7 Eos # (Auto) 0.1 Baso # (Auto) 0.0 Abs Immat Gran (auto) 0.03 Absolute Neuts (auto) 2.8 Absolute Nucleated RBC 0.000 Nucleated RBC % (auto) 0.0 Anion Gap 15 Estim Creat Clear Calc 76.1 Estimated GFR > 60 POC Glucose 181 H Random Glucose 132 H Calcium 8.6 D Magnesium 1.8 Microbiology Microbiology Results: Microbiology 09/12/24 20:32 Urine Culture - Preliminary Urine clean catch - Clean Catch Midstream Gram negative niles Assessment and Plan (1) Sinus tachycardia: Status: Acute (2) Orthostatic hypotension: Status: Acute (3) Acute UTI: Status: Acute (4) Acute metabolic encephalopathy: Status: Acute Plan 69-year-old female with a past medical history significant for sinus tachycardia, myelodysplasia, UTIs, type 2 diabetes, COPD/asthma overlap, who presented to the ED due to confusion, body aches and urinary urgency for the past few days. Acute metabolic encephalopathy secondary to GNR UTI no sepsis head CT negative, no focal neuro deficits CTA negative for PE, does show Bilateral lung artifact vs infiltrate, no URI sx of fever. Continue IV ceftriaxone Urine culture pending Hypomagnesemia. Resolved Oral and IV mag Elevated d-dimer CTA negative for PE chronic R shoulder pain All imaging negative Reportedly chronic, continue baseline pain medication lidocaine patch sinus tachycardia Has history of atrial tachycardia previous outpatient Holter with no AFib/a flutter resume home dose of diltiazem fall, orthostatic hypotension head CT negative, c-spine CT negative orthostatics borderline s/p fluid; BP high today, hold further fluid for now stage III COPD/asthma overlap, no acute exacerbation continue home inhalers T2DM SSI, POCs, ADA diet hold metformin, Mounjaro class III obesity BMI 39.7 weight loss encouraged full code VTE prophy: lovenox Patient with acute metabolic encephalopathy secondary to UTI, complicated by fall and orthostatic hypotension, requiring admission for at least 2 midnights stay for IV antibiotics, IV fluids and monitoring. Quality Stroke Does the patient have a stroke diagnosis?: No VTE Prior VTE?: No VTE Risk Level:: Medical - moderate - high VTE Device Contraindication: Treatment Not Indicated VTE Drug Contraindication: N/A - Med Ordered
[2024-09-14] MEDS: Lidocaine 4 % Patch ADH..PATCH 1 PATCH TRANSDERMA (14:58)
[2024-09-14 16:25] LABS: Glucose, Whole Blood 238 mg/dL (60-115)
[2024-09-14] MEDS: ondansetron HCL 4 MG/2 ML VIAL IVPUSH (17:05)
[2024-09-14 19:42] LABS: Glucose, Whole Blood 200 mg/dL (60-115)
[2024-09-14] MEDS: Melatonin 3 MG TABLET 6 MG PO (21:13)
[2024-09-14] MEDS: LORazepam 0.5 MG TABLET PO (21:13)
[2024-09-14] MEDS: Gabapentin 400 MG CAPSULE 800 MG PO (21:14)
[2024-09-14] MEDS: Atorvastatin Calcium 20 MG TABLET PO (21:14)
[2024-09-14] MEDS: Enoxaparin Sodium 40 MG/0.4 ML SYRINGE SUBCUT (21:15)
[2024-09-14] MEDS: cefTRIAXone sodium 1 GM VIAL IVPUSH (21:18)
[2024-09-15] VITALS (7 sets, daily range): BP systolic 106–125; BP diastolic 56–82; PULSE 61–81; RESP 16–18; TEMP 36.4–36.8; O2SAT 90–95
--- NOTE | 2024-09-15 05:08 | PC.NURSE ---
per tele monitor reading on M/T ;pt is IN NSR WITH PACS 1 PEDRO AND ANGELICA of PAT
[2024-09-15] MEDS: Levothyroxine Sodium 112 MCG TABLET PO (05:34)
[2024-09-15] MEDS: Omeprazole 20 MG CAPSULE.DR PO (05:34)
[2024-09-15 07:06] LABS: Glucose, Whole Blood 154 mg/dL (60-115)
[2024-09-15 07:46] LABS: MANUAL DIFF FLAG NO
[2024-09-15] MEDS: Fluticasone/Umeclidinium/Vilanterol 200/62.5/25 BLST.W.DEV 1 PUFF INHALE (07:47)
[2024-09-15 07:50] LABS: Basophils Percent Auto 1.1 % (0-2); Eosinophils Percent Auto 0.8 % (0-4); Hematocrit 31.4 % (37.0-47.0); Hemoglobin 9.8 g/dl (12.0-16.0); Imm Gran Abs Auto 0.02 X10*3/uL (0.00-0.03); Imm Gran Pct Auto 0.5 % (0.0-0.4); Lymphocytes Percent Auto 27.3 % (20-40); Mean Corpuscular HGB Conc 31.2 g/dl (31.0-35.0); Mean Corpuscular Hemoglobin 31.1 pg (27.0-33.0); Mean Corpuscular Volume 99.7 fL (80.0-98.0); Mean Platelet Volume 10.6 fL (9.4-12.3); Monocytes Absolute Auto 0.7 X10*3/uL (0.1-1.2); Monocytes Percent Auto 17.2 % (2-11); Neutrophils Percent Auto 53.1 % (45-73); Platelet Count 192 X10*3/uL (160-400); Red Blood Count 3.15 X10*6/uL (4.20-5.50); Red Cell Distribution Width 18.3 % (11.0-16.0); White Blood Count 3.8 X10*3/uL (4.8-10.8)
[2024-09-15] MEDS: Lidocaine 4 % Patch ADH..PATCH 1 PATCH TRANSDERMA (07:53)
[2024-09-15] MEDS: Cholecalciferol (Vitamin D3) 25 MCG TABLET PO (07:54)
[2024-09-15] MEDS: Insulin Lispro 100 UNIT/ML 3 ML VIAL SUBCUT ×4 (07:54→21:05)
[2024-09-15] MEDS: Aspirin 81 MG TAB.CHEW PO (07:54)
[2024-09-15] MEDS: Cyanocobalamin (Vitamin B-12) 1,000 MCG TABLET 1000 MCG PO (07:54)
[2024-09-15] MEDS: dilTIAZem HCL CD 180 MG CAP.ER.24H PO (07:54)
[2024-09-15] MEDS: PARoxetine HCL 40 MG TABLET PO (07:55)
[2024-09-15] MEDS: predniSONE 10 MG TABLET PO (07:55)
[2024-09-15] MEDS: Losartan Potassium 50 MG TABLET PO (07:55)
[2024-09-15] MEDS: Gabapentin 400 MG CAPSULE PO (07:55)
[2024-09-15] MEDS: 0.9 % Sodium Chloride Flush 3 ML SYRINGE IVFLUSH ×3 (07:58→20:53)
[2024-09-15 08:16] LABS: Anion Gap 15 (12-20); Blood Urea Nitrogen 28 mg/dL (9-16); Calcium 8.3 mg/dL (8.4-10.2); Carbon Dioxide 25 mmol/L (22-29); Chloride 98 mmol/L (96-108); Creatinine Clr Calc Pharmacy 51.1; Estimated Glomerular Filt Rate 45; Glucose Random 147 mg/dL (60-115); Potassium 3.8 mmol/L (3.3-5.1); Sodium 134 mmol/L (135-145)
--- NOTE | 2024-09-15 08:23 | P.PNIM_ITS ---
Subjective Subjective Date of Service: 09/15/24 Interval History: Follow-up for UTI, encephalopathy Encephalopathy resolved Patient reporting right arm pain Review of Systems Review of Systems: Yes all other systems are reviewed and are negative Constitutional Constitutional: Denies chills and Denies fever(s) Physical Exam 2 Vital Signs: Vital Signs: Last Vital Signs Temp 98 F 09/15/24 06:54 Pulse 61 09/15/24 07:48 Resp 18 09/15/24 07:48 BP 106/73 09/15/24 06:54 Pulse Ox 91 L 09/15/24 06:54 O2 Del Method Room Air 09/15/24 06:54 BMI result Body Mass Index 39.7 Appearing in no acute distress lung sounds are clear to auscultation heart regular rate rhythm, clear S1, S2 positive bowel sounds, abdomen is soft, nontender neuro patient is alert x3, no focal deficits Objective Data Active Medications Acetaminophen (Acetaminophen 325 Mg Tablet) 975 mg PO Q6H PRN PRN Reason: Pain, Mild 1-3,fever,headache Last Admin: 09/13/24 00:06 Dose: 975 mg Documented By: RELL Albuterol Sulfate (Albuterol Sulfate (0.083%) 2.5 Mg/3 Ml Vial.Neb) 2.5 mg INHALE RQ6H PRN PRN Reason: shortness of breath or wheezing Aspirin (Aspirin 81 Mg Tab.Chew) 81 mg PO DAILY [facility] Last Admin: 09/15/24 07:54 Dose: 81 mg Documented By: JEET Atorvastatin Calcium (Atorvastatin Calcium 20 Mg Tablet) 20 mg PO BEDTIME [facility] Last Admin: 09/14/24 21:14 Dose: 20 mg Documented By: BRYAN Calcium Carbonate (Calcium Carbonate 750 Mg Tab.Chew) 750 mg PO Q4H PRN PRN Reason: Heartburn Ceftriaxone Sodium (Ceftriaxone Sodium 1 Gm Vial) 1 gm IVPUSH Q24H [facility] Last Admin: 09/14/24 21:18 Dose: 1 gm Documented By: BRYAN Cyanocobalamin (Cyanocobalamin (Vitamin B-12) 1,000 Mcg Tablet) 1,000 mcg PO DAILY [facility] Last Admin: 09/15/24 07:54 Dose: 1,000 mcg Documented By: JEET Dextrose (Dextrose 50 % 25 Gm/50 Ml Syringe) 25 gm IVPUSH Q15M PRN; Protocol PRN Reason: per Hypoglycemia Standing Ord. Diltiazem HCl (Diltiazem Hcl Cd 180 Mg Cap.Er.24h) 180 mg PO DAILY [facility]; Protocol Last Admin: 09/15/24 07:54 Dose: 180 mg Documented By: JEET Enoxaparin Sodium (Enoxaparin Sodium 40 Mg/0.4 Ml Syringe) 40 mg SUBCUT Q24H [facility] Last Admin: 09/14/24 21:15 Dose: 40 mg Documented By: BRYAN Fluticasone/Umeclidinium/Vilanterol (Fluticasone/Umeclidinium/Vilanterol 200/62.5 Blst.W.Dev) 1 puff INHALE RDAILY [facility] Last Admin: 09/15/24 07:47 Dose: 1 puff Documented By: ELOISE Gabapentin (Gabapentin 400 Mg Capsule) 800 mg PO BEDTIME [facility] Last Admin: 09/14/24 21:14 Dose: 800 mg Documented By: BRYAN Gabapentin (Gabapentin 400 Mg Capsule) 400 mg PO DAILY [facility] Last Admin: 09/15/24 07:55 Dose: 400 mg Documented By: JEET Glucose (Glucose Gel 15 Gm Gel..Gram.) 15 gm PO Q15M PRN; Protocol PRN Reason: per Hypoglycemia Standing Ord. Insulin Human Lispro (Insulin Lispro 100 Unit/Ml 3 Ml Vial) 0 unit SUBCUT QIDACHS [facility]; Protocol Last Admin: 09/15/24 07:54 Dose: 2 unit Documented By: JEET Levothyroxine Sodium (Levothyroxine Sodium 112 Mcg Tablet) 112 mcg PO DAILY@0600 [facility] Last Admin: 09/15/24 05:34 Dose: 112 mcg Documented By: BRYAN Lidocaine (Lidocaine 4 % Patch Adh..Patch) 1 patch TRANSDERMA DAILY [facility]; Protocol Last Admin: 09/15/24 07:53 Dose: 1 patch Documented By: JEET Lorazepam (Lorazepam 0.5 Mg Tablet) 0.5 mg PO BID PRN PRN Reason: Anxiety Last Admin: 09/14/24 21:13 Dose: 0.5 mg Documented By: BRYAN Losartan Potassium (Losartan Potassium 50 Mg Tablet) 50 mg PO DAILY [facility]; Protocol Last Admin: 09/15/24 07:55 Dose: 50 mg Documented By: JEET Magnesium Hydroxide (Milk Of Magnesia 30 Ml Oral.Susp) 30 ml PO DAILY PRN PRN Reason: Constipation Melatonin (Melatonin 3 Mg Tablet) 6 mg PO BEDTIME PRN PRN Reason: Insomnia Last Admin: 09/14/24 21:13 Dose: 6 mg Documented By: BRYAN Morphine Sulfate (Morphine Sulfate 2 Mg/Ml Cartridge) 2 mg IVPUSH Q4H PRN; Protocol PRN Reason: Pain, Severe (Pain Scale 7-10) Omeprazole (Omeprazole 20 Mg Capsule.Dr) 20 mg PO DAILY@0630 [facility] Last Admin: 09/15/24 05:34 Dose: 20 mg Documented By: BRYAN Ondansetron HCl (Ondansetron Hcl 4 Mg/2 Ml Vial) 4 mg IVPUSH Q8H PRN PRN Reason: Nausea and Vomiting Last Admin: 09/14/24 17:05 Dose: 4 mg Documented By: JEET Paroxetine HCl (Paroxetine Hcl 40 Mg Tablet) 40 mg PO DAILY [facility] Last Admin: 09/15/24 07:55 Dose: 40 mg Documented By: JEET Prednisone (Prednisone 10 Mg Tablet) 10 mg PO DAILY [facility] Last Admin: 09/15/24 07:55 Dose: 10 mg Documented By: JEET Sodium Chloride (0.9 % Sodium Chloride Flush 3 Ml Syringe) 3 ml IVFLUSH QSHIFT [facility] Last Admin: 09/15/24 07:58 Dose: 3 ml Documented By: JEET Tramadol HCl (Tramadol Hcl 50 Mg Tablet) 100 mg PO Q6H PRN PRN Reason: Pain (Scale Score 7-10) Last Admin: 09/14/24 21:13 Dose: 100 mg Documented By: BRYAN Vitamin D (Cholecalciferol (Vitamin D3) 25 Mcg Tablet) 25 mcg PO DAILY [facility] Last Admin: 09/15/24 07:54 Dose: 25 mcg Documented By: JEET Labs 09/15/24 07:08 09/15/24 07:08 Labs: Laboratory Results - last 24 hr 09/14/24 09/14/24 09/14/24 07:35 11:23 16:16 MCV MCH MCHC RDW Plt Count MPV Immature Gran % (Auto) Neut % (Auto) Lymph % (Auto) [place] % (Auto) Eos % (Auto) Baso % (Auto) Lymph # (Auto) [place] # (Auto) Eos # (Auto) Baso # (Auto) Abs Immat Gran (auto) Absolute Neuts (auto) Absolute Nucleated RBC Nucleated RBC % (auto) Anion Gap 15 Estim Creat Clear Calc 76.1 Estimated GFR > 60 POC Glucose 181 H 238 H Random Glucose 132 H Calcium 8.6 D Magnesium 1.8 09/14/24 09/15/24 09/15/24 19:26 06:57 07:08 MCV 99.7 H MCH 31.1 MCHC 31.2 RDW 18.3 H Plt Count 192 MPV 10.6 Immature Gran % (Auto) 0.5 H Neut % (Auto) 53.1 Lymph % (Auto) 27.3 [place] % (Auto) 17.2 H Eos % (Auto) 0.8 Baso % (Auto) 1.1 Lymph # (Auto) 1.0 L [place] # (Auto) 0.7 Eos # (Auto) 0.0 Baso # (Auto) 0.0 Abs Immat Gran (auto) 0.02 Absolute Neuts (auto) 2.0 Absolute Nucleated RBC 0.000 Nucleated RBC % (auto) 0.0 Anion Gap 15 Estim Creat Clear Calc 51.1 Estimated GFR 45 POC Glucose 200 H 154 H Random Glucose 147 H Calcium 8.3 L Magnesium Microbiology Microbiology Results: Microbiology 09/12/24 20:32 Urine Culture - Final Urine clean catch - Clean Catch Midstream Klebsiella pneumoniae Escherichia coli Assessment and Plan (1) Sinus tachycardia: Status: Acute (2) Orthostatic hypotension: Status: Acute (3) Acute UTI: Status: Acute (4) Acute metabolic encephalopathy: Status: Acute Plan 69-year-old female with a past medical history significant for sinus tachycardia, myelodysplasia, UTIs, type 2 diabetes, COPD/asthma overlap, who presented to the ED due to confusion, body aches and urinary urgency for the past few days. Acute metabolic encephalopathy secondary to Klebsiella/E coli UTI Encephalopathy resolved head CT negative, no focal neuro deficits CTA negative for PE, does show Bilateral lung artifact vs infiltrate, no URI sx of fever. Continue IV ceftriaxone Acute on chronic R shoulder pain All imaging negative likely exacerbated after fall lidocaine patch scheduled tylenol toradol for msk pain Hypomagnesemia. Resolved Oral and IV mag Elevated d-dimer CTA negative for PE Sinus tachycardia Has history of atrial tachycardia previous outpatient Holter with no AFib/a flutter resume home dose of diltiazem fall, orthostatic hypotension head CT negative, c-spine CT negative orthostatics borderline s/p fluid; BP high today, hold further fluid for now stage III COPD/asthma overlap, no acute exacerbation continue home inhalers T2DM SSI, POCs, ADA diet hold metformin, Mounjaro class III obesity BMI 39.7 weight loss encouraged full code VTE prophy: jl DISPO PT rec STR Quality Stroke Does the patient have a stroke diagnosis?: No VTE Prior VTE?: No VTE Risk Level:: Medical - moderate - high VTE Device Contraindication: Treatment Not Indicated VTE Drug Contraindication: N/A - Med Ordered
[2024-09-15] MEDS: Acetaminophen 325 MG TABLET 650 MG PO ×3 (08:46→20:52)
[2024-09-15] MEDS: Ketorolac Tromethamine 30 MG/ML VIAL IVPUSH (08:46)
[2024-09-15 11:04] LABS: Glucose, Whole Blood 210 mg/dL (60-115)
[2024-09-15] MEDS: traMADoL HCL 50 MG TABLET 100 MG PO (11:42)
[2024-09-15] MEDS: ondansetron HCL 4 MG/2 ML VIAL IVPUSH (12:23)
[2024-09-15 16:31] LABS: Glucose, Whole Blood 242 mg/dL (60-115)
[2024-09-15 20:11] LABS: Glucose, Whole Blood 305 mg/dL (60-115)
[2024-09-15 20:11] LABS: Glucose, Whole Blood 294 mg/dL (60-115)
[2024-09-15] MEDS: LORazepam 0.5 MG TABLET PO (20:51)
[2024-09-15] MEDS: Enoxaparin Sodium 40 MG/0.4 ML SYRINGE SUBCUT (20:51)
[2024-09-15] MEDS: Melatonin 3 MG TABLET 6 MG PO (20:51)
[2024-09-15] MEDS: Gabapentin 400 MG CAPSULE 800 MG PO (20:52)
[2024-09-15] MEDS: Atorvastatin Calcium 20 MG TABLET PO (20:52)
[2024-09-15] MEDS: cefTRIAXone sodium 1 GM VIAL IVPUSH (20:53)
--- NOTE | 2024-09-16 | ECG_ITS ---
Test Reason : PACs Blood Pressure : */* mmHG Vent. Rate : 69 BPM Atrial Rate : 61 BPM P-R Int : 248 ms QRS Dur : 86 ms QT Int : 448 ms P-R-T Axes : 83 21 48 degrees QTcB Int : 480 ms Sinus rhythm with 1st degree A-V block with Premature atrial complexes Nonspecific ST abnormality Abnormal ECG When compared with ECG of 13-Sep-2024 10:03, VT interval has increased Nonspecific T wave abnormality no longer evident in Anterior leads Referred By: Zaina Peña Electronically Signed By:
[2024-09-16 03:11] VITALS: BP 120/58; PULSE 61; RESP 18; TEMP 36.6; O2SAT 93
[2024-09-16] MEDS: Omeprazole 20 MG CAPSULE.DR PO (06:29)
[2024-09-16] MEDS: Levothyroxine Sodium 112 MCG TABLET PO (06:29)
[2024-09-16] MEDS: Fluticasone/Umeclidinium/Vilanterol 200/62.5/25 BLST.W.DEV 1 PUFF INHALE (07:33)
[2024-09-16 07:34] VITALS: PULSE 61; RESP 18; O2SAT 97
[2024-09-16 07:39] VITALS: BP 144/68; PULSE 60; RESP 18; TEMP 35.4; O2SAT 93
[2024-09-16 07:41] LABS: Glucose, Whole Blood 150 mg/dL (60-115)
[2024-09-16 08:22] VITALS: TEMP 36
[2024-09-16] MEDS: predniSONE 10 MG TABLET PO (08:26)
[2024-09-16] MEDS: PARoxetine HCL 40 MG TABLET PO (08:26)
[2024-09-16] MEDS: Lidocaine 4 % Patch ADH..PATCH 1 PATCH TRANSDERMA (08:26)
[2024-09-16] MEDS: Losartan Potassium 50 MG TABLET PO (08:26)
[2024-09-16] MEDS: Cholecalciferol (Vitamin D3) 25 MCG TABLET PO (08:27)
[2024-09-16] MEDS: Acetaminophen 325 MG TABLET 650 MG PO ×3 (08:27→20:45)
[2024-09-16] MEDS: dilTIAZem HCL CD 180 MG CAP.ER.24H PO (08:27)
[2024-09-16] MEDS: Gabapentin 400 MG CAPSULE PO (08:27)
[2024-09-16] MEDS: Aspirin 81 MG TAB.CHEW PO (08:27)
[2024-09-16] MEDS: Cyanocobalamin (Vitamin B-12) 1,000 MCG TABLET 1000 MCG PO (08:28)
--- NOTE | 2024-09-16 08:37 | P.PNIM_ITS ---
Subjective Subjective Date of Service: 09/16/24 Interval History: Follow-up for UTI, encephalopathy Encephalopathy resolved Patient reporting right arm pain Review of Systems Review of Systems: Yes all other systems are reviewed and are negative Constitutional Constitutional: Denies chills and Denies fever(s) Physical Exam 2 Vital Signs: Vital Signs: Last Vital Signs Temp 96.8 F 09/16/24 08:22 Pulse 60 09/16/24 07:39 Resp 18 09/16/24 07:39 BP 144/68 H 09/16/24 07:39 Pulse Ox 93 09/16/24 07:39 O2 Del Method Room Air 09/16/24 07:39 BMI result Body Mass Index 39.7 Appearing in no acute distress lung sounds are clear to auscultation heart regular rate rhythm, clear S1, S2 positive bowel sounds, abdomen is soft, nontender neuro patient is alert x3, no focal deficits Right shoulder pain and edema Objective Data Active Medications Acetaminophen (Acetaminophen 325 Mg Tablet) 975 mg PO Q6H PRN PRN Reason: Pain, Mild 1-3,fever,headache Last Admin: 09/13/24 00:06 Dose: 975 mg Documented By: RELL Acetaminophen (Acetaminophen 325 Mg Tablet) 650 mg PO Q6H [facility] Last Admin: 09/16/24 08:27 Dose: 650 mg Documented By: JEET Albuterol Sulfate (Albuterol Sulfate (0.083%) 2.5 Mg/3 Ml Vial.Neb) 2.5 mg INHALE RQ6H PRN PRN Reason: shortness of breath or wheezing Aspirin (Aspirin 81 Mg Tab.Chew) 81 mg PO DAILY [facility] Last Admin: 09/16/24 08:27 Dose: 81 mg Documented By: JEET Atorvastatin Calcium (Atorvastatin Calcium 20 Mg Tablet) 20 mg PO BEDTIME [facility] Last Admin: 09/15/24 20:52 Dose: 20 mg Documented By: RACIEL Calcium Carbonate (Calcium Carbonate 750 Mg Tab.Chew) 750 mg PO Q4H PRN PRN Reason: Heartburn Ceftriaxone Sodium (Ceftriaxone Sodium 1 Gm Vial) 1 gm IVPUSH Q24H [facility] Last Admin: 09/15/24 20:53 Dose: 1 gm Documented By: RACIEL Cyanocobalamin (Cyanocobalamin (Vitamin B-12) 1,000 Mcg Tablet) 1,000 mcg PO DAILY [facility] Last Admin: 09/16/24 08:28 Dose: 1,000 mcg Documented By: JEET Dextrose (Dextrose 50 % 25 Gm/50 Ml Syringe) 25 gm IVPUSH Q15M PRN; Protocol PRN Reason: per Hypoglycemia Standing Ord. Diltiazem HCl (Diltiazem Hcl Cd 180 Mg Cap.Er.24h) 180 mg PO DAILY [facility]; Protocol Last Admin: 09/16/24 08:27 Dose: 180 mg Documented By: JEET Enoxaparin Sodium (Enoxaparin Sodium 40 Mg/0.4 Ml Syringe) 40 mg SUBCUT Q24H [facility] Last Admin: 09/15/24 20:51 Dose: 40 mg Documented By: RACIEL Fluticasone/Umeclidinium/Vilanterol (Fluticasone/Umeclidinium/Vilanterol 200/62.5/25 Blst.W.Dev) 1 puff INHALE RDAILY [facility] Last Admin: 09/16/24 07:33 Dose: 1 puff Documented By: YOCASTA Gabapentin (Gabapentin 400 Mg Capsule) 800 mg PO BEDTIME [facility] Last Admin: 09/15/24 20:52 Dose: 800 mg Documented By: RACIEL Gabapentin (Gabapentin 400 Mg Capsule) 400 mg PO DAILY [facility] Last Admin: 09/16/24 08:27 Dose: 400 mg Documented By: JEET Glucose (Glucose Gel 15 Gm Gel..Gram.) 15 gm PO Q15M PRN; Protocol PRN Reason: per Hypoglycemia Standing Ord. Insulin Human Lispro (Insulin Lispro 100 Unit/Ml 3 Ml Vial) 0 unit SUBCUT QIDACHS [facility]; Protocol Last Admin: 09/16/24 08:02 Dose: Not Given Documented By: JEET Non-Admin Reason: No Insulin Coverage Ketorolac Tromethamine (Ketorolac Tromethamine 30 Mg/Ml Vial) 30 mg IVPUSH Q6H PRN PRN Reason: Pain, Moderate(Pain Scale 4-6) Levothyroxine Sodium (Levothyroxine Sodium 112 Mcg Tablet) 112 mcg PO DAILY@0600 [facility] Last Admin: 09/16/24 06:29 Dose: 112 mcg Documented By: RACIEL Lidocaine (Lidocaine 4 % Patch Adh..Patch) 1 patch TRANSDERMA DAILY [facility]; Protocol Last Admin: 09/16/24 08:26 Dose: 1 patch Documented By: JEET Lorazepam (Lorazepam 0.5 Mg Tablet) 0.5 mg PO BID PRN PRN Reason: Anxiety Last Admin: 09/15/24 20:51 Dose: 0.5 mg Documented By: RACIEL Losartan Potassium (Losartan Potassium 50 Mg Tablet) 50 mg PO DAILY [facility]; Protocol Last Admin: 09/16/24 08:26 Dose: 50 mg Documented By: JEET Magnesium Hydroxide (Milk Of Magnesia 30 Ml Oral.Susp) 30 ml PO DAILY PRN PRN Reason: Constipation Melatonin (Melatonin 3 Mg Tablet) 6 mg PO BEDTIME PRN PRN Reason: Insomnia Last Admin: 09/15/24 20:51 Dose: 6 mg Documented By: RACIEL Metformin HCl (Metformin Hcl 500 Mg Tablet) 500 mg PO BEDTIME [facility] Morphine Sulfate (Morphine Sulfate 2 Mg/Ml Cartridge) 2 mg IVPUSH Q4H PRN; Protocol PRN Reason: Pain, Severe (Pain Scale 7-10) Omeprazole (Omeprazole 20 Mg Capsule.Dr) 20 mg PO DAILY@0630 [facility] Last Admin: 09/16/24 06:29 Dose: 20 mg Documented By: RACIEL Ondansetron HCl (Ondansetron Hcl 4 Mg/2 Ml Vial) 4 mg IVPUSH Q8H PRN PRN Reason: Nausea and Vomiting Last Admin: 09/15/24 12:23 Dose: 4 mg Documented By: JEET Comments: Unable to scan. Network down Paroxetine HCl (Paroxetine Hcl 40 Mg Tablet) 40 mg PO DAILY [facility] Last Admin: 09/16/24 08:26 Dose: 40 mg Documented By: JEET Prednisone (Prednisone 10 Mg Tablet) 10 mg PO DAILY [facility] Last Admin: 09/16/24 08:26 Dose: 10 mg Documented By: JEET Sodium Chloride (0.9 % Sodium Chloride Flush 3 Ml Syringe) 3 ml IVFLUSH QSHIFT [facility] Last Admin: 09/15/24 20:53 Dose: 3 ml Documented By: RACIEL Tramadol HCl (Tramadol Hcl 50 Mg Tablet) 100 mg PO Q6H PRN PRN Reason: Pain (Scale Score 7-10) Last Admin: 09/15/24 11:42 Dose: 100 mg Documented By: JEET Vitamin D (Cholecalciferol (Vitamin D3) 25 Mcg Tablet) 25 mcg PO DAILY [facility] Last Admin: 09/16/24 08:27 Dose: 25 mcg Documented By: JEET Labs 09/15/24 07:08 09/15/24 07:08 Labs: Laboratory Results - last 24 hr 09/15/24 09/15/24 09/15/24 11:00 16:21 19:47 POC Glucose 210 H 242 H 294 H 09/15/24 09/16/24 20:02 07:30 POC Glucose 305 H 150 H Microbiology Microbiology Results: Microbiology 09/12/24 20:32 Urine Culture - Final Urine clean catch - Clean Catch Midstream Klebsiella pneumoniae Escherichia coli Assessment and Plan (1) Sinus tachycardia: Status: Acute (2) Orthostatic hypotension: Status: Acute (3) Acute UTI: Status: Acute (4) Acute metabolic encephalopathy: Status: Acute Plan 69-year-old female with a past medical history significant for sinus tachycardia, myelodysplasia, UTIs, type 2 diabetes, COPD/asthma overlap, who presented to the ED due to confusion, body aches and urinary urgency for the past few days. Acute on chronic R shoulder pain All xray imaging negative likely exacerbated after fall but not improving lidocaine patch scheduled tylenol , toradol for msk pain shoulder CT to assess for joint or muscle injury Acute metabolic encephalopathy secondary to Klebsiella/E coli UTI Encephalopathy resolved head CT negative, no focal neuro deficits CTA negative for PE, does show Bilateral lung artifact vs infiltrate, no URI sx of fever. Continue IV ceftriaxone Hypomagnesemia. Resolved Oral and IV mag Elevated d-dimer CTA negative for PE Sinus tachycardia Has history of atrial tachycardia previous outpatient Holter with no AFib/a flutter resume home dose of diltiazem fall, orthostatic hypotension head CT negative, c-spine CT negative orthostatics borderline s/p fluid; BP high today, hold further fluid for now stage III COPD/asthma overlap, no acute exacerbation continue home inhalers T2DM SSI, POCs, ADA diet hold metformin, Mounjaro class III obesity BMI 39.7 weight loss encouraged full code VTE prophy: lovenox DISPO PT rec STR Quality Stroke Does the patient have a stroke diagnosis?: No VTE Prior VTE?: No VTE Risk Level:: Medical - moderate - high VTE Device Contraindication: Treatment Not Indicated VTE Drug Contraindication: N/A - Med Ordered
[2024-09-16] MEDS: Ketorolac Tromethamine 30 MG/ML VIAL IVPUSH ×2 (08:38→17:00)
[2024-09-16 11:04] LABS: Anion Gap 16 (12-20); Blood Urea Nitrogen 26 mg/dL (9-16); Calcium 8.9 mg/dL (8.4-10.2); Carbon Dioxide 25 mmol/L (22-29); Chloride 101 mmol/L (96-108); Creatinine Clr Calc Pharmacy 70.7; Estimated Glomerular Filt Rate > 60; Glucose Random 206 mg/dL (60-115); Potassium 4.2 mmol/L (3.3-5.1); Sodium 138 mmol/L (135-145)
[2024-09-16 11:31] LABS: Glucose, Whole Blood 171 mg/dL (60-115)
[2024-09-16] MEDS: Insulin Lispro 100 UNIT/ML 3 ML VIAL SUBCUT ×3 (11:41→20:50)
[2024-09-16] MEDS: 0.9 % Sodium Chloride Flush 3 ML SYRINGE IVFLUSH ×2 (14:33→20:56)
[2024-09-16 15:33] VITALS: BP 117/58; PULSE 61; RESP 18; TEMP 36.6; O2SAT 96
--- NOTE | 2024-09-16 15:56 | MHC.CM.PN ---
CM SPOKE TO PT REGARDING DCP, SHE REPORTS [facility] IS THE PREFERRED SNF UPDATES SENT, THEY WILL SUBMIT FOR AUTH TODAY WITH AN EXPECTATION OF DC TOMORROW
[2024-09-16 16:19] LABS: Glucose, Whole Blood 264 mg/dL (60-115)
--- NOTE | 2024-09-16 17:16 | P.CONOP_ITS ---
History of Present Illness HPI Consult date: 09/16/24 Chief complaint: acute metabolic enceph, UTI Narrative: Patient is a 69-year-old female admitted to the hospital for UTI and encephalopathy after a fall Patient also noted to have severe acute on chronic right shoulder pain Patient reports that this pain has acutely worsened since her injury, but states that she does have significant chronic right shoulder pain at baseline X-rays negative for acute fracture, do demonstrate old surgical neck fracture of the right humerus CT scan negative for acute fracture, significant for joint effusion and calcifications Patient reports she has severely limited range of motion of the right shoulder, reports significant ?cracking? that occurs with range of motion Of note, the patient does have an active cancer diagnosis and is on chemotherapy No other acute complaints or concerns at this time Review of Systems 2 Review of Systems: Yes all other systems are reviewed and are negative PMFSH Past Medical History Medical History Current chronic use of systemic steroids T12 compression fracture Breast calcifications Macular degeneration of both eyes Lumbar spondylolysis Adrenal insufficiency Moderate persistent asthma in adult without complication Anxiety Obstructive sleep apnea Osteoporosis Osteopenia Fibromyalgia GERD (gastroesophageal reflux disease) Hypothyroidism Mixed hyperlipidemia Essential hypertension Morbid obesity Diabetes mellitus, type II Steroid dependence Compression fracture Asthma COPD (chronic obstructive pulmonary disease) Family History Family History Father COPD (chronic obstructive pulmonary disease) Mother ASCVD (arteriosclerotic cardiovascular disease) Sister Stented coronary artery Surgical History Surgical History History of cataract surgery History of left hip replacement History of total right knee replacement (TKR) Social History Social History Household Members: Spouse Housing: House Are you a primary respiratory care program director to a significant other at home: No Do you presently have visiting nurse or other home services: No Patient Tobacco Use Status: Never used Tobacco Tobacco use type: Cigarette Years Smoked: 30 years Second Hand Smoke Exposure: No service: No Current occupational status: retired Meds Allergies Allergy/AdvReac Type Severity Reaction Status Date / Time pregabalin Allergy Severe Manic Verified 09/12/24 15:30 Sulfa (Sulfonamide Allergy Severe Hives Verified 09/12/24 15:30 Antibiotics) Active Medications: Current Medications Acetaminophen (Acetaminophen 325 Mg Tablet) 975 mg PO Q6H PRN PRN Reason: Pain, Mild 1-3,fever,headache Last Admin: 09/13/24 00:06 Dose: 975 mg Acetaminophen (Acetaminophen 325 Mg Tablet) 650 mg PO Q6H [facility] Last Admin: 09/16/24 14:31 Dose: 650 mg Albuterol Sulfate (Albuterol Sulfate (0.083%) 2.5 Mg/3 Ml Vial.Neb) 2.5 mg INHALE RQ6H PRN PRN Reason: shortness of breath or wheezing Aspirin (Aspirin 81 Mg Tab.Chew) 81 mg PO DAILY [facility] Last Admin: 09/16/24 08:27 Dose: 81 mg Atorvastatin Calcium (Atorvastatin Calcium 20 Mg Tablet) 20 mg PO BEDTIME ONUR Last Admin: 09/15/24 20:52 Dose: 20 mg Calcium Carbonate (Calcium Carbonate 750 Mg Tab.Chew) 750 mg PO Q4H PRN PRN Reason: Heartburn Ceftriaxone Sodium (Ceftriaxone Sodium 1 Gm Vial) 1 gm IVPUSH Q24H [facility] Last Admin: 09/15/24 20:53 Dose: 1 gm Cyanocobalamin (Cyanocobalamin (Vitamin B-12) 1,000 Mcg Tablet) 1,000 mcg PO DAILY [facility] Last Admin: 09/16/24 08:28 Dose: 1,000 mcg Dextrose (Dextrose 50 % 25 Gm/50 Ml Syringe) 25 gm IVPUSH Q15M PRN; Protocol PRN Reason: per Hypoglycemia Standing Ord. Diltiazem HCl (Diltiazem Hcl Cd 180 Mg Cap.Er.24h) 180 mg PO DAILY [facility]; Protocol Last Admin: 09/16/24 08:27 Dose: 180 mg Enoxaparin Sodium (Enoxaparin Sodium 40 Mg/0.4 Ml Syringe) 40 mg SUBCUT Q24H [facility] Last Admin: 09/15/24 20:51 Dose: 40 mg Fluticasone/Umeclidinium/Vilanterol (Fluticasone/Umeclidinium/Vilanterol 200/62.5/25 Blst.W.Dev) 1 puff INHALE RDAILY [facility] Last Admin: 09/16/24 07:33 Dose: 1 puff Gabapentin (Gabapentin 400 Mg Capsule) 800 mg PO BEDTIME ONUR Last Admin: 09/15/24 20:52 Dose: 800 mg Gabapentin (Gabapentin 400 Mg Capsule) 400 mg PO DAILY [facility] Last Admin: 09/16/24 08:27 Dose: 400 mg Glucose (Glucose Gel 15 Gm Gel..Gram.) 15 gm PO Q15M PRN; Protocol PRN Reason: per Hypoglycemia Standing Ord. Insulin Human Lispro (Insulin Lispro 100 Unit/Ml 3 Ml Vial) 0 unit SUBCUT QIDACHS [facility]; Protocol Last Admin: 09/16/24 16:34 Dose: 6 unit Ketorolac Tromethamine (Ketorolac Tromethamine 30 Mg/Ml Vial) 30 mg IVPUSH Q6H PRN PRN Reason: Pain, Moderate(Pain Scale 4-6) Last Admin: 09/16/24 17:00 Dose: 30 mg Levothyroxine Sodium (Levothyroxine Sodium 112 Mcg Tablet) 112 mcg PO DAILY@0600 [facility] Last Admin: 09/16/24 06:29 Dose: 112 mcg Lidocaine (Lidocaine 4 % Patch Adh..Patch) 1 patch TRANSDERMA DAILY [facility]; Protocol Last Admin: 09/16/24 08:26 Dose: 1 patch Lorazepam (Lorazepam 0.5 Mg Tablet) 0.5 mg PO BID PRN PRN Reason: Anxiety Last Admin: 09/15/24 20:51 Dose: 0.5 mg Losartan Potassium (Losartan Potassium 50 Mg Tablet) 50 mg PO DAILY [facility]; Protocol Last Admin: 09/16/24 08:26 Dose: 50 mg Magnesium Hydroxide (Milk Of Magnesia 30 Ml Oral.Susp) 30 ml PO DAILY PRN PRN Reason: Constipation Melatonin (Melatonin 3 Mg Tablet) 6 mg PO BEDTIME PRN PRN Reason: Insomnia Last Admin: 09/15/24 20:51 Dose: 6 mg Metformin HCl (Metformin Hcl 500 Mg Tablet) 500 mg PO BEDTIME [facility] Morphine Sulfate (Morphine Sulfate 2 Mg/Ml Cartridge) 2 mg IVPUSH Q4H PRN; Protocol PRN Reason: Pain, Severe (Pain Scale 7-10) Omeprazole (Omeprazole 20 Mg Capsule.Dr) 20 mg PO DAILY@0630 [facility] Last Admin: 09/16/24 06:29 Dose: 20 mg Ondansetron HCl (Ondansetron Hcl 4 Mg/2 Ml Vial) 4 mg IVPUSH Q8H PRN PRN Reason: Nausea and Vomiting Last Admin: 09/15/24 12:23 Dose: 4 mg Paroxetine HCl (Paroxetine Hcl 40 Mg Tablet) 40 mg PO DAILY [facility] [place] Last Admin: 09/16/24 08:26 Dose: 40 mg Prednisone (Prednisone 10 Mg Tablet) 10 mg PO DAILY [facility] Last Admin: 09/16/24 08:26 Dose: 10 mg Sodium Chloride (0.9 % Sodium Chloride Flush 3 Ml Syringe) 3 ml IVFLUSH QSHIFT [facility] Last Admin: 09/16/24 14:33 Dose: 3 ml Tramadol HCl (Tramadol Hcl 50 Mg Tablet) 100 mg PO Q6H PRN PRN Reason: Pain (Scale Score 7-10) Last Admin: 09/15/24 11:42 Dose: 100 mg Vitamin D (Cholecalciferol (Vitamin D3) 25 Mcg Tablet) 25 mcg PO DAILY [facility] Last Admin: 09/16/24 08:27 Dose: 25 mcg Home Medications ?Medication ?Instructions ?Recorded ?Confirmed ?Last Taken ?Type alendronate 70 mg tablet (Fosamax) 70 mg PO DAVID@1800 01/14/21 09/13/24 09/08/24 History cholecalciferol (vitamin D3) 25 25 mcg PO DAILY 01/14/21 09/13/24 Unknown History mcg (1,000 unit) capsule losartan 50 mg tablet 50 mg PO DAILY 01/14/21 09/13/24 Unknown History omeprazole 20 mg capsule,delayed 20 mg PO DAILY@0630 01/14/21 09/13/24 Unknown History release paroxetine HCl 40 mg tablet 40 mg PO DAILY 01/14/21 09/13/24 Unknown History gabapentin 400 mg capsule 400 mg PO DAILY 11/10/22 09/13/24 Unknown History gabapentin 800 mg tablet 800 mg PO BEDTIME 11/10/22 09/13/24 Unknown History nebulizers 11/10/22 06/05/24 Unknown History metformin 1,000 mg tablet 1,000 mg PO DAILY 11/22/23 09/13/24 Unknown History metformin 500 mg tablet 500 mg PO BEDTIME 11/22/23 09/13/24 Unknown History cyanocobalamin (vitamin B-12) 1,000 mcg PO DAILY 05/08/24 09/13/24 Unknown History 1,000 mcg tablet levothyroxine 112 mcg tablet 112 mcg PO DAILY@0600 05/08/24 09/13/24 Unknown History simvastatin 40 mg tablet 40 mg PO BEDTIME 05/08/24 09/13/24 Unknown History celecoxib 200 mg capsule 200 mg PO DAILY 09/13/24 09/13/24 Unknown History loperamide 2 mg capsule (Imodium 2 mg PO Q4H PRN Loose Stool 09/13/24 09/13/24 Unknown History A-D) tirzepatide 5 mg/0.5 mL 5 mg subcut DAVID@0900 09/13/24 09/13/24 09/08/24 History subcutaneous pen injector (Gabriel) Physical Exam 2 Vital Signs: Vital Signs: Last Vital Signs Temp 97.9 F 09/16/24 15:33 Pulse 61 09/16/24 15:33 Resp 18 09/16/24 15:33 BP 117/58 L 09/16/24 15:33 Pulse Ox 96 09/16/24 15:33 O2 Del Method Room Air 09/16/24 15:33 BMI result Body Mass Index 39.7 Extrem: Other: On inspection, there is no visible deformity of the right shoulder No edema, erythema, ecchymosis noted No lacerations, abrasions, open areas No evidence of infection Patient reports no tenderness to palpation of the acromion, clavicle, greater tuberosity, or elsewhere in the right shoulder Patient is able to forward flex the right shoulder to approximately 70 degrees, with significant audible and palpable creaking and lurching of the right shoulder noted Patient was able to externally rotate to approximately 40 degrees on the right No ligamentous laxity noted Distal sensation intact Capillary refill brisk Negative Juliana's Results Labs 09/15/24 07:08 09/16/24 10:12 Labs: Abnormal lab results 09/15/24 09/15/24 09/16/24 Range/Units 19:47 20:02 07:30 BUN (9-16) mg/dL POC Glucose 294 H 305 H 150 H (60-115) mg/dL Random Glucose (60-115) mg/dL 09/16/24 09/16/24 09/16/24 Range/Units 10:12 11:27 16:11 BUN 26 H (9-16) mg/dL POC Glucose 171 H 264 H (60-115) mg/dL Random Glucose 206 H (60-115) mg/dL H & H 09/12/24 09/13/24 09/14/24 Range/Units 17:53 05:35 07:35 Hgb 11.9 L 10.9 L 11.0 L (12.0-16.0) g/dl Hct 37.0 34.3 L 34.5 L (37.0-47.0) % 09/15/24 Range/Units 07:08 Hgb 9.8 L (12.0-16.0) g/dl Hct 31.4 L (37.0-47.0) % All other labs normal. Diagnostic results Shoulder x-ray: report reviewed and image reviewed Shoulder CT: report reviewed and image reviewed Assessment and Plan (1) Osteoarthritis of right shoulder: Status: Acute Plan 1. Acute on chronic right shoulder pain secondary to severe right shoulder OA No acute fracture noted on x-ray or CT No clinical evidence of infection or other acute surgical indication at this time Patient states she does have a long history of injections into her bilateral shoulders Expresses interest in coming to our clinic for further evaluation and treatment If any potential concern for infection develops, can consider joint aspiration Patient expresses she is wholly uninterested in this at this time No further acute orthopedic intervention indicated at this time Follow-up outpatient May re-consult with any new or worsening concerns Procedures Date of Service Date of Service: 09/16/24
--- NOTE | 2024-09-16 17:26 | HO.WOUND ---
Wound Consult: Initial 69yr old?female admitted to [facility] [place] on 09/12/24 - See progress notes and H&P for detailed history.? Wound consult placed for MASD to groin.? Patient agreeable to assessment and photo documentation.? Patient denies incontinence. Skin assessed to reveal mild pink tissue within skin fold mild moisture noted - no intertrigo noted - no maceration noted no fungal dermatitis noted. Recommend barrier cream twice daily to groin and interdry to skin folds. No other topical recommendations needed at this time. ? Recommendations: Skin folds: Cleanse with PH balance wipes, dry well with soft cloth.? Tuck Interdry AG Sheet into skin fold to wick and translocate moisture away from skin fold.? Be sure to leave at least 2 inch of fabric exposed outside of skin fold.? Change after 5 days or when soiled. Groin - Routine cleansing. apply barrier cream twice daily and PRN. Re-consult wound care Nurse for wound deterioration or wound changes.
--- NOTE | 2024-09-16 18:55 | PC.NURSE ---
Notified by tele monitor @ 8:47 Pt was in afib (verified by emergency department aide). Chasity Peña- ordered ECG, Mag and BMB. When applying ecg this nurse was notified by brine tank operator that pt had returned to w PACs. ECG verified that. Mag was WNL. Vitals WNL.
[2024-09-16 19:18] VITALS: BP 118/53; PULSE 74; RESP 18; TEMP 36.6; O2SAT 96
[2024-09-16] MEDS: Atorvastatin Calcium 20 MG TABLET PO (20:35)
[2024-09-16] MEDS: metFORMIN HCl 500 MG TABLET PO (20:36)
[2024-09-16] MEDS: Gabapentin 400 MG CAPSULE 800 MG PO (20:36)
[2024-09-16] MEDS: Enoxaparin Sodium 40 MG/0.4 ML SYRINGE SUBCUT (20:39)
[2024-09-16 21:06] LABS: Glucose, Whole Blood 214 mg/dL (60-115)
[2024-09-16] MEDS: cefTRIAXone sodium 1 GM VIAL IVPUSH (21:37)
[2024-09-17 03:15] VITALS: BP 142/67; PULSE 65; RESP 18; TEMP 37.1; O2SAT 96
[2024-09-17] MEDS: Omeprazole 20 MG CAPSULE.DR PO (06:19)
[2024-09-17] MEDS: Levothyroxine Sodium 112 MCG TABLET PO (06:19)
[2024-09-17 07:08] VITALS: BP 157/67; PULSE 67; RESP 16; TEMP 36.4; O2SAT 99
--- NOTE | 2024-09-17 07:18 | P.DS_ITS ---
DS: Providers Provider Date of Service: 09/17/24 Date of admission: 09/12/24 21:17 Date of discharge: 09/17/24 Primary care physician: Tran Blackwell MD Consults: 09/13/24 19:31 Consult to Wound Care Routine Reason for consultation: MASD groin and byron-area 09/16/24 16:42 Consult to Orthopedics Routine Consulting Provider: [facility] Reason for consultation: shoulder pain, effusion DS: Diagnosis Discharge Diagnosis (1) Osteoarthritis of right shoulder: Status: Acute DS: Summary Hospital Course Hospital Course: History and physical as per admitting provider. Patient is a 69-year-old female with a past medical history significant for sinus tachycardia, myelodysplasia, UTIs, type 2 diabetes, COPD/asthma overlap, who presented to the ED due to con fusion, body aches and urinary urgency for the past few days. She describes anxiety and tachycardia. She also has chronic right upper arm pain, unchanged from baseline. She reports a fall with head strike earlier today when standing up from a sitting position. She had the back of her head but did not lose any consciousness or lacerate. She denies any nausea, vomiting or dizziness. 69-year-old woman treated for encephalopathy, body aches and urinary urgency. Found to have Klebsiella/E coli UTI treated with IV Rocephin and will complete a course with Ceftin. This was likely causing some encephalopathy. She had a fall at home and was noted to have orthostatic hypotension. Imaging studies including head CT, C-spine all negative for acute injury. She had some complaints of right shoulder pain for which she does have chronic pain. This pain is likely exacerbated after her fall and was treated with lidocaine patches, Tylenol, Toradol. She was shoulder CT which was negative for any fracture, dislocation or muscle or joint injury. She was seen evaluated by Orthopedic surgery who did not feel any intervention at this time needs to be done however patient can follow up in their office for further treatment of this acute on chronic shoulder pain. Hypomagnesemia. Resolved with oral and IV replacement Elevated D-dimer. CTA negative for PE Sinus tachycardia. History of atrial tachycardia. Had possibly 1 lone episode of atrial fibrillation during hospitalization but quickly converted. She should continue her home dose of diltiazem. Stage III COPD/asthma overlap. No exacerbation during hospitalization. Continue home inhalers Diabetes mellitus type 2. Treated with sliding scale. Continue metformin Class 3 obesity. BMI 39.7. Discussed importance of weight management as this may be contributing to worsening of other comorbidities Time Attestation Discharge Coordination Time (in mins): 45 Quality: Safe Use of Opioids Does Pt have an Active Cancer Diagnosis on the Problem List?: No Quality: Stroke Does the patient have a stroke diagnosis?: No Physical Exam Vital Signs: Vital Signs: Last Vital Signs Temp 97.6 F 09/17/24 07:08 Pulse 67 09/17/24 07:08 Resp 16 09/17/24 07:08 BP 157/67 H 09/17/24 07:08 Pulse Ox 99 09/17/24 07:08 O2 Del Method Room Air 09/17/24 07:08 BMI result Body Mass Index 39.7 Appearing in no acute distress head is normocephalic atraumatic eyes pupils are PERRLA sclera is anicteric mouth throat mucous membranes are intact and moist neck is supple no lymphadenopathy, no JVD noted lung sounds are clear to auscultation heart regular rate rhythm, clear S1, S2 positive bowel sounds, abdomen is soft, nontender neuro patient is alert x3, no focal deficits DS: Data Data Completed and Pending Labs on day of discharge: Laboratory Results - last 24 hr 09/16/24 09/16/24 09/16/24 07:30 10:12 11:27 Hold Purple Top SEE NOTE Sodium 138 Potassium 4.2 Chloride 101 Carbon Dioxide 25 Anion Gap 16 BUN 26 H Creatinine 0.86 Estim Creat Clear Calc 70.7 Estimated GFR > 60 POC Glucose 150 H 171 H Random Glucose 206 H Calcium 8.9 D Magnesium 2.0 09/16/24 09/16/24 16:11 20:46 Hold Purple Top Sodium Potassium Chloride Carbon Dioxide Anion Gap BUN Creatinine Estim Creat Clear Calc Estimated GFR POC Glucose 264 H 214 H Random Glucose Calcium Magnesium Discharge Plan Discharge Anticipated Discharge Date/Time: 09/17/24 07:12 Patient Disposition: Xfer SNF Discharge Diagnosis: Acute metabolic encephalopathy Klebsiella/E coli UTI Hypomagnesemia Elevated D-dimer Sinus tachycardia Fall Orthostatic hypotension Acute on chronic right shoulder pain Referrals: [facility] [Other] - 1 Week Rafy Mendoza PA [Physician Heating And Cooling Technician] - None (Follow up for chronic shoulder pain) Tran Blackwell MD [Primary Care Provider] - 1 Week Discharge Medications: New cefuroxime axetil 500 mg tablet 500 mg PO BID Qty: 6 0RF Continued Trelegy Ellipta 200-62.5-25 mcg blister with device 1 inh inhalation DAILY 30 Days Qty: 60 4RF diltiazem HCl 180 mg capsule,extended release 24hr 180 mg PO DAILY Qty: 90 1RF lorazepam [Ativan] 0.5 mg Tablet 0.5 mg PO BID PRN (Reason: Anxiety) Qty: 60 2RF aspirin [Aspirin Childrens] 81 mg Tablet,Chewable 81 mg PO DAILY Qty: 90 3RF prednisone 10 mg tablet 10 mg PO DAILY Qty: 90 0RF albuterol sulfate 2.5 mg /3 mL (0.083 %) solution for nebulization 2.5 mg inhalation Q6H PRN (Reason: shortness of breath or wheezing) 30 Days Qty: 180 11RF albuterol sulfate 90 mcg/actuation HFA aerosol inhaler 2 inh inhalation Q6H PRN (Reason: shortness of breath or wheezing) 30 Days Qty: 3 3RF Mounjaro 5 mg/0.5 mL pen injector 5 mg subcut DAVID@0900 loperamide [Imodium A-D] 2 mg capsule 2 mg PO Q4H PRN (Reason: Loose Stool) Rx Instructions: administer after each loose stool until symptoms controlled; do not exceed 8 mg per 24 hrs celecoxib 200 mg capsule 200 mg PO DAILY ondansetron 8 mg Tablet,Disintegrating 8 mg PO Q8H PRN (Reason: Nausea) Qty: 60 2RF lenalidomide [Revlimid] 10 mg Capsule 10 mg PO DAILY Qty: 21 0RF Rx Instructions: swallow whole with glass of water; do not open, crush, chew , break, or dissolve tramadol 100 mg Tablet 100 mg PO Q6H PRN (Reason: Pain (Scale Score 7-10)) Qty: 90 0RF losartan 50 mg tablet 50 mg PO DAILY omeprazole 20 mg capsule,delayed release(DR/EC) 20 mg PO DAILY@0630 cholecalciferol (vitamin D3) 25 mcg (1,000 unit) capsule 25 mcg PO DAILY paroxetine HCl 40 mg tablet 40 mg PO DAILY alendronate [Fosamax] 70 mg tablet 70 mg PO DAVID@1800 gabapentin 800 mg tablet 800 mg PO BEDTIME metformin 500 mg tablet 500 mg PO BEDTIME Rx Instructions: 2 am 1 pm gabapentin 400 mg capsule 400 mg PO DAILY (DME) nebulizers Misc See Rx Instructions .Route Rx Instructions: As directed metformin 1,000 mg tablet 1,000 mg PO DAILY simvastatin 40 mg tablet 40 mg PO BEDTIME levothyroxine 112 mcg tablet 112 mcg PO DAILY@0600 cyanocobalamin (vitamin B-12) 1,000 mcg tablet 1,000 mcg PO DAILY Discharge Orders: Discharge Order (Routine); Ordered 09/17/24 Ordered By: Zaina Peña Diet: Advance to usual diet Activity on Discharge: As tolerated Stand Alone Forms: Patient Portal Discharge page Print Language: Swedish Care Plan Goals: Follow up with Orthopedic surgery as needed for chronic shoulder pain Health Concerns: Acute metabolic encephalopathy Klebsiella/E coli UTI Hypomagnesemia Elevated D-dimer Sinus tachycardia Fall Orthostatic hypotension Acute on chronic right shoulder pain Plan of Treatment: Follow-up with primary care provider as needed Take all medications as prescribed Assessment: See discharge summary
[2024-09-17 07:25] LABS: Glucose, Whole Blood 110 mg/dL (60-115)
[2024-09-17] MEDS: Lidocaine 4 % Patch ADH..PATCH 1 PATCH TRANSDERMA (08:08)
[2024-09-17] MEDS: Cholecalciferol (Vitamin D3) 25 MCG TABLET PO (08:09)
[2024-09-17] MEDS: Aspirin 81 MG TAB.CHEW PO (08:09)
[2024-09-17] MEDS: Acetaminophen 325 MG TABLET 650 MG PO ×3 (08:09→20:08)
[2024-09-17] MEDS: dilTIAZem HCL CD 180 MG CAP.ER.24H PO (08:09)
[2024-09-17] MEDS: predniSONE 10 MG TABLET PO (08:10)
[2024-09-17] MEDS: Cyanocobalamin (Vitamin B-12) 1,000 MCG TABLET 1000 MCG PO (08:10)
[2024-09-17] MEDS: Gabapentin 400 MG CAPSULE PO (08:10)
[2024-09-17] MEDS: 0.9 % Sodium Chloride Flush 3 ML SYRINGE IVFLUSH ×3 (08:10→22:44)
[2024-09-17] MEDS: Losartan Potassium 50 MG TABLET PO (08:10)
[2024-09-17] MEDS: PARoxetine HCL 40 MG TABLET PO (08:10)
[2024-09-17] MEDS: Fluticasone/Umeclidinium/Vilanterol 200/62.5/25 BLST.W.DEV 1 PUFF INHALE (08:15)
[2024-09-17 08:17] VITALS: PULSE 68; RESP 17; O2SAT 96
[2024-09-17 11:21] LABS: Glucose, Whole Blood 203 mg/dL (60-115)
[2024-09-17] MEDS: Insulin Lispro 100 UNIT/ML 3 ML VIAL SUBCUT ×3 (11:54→20:10)
[2024-09-17] MEDS: Ketorolac Tromethamine 30 MG/ML VIAL IVPUSH (11:58)
--- NOTE | 2024-09-17 12:57 | P.PNIM_ITS ---
Subjective Subjective Date of Service: 09/17/24 Interval History: Follow-up for UTI, encephalopathy Encephalopathy resolved Patient reporting right arm pain improving Review of Systems Review of Systems: Yes all other systems are reviewed and are negative Constitutional Constitutional: Denies chills and Denies fever(s) Physical Exam 2 Vital Signs: Vital Signs: Last Vital Signs Temp 97.6 F 09/17/24 07:08 Pulse 68 09/17/24 08:17 Resp 17 09/17/24 08:17 BP 157/67 H 09/17/24 07:08 Pulse Ox 99 09/17/24 07:08 O2 Del Method Room Air 09/17/24 07:08 BMI result Body Mass Index 39.7 Appearing in no acute distress lung sounds are clear to auscultation heart regular rate rhythm, clear S1, S2 positive bowel sounds, abdomen is soft, nontender neuro patient is alert x3, no focal deficits Objective Data Active Medications Acetaminophen (Acetaminophen 325 Mg Tablet) 975 mg PO Q6H PRN PRN Reason: Pain, Mild 1-3,fever,headache Last Admin: 09/13/24 00:06 Dose: 975 mg Acetaminophen (Acetaminophen 325 Mg Tablet) 650 mg PO Q6H [facility] Last Admin: 09/17/24 08:09 Dose: 650 mg Documented By: WISAM Albuterol Sulfate (Albuterol Sulfate (0.083%) 2.5 Mg/3 Ml Vial.Neb) 2.5 mg INHALE RQ6H PRN PRN Reason: shortness of breath or wheezing Aspirin (Aspirin 81 Mg Tab.Chew) 81 mg PO DAILY [facility] Last Admin: 09/17/24 08:09 Dose: 81 mg Documented By: WISAM Atorvastatin Calcium (Atorvastatin Calcium 20 Mg Tablet) 20 mg PO BEDTIME [facility] Last Admin: 09/16/24 20:35 Dose: 20 mg Documented By: BRYAN Calcium Carbonate (Calcium Carbonate 750 Mg Tab.Chew) 750 mg PO Q4H PRN PRN Reason: Heartburn Ceftriaxone Sodium (Ceftriaxone Sodium 1 Gm Vial) 1 gm IVPUSH Q24H [facility] Last Admin: 09/16/24 21:37 Dose: 1 gm Documented By: BRYAN Cyanocobalamin (Cyanocobalamin (Vitamin B-12) 1,000 Mcg Tablet) 1,000 mcg PO DAILY [facility] Last Admin: 09/17/24 08:10 Dose: 1,000 mcg Documented By: WISAM Dextrose (Dextrose 50 % 25 Gm/50 Ml Syringe) 25 gm IVPUSH Q15M PRN; Protocol PRN Reason: per Hypoglycemia Standing Ord. Diltiazem HCl (Diltiazem Hcl Cd 180 Mg Cap.Er.24h) 180 mg PO DAILY [facility]; Protocol Last Admin: 09/17/24 08:09 Dose: 180 mg Documented By: WISAM Enoxaparin Sodium (Enoxaparin Sodium 40 Mg/0.4 Ml Syringe) 40 mg SUBCUT Q24H [facility] Last Admin: 09/16/24 20:39 Dose: 40 mg Documented By: BRYAN Fluticasone/Umeclidinium/Vilanterol (Fluticasone/Umeclidinium/Vilanterol 200/.5 Blst.W.Dev) 1 puff INHALE RDAILY [facility] Last Admin: 09/17/24 08:15 Dose: 1 puff Documented By: MARILYN Gabapentin (Gabapentin 400 Mg Capsule) 800 mg PO BEDTIME [facility] Last Admin: 09/16/24 20:36 Dose: 800 mg Documented By: BRYAN Gabapentin (Gabapentin 400 Mg Capsule) 400 mg PO DAILY [facility] Last Admin: 09/17/24 08:10 Dose: 400 mg Documented By: WISAM Glucose (Glucose Gel 15 Gm Gel..Gram.) 15 gm PO Q15M PRN; Protocol PRN Reason: per Hypoglycemia Standing Ord. Insulin Human Lispro (Insulin Lispro 100 Unit/Ml 3 Ml Vial) 0 unit SUBCUT QIDACHS [facility]; Protocol Last Admin: 09/17/24 11:54 Dose: 4 unit Documented By: WISAM Ketorolac Tromethamine (Ketorolac Tromethamine 30 Mg/Ml Vial) 30 mg IVPUSH Q6H PRN PRN Reason: Pain, Moderate(Pain Scale 4-6) Last Admin: 09/17/24 11:58 Dose: 30 mg Documented By: WISAM Levothyroxine Sodium (Levothyroxine Sodium 112 Mcg Tablet) 112 mcg PO DAILY@0600 [facility] Last Admin: 09/17/24 06:19 Dose: 112 mcg Documented By: BRYAN Lidocaine (Lidocaine 4 % Patch Adh..Patch) 1 patch TRANSDERMA DAILY [facility]; Protocol Last Admin: 09/17/24 08:08 Dose: 1 patch Documented By: WISAM Lorazepam (Lorazepam 0.5 Mg Tablet) 0.5 mg PO BID PRN PRN Reason: Anxiety Last Admin: 09/15/24 20:51 Dose: 0.5 mg Documented By: RACIEL Losartan Potassium (Losartan Potassium 50 Mg Tablet) 50 mg PO DAILY [facility]; Protocol Last Admin: 09/17/24 08:10 Dose: 50 mg Documented By: WISAM Magnesium Hydroxide (Milk Of Magnesia 30 Ml Oral.Susp) 30 ml PO DAILY PRN PRN Reason: Constipation Melatonin (Melatonin 3 Mg Tablet) 6 mg PO BEDTIME PRN PRN Reason: Insomnia Last Admin: 09/15/24 20:51 Dose: 6 mg Documented By: RACIEL Metformin HCl (Metformin Hcl 500 Mg Tablet) 500 mg PO BEDTIME [facility] Last Admin: 09/16/24 20:36 Dose: 500 mg Documented By: BRYAN Morphine Sulfate (Morphine Sulfate 2 Mg/Ml Cartridge) 2 mg IVPUSH Q4H PRN; Protocol PRN Reason: Pain, Severe (Pain Scale 7-10) Omeprazole (Omeprazole 20 Mg Capsule.Dr) 20 mg PO DAILY@0630 [facility] Last Admin: 09/17/24 06:19 Dose: 20 mg Documented By: BRYAN Ondansetron HCl (Ondansetron Hcl 4 Mg/2 Ml Vial) 4 mg IVPUSH Q8H PRN PRN Reason: Nausea and Vomiting Last Admin: 09/15/24 12:23 Dose: 4 mg Documented By: JEET Comments: Unable to scan. Network down Paroxetine HCl (Paroxetine Hcl 40 Mg Tablet) 40 mg PO DAILY [facility] Last Admin: 09/17/24 08:10 Dose: 40 mg Documented By: WISAM Prednisone (Prednisone 10 Mg Tablet) 10 mg PO DAILY [facility] Last Admin: 09/17/24 08:10 Dose: 10 mg Documented By: WISAM Sodium Chloride (0.9 % Sodium Chloride Flush 3 Ml Syringe) 3 ml IVFLUSH QSHIFT [facility] Last Admin: 09/17/24 08:10 Dose: 3 ml Documented By: WISAM Tramadol HCl (Tramadol Hcl 50 Mg Tablet) 100 mg PO Q6H PRN PRN Reason: Pain (Scale Score 7-10) Last Admin: 09/15/24 11:42 Dose: 100 mg Documented By: JEET Vitamin D (Cholecalciferol (Vitamin D3) 25 Mcg Tablet) 25 mcg PO DAILY [facility] Last Admin: 09/17/24 08:09 Dose: 25 mcg Documented By: WISAM Labs 09/15/24 07:08 09/16/24 10:12 Labs: Laboratory Results - last 24 hr 09/16/24 09/16/24 09/17/24 16:11 20:46 07:13 POC Glucose 264 H 214 H 110 09/17/24 11:16 POC Glucose 203 H Assessment and Plan (1) Sinus tachycardia: Status: Acute (2) Orthostatic hypotension: Status: Acute (3) Acute UTI: Status: Acute (4) Acute metabolic encephalopathy: Status: Acute Plan 69-year-old female with a past medical history significant for sinus tachycardia, myelodysplasia, UTIs, type 2 diabetes, COPD/asthma overlap, who presented to the ED due to confusion, body aches and urinary urgency for the past few days. Acute on chronic R shoulder pain. Improved All xray imaging negative likely exacerbated after fall but not improving lidocaine patch scheduled tylenol , toradol for msk pain shoulder CT showing severe arthritis, patient can follow up with orthopedics for pain management injection Acute metabolic encephalopathy secondary to Klebsiella/E coli UTI Encephalopathy resolved head CT negative, no focal neuro deficits CTA negative for PE, does show Bilateral lung artifact vs infiltrate, no URI sx of fever. Continue IV ceftriaxone Hypomagnesemia. Resolved Oral and IV mag Elevated d-dimer CTA negative for PE Sinus tachycardia Has history of atrial tachycardia lone episode of atrial fibrillation on telemetry but quickly convert previous outpatient Holter with no AFib/a flutter resume home dose of diltiazem fall, orthostatic hypotension head CT negative, c-spine CT negative s/p fluid stage III COPD/asthma overlap, no acute exacerbation continue home inhalers T2DM SSI, POCs, ADA diet hold metformin, Mounjaro class III obesity BMI 39.7 weight loss encouraged full code VTE prophy: lovenox DISPO PT rec STR Quality Stroke Does the patient have a stroke diagnosis?: No VTE Prior VTE?: No VTE Risk Level:: Medical - moderate - high VTE Device Contraindication: Treatment Not Indicated VTE Drug Contraindication: N/A - Med Ordered
[2024-09-17 14:59] VITALS: BP 124/61; PULSE 63; RESP 18; TEMP 36.7; O2SAT 95
[2024-09-17 16:32] LABS: Glucose, Whole Blood 296 mg/dL (60-115)
[2024-09-17 19:09] VITALS: BP 119/58; PULSE 64; RESP 18; TEMP 36.1; O2SAT 97
[2024-09-17 19:57] LABS: Glucose, Whole Blood 245 mg/dL (60-115)
[2024-09-17] MEDS: cefTRIAXone sodium 1 GM VIAL IVPUSH (20:08)
[2024-09-17] MEDS: Enoxaparin Sodium 40 MG/0.4 ML SYRINGE SUBCUT (20:10)
[2024-09-17] MEDS: LORazepam 0.5 MG TABLET PO (20:10)
[2024-09-17] MEDS: metFORMIN HCl 500 MG TABLET PO (20:10)
[2024-09-17] MEDS: Atorvastatin Calcium 20 MG TABLET PO (20:10)
[2024-09-17] MEDS: Gabapentin 400 MG CAPSULE 800 MG PO (20:10)
[2024-09-18] MEDS: Melatonin 3 MG TABLET 6 MG PO (00:34)
[2024-09-18] MEDS: LORazepam 0.5 MG TABLET PO (01:15)
[2024-09-18] MEDS: Acetaminophen 325 MG TABLET 650 MG PO ×2 (02:15→07:38)
[2024-09-18 02:58] VITALS: BP 132/78; PULSE 61; RESP 20; TEMP 36.3; O2SAT 92
[2024-09-18] MEDS: Levothyroxine Sodium 112 MCG TABLET PO (05:27)
[2024-09-18] MEDS: Omeprazole 20 MG CAPSULE.DR PO (05:28)
[2024-09-18 07:06] VITALS: BP 139/80; PULSE 73; RESP 16; TEMP 36.2; O2SAT 97
[2024-09-18] MEDS: 0.9 % Sodium Chloride Flush 3 ML SYRINGE IVFLUSH (07:14)
[2024-09-18] MEDS: Aspirin 81 MG TAB.CHEW PO (07:37)
[2024-09-18] MEDS: Losartan Potassium 50 MG TABLET PO (07:37)
[2024-09-18] MEDS: Gabapentin 400 MG CAPSULE PO (07:37)
[2024-09-18] MEDS: Cholecalciferol (Vitamin D3) 25 MCG TABLET PO (07:38)
[2024-09-18] MEDS: Lidocaine 4 % Patch ADH..PATCH 1 PATCH TRANSDERMA (07:38)
[2024-09-18] MEDS: predniSONE 10 MG TABLET PO (07:38)
[2024-09-18] MEDS: PARoxetine HCL 40 MG TABLET PO (07:38)
[2024-09-18] MEDS: dilTIAZem HCL CD 180 MG CAP.ER.24H PO (07:38)
[2024-09-18] MEDS: Cyanocobalamin (Vitamin B-12) 1,000 MCG TABLET 1000 MCG PO (07:38)
[2024-09-18] MEDS: Fluticasone/Umeclidinium/Vilanterol 200/62.5/25 BLST.W.DEV 1 PUFF INHALE (07:42)
[2024-09-18 07:43] VITALS: PULSE 75; RESP 20; O2SAT 98
[2024-09-18 07:56] LABS: Glucose, Whole Blood 114 mg/dL (60-115)
--- NOTE | 2024-09-18 11:00 | W.MHC.F2F ---
Service Date Service Date: 09/18/24 Encounter Date of encounter: 09/18/24 Reasons for Services Signs and symptoms assessed: Weakness Reason for physical therapy: home safety and mobility Homebound: Leaving the home is medically contraindicated at this time without the asist of a device and/or another person due th the listed conditions above and below. Reason homebound: weakness related to hospital stay Certification: Based on the above findings, I certify that this patient is confined to the home and needs intermittent correction care, physical therapy and/or speech therapy, or continues to need occupational therapy. The patient is under my care, and I have initiated the establishment of the plan of care. The patient will be followed by a physician who will periodically review the plan of care. Time Spent With Patient Time: Total time managing care of this patient today ____ minutes.
[2024-09-18 11:16] LABS: Glucose, Whole Blood 178 mg/dL (60-115)
[2024-09-18] MEDS: Insulin Lispro 100 UNIT/ML 3 ML VIAL SUBCUT (11:55)
--- NOTE | 2024-09-18 15:06 | MHC.CM.PN ---
pt denied by [employer] for str a peer to peer was done by dr michelle and the pt was again denied by [employer] for str payment pt dcd home with hvns/with home pt
== END 2024-09-18 13:20 | disposition home health service (06) | DRG 689 ==
LOC: HO.ED 21:15 → HO.EDOVER 21:48 → HO.S3 09-13 14:07
PROVIDERS: Hospitalist; Physician Assistant Medical; Admitting Provider Physician Assistant; Emergency Provider Student in an Organized Health Care Education/Training Program; PCP Family Medicine; Visit Provider Nurse Practitioner Acute Care
DX: N39.0 Urinary tract infection, site not specified (principal); G93.41 Metabolic encephalopathy; Z68.41 Body mass index [BMI] 40.0-44.9, adult; E03.9 Hypothyroidism, unspecified; E83.42 Hypomagnesemia; M25.511 Pain in right shoulder; G89.29 Other chronic pain; E11.9 Type 2 diabetes mellitus without complications; R00.0 Tachycardia, unspecified; J45.40 Moderate persistent asthma, uncomplicated; I95.1 Orthostatic hypotension; J44.9 Chronic obstructive pulmonary disease, unspecified; M19.011 Primary osteoarthritis, right shoulder; D46.9 Myelodysplastic syndrome, unspecified; B96.1 Klebsiella pneumoniae [K. pneumoniae] as the cause of diseases classified elsewhere; B96.20 Unspecified Escherichia coli [E. coli] as the cause of diseases classified elsewhere; E66.813 Obesity, class 3; Z71.3 Dietary counseling and surveillance; Z20.822 Contact with and (suspected) exposure to COVID-19; Z87.440 Personal history of urinary (tract) infections; Z79.82 Long term (current) use of aspirin; Z79.51 Long term (current) use of inhaled steroids; Z79.52 Long term (current) use of systemic steroids; Z79.84 Long term (current) use of oral hypoglycemic drugs; Z79.85 Long-term (current) use of injectable non-insulin antidiabetic drugs; Z79.899 Other long term (current) drug therapy
CPT/HCPCS: 0241U; 36415; 70450; 71045; 71275; 72125; 73030; 73060; 73070; 73200; 80048; 80076; 81001; 82947; 83735; 83880; 84484; 85025; 85379; 87086; 87088; 87186; 93005; 93971; 94640; 97116; 97162; 99285; J0696; J0737; J1650; J1885; J2250; J2270; J2405; J3475; J7120; Q9967

== ENCOUNTER → 2024-09-12 15:32 | Outpatient (BNV) | payer MEDICARE, SELFPAY | PROVIDERS: Emergency Provider Student in an Organized Health Care Education/Training Program; PCP Family Medicine; Visit Provider Radiology Diagnostic Radiology | DX: M25.511 Pain in right shoulder (principal); R00.0 Tachycardia, unspecified; W19.XXXA Unspecified fall, initial encounter; M79.621 Pain in right upper arm; R41.0 Disorientation, unspecified; Z03.89 Encounter for observation for other suspected diseases and conditions ruled out | CPT/HCPCS: 70450; 71045; 71275; 72125; 73030; 93971 ==

== ENCOUNTER → 2024-09-12 17:10 | Outpatient (BNV) | payer MEDICARE, SELFPAY | PROVIDERS: Admitting Provider Physician Assistant; Emergency Provider Student in an Organized Health Care Education/Training Program; PCP Family Medicine; Visit Provider Internal Medicine | DX: I44.0 Atrioventricular block, first degree (principal); I49.1 Atrial premature depolarization | CPT/HCPCS: 93010 ==

== ENCOUNTER 2024-09-12 21:17 | Outpatient (BNV) | payer MEDICARE, SELFPAY | END 2024-09-13 09:35 | PROVIDERS: Admitting Provider Physician Assistant; Emergency Provider Student in an Organized Health Care Education/Training Program; PCP Family Medicine; Visit Provider Radiology Diagnostic Radiology | DX: M79.601 Pain in right arm (principal) | CPT/HCPCS: 73060; 73070 ==

== ENCOUNTER 2024-09-12 21:17 | Outpatient (BNV) | payer MEDICARE, SELFPAY | END 2024-09-16 10:23 | PROVIDERS: Admitting Provider Physician Assistant; Emergency Provider Student in an Organized Health Care Education/Training Program; PCP Family Medicine; Visit Provider Radiology Diagnostic Radiology | DX: M19.011 Primary osteoarthritis, right shoulder (principal); M25.411 Effusion, right shoulder; S42.211D Unspecified displaced fracture of surgical neck of right humerus, subsequent encounter for fracture with routine healing | CPT/HCPCS: 73200 ==

== ENCOUNTER 2024-09-12 21:17 | Outpatient (BNV) | payer MEDICARE, SELFPAY | END 2024-09-13 10:03 | PROVIDERS: Admitting Provider Physician Assistant; Emergency Provider Student in an Organized Health Care Education/Training Program; PCP Family Medicine; Visit Provider Internal Medicine | DX: I49.1 Atrial premature depolarization (principal) | CPT/HCPCS: 93010 ==

== ENCOUNTER → 2024-09-12 21:17 | Outpatient (BNV) | payer MEDICARE, SELFPAY | PROVIDERS: Admitting Provider Physician Assistant; Emergency Provider Student in an Organized Health Care Education/Training Program; PCP Family Medicine; Visit Provider Physician Assistant Medical | DX: R00.0 Tachycardia, unspecified (principal); I95.1 Orthostatic hypotension; N39.0 Urinary tract infection, site not specified; G93.41 Metabolic encephalopathy | CPT/HCPCS: 99223; 99232 ==

== ENCOUNTER → 2024-09-12 21:17 | Outpatient (BNV) | payer MEDICARE, SELFPAY | PROVIDERS: Admitting Provider Physician Assistant; Emergency Provider Student in an Organized Health Care Education/Training Program; PCP Family Medicine | DX: M19.011 Primary osteoarthritis, right shoulder (principal) | CPT/HCPCS: 99222 ==

== ENCOUNTER 2024-11-15 08:31 | Outpatient (AMB) | payer MEDICARE, SELFPAY ==
--- OUTSIDE RECORDS SUMMARY | 2024-11-15 08:40 | XMS_ITS | Clinical Summary ---
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 [address] [place] [phone] Leny Brice MD Essential (primary) hypertension; Hypokalemia; Thrombocytopenia, unspecified ([facility] V24) 10/17/[address] [facility] [address] [place] [phone] Leny Brice MD Thrombocytopenia, unspecified ([facility] V24) 10/15/[address] [facility] [address] [place] [phone] Leny Brice MD Anemia, unspecified; Essential (primary) hypertension; prison (current) use of anticoagulants from Last 3 Months Surgical History Surgery Date Site/Laterality Comments HYSTERECTOMY PROCEDURE: HISTORICAL HYSTERECTOMY CATARACT EXTRACTION PROCEDURE: HISTORICAL CATARACT REMOVAL SHOULDER SURGERY PROCEDURE: NH UNLISTED PROCEDURE SHOULDER LITHOTRIPSY PROCEDURE: HISTORICAL LITHOTRIPSY CYST REMOVAL PROCEDURE: NH EXCISION PILONIDAL CYST/SINUS SIMPLE DENTAL SURGERY PROCEDURE: NH UNLISTED PROCEDURE DENTOALVEOLAR STRUCTURES TOTAL KNEE ARTHROPLASTY 2001 Right PROCEDURE: NH ARTHRP KNE CONDYLE&PLATU MEDIAL&LAT COMPARTMENTS HIP ARTHROPLASTY 2011 Left PROCEDURE: HISTORICAL HIP REPLACEMENT OTHER SURGICAL HISTORY 12/29/2021 Left PROCEDURE: NH ARTHRODESIS SI JOINT PERCUTANEOUS/MIN INVASIVE; COMMENT: Left SI joint fusion/revision, Dr. Brock CARPAL TUNNEL RELEASE 05/18/2022 PROCEDURE: HISTORICAL CARPAL TUNNEL REL; COMMENT: Right median nerve decompression, Dr. Brock Medical History Medical History Date Comments Asthma-chronic obstructive p ulmonary disease overlap syndrome ([facility] V24, [facility] V28) 12/29/2016 DX:Asthma-chronic obstructiv e pulmonary disease overlap syndrome (HCC) Hypercholesterolemia 11/29/2016 DX:Hypercho lesterolemia Hypothyroidism 11/29/2016 DX:Hypothyroidis m Obstructive sleep apnea syndrome in adult 017 DX:Obstructive sleep apnea syndrome in adult Morbid obesity with BMI of 4 0.0-44.9, adult ([facility] V24, [facility] V28) 10/03/2017 DX:Morbid obesity wit h BMI of 40.0-44.9, adult ([facility]) Renal calculi DX:Renal calculi Type 2 diabetes mellitus wit h cataract ([facility] V24, [facility] V28) 11/29/2016 DX:Type 2 diabetes mellitus with cataract ([facility]) Cataract 10/03/2017 DX:Cataract; COM MENT: S/p surgery Social History Tobacco Use Types Packs/Day Years Used Date Smoking Tobacco: Former Cigarettes Smokeless Tobacco: Never Alcohol Use Standard Drinks/Week Comments No 0 (1 standard drink = 0.6 oz pur e alcohol) Comments Unknown Sex and Gender Information Value Date Recorded Sex Assigned at Not on file Legal Sex Female 7:05 PM EST Gender Identity Not on file Sexual Orientation Not on file Obstetrics History Last Filed Vital Signs Vital Sign Reading Time Taken Comments Blood Pressure - - Pulse - - Temperature - - Respiratory Rate - - Oxygen Saturation - - Inhaled Oxygen Concentration - - Weight 107 kg (234 lb 15.8 oz) 06/03/2022 11:33 AM EST Height 160 cm (5' 3 ) 06/03/2022 11:33 AM EST Body Mass Index 41.63 06/03/2022 11:33 AM EST Plan of Treatment Health Maintenance Due Date Last Done Comments Breast Cancer Screening 1955 Diabetes: Annual Foot Exam 1963 Diabetes: Annual Retina Eye Exam 1963 DTaP,Tdap,and Td Vaccines (1 - Tdap) 1972 Pneumococcal Vaccine: 50+ Years (1 of 2 - PCV) 1972 Zoster Vaccines (1 of 2) 1972 RSV Immunization Adult Patients (1 - Risk 60-74 years 1-dose series) 2013 COVID-19 Vaccine (2 - Pfizer risk series) 05/17/2021 04/26/2021 Cholesterol Screening (Lipid Panel) 04/30/2022 Colorectal Cancer Screening: Colonoscopy 04/30/2022 Depression Screening 04/30/2022 Falls Risk Assessment 04/30/2022 Hepatitis C Screening 04/30/2022 Medicare Annual Wellness Visit 04/30/2022 Osteoporosis Screening (Bone Density Screening) 04/30/2022 Social Influencers of Health Screening 04/30/2022 Diabetes: Blood Sugar Control Test (HGBA1C) 05/07/2022 Diabetes: Annual Urine Albumin-Creatinine Ratio (uACR) 08/17/2023 08/16/2022 Influenza Vaccine (Season Ended) 2025 Diabetes: Annual GFR (Glomerular Filtration Rate) 10/22/2025 10/22/2024, 10/17/2024, 10/15/2024, Additional history exists Hypertension/CHF/CAD Annual BMP Blood Test 10/22/2025 10/22/2024, 10/17/2024, 10/15/2024, Additional history exists HIB Vaccines Aged Out No longer eligi ble based on patient's age to complete this topic HPV Vaccines Aged Out No longer eligi ble based on patient's age to complete this topic Hepatitis A Vaccines Aged Out No long er eligible based on patient's age to complete this topic Hepatitis B Vaccines Aged Out No long er eligible based on patient's age to complete this topic IPV Vaccines Aged Out No longer eligi ble based on patient's age to complete this topic MMR Vaccines Aged Out No longer eligi ble based on patient's age to complete this topic Meningococcal ACWY Vaccine Aged Out N o longer eligible based on patient's age to complete this topic Meningococcal B Vaccine Aged Out No l onger eligible based on patient's age to complete this topic RSV Immunization Patients Under 20 months Aged Out No longer eligible based on patient's age to complete this topic Varicella Vaccines Aged Out No longer eligible based on patient's age to complete this topic Procedures Procedure Name Priority Date/Time Associated Diagnosis Comments BASIC METABOLIC PANEL Routine 10/22/2024 4:28 AM EDT Essential (primary) hypertension Hypokalemia Thrombocytopenia, unspecified (CMS/HCC V24) COMPLETE BLOOD COUNT Routine 10/22/2024 4:28 AM EDT Essential (primary) hypertension Hypokalemia Thrombocytopenia, unspecified ([facility] V24) BASIC METABOLIC PANEL Routine 10/17/2024 4:58 AM EDT Thrombocytopenia, unspecified ([facility] V24) COMPLETE BLOOD COUNT Routine 10/17/2024 4:58 AM EDT Thrombocytopenia, unspecified ([facility] V24) COMPREHENSIVE METABOLIC PANEL Routine 10/15/2024 5:21 AM EDT Anemia, unspecified 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 [facility] WBC 6.3 4.8 - 10.8 K/mcL LAB HEMETOLOGY METHOD 10/22/2024 9:00 AM [facility] RBC 2.90(L) 3.80 - 4.80 M/mcL LAB HEMETOLOGY METHOD 10/22/2024 9:00 AM [facility] Hemoglobin 8.8(L) 11.5 - 16.0 g/dL LAB HEMETOLOGY METHOD 10/22/2024 9:00 AM [facility] Hematocrit 29.3(L) 35.0 - 47.0 % LAB HEMETOLOGY METHOD 10/22/2024 9:00 AM [facility] MCV 102.8(H) 79.0 - 98.0 FL LAB HEMETOLOGY METHOD 10/22/2024 9:00 AM EDT [facility] MCH 30.9 27.0 - 32.0 pcg LAB HEMETOLOGY METHOD 10/22/2024 9:00 AM EDT [facility] MCHC 30.0(L) 32.0 - 37.0 g/dL LAB HEMETOLOGY METHOD 10/22/2024 9:00 AM EDT [facility] RDW 18.9(H) 11.0 - 15.0 % LAB HEMETOLOGY METHOD 10/22/2024 9:00 AM EDT [facility] Platelets 183 130 - 400 K/mcL LAB HEMETOLOGY METHOD 10/22/2024 9:00 AM EDT [facility] MPV 10.4 7.0 - 11.0 FL LAB HEMETOLOGY METHOD 10/22/2024 9:00 AM EDT [facility] NRBC 0.0 <1.0 % LAB HEMETOLOGY METHOD 10/22/2024 9:00 AM EDT [facility] NRBC Absolute 0.00 <0.10 K/mcL LAB HEMETOLOGY METHOD 10/22/2024 9:00 AM [facility] Blood Venous blood specimen / Unknown Venipuncture / Unknown 10/22/2024 4:28 AM EDT 10/22/2024 8:15 AM EDT us Leny Brice MD LAB BLOOD ORDERABLES Final Resu lt [facility] [address] [place] [address], [place] [phone] * (ABNORMAL) Basic metabolic panel (10/22/2024 4:28 AM EDT) Only the most recent of2 resultswithin the time period is included. Sodium 145 133 - 145 mmol/L LAB CHEMISTRY METHOD 10/22/2024 9:13 AM [facility] Potassium 4.1 3.5 - 5.5 mmol/L LAB CHEMISTRY METHOD 10/22/2024 9:13 AM [facility] Chloride 110 96 - 110 mmol/L LAB CHEMISTRY METHOD 10/22/2024 9:13 AM [facility] CO2 28 21 - 32 mmol/L LAB CHEMISTRY METHOD 10/22/2024 9:13 AM [facility] Anion Gap 7 3 - 11 LAB CHEMISTRY METHOD 10/22/2024 9:13 AM [facility] Glucose 54(L) 70 - 100 mg/dL LAB CHEMISTRY METHOD 10/22/2024 9:13 AM [facility] BUN 21 5 - 25 mg/dL LAB CHEMISTRY METHOD 10/22/2024 9:13 AM [facility] Creatinine 0.80 0.50 - 1.10 mg/dL LAB CHEMISTRY METHOD 10/22/2024 9:13 AM [facility] eGFR 79 >=60 mL/min/1. 73m2 LAB CHEMISTRY METHOD 10/22/2024 9:13 AM [facility] Comment:Calculation based on the Chronic Kidney Disease Epidemiology Collaboration (CKD-EPI) equation refit without adjustment for race. BUN/Creatinine Ratio 26.3 LAB CHEMISTRY METHOD 10/22/2024 9:13 AM [facility] Calcium 7.4(L) 8.5 - 10.5 mg/dL LAB CHEMISTRY METHOD 10/22/2024 9:13 AM [facility] Blood Venous blood specimen / Unknown Venipuncture / Unknown 10/22/2024 4:28 AM EDT 10/22/2024 8:15 AM EDT us Leny Brice MD LAB BLOOD ORDERABLES Final Resu lt Performing Organization Address [facility]/ZIP Co de Phone Number [facility] [address] [place] [address], * (ABNORMAL) Prothrombin time with INR (10/15/2024 5:21 AM EDT) [facility] Protime 10.1(L) 10.6 - 13.9 sec LAB COAGULATION METHOD 10/15/2024 9:44 AM EDT [facility] INR 0.8 LAB COAGULATION METHOD 10/15/2024 9:44 AM EDT [facility] Blood Venous blood specimen / Unknown Venipuncture / Unknown 10/15/2024 5:21 AM EDT 10/15/2024 9:05 AM EDT Leny Brice MD LAB BLOOD ORDERABLES Final Resu lt Performing Organization Address [facility]/ZIP Co de Phone Number [facility] [address] [place] [address], [place] [phone] * (ABNORMAL) Comprehensive metabolic panel (10/15/2024 5:21 AM EDT) [facility] Sodium 139 133 - 145 mmol/L LAB CHEMISTRY METHOD 10/15/2024 10:12 AM [facility] Potassium 3.6 3.5 - 5.5 mmol/L LAB CHEMISTRY METHOD 10/15/2024 10:12 AM [facility] Chloride 108 96 - 110 mmol/L LAB CHEMISTRY METHOD 10/15/2024 10:12 AM [facility] CO2 25 21 - 32 mmol/L LAB CHEMISTRY METHOD 10/15/2024 10:12 AM [facility] Anion Gap 6 3 - 11 LAB CHEMISTRY METHOD 10/15/2024 10:12 AM [facility] Glucose 40(L) 70 - 100 mg/dL LAB CHEMISTRY METHOD 10/15/2024 10:12 AM [facility] BUN 19 5 - 25 mg/dL LAB CHEMISTRY METHOD 10/15/2024 10:12 AM [facility] Creatinine 0.77 0.50 - 1.10 mg/dL LAB CHEMISTRY METHOD 10/15/2024 10:12 AM [facility] eGFR 83 >=60 mL/min/1. 73m2 LAB CHEMISTRY METHOD 10/15/2024 10:12 AM [facility] Comment:Calculation based on the Chronic Kidney Disease Epidemiology Collaboration (CKD-EPI) equation refit without adjustment for race. BUN/Creatinine Ratio 24.7 LAB CHEMISTRY METHOD 10/15/2024 10:12 AM [facility] Calcium 8.0(L) 8.5 - 10.5 mg/dL LAB CHEMISTRY METHOD 10/15/2024 10:12 AM [facility] AST (SGOT) 10 10 - 42 unit/L LAB CHEMISTRY METHOD 10/15/2024 10:12 AM [facility] ALT (SGPT) 16 10 - 60 unit/L LAB CHEMISTRY METHOD 10/15/2024 10:12 AM [facility] Alkaline Phosphatase 68 42 - 121 unit/L LAB CHEMISTRY METHOD 10/15/2024 10:12 AM [facility] Total Protein 5.5(L) 6.0 - 8.0 g/dL LAB CHEMISTRY METHOD 10/15/2024 10:12 AM [facility] Albumin 2.8(L) 3.2 - 5.0 g/dL LAB CHEMISTRY METHOD 10/15/2024 10:12 AM [facility] Total Bilirubin 0.5 0.0 - 1.4 mg/dL LAB CHEMISTRY METHOD 10/15/2024 10:12 AM [facility] Blood Venous blood specimen / Unknown Venipuncture / Unknown 10/15/2024 5:21 AM EDT 10/15/2024 9:05 AM EDT us Leny Brice MD LAB BLOOD ORDERABLES Final Resu lt [facility] [address] [place] [address], [place] [phone] from Last 3 Months Insurance [employer] Care Teams Patrol Police 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
--- NOTE | 2024-11-15 08:47 | MHC.OFFVIS ---
Vital Signs 11/15/24 08:52 Height 5 ft 3.5 in Weight 215 lb BMI 37.5 Intake Visit Reasons: OV: right shoulder pain DOI 09/16/24 Intake Note: Vanessa 69 yr old left hand dominant female presents today wit her spouse Delisa for a ED follow up visit for her right shoulder pain. Patient recall many yrs ago while in [facility] she injured her shoulder walking up a ramp. No medical attention was needed. States it was better and as of 1 yr ago her pain has progressively worsen. She is limited ROM on bilateral shoulders, radiating pain down her hand. Denies numbness or tingling. Hx of right shoulder injection with NEOS. Last injection was about 1 month ago with no improvement. . Allergies pregabalin Allergy (Severe, Verified 11/15/24 08:59) Manic Sulfa (Sulfonamide Antibiotics) Allergy (Severe, Verified 11/15/24 08:59) Hives HPI HPI OV: right shoulder pain DOI 09/16/24: Details: Vanessa 69 yr old left hand dominant female presents today wit her spouse Delisa for a ED follow up visit for her right shoulder pain. Patient recall many yrs ago while in [facility] she injured her shoulder walking up a ramp. No medical attention was needed. States it was better and as of 1 yr ago her pain has progressively worsen. She is limited ROM on bilateral shoulders, radiating pain down her hand. Denies numbness or tingling. Hx of right shoulder injection with NEOS, reports she has had 2 or 3 of these with minimal effect. Patient states she is interested in repeat injection today. [facility] Medical History (Updated 11/15/24 @ 11:36 by MARCELLUS Shah) Osteoarthritis of right shoulder Class 3 obesity Current chronic use of systemic steroids T12 compression fracture Breast calcifications Macular degeneration of both eyes Lumbar spondylolysis Adrenal insufficiency Moderate persistent asthma in adult without complication Anxiety Obstructive sleep apnea Osteoporosis Osteopenia Fibromyalgia GERD (gastroesophageal reflux disease) Hypothyroidism Mixed hyperlipidemia Essential hypertension Morbid obesity Diabetes mellitus, type II Steroid dependence Compression fracture Asthma COPD (chronic obstructive pulmonary disease) Surgical History History of cataract surgery History of left hip replacement History of total right knee replacement (TKR) Family History Father COPD (chronic obstructive pulmonary disease) Mother ASCVD (arteriosclerotic cardiovascular disease) Sister Stented coronary artery Social History Household Members: Spouse Housing: House Are you a primary assurance services manager health care to a significant other at home: No Do you presently have visiting nurse or other home services: No Patient Tobacco Use Status: Never used Tobacco Tobacco use type: Cigarette Years Smoked: 30 years Second Hand Smoke Exposure: No service: No Current occupational status: retired Review of Systems Const All systems reviewed & are unremarkable except as noted in HPI and below Physical Exam Vital Signs: BMI result Body Mass Index 37.5 Last Vital Signs Temp 97.9 F 09/16/24 15:33 Pulse 61 09/16/24 15:33 Resp 18 09/16/24 15:33 BP 117/58 L 09/16/24 15:33 Pulse Ox 96 09/16/24 15:33 O2 Del Method Room Air 09/16/24 15:33 BMI result Body Mass Index 39.7 Extrem Other: On inspection, there is no visible deformity of the right shoulder No edema, erythema, ecchymosis noted No lacerations, abrasions, open areas No evidence of infection Patient reports no tenderness to palpation of the acromion, clavicle, greater tuberosity, or elsewhere in the right shoulder Patient is able to forward flex the right shoulder to approximately 70 degrees, with significant audible and palpable creaking and lurching of the right shoulder noted Patient was able to externally rotate to approximately 40 degrees on the right No ligamentous laxity noted Distal sensation intact Capillary refill brisk Negative [facility] Procedures AMB Joint Injection/Aspiration Joint Injection/Aspiration Primary Site: right shoulder Prep: site was prepped using aseptic technique, ethochloride spray was applied and injection warnings given Injected: 40 mg of, DepoMedrol, with 8 mL of, 1% plain lidocaine and in the subcromial space Procedure: The patient tolerated the procedure well and there was some relief with the local anesthesia Coding Procedure code (CPT) selection complete Assessment & Plan Assessment & Plan (1) Osteoarthritis of right shoulder: Code(s): M19.011 - Primary osteoarthritis, right shoulder Category: Medical Plan 1. Right shoulder osteoarthritis Patient is educated about this condition Patient is educated about the treatment options available Patient would like to proceed with steroid injection The risks and benefits of a steroid injection including but not limited to risk of damage to blood vessels, nerves, tendons, infection, skin bleaching, failure to improve symptoms, increased pain, and possible need for further injections or other intervention were discussed with the patient and the patient wishes to proceed with the steroid injection. Once consent was obtained, I aseptically prepped the area over the posterior soft space just below the acromion of the right shoulder. I then injected the area over the lateral epicondyle with a combination of 40 mg of dexamethasone and 8 mL of 1% lidocaine. The patient tolerated the procedure well with no complications. If the patient continues to experience symptoms over the following few weeks or months, they can make an appointment to return and discuss alternative treatment measures, such as physical therapy. Follow-up prn Coding Level of Care Code New Pt Level 3 (50530) Diagnoses Osteoarthritis of right shoulder M19.011
[2024-11-15 08:52] VITALS: BMI 37.5
== END 2024-11-15 09:32 | disposition home or self-care (01) ==
LOC: HO.HOS 08:32
PROVIDERS: PCP Family Medicine
DX: M19.011 Primary osteoarthritis, right shoulder (principal)
CPT/HCPCS: 20610; 99213

== ENCOUNTER → 2024-11-15 08:31 | Outpatient (BNVA) | payer MEDICARE, SELFPAY | PROVIDERS: PCP Family Medicine | DX: M19.011 Primary osteoarthritis, right shoulder (principal) | CPT/HCPCS: 20610; 99212; J1010; J2003 ==

== ENCOUNTER 2024-12-13 10:07 | Outpatient (AMB) | payer MEDICARE, SELFPAY ==
--- NOTE | 2024-12-13 10:19 | A.OFFVIS_ITS ---
Vital Signs 12/13/24 10:26 Height 55 ft 3 in Weight 215 lb BMI 0.3 Intake Visit Reasons: New Problem - Left Shoulder Pain Intake Note: Vanessa is a 69 year old left hand dominant female who presents today for a New Problem visit with complaints of Left Shoulder Pain. She was last seen on 09/15/24 where the Right shoulder was injected with 40mg Depo, with no improvement. States shoulder pain started after falling 4 years ago. States she wouldlike to have the Left shoulder injected as well.. Accompanied by: Spouse Gabby Allergies pregabalin Allergy (Severe, Verified 12/13/24 10:24) Manic Sulfa (Sulfonamide Antibiotics) Allergy (Severe, Verified 12/13/24 10:24) Hives HPI HPI New Problem - Left Shoulder Pain: Details: Vanessa is a 69 year old left hand dominant female who presents today for a New Problem visit with complaints of Left Shoulder Pain. She was last seen on 09/15/24 where the Right shoulder was injected with 40mg Depo, with no improvement. States shoulder pain started after falling 4 years ago. Patient initially states that she would like to explore left shoulder injection, but then states that she is not very interested in this, stating that she does not feel that this will be effective as previous right shoulder injections has been largely ineffective. Patient states once again that she is entirely uninterested in any surgical intervention. [facility] Medical History Osteoarthritis of right shoulder Class 3 obesity Current chronic use of systemic steroids T12 compression fracture Breast calcifications Macular degeneration of both eyes Lumbar spondylolysis Adrenal insufficiency Moderate persistent asthma in adult without complication Anxiety Obstructive sleep apnea Osteoporosis Osteopenia Fibromyalgia GERD (gastroesophageal reflux disease) Hypothyroidism Mixed hyperlipidemia Essential hypertension Morbid obesity Diabetes mellitus, type II Steroid dependence Compression fracture Asthma COPD (chronic obstructive pulmonary disease) Surgical History History of cataract surgery History of left hip replacement History of total right knee replacement (TKR) Family History Father COPD (chronic obstructive pulmonary disease) Mother ASCVD (arteriosclerotic cardiovascular disease) Sister Stented coronary artery Social History (Updated 12/13/24 @ 10:26 by PRATIMA Jung) Household Members: Spouse Housing: House Are you a primary acute care clinical nurse specialist to a significant other at home: No Do you presently have visiting nurse or other home services: No Patient Tobacco Use Status: Never used Tobacco Tobacco use type: Cigarette Years Smoked: 30 years Second Hand Smoke Exposure: No service: No Current occupational status: retired Current occupation: left hand Review of Systems Const All systems reviewed & are unremarkable except as noted in HPI and below Physical Exam Vital Signs: BMI result Body Mass Index 0.3 Last Vital Signs Temp 97.9 F 09/16/24 15:33 Pulse 61 09/16/24 15:33 Resp 18 09/16/24 15:33 BP 117/58 L 09/16/24 15:33 Pulse Ox 96 09/16/24 15:33 O2 Del Method Room Air 09/16/24 15:33 BMI result Body Mass Index 39.7 Extrem Other: On inspection, there is no visible deformity of the right shoulder No edema, erythema, ecchymosis noted No lacerations, abrasions, open areas No evidence of infection Patient reports no tenderness to palpation of the acromion, clavicle, greater tuberosity, or elsewhere in the right shoulder Patient is able to forward flex the right shoulder to approximately 70 degrees, with significant audible and palpable creaking and lurching of the right shoulder noted Patient was able to externally rotate to approximately 40 degrees on the right No ligamentous laxity noted Distal sensation intact Capillary refill brisk Negative [facility] Assessment & Plan Assessment & Plan (1) Osteoarthritis of right shoulder: Code(s): M19.011 - Primary osteoarthritis, right shoulder Category: Medical Plan 1. Osteoarthritis of right shoulder Patient is educated about this condition Patient is educated about the typical recovery course At this time, as the patient is uninterested in repeat injections, physical therapy, or potential surgical intervention, I feel it is best refer the patient to pain management for discussion of further pain management measures for her r ight shoulder Patient understands this in his amenable to this plan Patient is educated that if she becomes interested in any surgical intervention, she can always call our office for reassessment Patient is amenable to this plan Follow-up as needed Orders: Referrals Pain Management Referral M19.011 - Primary osteoarthritis, right shoulder Coding Level of Care Code Est Pt Level 3 (54724) Diagnoses Osteoarthritis of right shoulder M19.011
--- OUTSIDE RECORDS SUMMARY | 2024-12-13 10:26 | XMS_ITS | Clinical Summary ---
Author Organization [facility] Address [address] [facility] [address] [place] [address] Phone Care Team Providers Care Public Safety Dispatcher Name Role Phone Tran Blackwell MD Primary Care Provider [phone] Bettina Rashid MD Unavailable [phone] Allergies Active Allergy Reactions Criticality Noted Date Comments Adhesive Rash Low 08/16/2022 Other reaction(s): inflamation Penicillin 08/16/2022 Other reaction(s): doesn't work Pregabalin Feeling Irritable Low 08/16/2022 Sulfamethoxazole-Trime thoprim Anaphylaxis High 08/16/2022 Medications blood sugar diagnostic (ONETOUCH ULTRA BLUE TEST STRIP MISC) Active VENTOLIN HFA 90 mcg/actuation inhaler TAKE 2 PUFFS BY MOUTH EVERY 4 HOURS NEEDED FOR WHEEZING 3 Active TRELEGY ELLIPTA 200-62.5-25 mcg inhaler Inhale 1 puff into the lungs daily. 3 Active gabapentin (NEURONTIN) 400 MG capsule TAKE 1 CAPSULE BY MOUTH EVERY MORNING AND TAKE 2 CAPSULES BY MOUTH EVERY EVENING 3 Active losartan (COZAAR) 50 MG tablet Take 50 mg by mouth daily. 3 Active omeprazole (PRILOSEC) 20 MG capsule omeprazole 20 mg capsule,delaye d release Active PARoxetine (PAXIL) 40 MG tablet paroxetine 40 mg tablet Active predniSONE (DELTASONE) 10 MG tablet prednisone 10 mg tablet Active simvastatin (ZOCOR) 40 MG tablet 40 mg. Active lenalidomide (REVLIMID) 10 mg capsule Take 10 mg by mouth once. 4 Active traMADoL (ULTRAM) 50 mg tablet Take 50 mg by mouth 2 (two) times a day. 4 Active lisinopril (PRINIVIL,ZESTRIL) 10 MG tablet Take 10 mg by mouth daily. Active folic acid (FOLVITE) 800 MCG tablet Take 800 mcg by mouth every morning. 3 Active cyanocobalamin, vitamin B-12, 1000 MCG tablet Take 1,000 mcg by mouth every morning. 3 Active cholecalciferol, vitamin D3, 25 mcg (1,000 unit) capsule Take 2 capsules by mouth every morning. 4 Active aspirin 81 MG EC tablet Take 81 mg by mouth daily. Active levothyroxine (SYNTHROID, LEVOTHROID) 112 MCG tabletIndications: Acquired hypothyroidism take 1 tablet by mouth every day 90 tablet 3 4 Active ondansetron (ZOFRAN-ODT) 8 MG disintegrating tablet Take 8 mg by mouth every 8 (eight) hours as needed. 4 Active meloxicam (MOBIC) 15 MG tablet Take 1 tablet by mouth every morning. 5 Active LORazepam (ATIVAN) 0.5 MG tablet Take 0.5 mg by mouth 2 (two) times a day. 4 Active dilTIAZem (CARDIZEM CD) 180 MG 24 hr capsule Take 180 mg by mouth daily. 4 Active atorvastatin (LIPITOR) 20 MG tablet Take 20 mg by mouth nightly at bedtime. 4 Active celecoxib (CELEBREX) 200 MG capsule Take 200 mg by mouth every morning. 5 Active alendronate (FOSAMAX) 70 MG tabletIndications: Age-related osteoporosis without current pathological fracture TAKE 1 TABLET (70 MG TOTAL) BY MOUTH ONCE A WEEK 12 tablet 1 5 Active metFORMIN (GLUCOPHAGE) 500 MG tabletIndications: Type 2 diabetes mellitus with peripheral neuropathy TAKE 2 TABLETS BY MOUTH EVERY MORNING & TAKE 1 TABLET EVERY EVENING 270 tablet 3 5 Active tirzepatide (MOUNJARO) 7.5 mg/0.5 mL PnIj subcutaneous penIndications:Typ e 2 diabetes mellitus with peripheral neuropathy Inject 0.5 mL (7.5 mg total) under the skin once a week. 2 mL 5 Active Active Problems Problem Noted Date Diagnosed Date Asthma 02/29/2024 Obstructive sleep apnea syndrome 02/29/2024 Overview (02/29/2024): Unable to tolerate noninvasive ventilation owing to claustrophobia Unable to tolerate noninvasive ventilation owing to claustrophobia Age-related osteoporosis wit hout current pathological fracture 02/29/2024 Assessment & Plan (09/24/2024 11:05 AM EDT): Will order the labs that Dr Betancur requested in February Assessment & Plan (02/29/2024 1:09 PM EDT): Uncertain details. Records from [facility] not available. Has been on medication list & we had refilled in July. She is somewhat uncertain @ meds & how she is taking it. Will call for records. Discussed administration of alendronate. Osteopenia 07/14/2023 Assessment & Plan (06/24/2024 12:01 PM EST): She is consistently taking her alendronate on Sundays and will not lay down for at least 30 minutes after taking it Type 2 diabetes mellitus with peripheral neuropa thy 08/16/2022 Assessment & Plan (09/24/2024 11:17 AM EDT): Control is unknown as the patient is not checking her SMBG readings. Historically control has been good. She is not using any medications to cause hypoglycemia. Will try increasing her mounjaro to 7.5 mg. She will continue with her metformin dosing. Continue to work on eating healthy and trying to be active. To call or message with any issues. Up to date with ophtho. Labs ordered. I have maintained a long-term, longitudinal relationship with this patient, overseeing care of chronic conditions, including diabetes. This care relationship has significantly influenced my decision-making and treatment plans during today's encounter. Assessment & Plan (06/24/2024 12:15 PM EST): Control is unknown as the patient is not checking her SMBG readings often and we don't have access to her recent labs. Historically control has been good. She is not using any medications to cause hypoglycemia. She would like to try changing her trulicity to mounjaro to see if this could potentially help with the diarrhea she is experiencing. She will continue with her metformin dosing. Continue to work on eating healthy and trying to be active. To call or message with any issues. Will get labs from [facility] Assessment & Plan (02/29/2024 1:06 PM EDT): Control has been reasonable , but uncertain at present given limited SMBG. Will include HbA1c with upcoming labs for heme/onc, to message us when done so we can track down results. Continue to work on eating healthy & keeping active, as able To call or send in BG with problems with glycemic control. [facility] Foot & nail care good. BP under reasonable control. Assessment & Plan (07/17/2023 10:21 AM EST): Control is unknown as the patient is not checking her glucose levels frequently and has no recent blood work available. She is not using any medications to cause hypoglycemia. Discussed that with the frequency of blood transfusions she is having her glucose control will not be determined by her A1C but instead by her finger stick readings. She will work on increasing her finger stick glucose checks to monitor her overall control. Continue to work on eating healthy and trying to be as active as she can. To call or message with any issues managing her glucose levels. Up to date with oph[facility]. Will request labs from [facility] Assessment & Plan (02/18/2023 8:43 PM EDT): Control reasonable based on last HbA1c, limited SMBG. Would not repeat HbA1c now as just had transfusion so would not be helpful. Has not been feeling well w/ nausea, feels likely related to mounjaro. Will shift back to trulicity. Encouraged her to do some testing to see how control is doing with shift in rx & determine if we need to increase to a higher dose. Continue to work on eating healthy & keeping active. To call or send in BG with problems with glycemic control. Up to date with opho. Foot & nail care good. Umalb/creat up to date, normal. BP under reasonable control. Assessment & Plan (11/16/2022 10:43 AM EDT): Control is unknown as the patient has not been checking her glucose levels. She is not using any medications to cause hypoglycemia. Will adjust her mounjaro to the next dose as she is tolerating the 5 mg well, to see if can help keep her glucose levels under control and further help her weight loss. Continue to work on eating healthy and being active. To call or message with any issues managing her glucose levels. Up to date with [facility]. Labs ordered today Assessment & Plan (08/16/2022 10:16 AM EDT): Sounds as if control has been reasonable. Would like to try shifting to mounjaro for more weight loss benefit. Will do labs today. To call if hasn't heard from us within 1-2 weeks. Will send over rx for mounjaro after reviewing labs & if not covered/affordable, we can increase dose of trulicity. Continue to work on eating healthy & keeping active, as able. To call or send in BG with problems with glycemic control. Up to date with opho. BP under reasonable control. Acquired hypothyroidism 08/16/2022 Assessment & Plan (09/24/2024 11:15 AM EDT): The labs we received showed her last TSH was elevated. She thinks it was elevated due to missing medication. She has been consistent with taking it and taking it 30 minutes before having anything else to eat or drink. Will order labs and make medication adjustments based upon the results Assessment & Plan (06/24/2024 12:03 PM EST): She is consistent with taking her 112 mcg levothyroxine daily. She is not missing any doses. Will get recent labs to determine if medication adjustments are needed Assessment & Plan (02/29/2024 1:06 PM EDT): Will repeat labs & adjust rx as appropriate. Assessment & Plan (07/17/2023 10:11 AM EST): She recently had blood work done at [facility]. Will get results to review and determine if any medication adjustments are needed Assessment & Plan (02/18/2023 8:43 PM EDT): Euthyroid on labs in July. Would repeat given weight loss, which can lower dose requirements. Given slip to include w/ labs for heme-onc @ [facility] tomorrow. To message me with result. Assessment & Plan (11/16/2022 10:38 AM EDT): Will check levels to determine if medication adjustments are needed Assessment & Plan (08/16/2022 10:17 AM EDT): Will repeat labs today and adjust rx as appropriate. To call if has not heard from us with results within 1-2 weeks. If levels normal, will repeat in 6-12 months, sooner prn symptoms of thyroid dysfunction, > 10-15# weight change, or as otherwise clinically indicated. Rotator cuff syndrome 07/18/2012 Overview (07/12/2014): Rotator cuff syndrome Uncoded with biceps tenos 07/18/2012 Overview (07/12/2014): with biceps tenos long term care pharmacist current use of oral hypoglycemic drug Assessment & Plan (06/24/2024 12:17 PM EST): Will maintain her metformin Long-term current use of inj ectable noninsulin antidiabetic medication Assessment & Plan (06/24/2024 12:16 PM EST): Will try changing her trulicity to mounjaro to see if this helps alleviate her GI side effects Myelodysplastic syndrome Encounters Date Type Department Care Team Description 09/24/2024 8:40 AM EDT Office Visit [facility] [address] [place] [address] Shavonne Sun PA-C Type 2 diabetes mellitus with peripheral neuropathy (Primary Dx); Acquired hypothyroidism; Age-related osteoporosis without current pathological fracture from Last 3 Months Immunizations Immunization Administration Dates Next Due COVID-19 (Pre-03/13) Pfizer Vaccine, mRNA, PF Social History Tobacco Use Types Packs/Day Years Used Date Smoking Tobacco: Former Cigarettes 2.5 25 1 963 - 1988 Smokeless Tobacco: Never Tobacco Cessation:Counseling Given: Not Answered Alcohol Use Standard Drinks/Week Comments Yes 0 (1 standard drink = 0.6 oz pur e alcohol) 1 yearly Education Answer Date Recorded Are you interested in more education? Not on gerber e 09/15/2022 Are you concerned about learning? Not on file 09/15/2022 No 09/15/2022 No 09/15/2022 Digital Access Answer Date Recorded No 10/17/2022 No 10/17/2022 Reliable internet access at home? Not on file 10/17/2022 Device with a working camera? Not on file Comments Unknown Sex and Gender Information Value Date Recorded Sex Assigned at Not on file Legal Sex Female 7:57 PM EST Gender Identity Female 02/17/2024 12:16 PM EDT Sexual Orientation Lesbian or [place] 02/17/2024 12 :16 PM EDT Last Filed Vital Signs Vital Sign Reading Time Taken Comments Blood Pressure 126/70 09/24/2024 8:33 AM EDT Pulse 92 09/24/2024 8:33 AM EDT Temperature 36.8 C (98.3 F) 07/18/2012 4:23 PM EST Respiratory Rate - - Oxygen Saturation 95% 09/24/2024 8:33 AM EDT Inhaled Oxygen Concentration - - Weight 105.2 kg (232 lb) 02/29/2024 11:33 AM EDT Height 162.4 cm (5' 3.94 ) 09/24/2024 8:33 AM ED T Body Mass Index 39.8 07/14/2023 8:39 AM EST Plan of Treatment Upcoming Encounters Date Type Department Care Team (Late st Contact Info) Description 02/21/2025 8:20 AM EDT Office Visit [facility] [address] [place] [address] [place] [address] Laura Betancur MD [address] [place] [id number] 05/27/2025 9:20 AM EST Office Visit [facility] [address] [place] [address] Shavonne Sun PA-C [address] [place] [address] [email or web address] Health Maintenance Due Date Last Done Comments Adult Td,Tdap Booster 1955 DEPRESSION SCREENING 1965 HEPATITIS C SCREENING 1971 PNEUMOCOCCAL VACCINES (50+ years) (1 of 2 - PCV) 1972 ZOSTER VACCINES (1 of 2) 1972 COLOGUARD 1998 COLONOSCOPY 1998 COLORECTAL CANCER SCREENING 1998 FIT TEST 1998 FOBT 1998 SIGMOIDOSCOPY 1998 VIRTUAL COLONOSCOPY 1998 RSV VACCINE (1 - Risk 60-74 years 1-dose series) 2013 OSTEOPOROSIS SCREENING INITIAL (ONE-TIME) 2018 DIABETIC EYE EXAM 08/16/2022 HEMOGLOBIN A1C 05/18/2023 11/16/2022, 08/16/2022 TSH LEVEL 11/17/2023 11/16/2022, 08/16/2022 MAMMOGRAM 12/08/2023 12/07/2021, 07/0 10/2020, 12/16/2019, Additional history exists COVID-19 VACCINE ( season) 2024 04/26/2021 CREATININE LEVEL 02/27/2025 02/28/2024, , 08/16/2022 POTASSIUM LEVEL 02/27/2025 02/28/2024, 10/21, 08/16/2022 BLOOD PRESSURE 03/27/2025 09/24/2024 SMOKING STATUS SCREENING (Once After 26 Yrs) Completed 09/24/2024 HEPATITIS A VACCINES Aged Out No long er eligible based on patient's age to complete this topic HIB VACCINES Aged Out No longer eligi ble based on patient's age to complete this topic MENINGOCOCCAL VACCINES (ACWY) Aged Out No longer eligible based on patient's age to complete this topic MENINGOCOCCAL VACCINES (B) Aged Out N o longer eligible based on patient's age to complete this topic Medical Devices Not on file Procedures Procedure Name Priority Date/Time Associated Diagnosis Comments OUTSIDE POTASSIUM LEVEL Routine 02/28/2024 OUTSIDE SERUM CREATININE LEVEL Routine 02/28/2024 OUTSIDE HEMOGLOBIN A1C Routine 11/16/2022 TSH WITH REFLEX Routine 08/16/2022 10:03 AM EDT Acquired hypothyroidism from Last 3 Months or Most Recently Relevant to Health Maintenance Results * Outside Potassium Level (02/28/2024) Potassium level - External 4.5 3.4 - 5.0 mmol/L Historical Provider LAB BLOOD ORDERABLES Liz l Result * (ABNORMAL) Outside Serum Creatinine Level (02/28/2024) Creatinine, serum - External 0.77(A) 0.8 - 1.3 mg/dL Historical Provider MD LAB BLOOD ORDERABLES Liz l Result * Outside HbA1c (11/16/2022) Hemoglobin A1c - External 7.1 % Historical Provider LAB BLOOD ORDERABLES Liz l Result * TSH with reflex (08/16/2022 10:03 AM EDT) TSH 1.51 0.27 - 4.20 uIU/mL [facility] Blood 08/16/2022 10:0 3 AM EDT 08/16/2022 10:11 AM EDT Laura Betancur MD LAB BLOOD ORDERABLES F inal Result [facility] [address] [place] [address] from Last 3 Months or Most Recently Relevant to Health Maintenance Insurance [employer] O MEDICARE REPLACEMENT A[employer] [facility]IC[facility] REPLACEMENT AET[facility] MEDICARE REPLACEMENT AETNA [facility] MEDICARE REPLACEMENT A[employer] O MEDICARE REPLACEMENT [employer] O MEDICARE REPLACEMENT Care Teams Public Safety Dispatcher Relationship Specialty Start Date End Date Tran Blackwell MD [address] [place] [address] PCP - General Family Medicine 08/16/22 Bettina Rashid MD [address] [place] [id number] [email or web address] Medicine 09/24/24 Additional Source Comments The information contained in this document represents components of the legal health record. It is not the complete legal health record.[facility]
--- OUTSIDE RECORDS SUMMARY | 2024-12-13 10:26 | XMS_ITS | Referral Summary ---
Author Organization [facility] Address [address] [place] [address] Care Team Providers Care Dentistry Teacher Name Role Phone Tran Blackwell Primary Care Provider [phone] Allergies Active Allergy Reactions Criticality Noted Date Comments Multivit, Min [id number] Dyspnea High 04/12 Pregabalin Mood Disturbance 04/12/2023 [...] 119 04/12/2023 1:48 PM EST Temperature 36.7 C (98.1 F) 04/12/2023 1:48 PM EST Respiratory Rate 20 04/12/2023 1:48 PM EST Oxygen Saturation 96% 04/12/2023 1:48 PM EST Inhaled Oxygen Concentration - - Weight 105.7 kg (233 lb 2.2 oz) 04/12/2023 1:48 PM EST Height 156.4 cm (5' 1.58 ) 04/12/2023 1:48 PM ES T Body Mass Index 43.23 04/12/2023 1:48 PM EST Plan of Treatment Not on file Insurance [facility] Care Teams Dentistry Teacher Relationship Specialty Start Date End Date Tran Blackwell [address] [place] [address] PCP - General Family Medicine 03/27/23
--- OUTSIDE RECORDS SUMMARY | 2024-12-13 10:26 | XMS_ITS | Clinical Summary ---
Author Organization [address] Address [address] [place] [id number] Phone Care Team Providers Care Community Development Aide Name Role Phone Leny Brice MD Primary Care Provider [phone] Encounters Date Type Department Care Team Description 10/22/2024 Lab Requisition [facility] [address] [place] [phone] Leny Brice MD Essential (primary) hypertension; Hypokalemia; Thrombocytopenia, unspecified ([facility] V24) 10/17/2024 Lab Requisition [facility] [address] [place] [phone] Leny Brice MD Thrombocytopenia, unspecified ([facility] V24) 10/15/2024 Lab Requisition [facility] [address] [place] [phone] Leny Brice MD Anemia, unspecified; Essential (primary) hypertension; senior living (current) use of anticoagulants from Last 3 Months Surgical History Surgery Date Site/Laterality Comments HYSTERECTOMY PROCEDURE: HISTORICAL HYSTERECTOMY CATARACT EXTRACTION PROCEDURE: HISTORICAL CATARACT REMOVAL SHOULDER SURGERY PROCEDURE: [place] UNLISTED PROCEDURE SHOULDER LITHOTRIPSY PROCEDURE: HISTORICAL LITHOTRIPSY CYST REMOVAL PROCEDURE: [place] EXCISION PILONIDAL CYST/SINUS SIMPLE DENTAL SURGERY PROCEDURE: [place] UNLISTED PROCEDURE DENTOALVEOLAR STRUCTURES TOTAL KNEE ARTHROPLASTY 2001 Right PROCEDURE: [place] ARTHRP KNE CONDYLE&PLATU MEDIAL&LAT COMPARTMENTS HIP ARTHROPLASTY 2011 Left PROCEDURE: HISTORICAL HIP REPLACEMENT OTHER SURGICAL HISTORY 12/29/2021 Left PROCEDURE: [place] ARTHRODESIS SI JOINT PERCUTANEOUS/MIN INVASIVE; COMMENT: Left SI joint fusion/revision, Dr. Brock CARPAL TUNNEL RELEASE 05/18/2022 PROCEDURE: HISTORICAL CARPAL TUNNEL REL; COMMENT: Right median nerve decompression, Dr. Brock Medical History Medical History Date Comments Asthma-chronic obstructive p ulmonary disease overlap syndrome ([facility] V24, [facility] V28) 12/29/2016 DX:Asthma-chronic obstructiv e pulmonary disease overlap syndrome (HCC) Hypercholesterolemia 11/29/2016 DX:Hypercho lesterolemia Hypothyroidism 11/29/2016 DX:Hypothyroidis m Obstructive sleep apnea syndrome in adult 017 DX:Obstructive sleep apnea syndrome in adult Morbid obesity with BMI of 4 0.0-44.9, adult ([facility] V24, [facility] V28) 10/03/2017 DX:Morbid obesity wit h BMI of 40.0-44.9, adult ([facility]) Renal calculi DX:Renal calculi Type 2 diabetes mellitus wit h cataract ([facility] V24, [facility] V28) 11/29/2016 DX:Type 2 diabetes mellitus with cataract ([facility]) Cataract 10/03/2017 DX:Cataract; COM MENT: [...] Panel) 04/30/2022 Colorectal Cancer Screening: Colonoscopy 04/30/2022 Falls Risk Assessment 04/30/2022 Hepatitis C Screening 04/30/2022 Medicare Annual Wellness Visit 04/30/2022 Osteoporosis Screening (Bone Density Screening) 04/30/2022 Social Influencers of Health Screening 04/30/2022 Diabetes: Blood Sugar Control Test (HGBA1C) 05/07/2022 Diabetes: Annual Urine Albumin-Creatinine Ratio (uACR) 08/17/2023 08/16/2022 Depression Screening 05/22/2024 Influenza Vaccine (#1) 2025 Diabetes: Annual GFR (Glomerular Filtration Rate) [...] EDT Essential (primary) hypertension Hypokalemia Thrombocytopenia, unspecified ([facility] V24) BASIC METABOLIC PANEL Routine 10/17/2024 4:58 AM EDT Thrombocytopenia, unspecified ([facility] V24) COMPLETE BLOOD COUNT Routine 10/17/2024 4:58 AM EDT Thrombocytopenia, unspecified (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 [facility] WBC 6.3 4.8 - 10.8 K/mcL LAB HEMETOLOGY METHOD 10/22/2024 9:00 AM [facility] LAB RBC 2.90(L) 3.80 - 4.80 M/mcL LAB HEMETOLOGY METHOD 10/22/2024 9:00 AM [facility] LAB Hemoglobin 8.8(L) 11.5 - 16.0 g/dL LAB HEMETOLOGY METHOD 10/22/2024 9:00 AM [facility] LAB Hematocrit 29.3(L) 35.0 - 47.0 % LAB HEMETOLOGY METHOD 10/22/2024 9:00 AM [facility] MCV 102.8(H) 79.0 - 98.0 FL LAB HEMETOLOGY METHOD 10/22/2024 9:00 AM EDT [facility] MCH 30.9 27.0 - 32.0 pcg LAB HEMETOLOGY METHOD 10/22/2024 9:00 AM EDT [facility] LAB MCHC 30.0(L) 32.0 - 37.0 g/dL LAB HEMETOLOGY METHOD 10/22/2024 9:00 AM EDT [facility] RDW 18.9(H) 11.0 - 15.0 % LAB HEMETOLOGY METHOD 10/22/2024 9:00 AM EDT [facility] Platelets 183 130 - 400 K/mcL LAB HEMETOLOGY METHOD 10/22/2024 9:00 AM EDT [facility] MPV 10.4 7.0 - 11.0 FL LAB HEMETOLOGY METHOD 10/22/2024 9:00 AM EDT [facility] NRBC 0.0 <1.0 % LAB HEMETOLOGY METHOD 10/22/2024 9:00 AM EDT [facility] NRBC Absolute 0.00 <0.10 K/mcL LAB HEMETOLOGY METHOD 10/22/2024 9:00 AM [facility] Blood Venous blood specimen / Unknown Venipuncture / Unknown 10/22/2024 4:28 AM EDT 10/22/2024 8:15 AM EDT us Leny Brice MD LAB BLOOD ORDERABLES Final Resu lt [facility] [address] [place] [address], [place] [phone] * (ABNORMAL) Basic metabolic panel (10/22/2024 4:28 AM EDT) Only the most recent of2 resultswithin the time period is included. Sodium 145 133 - 145 mmol/L LAB CHEMISTRY METHOD 10/22/2024 9:13 AM [facility] Potassium 4.1 3.5 - 5.5 mmol/L LAB CHEMISTRY METHOD 10/22/2024 9:13 AM [facility] Chloride 110 96 - 110 mmol/L LAB CHEMISTRY METHOD 10/22/2024 9:13 AM [facility] CO2 28 21 - 32 mmol/L LAB CHEMISTRY METHOD 10/22/2024 9:13 AM [facility] Anion Gap 7 3 - 11 LAB CHEMISTRY METHOD 10/22/2024 9:13 AM [facility] Glucose 54(L) 70 - 100 mg/dL LAB CHEMISTRY METHOD 10/22/2024 9:13 AM [facility] BUN 21 5 - 25 mg/dL LAB CHEMISTRY METHOD 10/22/2024 9:13 AM [facility] Creatinine 0.80 0.50 - 1.10 mg/dL LAB CHEMISTRY METHOD 10/22/2024 9:13 AM [facility] LAB eGFR 79 >=60 mL/min/1. 73m2 LAB CHEMISTRY METHOD 10/22/2024 9:13 AM [facility] Comment:Calculation based on the Chronic Kidney Disease Epidemiology Collaboration (CKD-EPI) equation refit without adjustment for race. BUN/Creatinine Ratio 26.3 LAB CHEMISTRY METHOD 10/22/2024 9:13 AM [facility] Calcium 7.4(L) 8.5 - 10.5 mg/dL LAB CHEMISTRY METHOD 10/22/2024 9:13 AM [facility] Blood Venous blood specimen / Unknown Venipuncture / Unknown 10/22/2024 4:28 AM EDT 10/22/2024 8:15 AM EDT us Leny Brice MD LAB BLOOD ORDERABLES Final Resu lt Performing Organization Address [facility]/ZIP Co de Phone Number [facility] [address] [place] [address], * (ABNORMAL) Prothrombin time with INR (10/15/2024 5:21 AM EDT) [facility] Protime 10.1(L) 10.6 - 13.9 sec LAB COAGULATION METHOD 10/15/2024 9:44 AM EDT [facility] INR 0.8 LAB COAGULATION METHOD 10/15/2024 9:44 AM EDT [facility] Blood Venous blood specimen / Unknown Venipuncture / Unknown 10/15/2024 5:21 AM EDT 10/15/2024 9:05 AM EDT Leny Brice MD LAB BLOOD ORDERABLES Final Resu lt Performing Organization Address [facility]/ZIP Co de Phone Number [facility] [address] [place] [address], [place] [phone] * (ABNORMAL) Comprehensive metabolic panel (10/15/2024 5:21 AM EDT) [facility] Sodium 139 133 - 145 mmol/L LAB CHEMISTRY METHOD 10/15/2024 10:12 AM [facility] Potassium 3.6 3.5 - 5.5 mmol/L LAB CHEMISTRY METHOD 10/15/2024 10:12 AM [facility] Chloride 108 96 - 110 mmol/L LAB CHEMISTRY METHOD 10/15/2024 10:12 AM [facility] CO2 25 21 - 32 mmol/L LAB CHEMISTRY METHOD 10/15/2024 10:12 AM [facility] Anion Gap 6 3 - 11 LAB CHEMISTRY METHOD 10/15/2024 10:12 AM [facility] Glucose 40(L) 70 - 100 mg/dL LAB CHEMISTRY METHOD 10/15/2024 10:12 AM [facility] BUN 19 5 - 25 mg/dL LAB CHEMISTRY METHOD 10/15/2024 10:12 AM [facility] Creatinine 0.77 0.50 - 1.10 mg/dL LAB CHEMISTRY METHOD 10/15/2024 10:12 AM [facility] eGFR 83 >=60 mL/min/1. 73m2 LAB CHEMISTRY METHOD 10/15/2024 10:12 AM [facility] Comment:Calculation based on the Chronic Kidney Disease Epidemiology Collaboration (CKD-EPI) equation refit without adjustment for race. BUN/Creatinine Ratio 24.7 LAB CHEMISTRY METHOD 10/15/2024 10:12 AM [facility] Calcium 8.0(L) 8.5 - 10.5 mg/dL LAB CHEMISTRY METHOD 10/15/2024 10:12 AM [facility] AST (SGOT) 10 10 - 42 unit/L LAB CHEMISTRY METHOD 10/15/2024 10:12 AM [facility] ALT (SGPT) 16 10 - 60 unit/L LAB CHEMISTRY METHOD 10/15/2024 10:12 AM [facility] Alkaline Phosphatase 68 42 - 121 unit/L LAB CHEMISTRY METHOD 10/15/2024 10:12 AM [facility] Total Protein 5.5(L) 6.0 - 8.0 g/dL LAB CHEMISTRY METHOD 10/15/2024 10:12 AM [facility] Albumin 2.8(L) 3.2 - 5.0 g/dL LAB CHEMISTRY METHOD 10/15/2024 10:12 AM [facility] Total Bilirubin 0.5 0.0 - 1.4 mg/dL LAB CHEMISTRY METHOD 10/15/2024 10:12 AM [facility] Blood Venous blood specimen / Unknown Venipuncture / Unknown 10/15/2024 5:21 AM EDT 10/15/2024 9:05 AM EDT us Leny Brice MD LAB BLOOD ORDERABLES Final Resu lt [facility] [address] [place] [address], [place] [phone] from Last 3 Months Insurance [employer] MED[employer]ARE [employer]VANTAGE Care Teams Community Development Aide Relationship Specialty Start Date End Date Leny Brice MD [address] [place] [phone] PCP - General Hospitalist Medicine 10/15/24
--- OUTSIDE RECORDS SUMMARY | 2024-12-13 10:26 | XMS_ITS | Clinical Summary ---
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
--- OUTSIDE RECORDS SUMMARY | 2024-12-13 10:26 | XMS_ITS ---
Author Name DAYNA MORAN, MS. 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 Name Role Phone MICHAEL MCINTOSH Unavailable [phone] Reason for Referral Not Available Allergies, adverse reactions, alerts Allergen Type Reaction Severity Status Onset Date Lyrica Allergy to substance (disorder) Unknown Active N/A History of medication use Medication Class Instructions Start Date End Date Trelegy Ellipta 200-62.5-25 MCG/ACT Aerosol Powder Breath Activated TAKE 1 PUFF BY MOUTH EVERY DAY 2023-09-19 No Data Available Albuterol Sulfate HFA 108 (9 0 Base) MCG/ACT Aerosol Solution 2 INHALATIONS EVERY 6 HOURS NEEDED FOR SHORTNESS OF BREATH OR WHEEZING FOR 30 DAYS 2023-05-19 No Data Available Ondansetron 8 mg Tab Disintegrating TAKE 1 TABLET 8 MG ORALLY EVERY 8 HOURS NEEDED FOR NAUSEA 2023-07-07 No Data Available Aspirin Low Dose 81 mg Tab Chewable CHEW 1 TABLET DAILY 2023-07-07 No Data Available predniSONE 10 mg Tab TAKE 1 TABLET BY MO UT EVERY DAY 2024-04-05 No Data Available metFORMIN 500 mg Tab TAKE 2 TABS IN AM A ND 1 TAB IN PM 2024-01-04 No Data Available Azithromycin 500 mg Tab TAKE 1 TABLET BY MOUTH EVERY DAY FOR 5 DAYS 2024-04-05 No Data Available Revlimid 10 mg Cap No Data Available 2024-04-17 No D caitlin Available Atorvastatin Calcium 20 mg Tab TAKE 1 TABLET BY MOUTH EVERY DAY AT BEDTIME 2024-04-22 No Data Available Losartan Potassium 50 mg Tab TAKE 1 TABL ET BY MOUTH EVERY DAY 2024-02-01 No Data Available PARoxetine 40 mg Tab TAKE 1 TABLET BY MO UTH EVERY DAY 2023-10-21 No Data Available Omeprazole 20 mg Cap delayed rel TAKE 1 CAPSULE BY MOUTH EVERY DAY FOR 90 DAYS 2024-02-04 No Data Available Levothyroxine Sodium 112 MCG Tab TAKE 1 TABLET BY MOUTH EVERY DAY 2024-02-02 No Data Available dilTIAZem ER Coated Beads 18 0 mg Cap ER 24hr 180 MG ORALLY DAILY 2024-03-05 No Data Available Meloxicam 15 mg Tab TAKE 1 TABLET BY JUDITH TH EVERY DAY NEEDED 2024-05-23 No Data Available Gabapentin 400 mg Cap TAKE 1 CAPSULE BY MOUTH IN THE MORNING AND 2 CAPS IN THE EVENING 2024-05-21 No Data Available Trulicity 0.75 mg/0.5ML Solution Auto-injector INJECT 0.5 ML (0.75 MG TOTAL) UNDER THE SKIN EVERY 7 DAYS 2024-02-26 2024-09-25 Celecoxib 200 mg Cap TAKE 1 CAPSULE BY M OUTH EVERY MORNING 2024-06-07 No Data Available Na Sulfate-K Sulfate-Mg Sulf 17.5-3.13-1.6 GM/177ML Solution PLEASE SEE ATTACHED FOR DETAILED DIRECTIONS 2024-05-08 No Data Available Mounjaro 7.5 mg/0.5ML Solution Auto-injector No Data Available 2024-06-24 No Data Available Simvastatin 40 mg Tab TAKE 1 TABLET BY M OUTH EVERY DAY 2024-01-26 No Data Available Alendronate Sodium 70 mg Tab TAKE 1 TABL ET (70 MG TOTAL) BY MOUTH ONCE A WEEK 2024-08-19 No Data Available Fluticasone-Salmeterol 115-2 1 MCG/ACT Aerosol INALE 2 PUFF INHALED EVERY 12 HOURS FOR 30 DAYS 2024-08-16 No Data Available traMADol 100 mg Tab TAKE 1 TABLET BY JUDITH TH EVERY 6 HOURS NEEDED FOR PAIN (SCALE SCORE 7-10) 2024-08-21 No Data Available Cefuroxime Axetil 500 mg Tab TAKE 1 TABL ET BY MOUTH TWICE A DAY 2024-09-18 No Data Available Tylenol Arthritis Pain No Data Available 2024-09-25 No Data Available Problem List Problem Status Onset Date Resolved Date Synopsis Frequent UTI Active 2024-09-25 N/A N/A Frequent urination Active 2024-09-25 N/A N/A Diarrhea Active 2024-09-25 N/A N/A Arthritis Active 2024-09-25 N/A N/A HTN (hypertension) Active 2024-09-25 N/A N/A Irregular heartbeat Active 2024-09-25 N/A N/A DM (diabetes mellitus) Active 2024-09-25 N/A N/ A Encounters Encounters Type Facility Date of Service Diagnosis/Co mplaint [facility] [place], [place], 09/25/2024 Encntr for f/u exam aft trtm t for cond oth than malig neoplmUrinary tract infection, site not specified [facility] [place], [place], [facility] 09/25/2024 Encntr for f/u exam aft trtm t for cond oth than malig neoplmUrinary tract infection, site not specified [facility] [place], 09/25/2024 Encntr for f/u exam aft trtm t for cond oth than malig neoplmUrinary tract infection, site not specified Vital Signs Date of Collection Vitals 2024-09-25 12:47:12 Pain Scale - 4.0 {sc ore} Social History Sex Female History of Procedures Procedures Service Procedure code Service date Servicing provider Phone# [facility] [id number] 2024-09-25 No Data Available No Data Avail able Medrec Completed within 30 Days of Discharge 1111F 2024-09-25 No Data Available No Data Availa ble Pain Assessment - Pain Documented 1125F 2024-09-25 No Data Available No Data Availa ble Functional Status No Information Mental Status No Information Assessments Date of Service Assessments 2024-09-25 12:47:12 URINARY TRACT INFECT ION, SITE NOT SPECIFIED Plan of Care Date of Service Plans 2024-09-25 12:47:12 At the end of the mo nth (September 2024) pt has an appt with [facility] - seeing Dr Schwab - they will perform injections in both her shoulders In October pt is going to see one of the hospital PA's - Dr. Rafy garcia from orthopedics Pt will have urine tested again. She attempted a clean catch today but it was contaminated. She will test again and send to her urologist who will share the results with her other providers.Pt uses a walker. She sometimes has trouble making it to the bathroom due to frequent urine and stool. Pt has help at home. She has her spouse and 2 sisters.Pt declined a post discharge visit with a Pasquale providerRN reinforced availability of UC provider 12/12 for 30 days after discharge and encouraged CB w/ any concerns or if pt is worse in any way. Advised pt to call to reach our staff.Medication adherence/ refill concerns: none identified Goals Date Goal 2024-09-25 ALLEN reviewed with geraldo garcia with above diagnosis. This is a RN ALLEN encounter; no treatment was rendered to the patient by the provider. This encounter has been reviewed by the provider signing this note. 2024-09-25 Pasquale is not the c urrent prescriber for the medications reviewed today. Patient is aware to review their full medication list with their prescriber(s) for possible medication interactions. Health Concerns Date Concern 2024-09-25 Type of Visit: IPAdm it Date: 09/12/24Discharge Date: 09/16/24[facility]FE[facility], SITE NOT SPECIFIED 2024-09-25 Transitions of Care Call:This visit was completed by telephone.The patient name and date of were confirmed.The patient/caregiver consented to a telephone ALLEN call with Pasquale. The patient and caregiver was/were present at the time of the phone call.Pt spoke with: Lotus Lepe during call: patientPatient s preferred language: EnglishTime spent with patient: [22] minutesHPI: Pt is a 69 yo F . Pt reports a history of frequent UTI, arthritis, diarrhea, frequent urination, cancer (MDSC), SI joint srugery x3, HTN, irregular heartbeat, DMPt was having urinary changes, but she says they were not severe. She didn't realize she had an infection but it turned out she had a UTI. She was also having severe shoulder pain that led her to the hospital. She says that when she lifted her shoulder to a certain height, her should would creak and felt painful. 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 She was treated with abx then discharged home without any additional services. Pt was recommended to f/u with orthopedics and urology.Pt is not taking any narcotics. She says she doesn't want to get hooked on meds . and that this has happened before. pt did not elaborate on this. She rates her pain as 4/10 but it can go to 7/10 without medications.Doesn't check blood glucose often, says average is 125, this morning 178 mg/dL. 2024-09-25 Urgent Care Need:Pt denies any urgent care concerns
--- OUTSIDE RECORDS SUMMARY | 2024-12-13 10:27 | XMS_ITS | Data Portability ---
Author Organization [facility] Pain Managem ent, PAIN OFFICE Address [address],[facility] [address] [place] [address] Care Team Providers Care Crystalizer Operator Name Role Phone RAIZA DUNNE Referring Provider [phone] LYRIC FISHER Primary Care Provider Assessment Encounter Date Assessment Date Assessment LastModified [...] for the same . She needs a drivers license examiner on the day of the procedure. I [...] Ambulance called and she was transported to [facility] Emergency room . Addendum: Patient [facility] and was found to have a compression fracture of T12 vertebrae. She also had kidney stones in her CT Scan and an UTI. [email or web address] Not available 03/30/2018 08:51:50 06/08/2018 06/08/2018 Vanessa [...] for the same . She needs a drivers license examiner on the day of the procedure. tmanikantan [...] By Organization Details Last Modified Time 02/06/2018 49068 She is a diabetic . Blood sugar [...] tolerated. [email or web address] Not available 02/06/2018 09:04:48 03/22/2018 51932 She is a diabetic . Blood sugar [...] tolerated. [email or web address] Not available 03/22/2018 11:45:00 03/27/2018 [id number] She was advised against bed rest lasting longer than four days and to continue activities as tolerated. [email or web address] Not available 03/30/2018 08:48:47 06/08/2018 [id number] She is a diabetic . Blood sugar [...] tolerated. [email or web address] Not available 07/02/2018 14:32:40 07/03/2018 43558 She is a diabetic . Blood sugar levels may temporarily increase after steroid injections. She was advised to check blood glucose levels three times a day post procedure. If levels are above 250, she was advised to contact the PCP. [email or web address] Not available 07/11/2018 10:12:17 She was advised against bed rest lasting longer than four days and to continue activities as tolerated. [email or web address] Not available 07/11/2018 10:12:20 Reason for Referral None Reported. Problems Name Problem SNOMED Code Status Onset Date Resolution Date Notes Provider Name and Address Organization Details Recorded Time Degeneration of lumbar intervertebral disc 32905990 Active Dino santa MD [address] , [address], [facility] [place], [address], [place] [facility] 8 09:05:20 Lumbosacral spondylosis without myelopathy 49161273 Active Dino santa MD [address] , [address], [facility] [place] [place], [address], [place] [facility] 8 09:49:41 Spinal stenosis of lumbar region 58454335 Active Dino santa MD [address] , [address], [facility] [place] [place], [address], [place] [facility] 8 09:50:00 Diabetic peripheral neuropathy 640418892 Active Dino santa MD [address] , [address], [facility] [place], [address], [place] [facility] 8 10:01:20 Problem Notes None recorded. Procedures Surgical History Date Name Laterality Status Provider Name and Address Organization Details Recorded Time 07/03/19 19 Lumbar Epidural steroid injection under fluoroscopic guidance completed Dino Alcala MD [address] , [address], [place], [address], [place] [facility] 07/11/2018 10:14:00 02/07/20 18 Fluoroscopic Guided Lumbar Facet Steroid Injections of levels completed Dino Alcala MD [address] , [address], [place], [address], [place] [facility] 02/06/2018 [...] Name and Address Organization Details Recorded Time 39767 Bactrim medicatio n anaphylax is Not available Not available 01/10/2018 22177 9 RxNorm Shantelle Sylvesterzier romina [facility] 8 08:48:53 89604 Lyrica medicatio n Not available Not available Not available 01/10/2018 66669 1 RxNorm Aggre sive behav ior Shantelle Sylvesterzier romina [facility] Pain Management 8 09:00:22 Medications Name [...] Available Not Available Not Available amoxicillin 875 mg-mercedesu m clavulanate 125 mg tablet 01/10 completed Not [...] Body mass index (BMI) Body weight Systolic And Diastolic Provider Name and Address Organization Details Last Updated DateTime 9 160.02 cm 104 /min 96 % 96 % 44.1 kg/m2 776491. 5 g 176/85 mm[Hg] Shantelle Brantley [facility] Management 9 08:57:54 Date Recorded Body height Heart rate Oxygen saturation Oxygen saturation in Arterial blood by Pulse oximetry Systolic And Diastolic Provider Name and Address Organization Details Last Updated DateTime 9 160.02 cm 87 /min 97 % 97 % 143/46 mm[Hg] Shantelle Brantley [facility] Pain Management 9 09:04:35 Date Recorded Body height Heart rate Oxygen saturation Oxygen saturation in Arterial blood by Pulse oximetry Systolic And Diastolic Provider Name and Address Organization Details Last Updated DateTime 8 160.02 cm 81 /min 94 % 94 % 143/74 mm[Hg] Shantelle Brantley [facility] Pain Management 8 08:34:10 Date Recorded Body height Heart rate Oxygen saturation Oxygen saturation in Arterial blood by Pulse oximetry Systolic And Diastolic Provider Name and Address Organization Details Last Updated DateTime 8 160.02 cm 90 /min 96 % 96 % 137/54 mm[Hg] Dino santa MD [address] [place] [address] , [address], [place], [address], [place] - [facility] 8 08:46:32 Date Recorded Pain severity - 0-10 verbal numeric rating [Score] - Reported Provider Name and Address Organization Details Last Updated DateTime 03/22/2018 10 Not Available [facility] 8 05:02:19 Date Recorded Body height Heart rate Oxygen saturation Oxygen saturation in Arterial blood by Pulse oximetry Systolic And Diastolic Provider Name and Address Organization Details Last Updated DateTime 8 160.02 cm 98 /min 96 % 96 % 188/48 mm[Hg] Dino santa MD [address] [facility] , [address], [place], [address], [place] - [facility] 8 14:34:38 Social History Question Answer Notes LastModified by [employer] Details LastModified Time Tobacco Smoking Status Former Smoker Quit x 30 years Not Available [facility] 03/06/2020 03:16:11 Which Illicit Or Recreational Drugs Have You Used? No [id number] Information not available 03/06/2020 Education 12 Information no t available 01/10/2018 Live Alone Or With Others? With Others And Mother-in-l aw Information not available 01/10/2018 Marital Status Informatio n not available 01/10/2018 What Was The Date Of Your Most Recent Tobacco Screening? 07/11/2018 [id number] Information not available 03/06/2020 How Many Years Have You Smoked Tobacco? 20 [id number] Information not available 03/06/2020 Sex: Unknown Functional Status Question Answer Note LastModified by [employer] Details LastModified Time What is your level of alcohol consumption? 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 Family History Nothing Reported. Medical History Condition Response Diabetes Y Anxiety Disorder Y Arthritis Y Kidney Stones Y GERD/Reflux Y High Cholesterol Y Cancer Y Fibromyalgia Y Hypertension Y Hypothyroidism Y Asthma Y COPD Y Gynecological HistoryNo gynecological history recorded. Obstetrics History GPAL:G 0 P 0 0 0 0 Past Encounters Encounter ID Performer Location Encounter Start Date Encounter Closed Date Diagnosis/Indication Diagnosis SNOMED-CT Code Diagnosis ICD10 Code Diagnosis Note [id number] Dino Alcala MD PAIN OFFICE [address] [facility] [place] [place] [address] 01/10/2018 08:33:33 01/10/2018 11:47:32 Diabetic peripheral neuropathy 629618401 E11.40 Lumbosacra l spondylosis without myelopathy 64807226 M47.817 Degenerati on of lumbar intervertebral disc 99990286 M51.36 Spinal maryellen nosis of lumbar region 36374009 M48.061 [id number] Dino Alcaal MD PAIN OFFICE [address] [place] [address] 02/06/2018 08:09:18 02/06/2018 13:30:09 Diabetic peripheral neuropathy 548187147 E11.40 Lumbosacra l spondylosis without myelopathy 80422375 M47.817 Degenerati on of lumbar intervertebral disc 46283937 M51.36 Spinal maryellen nosis of lumbar region 14674096 M48.061 [id number] Dino Alcala MD PAIN OFFICE [address] [place] [address] 03/22/2018 08:25:33 03/22/2018 11:52:05 Diabetic peripheral neuropathy 889645352 E11.40 Lumbosacra l spondylosis without myelopathy 07034496 M47.817 Degenerati on of lumbar intervertebral disc 45514018 M51.36 Spinal maryellen nosis of lumbar region 19277848 M48.061 [id number] Dino Alcala MD PAIN OFFICE [address] [place] [address] 03/27/2018 14:05:42 03/30/2018 08:52:39 Diabetic peripheral neuropathy 936038469 E11.40 Lumbosacra l spondylosis without myelopathy 20559622 M47.817 Degenerati on of lumbar intervertebral disc 40135420 M51.36 Spinal maryellen nosis of lumbar region 92477870 M48.061 [id number] Dino Alcala MD [facility] PAIN OFFICE [address] [place] [address] 06/08/2018 08:46:10 07/02/2018 14:35:55 Diabetic peripheral neuropathy 447365717 E11.40 Lumbosacra l spondylosis without myelopathy 80996165 M47.817 Degenerati on of lumbar intervertebral disc 57503661 M51.36 Spinal maryellen nosis of lumbar region 18305974 M48.061 [id number] Dino Alcala MD [facility] PAIN OFFICE [address] [place] [address] 07/03/2018 08:44:34 07/11/2018 11:06:00 Diabetic peripheral neuropathy 994181022 E11.40 Lumbosacra l spondylosis without myelopathy 37951371 M47.817 Degenerati on of lumbar intervertebral disc 92565712 M51.36 Spinal maryellen nosis of lumbar region 12063999 M48.061 Health Concerns Section Related Observation LastModified by Organization Detai ls LastModified Time None Recorded Concern Status LastModified by Organization Details LastModified Time None Recorded Advance Directives Directive None Recorded Payers Insurance Date Sequence Insurance Name Policy Number Policy Tom Covered Member ID Tom Member ID Guarantor Name 01/03/2018 1 [place] Vanessa Harding [id number] Vanessa Vazquezr 07/18/2018 2 [place] [id number] Vanessa Mitchell liver [id number] Vanessa Isaacs Mehdi 07/18/2018 2 [place] [id number] Vanessa Mitchell liver [id number] Vanessa Vazquezr 07/18/2018 1 [place] [id number] Vanessa Harding [id number] Vanessa Isaacs Mehdi 07/18/2018 1 [place] [id number] Vanessa Mtichell liver [id number] Vanessa Vazquzer 07/18/2018 2 [place] Vanessa Vazquezr [id number] Vanessa Isaacs Mehdi 07/02/2018 2 [facility] (MEDICARE REPLACEMENT/A DVANTAGE - PPO) [id number] Vanessa Harding [id number] Vanessa Harding 07/12/2018 1 [facility] (MEDICARE REPLACEMENT/A DVANTAGE - PPO) [id number] Vanessa Isaacs [id number] Vanessa Harding Notes Date Note Type Note Provider Name and Address Organization Details Recorded Time 02/06/2018 text/html She is here for a left facet joint injection under fluoroscopic guidance Dino Alcala MD [address] [facility] , [address], [place], [address], [place] [facility] 02/09/2018 11:27:05 03/22/2018 text/html She [...] with pain benefit. Dino Alcala MD [address] [facility] , [address], [place], [address], [place] [facility] 03/26/2018 08:52:51 03/27/2018 text/html She [...] and kidney stones. Dino Alcala MD [address] [facility] , [address], [place], [address], [place] [facility] 04/09/2018 10:16:37 06/08/2018 text/html She is here for a follow up . She states she was admitted to [facility] and had a MRI which showed compression [...] with pain benefit. Dino Alcala MD [address] [facility] , [address], [place], [address], [facility] - Pain Management 07/10/2018 10:40:51 07/03/2018 text/html She is here for a trial of lumbar epidural steroid injection under fluoroscopic guidance. Dino Alcala MD [address] [facility] , [address], [place], [address], [facility] - Pain Management 07/12/2018 13:29:32 OBGyn Episode No OBEpisode recorded.
== END 2024-12-13 10:53 | disposition home or self-care (01) ==
LOC: HO.HOS 10:08
PROVIDERS: PCP Family Medicine
DX: M19.011 Primary osteoarthritis, right shoulder (principal)
CPT/HCPCS: 99213

== ENCOUNTER → 2024-12-13 10:07 | Outpatient (BNVA) | payer MEDICARE, SELFPAY | PROVIDERS: PCP Family Medicine | DX: M19.011 Primary osteoarthritis, right shoulder (principal) | CPT/HCPCS: 99212 ==

== ENCOUNTER 2024-12-23 08:30 | Outpatient (AMB) | payer MEDICARE, SELFPAY ==
--- NOTE | 2024-12-23 08:31 | MHC.OFFVIS ---
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 The pain began approximately four years ago following a fall while scuba diving in [place]. She received a cortisone injection at [facility] in August with no improvement and is not interested in further injections, physical therapy, or surgery. The pain is constant, described as aching with cracking, and exacerbated by cold weather and morning hours, with a severity of 10/10 in the morning. Activities such as overhead lifting and reaching behind the back are painful, and she avoids sleeping on the right side. The patient has a history of myelodysplastic syndrome diagnosed few years ago, currently managed with Revlimid, and she is under the care of an Oncologist. She also has diabetes mellitus, managed with metformin and dietary modifications, although she is not diligent with glucose monitoring. Her past surgical history includes left hip replacement, right knee replacement, and bilateral sacroiliac joint fusion by Dr. Brock at [facility]. She has a history of oxycodone addiction, for which she underwent rehabilitation four years ago. - Onset: Approximately four years ago after a fall while scuba diving - Quality: Constant, achy pain with cracking sensations - Location: Right shoulder - Exacerbating factors: Cold weather, morning hours, overhead lifting, reaching behind the back, sleeping on right side - Severity: 10/10 in the morning - Relieving factors: None reported - Affect: Pain impacts daily activities and sleep, causing significant discomfort. - Analgesia: Current medications include Tylenol, Voltaren, and gabapentin, which provide minimal relief. - Adverse Effects: No adverse effects from current pain medications reported. - Activities of Daily Living: Pain limits ability to perform overhead activities and affects sleep quality. - Aberrant Drug Related Behaviors: History of oxycodone addiction, currently managed without opioids. [facility]LY [facility], [facility] Medical History Osteoarthritis of right shoulder Class 3 obesity Current chronic use of systemic steroids T12 compression fracture Breast calcifications Macular degeneration of both eyes Lumbar spondylolysis Adrenal insufficiency Moderate persistent asthma in adult without complication Anxiety Obstructive sleep apnea Osteoporosis Osteopenia Fibromyalgia GERD (gastroesophageal reflux disease) Hypothyroidism Mixed hyperlipidemia Essential hypertension Morbid obesity Diabetes mellitus, type II Steroid dependence Compression fracture Asthma COPD (chronic obstructive pulmonary disease) Surgical History History of cataract surgery History of left hip replacement History of total right knee replacement (TKR) Family History Father COPD (chronic obstructive pulmonary disease) Mother ASCVD (arteriosclerotic cardiovascular disease) Sister Stented coronary artery Social History Household Members: Spouse Housing: House Are you a primary respiratory care specialist to a significant other at home: No Do you presently have visiting nurse or other home services: No Patient Tobacco Use Status: Never used Tobacco Tobacco use type: Cigarette Years Smoked: 30 years Second Hand Smoke Exposure: No service: No Current occupational status: retired 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 - Hematologic: Reports myelodysplastic syndrome, managed with Revlimid. Avoids NSAIDs - Neurological: Denies numbness or tingling or weakness All systems reviewed & are unremarkable except as noted in HPI and below Physical Exam Vital Signs: Last Vital Signs Pulse 84 12/23/24 08:36 BP 171/71 H 12/23/24 08:36 Pulse Ox 95 12/23/24 08:36 Oxygen Delivery Method Room Air 12/23/24 08:36 BMI result Body Mass Index 37.5 General: Appears afebrile. Alert and oriented. Mood and affect appropriate. Follows and participates in conversation appropriately. Respiratory effort is unlabored. No cough. Able to transition from sit to stand with assistance. Uses walker with ambulation. Ambulates with slow, antalgic gait, mild limping present. Extrem Right upper extremity: shoulder/upper arm (Limited ROM due to pain.) Details: normal to inspection, tenderness (global anterior and posterior shoulder), axillary nerve sensory function normal and crepitus; no swelling, no ecchymosis, no deformity and no unusual warmth Results Reviewed Results Reviewed: CT SHOULDER WITHOUT CONTRAST, RIGHT 09/16/24 CLINICAL INFORMATION: Severe pain. COMPARISON: No prior CT. Radiographs right shoulder 09/12/2024. FINDINGS: No acute bony fracture identified. There is a healed impacted fracture of the surgical neck of the right humerus. Severe degenerative arthrosis of the glenohumeral joint with complete cartilage loss, [id number] appearance. There are subchondral cystic changes and sclerotic changes within both the humeral head and glenoid. There is bony remodeling of the glenoid fossa. There is moderate spurring of the AC joint both superiorly and inferiorly. There is complete loss of the subacromial space indicating full thickness supraspinatus rotator cuff tear. There is atrophy of the supraspinatus muscle. There is a joint effusion of the right shoulder, with fluid in the bursal spaces as well. There are subtle calcifications within these fluid collections, indicating most likely hydroxyapatite deposition. 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 There may be associated calcific tendinopathy of the remaining rotator cuff tendons. There is severe degenerative arthropathy of the right sternoclavicular joint. Partially imaged degenerative spondylosis of the cervical spine. IMPRESSION: 1. No acute fracture or acute bony abnormality. 2. End-stage arthrosis right glenohumeral joint, [id number] appearance with subchondral cystic changes and sclerosis. There is bony remodeling of the glenoid. Severe arthrosis of the AC joint as well. 3. There is a healed impacted fracture of the surgical neck of the humerus. 4. There is a joint effusion and there are bursal fluid collections, both with subtle calcifications within, findings suggesting CPPD arthrosis and related calcific bursitis. 5. There is total loss of the subacromial space indicating full thickness rotator cuff tearing. XR humerus RT 09/13/24 IMPRESSION: Old healed fracture of the humeral neck. No acute fracture of the right elbow or humerus. XR SHOULDER, RIGHT CLINICAL INFORMATION: pain COMPARISON: None available. TECHNIQUE: AP external rotation, Grashey, scapular Y, and axillary views of the right shoulder. FINDINGS: Old healed fracture deformity of the surgical neck. No acute fracture, dislocation, or suspicious bone lesion. Normal alignment. The glenohumeral joint demonstrates moderate to advanced degenerative arthrosis. The AC joint demonstrates moderate predominantly undersurface spurring. There is a type II acromion. Mild undersurface spurring. Mild narrowing of the subacromial space. Remainder of the soft tissue and bony structures appear normal. XR shoulder RT min 2V 09/12/24 IMPRESSION: No acute findings of the right shoulder. Chronic findings as discussed. Assessment & Plan Assessment & Plan (1) Osteoarthritis of right shoulder: Code(s): M19.011 - Primary osteoarthritis, right shoulder Category: Medical (2) Chronic right shoulder pain: Code(s): M25.511 - Pain in right shoulder; G89.29 - Other chronic pain Category: Medical (3) Painful arc syndrome of right shoulder: Code(s): M75.101 - Unspecified rotator cuff tear or rupture of right shoulder, not specified as traumatic Category: Medical Plan The management plan for the patient's right shoulder pain includes considering peripheral nerve stimulation and radiofrequency ablation as potential interventions. Informational pamphlets were provided to patient and family. Schedule right suprascapular nerve block with local and fluoroscopy for potential Sprint PNS trial. Expectations, risks and benefits were reviewed. Patient is aware she will be contacted to schedule this procedure. If no relief, will consider right diagnostic suprascapular/axillary & lateral pectoral nerve blocks for potential RFA procedure. The patient is advised to continue current medications, including gabapentin, Tylenol, and Voltaren, for pain management. Given the history of myelodysplastic syndrome, the patient should avoid NSAIDs like Celebrex and consult with her Oncologist for ongoing management. Patient expressed understanding and is in agreement with the plan. Follow up after injections. Patient was informed and verbally consented to the use of an ambient scribe for clinic note documentation during this visit. Patient Instructions: During the consultation, I discussed with the patient the options of peripheral nerve stimulation and radiofrequency ablation for managing her right shoulder pain. I explained that peripheral nerve stimulation and radiofrequency ablation might offer relief for up to 8-12 months, contingent on a positive response to nerve blocks. We also reviewed her current medication regimen, emphasizing the importance of avoiding NSAIDs due to her myelodysplastic syndrome, and advised her to consult with her oncologist for further guidance. Coding Level of Care Code New Pt Level 4 (72865) Diagnoses Osteoarthritis of right shoulder M19.011 Chronic right shoulder pain M25.511; G89.29 Painful arc syndrome of right shoulder M75.101
[2024-12-23 08:36] VITALS: BP 171/71; PULSE 84; O2SAT 95; BMI 37.5
--- OUTSIDE RECORDS SUMMARY | 2024-12-23 08:51 | XMS_ITS | Clinical Summary ---
Author Organization [address] Address [address] [place] [phone] Phone Care Team Providers Care Floor Care Technician Name Role Phone Leny Brice MD Primary Care Provider [phone] Encounters Date Type Department Care Team Description 10/22/2024 Lab Requisition [facility] [address] [place] [phone] Leny Brice MD Essential (primary) hypertension; Hypokalemia; Thrombocytopenia, unspecified ([facility] V24) 10/17/2024 Lab Requisition [facility] [address] [place] [phone] Leny Brice MD Thrombocytopenia, unspecified ([facility] V24) 10/15/2024 Lab Requisition [facility] [address] [place] [phone] Leny Brice MD Anemia, unspecified; Essential (primary) hypertension; assisted (current) use of anticoagulants from Last 3 Months Surgical History Surgery Date Site/Laterality Comments HYSTERECTOMY PROCEDURE: HISTORICAL HYSTERECTOMY CATARACT EXTRACTION PROCEDURE: HISTORICAL CATARACT REMOVAL SHOULDER SURGERY PROCEDURE: WA UNLISTED PROCEDURE SHOULDER LITHOTRIPSY PROCEDURE: HISTORICAL LITHOTRIPSY CYST REMOVAL PROCEDURE: WA EXCISION PILONIDAL CYST/SINUS SIMPLE DENTAL SURGERY PROCEDURE: WA UNLISTED PROCEDURE DENTOALVEOLAR STRUCTURES TOTAL KNEE ARTHROPLASTY 2001 Right PROCEDURE: WA ARTHRP KNE CONDYLE&PLATU MEDIAL&LAT COMPARTMENTS HIP ARTHROPLASTY 2011 Left PROCEDURE: HISTORICAL HIP REPLACEMENT OTHER SURGICAL HISTORY 12/29/2021 Left PROCEDURE: WA ARTHRODESIS SI JOINT PERCUTANEOUS/MIN INVASIVE; COMMENT: Left SI joint fusion/revision, Dr. Brock CARPAL TUNNEL RELEASE 05/18/2022 PROCEDURE: HISTORICAL CARPAL TUNNEL REL; COMMENT: Right median nerve decompression, Dr. Brock Medical History Medical History Date Comments Asthma-chronic obstructive p ulmonary disease overlap syndrome ([facility] V24, [facility] V28) 12/29/2016 DX:Asthma-chronic obstructiv e pulmonary disease overlap syndrome (HCC) Hypercholesterolemia 11/29/2016 DX:Hypercho lesterolemia Hypothyroidism 11/29/2016 DX:Hypothyroidis m Obstructive sleep apnea syndrome in adult 017 DX:Obstructive sleep apnea syndrome in adult Morbid obesity with BMI of 4 0.0-44.9, adult ([facility] V24, [facility] V28) 10/03/2017 DX:Morbid obesity wit h BMI of 40.0-44.9, adult ([facility]) Renal calculi DX:Renal calculi Type 2 diabetes mellitus wit h cataract ([facility] V24, [facility] V28) 11/29/2016 DX:Type 2 diabetes mellitus with cataract ([facility]) Cataract 10/03/2017 DX:Cataract; COM MENT: S/p surgery [...] PCV) 1972 Zoster Vaccines (1 of 2) 2003 RSV Immunization Adult Patients (1 - Risk [...] EDT Essential (primary) hypertension Hypokalemia Thrombocytopenia, unspecified ([facility] V24) BASIC METABOLIC PANEL Routine 10/17/2024 4:58 AM EDT Thrombocytopenia, unspecified ([facility] V24) COMPLETE BLOOD COUNT Routine 10/17/2024 4:58 AM EDT Thrombocytopenia, unspecified ([facility] V24) COMPREHENSIVE METABOLIC PANEL Routine 10/15/2024 5:21 AM EDT Anemia, unspecified Essential (primary) hypertension meterman (current) use of anticoagulants PROTHROMBIN TIME WITH INR Routine 10/15/2024 5:21 AM EDT Anemia, unspecified Essential (primary) hypertension assisted (current) use of anticoagulants COMPLETE BLOOD COUNT Routine 10/15/2024 5:21 AM EDT Anemia, unspecified Essential (primary) hypertension meterman (current) use of anticoagulants from Last 3 Months Results * (ABNORMAL) Complete blood count (10/22/2024 4:28 AM EDT) Only the most recent of3 resultswithin the time period is included. [facility] WBC 6.3 4.8 - 10.8 K/mcL LAB HEMETOLOGY METHOD 10/22/2024 9:00 AM [facility] RBC 2.90(L) 3.80 - 4.80 M/mcL LAB HEMETOLOGY METHOD 10/22/2024 9:00 AM [facility] Hemoglobin 8.8(L) 11.5 - 16.0 g/dL LAB HEMETOLOGY METHOD 10/22/2024 9:00 AM [facility] Hematocrit 29.3(L) 35.0 - 47.0 % LAB HEMETOLOGY METHOD 10/22/2024 9:00 AM [facility] MCV 102.8(H) 79.0 - 98.0 FL LAB HEMETOLOGY METHOD 10/22/2024 9:00 AM EDT [facility] MCH 30.9 27.0 - 32.0 pcg LAB HEMETOLOGY METHOD 10/22/2024 9:00 AM EDT [facility] MCHC 30.0(L) 32.0 - 37.0 g/dL LAB HEMETOLOGY METHOD 10/22/2024 9:00 AM EDT [facility] RDW 18.9(H) 11.0 - 15.0 % LAB HEMETOLOGY METHOD 10/22/2024 9:00 AM EDT [facility] Platelets 183 130 - 400 K/mcL LAB HEMETOLOGY METHOD 10/22/2024 9:00 AM EDT [facility] MPV 10.4 7.0 - 11.0 FL LAB HEMETOLOGY METHOD 10/22/2024 9:00 AM EDT [facility] NRBC 0.0 <1.0 % LAB HEMETOLOGY METHOD 10/22/2024 9:00 AM EDT [facility] NRBC Absolute 0.00 <0.10 K/mcL LAB HEMETOLOGY METHOD 10/22/2024 9:00 AM [facility] Blood Venous blood specimen / Unknown Venipuncture / Unknown 10/22/2024 4:28 AM EDT 10/22/2024 8:15 AM EDT us Leny Brice MD LAB BLOOD ORDERABLES Final Resu lt [facility] [address] [place] [address], [place] [phone] * (ABNORMAL) Basic metabolic panel (10/22/2024 4:28 AM EDT) Only the most recent of2 resultswithin the time period is included. Sodium 145 133 - 145 mmol/L LAB CHEMISTRY METHOD 10/22/2024 9:13 AM [facility] Potassium 4.1 3.5 - 5.5 mmol/L LAB CHEMISTRY METHOD 10/22/2024 9:13 AM [facility] Chloride 110 96 - 110 mmol/L LAB CHEMISTRY METHOD 10/22/2024 9:13 AM [facility] CO2 28 21 - 32 mmol/L LAB CHEMISTRY METHOD 10/22/2024 9:13 AM [facility] Anion Gap 7 3 - 11 LAB CHEMISTRY METHOD 10/22/2024 9:13 AM [facility] Glucose 54(L) 70 - 100 mg/dL LAB CHEMISTRY METHOD 10/22/2024 9:13 AM [facility] BUN 21 5 - 25 mg/dL LAB CHEMISTRY METHOD 10/22/2024 9:13 AM [facility] Creatinine 0.80 0.50 - 1.10 mg/dL LAB CHEMISTRY METHOD 10/22/2024 9:13 AM [facility] eGFR 79 >=60 mL/min/1. 73m2 LAB CHEMISTRY METHOD 10/22/2024 9:13 AM [facility] Comment:Calculation based on the Chronic Kidney Disease Epidemiology Collaboration (CKD-EPI) equation refit without adjustment for race. BUN/Creatinine Ratio 26.3 LAB CHEMISTRY METHOD 10/22/2024 9:13 AM [facility] Calcium 7.4(L) 8.5 - 10.5 mg/dL LAB CHEMISTRY METHOD 10/22/2024 9:13 AM [facility] Blood Venous blood specimen / Unknown Venipuncture / Unknown 10/22/2024 4:28 AM EDT 10/22/2024 8:15 AM EDT us Leny Brice MD LAB BLOOD ORDERABLES Final Resu lt Performing Organization Address [facility]/ZIP Co de Phone Number [facility] [address] [place] [address], * (ABNORMAL) Prothrombin time with INR (10/15/2024 5:21 AM EDT) [facility] Protime 10.1(L) 10.6 - 13.9 sec LAB COAGULATION METHOD 10/15/2024 9:44 AM EDT [facility] INR 0.8 LAB COAGULATION METHOD 10/15/2024 9:44 AM EDT [facility] Blood Venous blood specimen / Unknown Venipuncture / Unknown 10/15/2024 5:21 AM EDT 10/15/2024 9:05 AM EDT Leny Brice MD LAB BLOOD ORDERABLES Final Resu lt Performing Organization Address [facility]/ZIP Co de Phone Number [facility] [address] [place] [address], [place] [phone] * (ABNORMAL) Comprehensive metabolic panel (10/15/2024 5:21 AM EDT) [facility] Sodium 139 133 - 145 mmol/L LAB CHEMISTRY METHOD 10/15/2024 10:12 AM [facility] Potassium 3.6 3.5 - 5.5 mmol/L LAB CHEMISTRY METHOD 10/15/2024 10:12 AM [facility] Chloride 108 96 - 110 mmol/L LAB CHEMISTRY METHOD 10/15/2024 10:12 AM [facility] CO2 25 21 - 32 mmol/L LAB CHEMISTRY METHOD 10/15/2024 10:12 AM [facility] Anion Gap 6 3 - 11 LAB CHEMISTRY METHOD 10/15/2024 10:12 AM [facility] Glucose 40(L) 70 - 100 mg/dL LAB CHEMISTRY METHOD 10/15/2024 10:12 AM [facility] BUN 19 5 - 25 mg/dL LAB CHEMISTRY METHOD 10/15/2024 10:12 AM [facility] Creatinine 0.77 0.50 - 1.10 mg/dL LAB CHEMISTRY METHOD 10/15/2024 10:12 AM [facility] eGFR 83 >=60 mL/min/1. 73m2 LAB CHEMISTRY METHOD 10/15/2024 10:12 AM [facility] Comment:Calculation based on the Chronic Kidney Disease Epidemiology Collaboration (CKD-EPI) equation refit without adjustment for race. BUN/Creatinine Ratio 24.7 LAB CHEMISTRY METHOD 10/15/2024 10:12 AM [facility] Calcium 8.0(L) 8.5 - 10.5 mg/dL LAB CHEMISTRY METHOD 10/15/2024 10:12 AM [facility] AST (SGOT) 10 10 - 42 unit/L LAB CHEMISTRY METHOD 10/15/2024 10:12 AM [facility] ALT (SGPT) 16 10 - 60 unit/L LAB CHEMISTRY METHOD 10/15/2024 10:12 AM [facility] Alkaline Phosphatase 68 42 - 121 unit/L LAB CHEMISTRY METHOD 10/15/2024 10:12 AM [facility] Total Protein 5.5(L) 6.0 - 8.0 g/dL LAB CHEMISTRY METHOD 10/15/2024 10:12 AM [facility] Albumin 2.8(L) 3.2 - 5.0 g/dL LAB CHEMISTRY METHOD 10/15/2024 10:12 AM [facility] Total Bilirubin 0.5 0.0 - 1.4 mg/dL LAB CHEMISTRY METHOD 10/15/2024 10:12 AM [facility] Blood Venous blood specimen / Unknown Venipuncture / Unknown 10/15/2024 5:21 AM EDT 10/15/2024 9:05 AM EDT us Leny Brice MD LAB BLOOD ORDERABLES Final Resu lt [facility] [address] [place] [address], [place] [phone] from Last 3 Months Insurance [employer] MED[employer]ARE [employer] Care Teams Floor Care Technician Relationship Specialty Start Date End Date Leny Brice MD [address] [place] [id number] PCP - General Hospitalist Medicine 10/15/24
--- OUTSIDE RECORDS SUMMARY | 2024-12-23 08:51 | XMS_ITS | Clinical Summary ---
Author Organization [facility] Address [address] [place] [address] Care Team Providers Care Medical Insurance Biller Name Role Phone Unavailable Primary Care Provider [...]
--- OUTSIDE RECORDS SUMMARY | 2024-12-23 08:51 | XMS_ITS | Clinical Summary ---
Author Organization [facility] Address [address] [place] [address] Care Team Providers Care Pickle Maker Name Role Phone Unavailable Primary Care [...]
--- OUTSIDE RECORDS SUMMARY | 2024-12-23 08:51 | XMS_ITS ---
Author Name DAYNA MORAN, [place]. MICHAEL Herron SUSANNE Address [address] [place] [address] Phone [phone] Organization [facility] Care Team Providers Care Firer Watertender Name Role Phone MICHAEL MCINTOSH Unavailable [phone] Reason for Referral Not Available Allergies, adverse [...] mplaint [facility] [place], [place], 09/25/2024 Encntr for f/u exam aft trtm t for cond oth than malig neoplmUrinary tract infection, site not specified [facility] [place], PC 09/25/2024 Encntr for f/u exam aft trtm t for cond oth than malig neoplmUrinary tract infection, site not specified [facility] [place], 09/25/2024 Encntr for f/u exam aft trtm t for cond oth than malig neoplmUrinary tract infection, site not specified Vital Signs Date of Collection Vitals 2024-09-25 12:47:12 Pain Scale - 4.0 {sc ore} Social History Sex Female History of Procedures Procedures Service Procedure code Service date Servicing provider Phone# [facility] [id number] 2024-09-25 No Data Available No Data Avail [...] (September 2024) pt has an appt with [facility] - seeing Dr Schwab - [...] IPAdm it Date: 09/12/24Discharge Date: 09/16/24[facility], SITE NOT [...]
--- OUTSIDE RECORDS SUMMARY | 2024-12-23 08:51 | XMS_ITS | Referral Summary ---
Author Organization [facility] Address [address] [place] [address] Care Team Providers Care Winding Rack Operator Name Role Phone Tran Blackwell Primary Care Provider [phone] Allergies Active Allergy Reactions Criticality Noted Date Comments Multivit, Min No.07-Meiv-Egudu Dyspnea High 04/12 Pregabalin Mood Disturbance 04/12/2023 [...] of Treatment Not on file Insurance [facility] Care Teams Winding Rack Operator Relationship Specialty Start Date End Date Tran Blackwell [address] [place] [address] PCP - General Family Medicine 03/27/23
== END 2024-12-23 09:21 | disposition home or self-care (01) ==
LOC: HO.PMC 08:30
PROVIDERS: PCP Family Medicine; Visit Provider Nurse Practitioner Family
DX: M19.011 Primary osteoarthritis, right shoulder (principal); M25.511 Pain in right shoulder; G89.29 Other chronic pain; M75.101 Unspecified rotator cuff tear or rupture of right shoulder, not specified as traumatic
CPT/HCPCS: 99204

== ENCOUNTER → 2024-12-23 08:30 | Outpatient (BNVA) | payer MEDICARE, SELFPAY | PROVIDERS: PCP Family Medicine; Visit Provider Nurse Practitioner Family | DX: M19.011 Primary osteoarthritis, right shoulder (principal); M25.511 Pain in right shoulder; G89.29 Other chronic pain; M75.101 Unspecified rotator cuff tear or rupture of right shoulder, not specified as traumatic | CPT/HCPCS: 99202 ==

== ENCOUNTER 2025-01-16 08:23 | Outpatient (REF) | payer MEDICARE, SELFPAY ==
--- OUTSIDE RECORDS SUMMARY | 2025-01-16 09:01 | XMS_ITS | Clinical Summary ---
Author Organization [facility] Address [address] [facility] [address] [place] [address] Phone Care Team Providers Care Leather Dresser Name Role Phone Tran [place] MD Primary Care Provider [phone] Bettina Rashid MD Unavailable [phone] Allergies Active Allergy Reactions Criticality Noted [...] 1:09 PM EDT): Uncertain details. Records from [facility] not available. Has been on medication list [...] with any issues. Will get labs from [facility] Assessment & Plan (02/29/2024 1:06 PM [...] with glycemic control. [facility] Foot [facility] nail care good. BP [...] date with [facility]. Will request labs from [facility] Assessment & Plan (02/18/2023 8:43 PM EDT): [...] her glucose levels. Up to date with [facility]. Labs ordered today Assessment & Plan (08/16/2022 [...] She recently had blood work done at [facility]. Will get results to review and determine if any medication adjustments are needed Assessment & Plan (02/18/2023 8:43 PM EDT): Euthyroid on labs in July. Would repeat given weight loss, which can lower dose requirements. Given slip to include w/ labs for heme-onc @ [facility] tomorrow. To message me with result. 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 Assessment & Plan (06/24/2024 12:17 PM EST): Will maintain her metformin Long-term current use of inj ectable noninsulin antidiabetic medication Assessment & Plan (06/24/2024 12:16 PM EST): Will try changing her trulicity to mounjaro to see if this helps alleviate her GI side effects Myelodysplastic syndrome Immunizations Immunization Administration Dates Next Due COVID-19 (Pre-03/13) Pfizer Vaccine, mRNA, PF Social History Tobacco Use Types Packs/Day Years Used Date Smoking Tobacco: Former Cigarettes 2.5 25 1 963 - 1987 Smokeless Tobacco: Never Tobacco Cessation:Counseling Given: Not [...] 8:20 AM EDT Office Visit [facility] [address] [place] [address] Laura Betancur MD [address] [place] [phone] 05/27/2025 9:20 AM EST Office Visit [facility] [address] [place] [address] Shavonne Sun PA-C [address] [place] [id number] [email or web address] Health Maintenance Due Date Last Done Comments [...] exists COVID-19 VACCINE ( season) 2024 04/26/2021 INFLUENZA VACCINE (#1) 2024 CREATININE LEVEL 02/27/2025 02/28/2024, , 08/16/2022 POTASSIUM LEVEL 02/27/2025 02/28/2024, 062 12/2022, 08/16/2022 BLOOD PRESSURE 03/27/2025 09/24/2024 SMOKING STATUS [...] 4.5 3.4 - 5.0 mmol/L Historical Provider MD LAB BLOOD ORDERABLES Liz l Result * (ABNORMAL) Outside Serum Creatinine Level (02/28/2024) Creatinine, serum - External 0.77(A) 0.8 - 1.3 mg/dL Historical Provider LAB BLOOD ORDERABLES Liz l Result * Outside HbA1c (11/16/2022) Hemoglobin A1c - External 7.1 % Historical Provider MD LAB BLOOD ORDERABLES Liz l Result * TSH with reflex (08/16/2022 10:03 AM EDT) TSH 1.51 0.27 - 4.20 uIU/mL [facility] Blood 08/16/2022 10:0 3 AM EDT 08/16/2022 10:11 AM EDT Laura Betancur MD LAB BLOOD ORDERABLES F inal Result [facility] [address] [place] [address] from Last 3 Months or Most Recently Relevant to Health Maintenance Insurance [facility] MEDICARE REPLACEMENT [employer], [place] [facility] MEDICARE REPLACEMENT [facility] MEDICARE REPLACEMENT [employer] PPO MEDICARE REPLACEMENT Care Teams Leather Dresser Relationship Specialty Start Date End Date Tran Blackwell MD [address] [place] [address] PCP - General Family Medicine 08/16/22 Bettina Rashid MD [address] [place] [phone] [email or web address] 09/24/24 Additional Source Comments The information contained in this document represents components of the legal health record. It is not the complete legal health record.[facility]
--- OUTSIDE RECORDS SUMMARY | 2025-01-16 09:01 | XMS_ITS | Clinical Summary ---
Author Organization [address] Address [address] [place] [address] Phone Care Team Providers Care Regional Economist Name Role Phone Leny Brice MD Primary Care Provider [phone] Encounters Date Type Department Care Team Description 10/22/2024 Lab Requisition [facility] Lab [address] [place] [phone] Leny Brice MD Essential (primary) hypertension; Hypokalemia; Thrombocytopenia, unspecified ([facility] V24) 10/17/2024 Lab Requisition [facility] Lab [address] [place] [phone] Leny Brice MD Thrombocytopenia, unspecified ([facility] V24) from Last 3 Months Surgical History Surgery Date Site/Laterality Comments HYSTERECTOMY PROCEDURE: HISTORICAL HYSTERECTOMY CATARACT EXTRACTION PROCEDURE: HISTORICAL CATARACT REMOVAL SHOULDER SURGERY PROCEDURE: GA UNLISTED PROCEDURE SHOULDER LITHOTRIPSY PROCEDURE: HISTORICAL LITHOTRIPSY CYST REMOVAL PROCEDURE: GA EXCISION PILONIDAL CYST/SINUS SIMPLE DENTAL SURGERY PROCEDURE: GA UNLISTED PROCEDURE DENTOALVEOLAR STRUCTURES TOTAL KNEE ARTHROPLASTY 2001 Right PROCEDURE: GA ARTHRP KNE CONDYLE&PLATU MEDIAL&LAT COMPARTMENTS HIP ARTHROPLASTY 2011 Left PROCEDURE: HISTORICAL HIP REPLACEMENT OTHER SURGICAL HISTORY 12/29/2021 Left PROCEDURE: GA ARTHRODESIS SI JOINT PERCUTANEOUS/MIN INVASIVE; COMMENT: Left SI joint fusion/revision, Dr. Brock CARPAL TUNNEL RELEASE 05/18/2022 PROCEDURE: HISTORICAL CARPAL TUNNEL REL; COMMENT: Right median nerve decompression, Dr. Brock Medical History Medical History Date Comments Asthma-chronic obstructive p ulmonary disease overlap syndrome (CMS/HCC V24, CMS/HCC V28) 12/29/2016 DX:Asthma-chronic obstructiv e pulmonary disease overlap syndrome (HCC) Hypercholesterolemia 11/29/2016 DX:Hypercho lesterolemia Hypothyroidism 11/29/2016 DX:Hypothyroidis m Obstructive sleep apnea syndrome in adult 017 DX:Obstructive sleep apnea syndrome in adult Morbid obesity with BMI of 4 0.0-44.9, adult ([facility] V24, [facility] V28) 10/03/2017 DX:Morbid obesity wit h BMI of 40.0-44.9, adult ([facility]) Renal calculi DX:Renal calculi Type 2 diabetes mellitus wit h cataract ([facility] V24, [facility] V28) 11/29/2016 DX:Type 2 diabetes mellitus with cataract ([facility]) Cataract 10/03/2017 DX:Cataract; COM MENT: S/p surgery [...] 06/03/2022 11:33 AM EST Plan of Treatment Upcoming Encounters Date Type Department Care Team (Latest Contact Info) Description 02/03/2025 1:30 PM EDT Hospital Encounter [facility] OR [address] [place] [phone] Alfredo Huggins MD [address] [address] 02/03/2025 1:30 PM EDT - 02/03/2025 3:30 PM EDT Surgery [facility] OR [address] [place] [phone] Alfredo Huggins MD [address] Th[address] [place] [address] CYSTOSCOPY URETEROSCOPY LASER LITHOTRIPSY & STENT LEFT [51928 (CPT )] Scheduled Procedures Name Priority Associated Diagnoses Date/Ti me CYSTOSCOPY URETEROSCOPY Calculus of ureter 02/03/2025 1:30 PM EDT Health Maintenance Due Date Last Done Comments [...] (primary) hypertension Hypokalemia Thrombocytopenia, unspecified (CMS/HCC V24) BASIC METABOLIC PANEL Routine 10/17/2024 4:58 AM EDT Thrombocytopenia, unspecified (CMS/HCC V24) COMPLETE BLOOD COUNT Routine 10/17/2024 4:58 AM EDT Thrombocytopenia, unspecified (CMS/HCC V24) from Last 3 Months Results * (ABNORMAL) Complete blood count (10/22/2024 4:28 AM EDT) Only the most recent of2 resultswithin the time period is included. WBC 6.3 4.8 - 10.8 K/mcL LAB HEMETOLOGY METHOD 10/22/2024 9:00 AM T [facility] RBC 2.90(L) 3.80 - 4.80 M/mcL LAB HEMETOLOGY METHOD 10/22/2024 9:00 AM [facility] Hemoglobin 8.8(L) 11.5 - 16.0 g/dL LAB HEMETOLOGY METHOD 10/22/2024 9:00 AM [facility] Hematocrit 29.3(L) 35.0 - 47.0 % LAB HEMETOLOGY METHOD 10/22/2024 9:00 AM EDT [facility] MCV 102.8(H) 79.0 - 98.0 FL LAB HEMETOLOGY METHOD 10/22/2024 9:00 AM EDT [facility] MCH 30.9 27.0 - 32.0 pcg LAB HEMETOLOGY METHOD 10/22/2024 9:00 AM EDT [facility] MCHC 30.0(L) 32.0 - 37.0 g/dL LAB HEMETOLOGY METHOD 10/22/2024 9:00 AM T [facility] RDW 18.9(H) 11.0 - 15.0 % LAB HEMETOLOGY METHOD 10/22/2024 9:00 AM [facility] Platelets 183 130 - 400 K/mcL LAB HEMETOLOGY METHOD 10/22/2024 9:00 AM EDT [facility] MPV 10.4 7.0 - 11.0 FL LAB HEMETOLOGY [facility] NRBC 0.0 <1.0 % LAB HEMETOLOGY METHOD 10/22/2024 9:00 AM [facility] NRBC Absolute 0.00 <0.10 K/mcL LAB HEMETOLOGY METHOD 10/22/2024 9:00 AM [facility] Blood Venous blood specimen / Unknown Venipuncture / Unknown 10/22/2024 4:28 AM EDT 10/22/2024 8:15 AM EDT us Leny Brice MD LAB BLOOD ORDERABLES Final Resu lt [facility] [address] [place] [address], * (ABNORMAL) Basic metabolic panel (10/22/2024 4:28 AM EDT) Only the most recent of2 resultswithin the time period is included. Sodium 145 133 - 145 mmol/L LAB CHEMISTRY METHOD 10/22/2024 9:13 AM [facility] Potassium 4.1 3.5 - 5.5 mmol/L LAB CHEMISTRY METHOD 10/22/2024 9:13 AM [facility] Chloride 110 96 - 110 mmol/L LAB CHEMISTRY METHOD 10/22/2024 9:13 AM [facility] CO2 28 21 - 32 mmol/L LAB CHEMISTRY METHOD 10/22/2024 9:13 AM [facility] Anion Gap 7 3 - 11 LAB CHEMISTRY METHOD 10/22/2024 9:13 AM [facility] Glucose 54(L) 70 - 100 mg/dL LAB CHEMISTRY METHOD 10/22/2024 9:13 AM [facility] BUN 21 5 - 25 mg/dL LAB CHEMISTRY METHOD 10/22/2024 9:13 AM [facility] Creatinine 0.80 0.50 - 1.10 mg/dL LAB CHEMISTRY METHOD 10/22/2024 9:13 AM [facility] eGFR 79 >=60 mL/min/1. 73m2 LAB CHEMISTRY METHOD 10/22/2024 9:13 AM [facility] Comment:Calculation based on the Chronic Kidney Disease Epidemiology Collaboration (CKD-EPI) equation refit without adjustment for race. BUN/Creatinine Ratio 26.3 LAB CHEMISTRY METHOD 10/22/2024 9:13 AM [facility] Calcium 7.4(L) 8.5 - 10.5 mg/dL LAB CHEMISTRY METHOD 10/22/2024 9:13 AM [facility] Blood Venous blood specimen / Unknown Venipuncture / Unknown 10/22/2024 4:28 AM EDT 10/22/2024 8:15 AM EDT us Leny Brice MD LAB BLOOD ORDERABLES Final Resu lt [facility] [address] [place] [address], [place] [phone] from Last 3 Months Insurance [employer] MED[employer]AGE Care Teams Regional Economist Relationship Specialty Start Date End Date Leny Brice MD [address] [place] [phone] PCP - General Hospitalist Medicine 10/15/24
--- OUTSIDE RECORDS SUMMARY | 2025-01-16 09:01 | XMS_ITS | Encounter Summary ---
Author Organization [facility] Address [address] [place] [address] Care Team Providers Care Manager Training And Development Name Role Phone Leny Brice MD Primary Care Provider [phone] Encounter Details Date Type Department Care Team (Latest Contact Info) Description 10/15/2024 Lab Requisition [facility] Lab [address] [facility] [place] [phone] Leny Brice MD [address] [place] [phone] Anemia, unspecified; Essential (primary) hypertension; retirement (current) use of anticoagulants Social History Tobacco Use Types Packs/Day Years [...] as of this encounter Plan of Treatment Upcoming Encounters Date Type Department Care Team (Latest Contact Info) Description 02/03/2025 1:30 PM EDT Hospital Encounter [facility] OR [address] [place] [phone] Alfredo Huggins MD [address] [facility] [address] [place] [address] 02/03/2025 1:30 PM EDT - 02/03/2025 3:30 PM EDT Surgery [facility] OR [address] [place] [phone] Alfredo Huggins MD [address] [facility] [address] [place] [address] CYSTOSCOPY URETEROSCOPY LASER LITHOTRIPSY & STENT LEFT [76925 (CPT )] Scheduled Procedures Name Priority Associated Diagnoses Date/Ti me CYSTOSCOPY URETEROSCOPY Calculus of ureter 02/03/2025 1:30 PM EDT documented as of this encounter Procedures Procedure Name Priority Date/Time Associated Diagnosis Comments PROTHROMBIN TIME WITH INR Routine 10/15/2024 5:21 AM EDT Anemia, unspecified Essential (primary) hypertension retirement (current) use of anticoagulants COMPLETE BLOOD COUNT Routine 10/15/2024 5:21 AM EDT Anemia, unspecified Essential (primary) hypertension 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 COMPREHENSIVE METABOLIC PANEL Routine 10/15/2024 5:21 AM EDT Anemia, unspecified Essential (primary) hypertension 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 documented in this encounter Results * (ABNORMAL) Comprehensive metabolic panel (10/15/2024 5:21 AM EDT) Sodium 139 133 - 145 mmol/L LAB CHEMISTRY METHOD 10/15/2024 10:[address] [facility] Potassium 3.6 3.5 - 5.5 mmol/L LAB CHEMISTRY METHOD 10/15/2024 10:[address] [facility] Chloride 108 96 - 110 mmol/L LAB CHEMISTRY METHOD 10/15/2024 10:[address] [facility] CO2 25 21 - 32 mmol/L LAB CHEMISTRY METHOD 10/15/2024 10:[address] [facility] Anion Gap 6 3 - 11 LAB CHEMISTRY METHOD 10/15/2024 10:[address] [facility] Glucose 40(L) 70 - 100 mg/dL LAB CHEMISTRY METHOD 10/15/2024 10:[address] [facility] BUN 19 5 - 25 mg/dL LAB CHEMISTRY METHOD 10/15/2024 10:[address] [facility] Creatinine 0.77 0.50 - 1.10 mg/dL LAB CHEMISTRY METHOD 10/15/2024 10:[address] [facility] eGFR 83 >=60 mL/min/1. 73m2 LAB CHEMISTRY METHOD 10/15/2024 10:[address] [facility] Comment:Calculation based on the Chronic Kidney Disease Epidemiology Collaboration (CKD-EPI) equation refit without adjustment for race. BUN/Creatinine Ratio 24.7 LAB CHEMISTRY METHOD 10/15/2024 10:[address] [facility] Calcium 8.0(L) 8.5 - 10.5 mg/dL LAB CHEMISTRY METHOD 10/15/2024 10:[address] [facility] AST (SGOT) 10 10 - 42 unit/L LAB CHEMISTRY METHOD 10/15/2024 10:[address] [facility] ALT (SGPT) 16 10 - 60 unit/L LAB CHEMISTRY METHOD 10/15/2024 10:[address] [facility] Alkaline Phosphatase 68 42 - 121 unit/L LAB CHEMISTRY METHOD 10/15/2024 10:[address] [facility] Total Protein 5.5(L) 6.0 - 8.0 g/dL LAB CHEMISTRY METHOD 10/15/2024 10:[address] [facility] Albumin 2.8(L) 3.2 - 5.0 g/dL LAB CHEMISTRY METHOD 10/15/2024 10:[address] [facility] Total Bilirubin 0.5 0.0 - 1.4 mg/dL LAB CHEMISTRY METHOD 10/15/2024 10:[address] [facility] Blood Venous blood specimen / Unknown Venipuncture / Unknown 10/15/2024 5:21 AM EDT 10/15/2024 9:05 AM EDT us Leny Brice MD LAB BLOOD ORDERABLES Final Resu lt Performing Organization Address [facility]/ZIP Co de Phone Number [facility] LAB [address] [place] [address], * (ABNORMAL) Prothrombin time with INR (10/15/2024 5:21 AM EDT) Pathologist [facility] Protime 10.1(L) 10.6 - 13.9 sec LAB COAGULATION METHOD 10/15/2024 9:44 AM EDT [facility] INR 0.8 LAB COAGULATION METHOD 10/15/2024 9:44 AM EDT [facility] Blood Venous blood specimen / Unknown Venipuncture / Unknown 10/15/2024 5:21 AM EDT 10/15/2024 9:05 AM EDT Leny Brice MD LAB BLOOD ORDERABLES Final Resu lt Performing Organization Address [facility]/ZIP Co de Phone Number [facility] [address] [place] [address], [place] [phone] * (ABNORMAL) Complete blood count (10/15/2024 5:21 AM EDT) [facility] WBC 6.0 4.8 - 10.8 K/mcL LAB HEMETOLOGY [facility] RBC 2.90(L) 3.80 - 4.80 M/mcL LAB HEMETOLOGY METHOD 10/15/2024 9:28 AM EDT [facility] Hemoglobin 8.9(L) 11.5 - 16.0 g/dL LAB HEMETOLOGY METHOD 10/15/2024 9:28 AM EDT [facility] Hematocrit 29.4(L) 35.0 - 47.0 % LAB HEMETOLOGY METHOD 10/[facility]24 [facility] MCV 102.1(H) 79.0 - 98.0 FL LAB HEMETOLOGY METHOD 10/15/2024 9:28 AM EDT [facility] MCH 30.9 27.0 - 32.0 pcg LAB HEMETOLOGY METHOD 10/15/2024 9:28 AM EDT [facility] MCHC 30.3(L) 32.0 - 37.0 g/dL LAB HEMETOLOGY METHOD 10/15/2024 9:28 AM EDT [facility] RDW 18.5(H) 11.0 - 15.0 % LAB HEMETOLOGY METHOD 10/15/2024 9:28 AM EDT [facility] Platelets 165 130 - 400 K/mcL LAB HEMETOLOGY METHOD 10/15/2024 9:28 AM EDT [facility] MPV 12.1(H) 7.0 - 11.0 FL LAB HEMETOLOGY METHOD 10/15/2024 9:28 AM EDT [facility] NRBC 0.0 <1.0 % LAB HEMETOLOGY METHOD 10/15/2024 9:28 AM T [facility] NRBC Absolute 0.00 <0.10 K/mcL LAB HEMETOLOGY METHOD 10/15/2024 9:[address] [facility] Blood Venous blood specimen / Unknown Venipuncture / Unknown 10/15/2024 5:21 AM EDT 10/15/2024 9:05 AM EDT us Leny Brice MD LAB BLOOD ORDERABLES Final Resu lt [facility] [address] [place] [address], documented in this encounter Visit Diagnoses Diagnosis Anemia, unspecified Essential (primary) hypertension Unspecified essential hypertension 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
--- OUTSIDE RECORDS SUMMARY | 2025-01-16 09:01 | XMS_ITS | Encounter Summary ---
Author Organization [facility] Address [address] [place] [address] Care Team Providers Care Passport Support Associate Name Role Phone Leny Brice MD Primary Care Provider Encounter Details Date Type Department Care Team (Late st Contact Info) Description 10/17/2024 Lab Requisition [facility] Lab [address] [facility] [place] [phone] Leny Brice MD [address] [place] [phone] Thrombocytopenia, unspecified (CMS/[facility] V24) Social History Tobacco Use Types Packs/Day Years [...] Description 02/03/2025 1:30 PM EDT Hospital Encounter [facility] OR [address] [place] [phone] Alfredo Huggins MD 100 [facility] [employer] [employer] [address] 02/03/2025 1:30 PM EDT - 02/03/2025 3:30 PM EDT Surgery [facility] OR [address] [place] [phone] Alfredo Huggins MD [address] [place] [employer] [address] [address] CYSTOSCOPY URETEROSCOPY LASER LITHOTRIPSY & STENT LEFT [91363 (CPT )] Scheduled Procedures Name Priority Associated Diagnoses Date/Ti me CYSTOSCOPY URETEROSCOPY Calculus of ureter 02/03/2025 1:30 PM EDT documented as of this encounter Procedures Procedure Name Priority Date/Time Associated Diagnosis Comments COMPLETE BLOOD COUNT Routine 10/17/2024 4:58 AM EDT Thrombocytopenia, unspecified ([facility] V24) BASIC METABOLIC PANEL Routine 10/17/2024 4:58 AM EDT Thrombocytopenia, unspecified ([facility] V24) documented in this encounter Results * (ABNORMAL) Basic metabolic panel (10/17/2024 4:58 AM EDT) Sodium 141 133 - 145 mmol/L LAB CHEMISTRY METHOD 10/17/2024 7:02 AM [facility] Potassium 3.6 3.5 - 5.5 mmol/L LAB CHEMISTRY METHOD 10/17/2024 7:02 AM [facility] Chloride 107 96 - 110 mmol/L LAB CHEMISTRY METHOD 10/17/2024 7:02 AM [facility] CO2 26 21 - 32 mmol/L LAB CHEMISTRY METHOD 10/17/2024 7:02 AM [facility] Anion Gap 8 3 - 11 LAB CHEMISTRY METHOD 10/17/2024 7:02 AM [facility] Glucose 91 70 - 100 mg/dL LAB CHEMISTRY METHOD 10/17/2024 7:02 AM [facility] BUN 17 5 - 25 mg/dL LAB CHEMISTRY METHOD 10/17/2024 7:02 AM [facility] Creatinine 0.86 0.50 - 1.10 mg/dL LAB CHEMISTRY METHOD 10/17/2024 7:02 AM [facility] eGFR 72 >=60 mL/min/1. 73m2 LAB CHEMISTRY METHOD 10/17/2024 7:02 AM EDT [facility] Comment:Calculation based on the Chronic Kidney Disease Epidemiology Collaboration (CKD-EPI) equation refit without adjustment for race. BUN/Creatinine Ratio 19.8 LAB CHEMISTRY METHOD 10/17/2024 7:02 AM EDT [facility] Calcium 7.9(L) 8.5 - 10.5 mg/dL LAB CHEMISTRY METHOD 10/17/2024 7:02 AM EDT [facility] Blood Venous blood specimen / Unknown Venipuncture / Unknown 10/17/2024 4:58 AM EDT 10/17/2024 5:48 AM EDT us Leny Brice MD LAB BLOOD ORDERABLES Final Resu lt [facility] [address] [place] [address], * (ABNORMAL) Complete blood count (10/17/2024 4:58 AM EDT) WBC 4.6(L) 4.8 - 10.8 K/mcL LAB HEMETOLOGY METHOD 10/17/2024 5:55 AM [facility] RBC 2.70(L) 3.80 - 4.80 M/mcL LAB HEMETOLOGY METHOD 10/17/2024 5:55 AM EDT [facility] Hemoglobin 8.5(L) 11.5 - 16.0 g/dL LAB HEMETOLOGY METHOD 10/17/2024 5:55 AM T [facility] Hematocrit 27.8(L) 35.0 - 47.0 % LAB HEMETOLOGY METHOD 10/17/2024 5:55 AM T [facility] MCV 102.6(H) 79.0 - 98.0 FL LAB HEMETOLOGY METHOD 10/17/2024 5:55 AM EDT [facility] MCH 31.4 27.0 - 32.0 pcg LAB HEMETOLOGY METHOD 10/17/2024 5:55 AM EDT [facility] MCHC 30.6(L) 32.0 - 37.0 g/dL LAB HEMETOLOGY METHOD 10/17/2024 5:55 AM EDT [facility] RDW 18.5(H) 11.0 - 15.0 % LAB HEMETOLOGY METHOD 10/17/2024 5:55 AM EDT [facility] Platelets 165 130 - 400 K/mcL LAB HEMETOLOGY METHOD 10/17/2024 5:55 AM EDT [facility] MPV 11.2(H) 7.0 - 11.0 FL LAB HEMETOLOGY METHOD 10/17/2024 5:55 AM EDT [facility] NRBC 0.0 <1.0 % LAB HEMETOLOGY METHOD 10/17/2024 5:55 AM EDT [facility] NRBC Absolute 0.00 <0.10 K/mcL LAB HEMETOLOGY METHOD 10/17/2024 5:55 AM EDT [facility] Blood Venous blood specimen / Unknown Venipuncture / Unknown 10/17/2024 4:58 AM EDT 10/17/2024 5:48 AM EDT us Leny Brice MD LAB BLOOD ORDERABLES Final Resu lt [facility] [address] [place] [address], [place] [phone] documented in this encounter Visit Diagnoses Diagnosis Thrombocytopenia, unspecified (CMS/HCC V24) Thrombocytopenia, unspecified Calculus of ureter documented in this encounter Care Teams Passport Support Associate Relationship Specialty Start Date End Date Leny Brice MD [address] [place] [phone] PCP - General Hospitalist Medicine 10/15/24 documented as of this encounter
--- OUTSIDE RECORDS SUMMARY | 2025-01-16 09:01 | XMS_ITS | Clinical Summary ---
Author Organization [facility] Address [address] [place] [address] Care Team Providers Care Nematology Teacher Name Role Phone Unavailable Primary Care Provider [...]
--- OUTSIDE RECORDS SUMMARY | 2025-01-16 09:01 | XMS_ITS | Clinical Summary ---
Author Organization [facility] Address [address] [place] [address] Care Team Providers Care Solar Energy Systems Engineer Name Role Phone Unavailable Primary Care Provider [...]
--- OUTSIDE RECORDS SUMMARY | 2025-01-16 09:01 | XMS_ITS | Clinical Summary ---
Author Organization [facility] Address [address] [place] [address] Care Team Providers Care Bread Jockey Name Role Phone Tran Blackwell Primary Care Provider [phone] Allergies Active Allergy Reactions Criticality Noted Date Comments Multivit, Min No.[id number] Dyspnea High 04/12 Pregabalin Mood Disturbance 04/12/2023 [...] 60-74 years 1-dose series) 2013 COVID-19 Vaccine (2023-25 season) 2024 Alcohol/Substance Use Screening 05/22/2024 Depression Screening and Follow-Up 05/22/2024 Health Care Proxy Review 05/22/2024 Social Drivers of Health Annual Screening 05/22/2024 Mammogram 12/26/2024 12/26/2022, 11/19, 11/24/2020, Additional history exists Influenza Vaccine (#1) 2025 Pneumococcal Vaccine: 50+ Years Completed 04/10/2023 Hepatitis B Vaccines Aged Out No long er eligible based on patient's age to complete this topic Insurance [employer]ETNA [facility] Care Teams Bread Jockey Relationship Specialty Start Date End Date Tran Blackwell [address] [place] [phone] PCP - General Family Medicine 03/27/23
--- OUTSIDE RECORDS SUMMARY | 2025-01-16 09:01 | XMS_ITS | Encounter Summary ---
Author Organization [facility] Address [address] [place] [address] Care Team Providers Care Tax Manager Name Role Phone Tran Blackwell Primary Care Provider [phone] Encounter Details Date Type Department Care Team (Late st Contact Info) Description 04/05/2023 Lab Requisition [facility] [facility] [address] [place] [phone] Dre Ronquillo MD PhD [address] [place] [address] Social History Tobacco Use Types Packs/Day [...] of this encounter Procedures * Due to [place] [employer] law, this organization might not be sharing negative HIV tests. Procedure Name Priority Date/Time Associated Diagnosis Comments TISSUE EXAM Routine 04/05/2023 2:14 PM EST documented in this encounter Results * Due to [place] [employer] law, this organization might not be sharing negative HIV tests. * Tissue Exam (04/05/2023 2:14 PM EST) Final Diagnosis Review of Outside Slides Received from [facility] Labeled [id number] Procedure Date 02/09/2023: Bone Marrow, Right Ischial [...] (WHO, 5th edition). Clinical correlation is warranted. [facility] 04/06/2023 2:43 PM EST [facility] at 1443 EST Clinical History Macrocytic anemia [facility] 04/06/2023 2:43 PM EST [facility] Gross Consult Client Facility: [facility] Slide Identification: [id number] Number of Glass Slides Received: 11 Number of Blocks Received: 0 Client Pathologist: Jude Fong MD Accompanying Report Received: yes [facility] 04/06/2023 2:43 PM EST [employer] [facility] Embedded Images [facility] 04/06/2023 2:43 PM EST [employer] [facility] Resulting Agency Case was signed out at [facility], Department of Pathology, [employer] 3 CLIA [id number] [facility] 04/06/2023 2:43 PM EST [employer] [facility] Report Header Surgical Pathology Report Case: [id number] Authorizing Provider: Dre Ronquillo MD PhD Collected: 04/05/2023 1414 Ordering Location: [facility] Received: 04/05/2023 1414 [facility] Lab Pathologist: Manny Villanueva MD Specimen: Bone Marrow Aspirate, Right Ischial Wing, Aspirate and Clot 04/06/2023 2:43 PM EST [facility] Get [employer] Content [facility] Tissue Specimen from bone marrow obtained by aspiration / Unknown 04/05/2023 2:14 PM EST 04/05/2023 2:14 PM EST us Dre Ronquillo MD PhD LAB PATHOLOGY/CYTOLOGY ORDERABL ES Final Result [facility] [address] [place] [address] documented in this encounter Visit Diagnoses Not on filedocumented in this encounter Care Teams Tax Manager Relationship Specialty Start Date End Date Tran Blackwell [address] [place] [phone] PCP - General Family Medicine 03/27/23 documented as of this encounter
--- OUTSIDE RECORDS SUMMARY | 2025-01-16 09:01 | XMS_ITS | Encounter Summary ---
Author Organization [facility] Address [address] [place] [address] Care Team Providers Care Sql Data Analyst Name Role Phone Leny Brice MD Primary Care Provider Encounter Details Date Type Department Care Team (Late st Contact Info) Description 10/22/[address] [facility] - Main Lab [address] [facility] [place] [address] Leny Brice MD [address] [place] [id number] Essential (primary) hypertension; Hypokalemia; Thrombocytopenia, unspecified (CMS/HCC V24) Social History Tobacco Use Types Packs/Day [...] [facility] [place] [address] [place] [id number] Alfredo Huggins MD [address] [id number] 02/03/2025 1:30 PM EDT - 02/03/2025 3:30 PM EDT Surgery [facility] [place] [address] [place] [address] Alfredo Huggins MD [address] [facility] [address] [place] [address] CYSTOSCOPY URETEROSCOPY LASER LITHOTRIPSY & STENT LEFT [08533 (CPT )] Scheduled Procedures Name Priority Associated Diagnoses Date/Ti ri CYSTOSCOPY URETEROSCOPY Calculus of ureter 02/03/2025 1:30 PM EDT documented as of this encounter Procedures Procedure Name Priority Date/Time Associated Diagnosis Comments COMPLETE BLOOD COUNT Routine 10/22/2024 4:28 AM EDT Essential (primary) hypertension Hypokalemia Thrombocytopenia, unspecified ([facility]/HCC V24) BASIC METABOLIC PANEL Routine 10/22/2024 4:28 AM EDT Essential (primary) hypertension Hypokalemia Thrombocytopenia, unspecified ([facility] V24) documented in this encounter Results * (ABNORMAL) Basic metabolic panel (10/22/2024 4:28 AM EDT) Sodium 145 133 - 145 mmol/L LAB CHEMISTRY METHOD 10/22/2024 9:13 AM [facility] Potassium 4.1 3.5 - 5.5 mmol/L LAB CHEMISTRY METHOD 10/22/2024 9:13 AM [facility] Chloride 110 96 - 110 mmol/L LAB CHEMISTRY METHOD 10/22/2024 9:13 AM [facility] CO2 28 21 - 32 mmol/L LAB CHEMISTRY METHOD 10/22/2024 9:13 AM [facility] Anion Gap 7 3 - 11 LAB CHEMISTRY METHOD 10/22/2024 9:13 AM [facility] Glucose 54(L) 70 - 100 mg/dL LAB CHEMISTRY METHOD 10/22/2024 9:13 AM [facility] BUN 21 5 - 25 mg/dL LAB CHEMISTRY METHOD 10/22/2024 9:13 AM [facility] Creatinine 0.80 0.50 - 1.10 mg/dL LAB CHEMISTRY METHOD 10/22/2024 9:13 AM EDT [facility] eGFR 79 >=60 mL/min/1. 73m2 LAB CHEMISTRY METHOD 10/22/2024 9:13 AM EDT [facility] Comment:Calculation based on the Chronic Kidney Disease Epidemiology Collaboration (CKD-EPI) equation refit without adjustment for race. BUN/Creatinine Ratio 26.3 LAB CHEMISTRY METHOD 10/22/2024 9:13 AM EDT [facility] Calcium 7.4(L) 8.5 - 10.5 mg/dL LAB CHEMISTRY METHOD 10/22/2024 9:13 AM T [facility] Blood Venous blood specimen / Unknown Venipuncture / Unknown 10/22/2024 4:28 AM EDT 10/22/2024 8:15 AM EDT us Leny Brice MD LAB BLOOD ORDERABLES Final Resu lt [facility] [address] [place] [address], [place] [phone] * (ABNORMAL) Complete blood count (10/22/2024 4:28 AM EDT) WBC 6.3 4.8 - 10.8 K/mcL LAB HEMETOLOGY METHOD 10/22/2024 9:00 AM [facility] RBC 2.90(L) 3.80 - 4.80 M/mcL LAB HEMETOLOGY METHOD 10/22/2024 9:00 AM [facility] Hemoglobin 8.8(L) 11.5 - 16.0 g/dL LAB HEMETOLOGY METHOD 10/22/2024 9:00 AM [facility] Hematocrit 29.3(L) 35.0 - 47.0 % LAB HEMETOLOGY METHOD 10/22[facility]24 [facility] MCV 102.8(H) 79.0 - 98.0 FL LAB HEMETOLOGY METHOD 10/22/2024 9:00 AM EDT [facility] MCH 30.9 27.0 - 32.0 pcg LAB HEMETOLOGY METHOD 10/22/2024 9:00 AM EDT [facility] MCHC 30.0(L) 32.0 - 37.0 g/dL LAB HEMETOLOGY METHOD 10/22/2024 9:00 AM EDT [facility] RDW 18.9(H) 11.0 - 15.0 % LAB HEMETOLOGY METHOD 10/22/2024 9:00 AM T [facility] Platelets 183 130 - 400 K/mcL LAB HEMETOLOGY METHOD 10/22/2024 9:00 AM EDT [facility] MPV 10.4 7.0 - 11.0 FL LAB HEMETOLOGY METHOD 10/22/2024 9:00 AM EDT [facility] NRBC 0.0 <1.0 % LAB HEMETOLOGY METHOD 10/22/2024 9:00 AM [facility] NRBC Absolute 0.00 <0.10 K/mcL LAB HEMETOLOGY METHOD 10/22/2024 9:00 AM [facility] Blood Venous blood specimen / Unknown Venipuncture / Unknown 10/22/2024 4:28 AM EDT 10/22/2024 8:15 AM EDT us Leny Brice MD LAB BLOOD ORDERABLES Final Resu lt [facility] [address] [place] [address], documented in this encounter Visit Diagnoses Diagnosis Essential (primary) hypertension Unspecified essential hypertension Hypokalemia Hypopotassemia Thrombocytopenia, unspecified (CMS/HCC V24) Thrombocytopenia, unspecified Calculus of ureter documented in this encounter Care Teams Sql Data Analyst Relationship Specialty Start Date End Date Leny Brice MD [address] [place] [phone] PCP - General Hospitalist Medicine 10/15/24 documented as of this encounter
== END 2025-01-16 08:24 | disposition home or self-care (01) ==
LOC: CF 08:23
PROVIDERS: Visit Provider Internal Medicine
DX: Z13.89 Encounter for screening for other disorder (principal)

== ENCOUNTER 2025-03-11 08:21 | Outpatient (AMB) | payer MEDICARE, SELFPAY ==
--- OUTSIDE RECORDS SUMMARY | 2025-03-11 08:30 | XMS_ITS | Clinical Summary ---
Author Organization [facility] Address [address] [place] [address] Care Team Providers Care [place] Pilot Name Role Phone Tran Blackwell Primary Care Provider [phone] Allergies Active Allergy Reactions Criticality Noted Date Comments Multivit, Min No.[id number] Dyspnea High 04/12 Pregabalin Mood Disturbance 04/12/2023 [...] - Risk 60-74 years 1-dose series) 2013 Alcohol/Substance Use Screening 05/22/2024 Depression Screening and Follow-Up 05/22/2024 Health Care Proxy Review 05/22/2024 Social Drivers of Health Annual Screening 05/22/2024 Mammogram 12/26/2024 12/26/2022, 11/19, 11/24/2020, Additional history exists COVID-19 Vaccine (2024- season) 2025 Influenza Vaccine (#1) 2025 Pneumococcal Vaccine: 50+ Years Completed 04/10/2023 Hepatitis B Vaccines Aged Out No long er eligible based on patient's age to complete this topic Insurance [employer] MCR Care Teams [place] Pilot Relationship Specialty Start Date End Date Tran Blackwell [address] [place] [id number] PCP - General Family Medicine 03/27/23
--- OUTSIDE RECORDS SUMMARY | 2025-03-11 08:30 | XMS_ITS | Clinical Summary ---
Author Organization [facility] Address [address] [place] [address] Care Team Providers Care Venetian Blind Worker Name Role Phone Unavailable Primary Care Provider Unavailabl e Social History Tobacco Use Types Packs/Day Years Used Date Smoking Tobacco: Never Assessed Comments Unknown Sex and Gender Information Value Date Recorded Sex Assigned at Not on file Legal Sex Female 12:59 PM EDT Gender Identity Not on file Sexual Orientation Not on file Plan of Treatment Health Maintenance Due Date Last Done Comments Advance Care Planning 1955 Hepatitis C Virus Screening 1955 DTaP/Tdap/Td Vaccines (1 - Tdap) 1972 Pneumococcal Vaccines 50+ (1 of 1 - PCV) 2003 Zoster (Shingles) Vaccine (1 of 2) 2003 COVID-19 Vaccine ( - 2023-2 5 season) 2025 RSV Vaccine 50 years and old er and Patients (1 - 1-dose 75+ series) 2028 Hepatitis B Vaccines Aged Out No long er eligible based on patient's age to complete this topic
--- OUTSIDE RECORDS SUMMARY | 2025-03-11 08:30 | XMS_ITS | Clinical Summary ---
Author Organization [facility] Address [address] [employer] [place] [facility] [address] [place] [address] Phone Care Team Providers Care Board Winder Name Role Phone Tran Blackwell MD Primary Care Provider [phone] Bettina Rashid MD Unavailable [phone] Allergies Active Allergy Reactions Criticality Noted [...] mg by mouth every morning. 5 Active metFORMIN (GLUCOPHAGE) 500 MG tabletIndications: Type 2 diabetes mellitus with peripheral neuropathy TAKE 2 TABLETS BY MOUTH EVERY MORNING & TAKE 1 TABLET EVERY EVENING 270 tablet 3 5 Active tirzepatide (MOUNJARO) 7.5 mg/0.5 mL PnIj subcutaneous penIndications:Typ e 2 diabetes mellitus with peripheral neuropathy Inject 0.5 mL (7.5 mg total) under the skin once a week. 2 mL 5 5 Active alendronate (FOSAMAX) 70 MG tabletIndications: Age-related osteoporosis without current pathological fracture TAKE 1 TABLET (70 MG TOTAL) BY MOUTH ONCE A WEEK 12 tablet 5 Active Active Problems Problem Noted Date [...] 1:09 PM EDT): Uncertain details. Records from [facility] not available. Has been on medication list [...] with any issues. Will get labs from [facility] Assessment & Plan (02/29/2024 1:06 PM [...] with glycemic control. [facility]. Foot & nail care good. BP [...] date with [facility]. Will request labs from [facility] Assessment & Plan (02/18/2023 8:43 PM EDT): [...] her glucose levels. Up to date with [facility]. Labs ordered today Assessment & Plan [...] She recently had blood work done at [facility]. Will get results to review and determine if any medication adjustments are needed Assessment & Plan (02/18/2023 8:43 PM EDT): Euthyroid on labs in July. Would repeat given weight loss, which can lower dose requirements. Given slip to include w/ labs for heme-onc @ [facility] tomorrow. To message me with result. Assessment [...] tenos 07/18/2012 Overview (07/12/2014): with biceps tenos half-way current use of oral hypoglycemic drug Assessment & Plan (06/24/2024 12:17 PM EST): Will maintain her metformin Long-term current use of inj ectable noninsulin antidiabetic medication Assessment & Plan (06/24/2024 12:16 PM EST): Will try changing her trulicity to mounjaro to see if this helps alleviate her GI side effects Myelodysplastic syndrome Encounters Date Type Department Care Team Description 01/31/2025 Refill [facility] [address] [place] [address] Laura Betancur MD Medication Refill from Last 3 Months Immunizations Immunization Administration [...] Care Team (Late st Contact Info) Description 05/27/2025 9:20 AM EST Office Visit [facility] [address] [place] [address] Shavonne Sun PA-C [address] [place] [address] Health Maintenance Due Date Last Done Comments Adult Td,Tdap Booster 1955 DEPRESSION SCREENING 1965 HEPATITIS C SCREENING 1971 PNEUMOCOCCAL VACCINES (50+ years) (1 of 2 - PCV) 1972 ZOSTER VACCINES (1 of 2) 1972 COLOGUARD 1998 COLONOSCOPY 1998 COLORECTAL CANCER SCREENING 1998 FIT TEST 1998 FOBT 1998 SIGMOIDOSCOPY 1998 VIRTUAL COLONOSCOPY 1998 RSV VACCINE (1 - Risk 50-74 years 1-dose series) 2003 OSTEOPOROSIS SCREENING INITIAL (ONE-TIME) 2018 DIABETIC EYE EXAM 08/16/2022 HEMOGLOBIN A1C 05/18/2023 11/16/2022, 08/16/2022 TSH LEVEL 11/17/2023 11/16/2022, 08/16/2022 MAMMOGRAM 12/08/2023 12/07/2021, 07/0 10/2020, 12/16/2019, Additional history exists INFLUENZA VACCINE (#1) 2024 COVID-19 VACCINE (2 - season) 2025 04/26/2021 CREATININE LEVEL 02/27/2025 02/28/2024, , 08/16/2022 [...] - External 4.5 3.4 - 5.0 mmol/L Result [facility] Historical Provider MD LAB BLOOD ORDERABLES Liz l Result * (ABNORMAL) Outside Serum Creatinine Level (02/28/2024) Creatinine, serum - External 0.77(A) 0.8 - 1.3 mg/dL Result [facility] Provider MD LAB BLOOD ORDERABLES Liz l Result * Outside HbA1c (11/16/2022) Hemoglobin A1c - External 7.1 % Result [facility] Provider MD LAB BLOOD ORDERABLES Liz l Result * TSH with reflex (08/16/2022 10:03 AM EDT) TSH 1.51 0.27 - 4.20 uIU/mL [facility] Blood 08/16/2022 10:0 3 AM EDT 08/16/2022 10:11 AM EDT Laura Betancur MD LAB BLOOD ORDERABLES F inal Result [facility] [address] [place] [address] from Last 3 Months or Most Recently Relevant to Health Maintenance Insurance [employer] PPO MEDICARE REPLACEMENT [facility] MEDICARE REPLACEMENT [facility] MEDICARE REPLACEMENT [facility] MEDICARE REPLACEMENT [facility] MEDICARE REPLACEMENT [facility] MEDICARE REPLACEMENT Care Teams Board Winder Relationship Specialty Start Date End Date Tran Blackwell MD [address] [place] [address] PCP - General Family Medicine 08/16/22 Bettina Rashid MD [address] [place] [phone] [email or web address] Internal Medicine 09/24/24 Additional Source Comments The information contained in this document represents components of the legal health record. It is not the complete legal health record.[facility]
--- OUTSIDE RECORDS SUMMARY | 2025-03-11 08:30 | XMS_ITS ---
Author Name DAYNA MORAN, MS. MICHAEL Herron SUSANNE Address [address] [place] [address] Phone [phone] Organization [facility] Care Team Providers Care Galvanizer Zinc Name Role Phone MICHAEL MCINTOSH Unavailable [phone] Reason for Referral Not Available Allergies, adverse [...] 15 mg Tab TAKE 1 TABLET BY JUDTIH TH EVERY DAY NEEDED 2024-05-23 No Data [...] mplaint [facility] [place], 09/25/2024 Encntr for f/u exam aft trtm t for cond oth than malig neoplmUrinary tract infection, site not specified [facility] [place] [place], [facility] 09/25/2024 Encntr for f/u exam aft trtm t for cond oth than malig neoplmUrinary tract infection, site not specified [facility] [place], 09/25/2024 Encntr for f/u exam aft trtm t for cond oth than malig neoplmUrinary tract infection, site not specified Vital Signs Date of Collection Vitals 2024-09-25 12:47:12 Pain Scale - 4.0 {sc ore} Social History Sex Female History of Procedures Procedures Service Procedure code Service date Servicing provider Phone# [facility] [place] [id number] 2024-09-25 No Data Available No Data Avail [...] (September 2024) pt has an appt with [facility] - seeing Dr Schwab - [...] IPAdm it Date: 09/12/24Discharge Date: 09/16/24[facility]: [facility]INARY [facility] INFECTION, SITE NOT SPECIFIED [...]
--- OUTSIDE RECORDS SUMMARY | 2025-03-11 08:30 | XMS_ITS | Encounter Summary ---
Author Organization [facility] Address [address] [place] [address] Care Team Providers Care Clothes Wringer Name Role Phone Tran Blackwell Primary Care Provider [phone] Encounter Details Date Type Department Care Team (Late st Contact Info) Description 04/05/2023 Lab Requisition [facility] Three Lab [address] [place] [phone] Dre Ronquillo MD PhD [address] [place] [address] Social History Tobacco Use Types Packs/Day [...] of this encounter Procedures * Due to [place] [employer] law, this organization might not be sharing negative HIV tests. Procedure Name Priority Date/Time Associated Diagnosis Comments TISSUE EXAM Routine 04/05/2023 2:14 PM EST documented in this encounter Results * Due to [place] [employer] law, this organization might not be sharing negative HIV tests. * Tissue Exam (04/05/2023 2:14 PM EST) Final Diagnosis Review of Outside Slides Received from [facility] Labeled [id number] Procedure Date 02/09/2023: Bone Marrow, Right Ischial [...] (WHO, 5th edition). Clinical correlation is warranted. [facility]UAL 04/06/2023 2:43 PM EST [facility] at 1443 EST Clinical History Macrocytic anemia [facility] 04/06/2023 2:43 PM EST [facility] Gross Consult Client Facility: [facility] Slide Identification: [id number] Number of Glass Slides Received: 11 Number of Blocks Received: 0 Client Pathologist: uJde Fong MD Accompanying Report Received: yes [facility] 04/06/2023 2:43 PM EST [facility] LAB[facility] Embedded Images [facility] MANUAL 04/06/2023 2:43 PM EST [facility] Resulting Agency Case was signed out at [facility], Department of Pathology, [employer] 3 CLIA [id number] [facility] 04/06/2023 2:43 PM EST [facility] Report Header Surgical Pathology Report Case: [id number] Authorizing Provider: Dre Ronquillo MD PhD Collected: 04/05/2023 1414 Ordering Location: [facility] Received: 04/05/2023 1414 [facility] Three Lab Pathologist: Manny Villanueva MD Specimen: Bone Marrow Aspirate, Right Ischial Wing, Aspirate and Clot 04/06/2023 2:43 PM EST [facility] [employer] [facility] ANATOMIC PATHOLOGY LABORATORY Tissue Specimen from bone marrow obtained by aspiration / Unknown 04/05/2023 2:14 PM EST 04/05/2023 2:14 PM EST us Dre Ronquillo MD PhD LAB PATHOLOGY/CYTOLOGY ORDERABL ES Final Result [facility] AN[facility] PATHOLOGY LABORATORY [address] [place] [address] documented in this encounter Visit Diagnoses Not on filedocumented in this encounter Care Teams Clothes Wringer Relationship Specialty Start Date End Date Tran Blackwell [address] [place] [phone] PCP - General Family Medicine 03/27/23 documented as of this encounter
--- OUTSIDE RECORDS SUMMARY | 2025-03-11 08:30 | XMS_ITS | Clinical Summary ---
Author Organization [facility] Address [address] [place] [address] Care Team Providers Care Dry Press Operator Name Role Phone Unavailable Primary Care [...]
[2025-03-11 08:37] VITALS: BP 120/62; PULSE 69
--- NOTE | 2025-03-11 08:37 | A.OFFVIS_ITS ---
Vital Signs 03/11/25 08:37 Height 5 ft 3.5 in BP 120/62 Blood Pressure Location Lt brachial Position Sitting Pulse 69 Pulse Source Pulse Oximeter Intake Visit Reasons: [facility] ED f/u Generator Mechanic Required: No Technical Specialist Cytogenetics: Technical Specialist Cytogenetics Present Allergies pregabalin Allergy (Severe, Verified 03/11/25 08:42) Manic Sulfa (Sulfonamide Antibiotics) Allergy (Severe, Verified 03/11/25 08:42) Hives tramadol Allergy (Verified 03/11/25 08:42) Hives Medication List - Last Reconciled 03/11/25 by Eileen Looney NP-C albuterol sulfate 2.5 mg (3 mL) inhalation Q6H PRN 30 days albuterol sulfate 90 mcg/actuation 2 inhalations inhalation Q6H PRN 30 days alendronate (Fosamax) 70 mg PO DAVID@1800 aspirin (Aspirin Childrens) 81 mg PO DAILY atorvastatin 20 mg PO BEDTIME cholecalciferol (vitamin D3) 25 mcg PO DAILY cyanocobalamin (vitamin B-12) 1,000 mcg PO DAILY diltiazem HCl CD 180 mg PO DAILY sthvdpsxrvc-rswadhkyr-hjzyngls 200-62.5-25 mcg (Trelegy Ellipta) 1 inh inhalation DAILY 30 days gabapentin 400 mg PO DAILY lenalidomide 10 mg PO DAILY levothyroxine 112 mcg PO DAILY@0600 loperamide (Imodium A-D) 2 mg PO Q4H PRN losartan 50 mg PO DAILY metformin 1,000 mg PO DAILY metformin 500 mg PO BEDTIME nebulizers As directed omeprazole 20 mg PO DAILY@0630 paroxetine HCl 40 mg PO DAILY prednisone 10 mg PO DAILY simvastatin 40 mg PO BEDTIME tirzepatide (Mounjaro) mg subcut QWEEK HPI HPI [facility] ED f/u: Details: Vanessa is a 69-year-old female past medical history of morbid obesity, advanced COPD with steroid dependence, myelodysplastic syndrome, receives regular blood transfusions who follows with Oncology, atrial tachycardia who has been admitted to [facility] recently with nephrolithiasis, E coli UTI status post ureter stent placement 12/2024 abnormal EKG, Congestive heart failure, left lower extremity DVT and started on Eliquis 02/2025 who now presents here for follow-up. Her last prior visit to our office was 01/29/2024. Today she reports that she went to rehab after her last hospitalization. Since being home she finds that she is no longer on Eliquis or metoprolol for unclear reasons. She does have some mild weakness and ambulates with a walker. For this visit she is sitting in a wheelchair. She has some mild shortness of breath with exertion. She is sleeping in a recliner which she says is her norm. No cough or recent illness with fever. She does have lower leg edema which she states is currently increased for her. She says she was on Lasix for a few days and her swelling improved but now it is back. No chest discomfort at rest or with activity. No heart palpitations, lightheadedness, presyncope, syncope. She tells me she is going to have a ureteral stent removal in the near future then have lithotripsy which she says will be done under general anesthesia. She is asking for clearance to be sent to her urologist Dr. Perez [facility] Medical History Osteoarthritis of right shoulder Class 3 obesity Current chronic use of systemic steroids T12 compression fracture Breast calcifications Macular degeneration of both eyes Lumbar spondylolysis Adrenal insufficiency Moderate persistent asthma in adult without complication Anxiety Obstructive sleep apnea Osteoporosis Osteopenia Fibromyalgia GERD (gastroesophageal reflux disease) Hypothyroidism Mixed hyperlipidemia Essential hypertension Morbid obesity Diabetes mellitus, type II Steroid dependence Compression fracture Asthma COPD (chronic obstructive pulmonary disease) Surgical History History of cataract surgery History of left hip replacement History of total right knee replacement (TKR) Family History Father COPD (chronic obstructive pulmonary disease) Mother ASCVD (arteriosclerotic cardiovascular disease) Sister Stented coronary artery Social History Household Members: Spouse Housing: House Are you a primary before and after school daycare worker to a significant other at home: No Do you presently have visiting nurse or other home services: No Patient Tobacco Use Status: Never used Tobacco Tobacco use type: Cigarette Years Smoked: 30 years Second Hand Smoke Exposure: No service: No Current occupational status: retired Current occupation: left hand Review of Systems Const All systems reviewed & are unremarkable except as noted in HPI and below Reports fatigue and Reports weakness ENT Denies dizziness Card Denies chest pain, Denies chest pain at rest, Denies chest pain with activity, Denies rapid heart rate, Denies pedal edema, Denies edema, Reports leg edema, Denies lightheadedness, Denies palpitations, Reports dyspnea, Denies dyspnea on exertion and Denies orthopnea Resp Denies cough, Reports dyspnea and Denies dyspnea on exertion GI Denies hematochezia and Denies change in stool character Musc Details: In wheelchair at this visit Reports abnormal gait (uses walker), Denies limited range of motion, Denies muscle cramps, Denies muscle weakness, Denies numbness, Denies radiating pain into limb, Denies stiffness and Denies tingling Neuro Reports abnormal gait (uses walker), Denies dizziness, Denies numbness, Denies tingling and Reports weakness Endo Reports fatigue and Denies palpitations Physical Exam Vital Signs: Last Vital Signs Pulse 69 03/11/25 08:37 BP 120/62 03/11/25 08:37 Const Other: Elderly female, Sitting in wheelchair General: cooperative, comfortable and no acute distress Orientation/consciousness: patient oriented x3 Neck Neck: Yes normal visual inspection and Yes no JVD Resp Effort & Inspection: normal respiratory effort Auscultation: clear to auscultation bilaterally, no rales, no rhonchi and no wheezes Cardio Jugular venous distension: no JVD Rate: regular rate Heart sounds: S1 normal heart sound present, S2 normal heart sound present, no murmurs and no rubs Neuro General: patient oriented x3 Extrem Other: tight edema from below knee to ankle Psych Appearance: grossly normal Mental Status: mental status grossly normal Speech and movement: Normal speech and movement present Assessment & Plan Assessment & Plan (1) Heart failure with preserved ejection fraction: Code(s): I50.30 - Unspecified diastolic (congestive) heart failure Category: Medical Plan: Recent [facility] admission with evidence of fluid overload, heart failure with p reserved EF. Echocardiogram done 02/20/2025 showed EF 63%, no regional wall motion abnormalities, RV size and function grossly normal, no significant valve abnormalities. She was given IV Lasix and did have a course of p.o. Lasix as outpatient which has completed. On exam today she has significant lower leg edema, lungs clear. Labs 02/26/2025 showed potassium 3.8, creatinine 0.85. Will give her Lasix 20 mg every other day. BMP and pro BNP in 1-2 weeks. Reviewed low-salt diet, signs and symptoms of heart failure. (2) Edema: Code(s): R60.9 - Edema, unspecified Category: Medical Plan: As above (3) Atrial tachycardia: Code(s): I47.19 - Other supraventricular tachycardia Category: Medical Plan: History of atrial tachycardia that has been treated with heart rate control using diltiazem. Based on [facility] notes she had been on metoprolol however no longer is at this point. We avoided beta-lakesha with her advanced COPD. She brings EKG from [facility] 02/28/2025 which shows possible ectopic atrial tachycardia, rate 119. Pulse is regular, 69 beats per minute on exam today. She is denying heart palpitations. Will check Holter monitor to assess for AT/AF. Will have her continue diltiazem. Cardiology office visit in 2-3 months, sooner if needed. (4) Dyspnea: Code(s): R06.00 - Dyspnea, unspecified Category: Medical Qualifiers: Dyspnea type: dyspnea on exertion Qualified Code(s): R06.09 - Other forms of dyspnea Plan: Prior Cardiac evaluation for shortness of breath. She has history of asthma, COPD, steroid dependent. She follows with Dr. Peña for pulmonology. A pharmacological nuclear stress test was done on 11/01/2022 showing normal myocardial perfusion imaging, EF 53%. She has no known history of CAD. Her echoes have shown normal EF and no regional wall motion abnormalities. Her shortness of breath is chronic and most likely related to COPD. She has had evidence of heart failure with preserved EF as above. She is not grossly fluid overloaded on this time. Starting low-dose Lasix to help with her leg edema which could be multifactorial in the setting of sedentary lifestyle and sleeping in a recliner. (5) COPD (chronic obstructive pulmonary disease): Code(s): J44.9 - Chronic obstructive pulmonary disease, unspecified Category: Medical Plan: As above (6) Anemia: Code(s): D64.9 - Anemia, unspecified Category: Medical Plan: Follows with with Oncology/Hematology. Notes indicate myelodysplastic syndrome. Has intermittent symptomatic anemia and receives transfusions as needed. She h as no reported history of bleeding. No need for anticoagulation with atrial tach. If she is noted to have atrial fibrillation/ flutter then will discuss anticoagulation use with her optometric technologist Dr. Rashid. (7) DVT (deep venous thrombosis): Code(s): I82.409 - Acute embolism and thrombosis of unspecified deep veins of unspecified lower extremity Category: Medical Plan: Notes from [facility] 02/24/2025 indicate during the last hospitalization there was documentation that she was found to have a left lower extremity DVT and was started on Eliquis. It is on her discharge summary. She says her current med list at home does not include Eliquis. -will forward this note to her PCP and her optometric technologist - for DVT management. On exam today she has bilateral leg edema, no calf tenderness or redness. (8) Hospital discharge follow-up: Code(s): Z09 - Encounter for follow-up examination after completed treatment for conditions other than malignant neoplasm Category: Medical Plan: [facility] Notes reviewed. (9) Preop cardiovascular exam: Code(s): Z01.810 - Encounter for preprocedural cardiovascular examination Category: Medical Plan: Preop for urological procedures including ureter stent removal and what sounds like lithotripsy with Dr Reed. Patient reports need for general anesthesia. She has advanced COPD which adds to her overall risk. She will be an intermediate cardiac risk for these procedures. Watch for signs of Congestive heart failure, avoid fluid overload. Address anticoagulation with her PCP and or optometric technologist. Continue diltiazem and losartan for good heart rate and blood pressure control. Call/consult Cardiology if needed. Plan I discussed with the patient the management of fluid retention using low-dose diuretics and the importance of regulating fluid intake to prevent exacerbation of symptoms. We reviewed the plan to monitor atrial tachycardia with a Holter monitor and using Diltiazem to manage symptoms and support heart function. The patient was informed about the intermediate cardiac risk associated with upcoming surgical procedures and the need for careful fluid management during these events. The use of Eliquis will be up to her PCP and optometric technologist. Orders: Orders Basic Metabolic Panel 1 Week R60.9 - Edema, unspecified NT Pro B Type Natriuretic Pept 1 Week R60.9 - Edema, unspecified ECG 3 day holter monitor Today I47.19 - Other supraventricular tachycardia Medications: New furosemide (Lasix) 20 mg PO Q OTHER DAY 45 tabs 1RF 90 days Patient Instructions: - Take Lasix every other day as prescribed. - Monitor fluid intake to avoid excessive consumption. - Follow up with primary care for blood thinner management. - Attend scheduled appointments for Holter monitor. - Cardiology follow up in 2-3 mo Patient was informed and verbally consented to the use of an ambient scribe for clinic note documentation during this visit. Visit time spent on chart review, interview, assessment, orders, documentation. Coding Level of Care Code Est Pt Level 4 (77719) Complex EM visit Add On G2211 Diagnoses Heart failure with preserved ejection fraction I50.30 Edema R60.9 Atrial tachycardia I47.19 Dyspnea on exertion R06.09 Dyspnea type: dyspnea on exertion COPD (chronic obstructive pulmonary disease) J44.9 Anemia D64.9 DVT (deep venous thrombosis) I82.409 Hospital discharge follow-up Z09 Preop cardiovascular exam Z01.810 Time Spent (min) 36
== END 2025-03-11 09:24 | disposition home or self-care (01) ==
LOC: HO.HCS 08:21
PROVIDERS: PCP Family Medicine; Visit Provider Nurse Practitioner Family
DX: I50.30 Unspecified diastolic (congestive) heart failure (principal); R60.9 Edema, unspecified; I47.19 Other supraventricular tachycardia; R06.09 Other forms of dyspnea; J44.9 Chronic obstructive pulmonary disease, unspecified; D64.9 Anemia, unspecified; I82.409 Acute embolism and thrombosis of unspecified deep veins of unspecified lower extremity; Z09 Encounter for follow-up examination after completed treatment for conditions other than malignant neoplasm; Z01.810 Encounter for preprocedural cardiovascular examination
CPT/HCPCS: 99214; G2211

== ENCOUNTER → 2025-03-11 08:21 | Outpatient (BNVA) | payer MEDICARE, SELFPAY | PROVIDERS: PCP Family Medicine; Visit Provider Nurse Practitioner Family | DX: Z01.810 Encounter for preprocedural cardiovascular examination (principal); I50.30 Unspecified diastolic (congestive) heart failure; R06.09 Other forms of dyspnea; J44.9 Chronic obstructive pulmonary disease, unspecified; D64.9 Anemia, unspecified; R60.9 Edema, unspecified; I47.19 Other supraventricular tachycardia; I82.402 Acute embolism and thrombosis of unspecified deep veins of left lower extremity | CPT/HCPCS: 99212 ==

== ENCOUNTER 2025-03-20 06:10 | Outpatient (REF) | payer MEDICARE, SELFPAY ==
--- OUTSIDE RECORDS SUMMARY | 2025-03-20 06:12 | XMS_ITS | Clinical Summary ---
Author Organization [facility] Address [address] [place] [address] Care Team Providers Care Patient Office Rep Name Role Phone Unavailable Primary Care Provider [...]
--- OUTSIDE RECORDS SUMMARY | 2025-03-20 06:12 | XMS_ITS | Clinical Summary ---
Author Organization [facility] Address [address] [place] [address] Care Team Providers Care Rn Surgical Name Role Phone Unavailable Primary Care Provider [...]
--- OUTSIDE RECORDS SUMMARY | 2025-03-20 06:12 | XMS_ITS | Data Portability ---
Author Organization [facility] Address [address] [facility] [address] [place] [address] Care Team Providers Care Registered Nurse Maternity Name Role Phone RAIZA DUNNE Referring Provider LYRIC FISHER Primary Care Provider Assessment Encounter [...] for the same . She needs a cattle driver on the day of the procedure. [...] Ambulance called and she was transported to [facility] Emergency room . Addendum: Patient had a MRI at [facility] and was found to have a compression [...] for the same . She needs a cattle driver on the day of the procedure. [...] By Organization Details Last Modified Time 02/06/2018 25510 She is a diabetic . Blood sugar [...] tolerated. [email or web address] Not available 02/06/2018 09:04:48 03/22/2018 95611 She is a diabetic . Blood sugar [...] tolerated. [email or web address] Not available 03/22/2018 11:45:00 03/27/2018 85538 She was advised against bed rest lasting longer than four days and to continue activities as tolerated. [email or web address] Not available 03/30/2018 08:48:47 06/08/2018 80815 She is a diabetic . Blood sugar [...] tolerated. [email or web address] Not available 07/02/2018 14:32:40 07/03/2018 13734 She is a diabetic . Blood sugar [...] Recorded Time Degeneration of lumbar intervertebral disc 98837499 Active Dino santa MD [address] , [address], [facility] [place], [address], [place] [facility] 8 09:05:20 Lumbosacral spondylosis without myelopathy 37585839 Active Dino santa MD [address] , [address], [facility] [place], [address], [place] [facility] 8 09:49:41 Spinal stenosis of lumbar region 96707200 Active Dino santa MD [address] , [address], [facility] [place], [address], [place] [facility] 8 09:50:00 Diabetic peripheral neuropathy 029099763 Active Dino santa MD [address] , [address], [facility] [place], [address], [place] [facility] 8 10:01:20 Problem Notes None recorded. Procedures Surgical History Date Name Laterality Status Provider Name and Address Organization Details Recorded Time 07/03/19 19 Lumbar Epidural steroid injection under fluoroscopic guidance completed Dino Alcala MD [address] , [address], [place], [address], [place] [facility] 07/11/2018 10:14:00 02/07/20 18 Fluoroscopic Guided Lumbar Facet Steroid Injections of levels completed Dino Alcala MD [address] , [address], [place], [address], [place] [facility] 02/06/2018 [...] Name and Address Organization Details Recorded Time 43478 Bactrim medicatio n anaphylax is Not available Not available 01/10/2018 24412 9 RxNorm Shantelle Sylvesterzier romina [facility] 8 08:48:53 84378 Lyrica medicatio n Not available Not available Not available 01/10/2018 10886 1 RxNorm Aggre sive behav ior Shantelle Sylvesterzier romina [facility] 8 09:00:22 Medications Name [...] /min 96 % 96 % 44.1 kg/m2 261117. 5 g 176/85 mm[Hg] Shantelle Brantley [facility] 9 08:57:54 Date Recorded Body height Heart rate Oxygen saturation Oxygen saturation in Arterial blood by Pulse oximetry Systolic And Diastolic Provider Name and Address Organization Details Last Updated DateTime 9 160.02 cm 87 /min 97 % 97 % 143/46 mm[Hg] Shantelle Brantley [facility] 9 09:04:35 Date Recorded Body height Heart rate Oxygen saturation Oxygen saturation in Arterial blood by Pulse oximetry Systolic And Diastolic Provider Name and Address Organization Details Last Updated DateTime 8 160.02 cm 81 /min 94 % 94 % 143/74 mm[Hg] Shantelle Brantley [facility] 8 08:34:10 Date Recorded Body height Heart rate Oxygen saturation Oxygen saturation in Arterial blood by Pulse oximetry Systolic And Diastolic Provider Name and Address Organization Details Last Updated DateTime 8 160.02 cm 90 /min 96 % 96 % 137/54 mm[Hg] Dino santa MD [address] [place] [address] , [address], [place], [address], [place] - [facility] 8 08:46:32 Date Recorded Pain severity - 0-10 verbal numeric rating [Score] - Reported Provider Name and Address Organization Details Last Updated DateTime 03/22/2018 10 Not Available [facility] 8 05:02:19 Date Recorded Body height Heart rate Oxygen saturation Oxygen saturation in Arterial blood by Pulse oximetry Systolic And Diastolic Provider Name and Address Organization Details Last Updated DateTime 8 160.02 cm 98 /min 96 % 96 % 188/48 mm[Hg] Dino santa MD [address] [facility] , [address], [place], [address], [place] - [facility] 8 14:34:38 Social History Question Answer Notes LastModified by Photetica[employer] ion Details LastModified Time Tobacco Smoking Status Former Smoker Quit x 30 years Not Available [facility] 03/06/2020 03:16:11 Which Illicit Or Recreational Drugs Have You Used? No [id number] Information not available 03/06/2020 Education 12 Information no t available 01/10/2018 Live Alone Or With Others? With Others And Mother-in-l aw Information not available 01/10/2018 Marital Status Informatio n not available 01/10/2018 What Was The Date Of Your Most Recent Tobacco Screening? 07/11/2018 [id number] Information not available 03/06/2020 How Many Years Have You Smoked Tobacco? 20 [id number] Information not available 03/06/2020 Sex: Unknown Functional Status Question Answer Note LastModified by Organizat ion Details LastModified Time What is your level of alcohol consumption? 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 [id number] Information not available 03/06/2020 What is your [...] Diagnosis SNOMED-CT Code Diagnosis ICD10 Code Diagnosis IMO Codes Diagnosis Note [id number] Dino Alcala MD PAIN OFFICE [address] [place] [address] 01/10/2018 08:33:33 01/10/2018 11:47:32 Diabetic peripheral neuropathy 461419642 E11.40 Lumbosacra l spondylosis without myelopathy 46220508 M47.817 Degenerati on of lumbar intervertebral disc 85454989 M51.36 Spinal maryellen nosis of lumbar region 77526827 M48.061 [id number] Dino Alcala MD PAIN OFFICE [address] [employer] [address] 02/06/2018 08:09:18 02/06/2018 13:30:09 Diabetic peripheral neuropathy 037684152 E11.40 Lumbosacra l spondylosis without myelopathy 78397236 M47.817 Degenerati on of lumbar intervertebral disc 60038743 M51.36 Spinal maryellen nosis of lumbar region 15129911 M48.061 [id number] Dino Alcala MD PAIN OFFICE [address] [employer] [address] 03/22/2018 08:25:33 03/22/2018 11:52:05 Diabetic peripheral neuropathy 516108887 E11.40 Lumbosacra l spondylosis without myelopathy 34523336 M47.817 Degenerati on of lumbar intervertebral disc 39542039 M51.36 Spinal maryellen nosis of lumbar region 24675478 M48.061 39162 Dino Alcala MD PAIN OFFICE [address] [employer] [place] [address] 03/27/2018 14:05:42 03/30/2018 08:52:39 Diabetic peripheral neuropathy 119251791 E11.40 Lumbosacra l spondylosis without myelopathy 72657726 M47.817 Degenerati on of lumbar intervertebral disc 03954761 M51.36 Spinal maryellen nosis of lumbar region 64507912 M48.061 [id number] Dino Alcala MD [facility] [address] [place] [address] 06/08/2018 08:46:10 07/02/2018 14:35:55 Diabetic peripheral neuropathy 198850758 E11.40 Lumbosacra l spondylosis without myelopathy 26394455 M47.817 Degenerati on of lumbar intervertebral disc 57102421 M51.36 Spinal maryellen nosis of lumbar region 76230080 M48.061 [id number] Dino Alcala MD [facility] [address] [place] [address] 07/03/2018 08:44:34 07/11/2018 11:06:00 Diabetic peripheral neuropathy 612347722 E11.40 Lumbosacra l spondylosis without myelopathy 35095614 M47.817 Degenerati on of lumbar intervertebral disc 47907953 M51.36 Spinal maryellen nosis of lumbar region 04106677 M48.061 Health Concerns Section Related Observation LastModified by Organization Detai ls LastModified Time None Recorded Concern Status LastModified by Organization Details LastModified Time None Recorded Advance Directives Directive None Recorded Payers Insurance Date Sequence Insurance Name Policy Number Policy Tom Covered Member ID Tom Member ID Guarantor Name 01/03/2018 1 [place] Vanessa Harding [id number] Vanessa Vazquezr 07/18/2018 2 [place] [id number] Vanessa Mitchell liver [id number] Vanessa Vazquezr 07/18/2018 2 [place] [id number] Vanessa Isaacs-Eladio liver [id number] Vanessa Vazquezr 07/18/2018 1 [place] [id number] Vanessa Harding [id number] Vanessa Vazquezr 07/18/2018 1 [place] [id number] Vanessa Mitchell liver [id number] Vanessa Vazquezr 07/18/2018 2 [place] [facility] Vanessa Vazquezr [id number] Vanessa Isaacs Mehdi 07/02/2018 2 [facility] [place] (MEDICARE REPLACEMENT/A DVANTAGE - PPO) [id number] Vanessa Harding [id number] Vanessa Harding 07/12/2018 1 [facility] (MEDICARE REPLACEMENT/A DVANTAGE - PPO) [id number] Vanessa Isaacs [id number] Vanessa Harding Notes Date Note Type Note Provider Name and Address Organization Details Recorded Time 02/06/2018 text/html She is here for a left facet joint injection under fluoroscopic guidance Dino Alcala MD [address] [facility] , [address], [place], [address], [place] [facility] 02/09/2018 11:27:05 [...] with pain benefit. Dino Alcala MD [address] [facility] , [address], [place], [address], [facility] 03/26/2018 08:52:51 03/27/2018 text/html She [...] and kidney stones. Dino Alcala MD [address] [facility] , [address], [place], [address], [place] - [email or web address] 04/09/2018 10:16:37 06/08/2018 text/html She is here for a follow up . She states she was admitted to [facility] and had a MRI which showed compression [...] with pain benefit. Dino Alcala MD [address] [facility] , [address], [place], [address], [facility] - Pain Management 07/10/2018 10:40:51 07/03/2018 text/html She is here for a trial of lumbar epidural steroid injection under fluoroscopic guidance. Dino Alcala MD [address] [facility] , [address], [place], [address], [facility] - Pain Management 07/12/2018 13:29:32 OBGyn Episode No OBEpisode recorded.
--- OUTSIDE RECORDS SUMMARY | 2025-03-20 06:12 | XMS_ITS | Clinical Summary ---
Author Organization [facility] Address [address] [facility] [address] [place] [address] Phone Care Team Providers Care Filter Press Supervisor Name Role Phone Tran Blackwell MD Primary Care Provider [phone] Bettina Rashid MD Unavailable [phone] Allergies Active Allergy Reactions Criticality Noted [...] 1:09 PM EDT): Uncertain details. Records from [facility] not available. Has been on medication [...] any issues. Will get labs from [facility] Assessment & Plan (02/29/2024 1:06 PM [...] with glycemic control. [facility] Foot & nail care good. BP [...] date with [facility]. Will request labs from [facility] Assessment & Plan (02/18/2023 8:43 PM EDT): [...] her glucose levels. Up to date with [facility]. Labs ordered today Assessment & Plan [...] recently had blood work done at [facility]. Will get results to review and determine if any medication adjustments are needed Assessment & Plan (02/18/2023 8:43 PM EDT): Euthyroid on labs in July. Would repeat given weight loss, which can lower dose requirements. Given slip to include w/ labs for heme-onc @ [facility] tomorrow. To message me with result. Assessment [...] [facility] 07/18/2012 Overview (07/12/2014): with b[facility] current use of oral hypoglycemic drug Assessment [...] Refill [facility] [address] [place] [address] Laura Betancur MD Medication Refill from Last [...] AM EST Office Visit [facility] [address] [place] [address] Shavonne Sun PA-C [address] [place] [address] Health Maintenance Due Date Last Done Comments [...] External 4.5 3.4 - 5.0 mmol/L Result [facility] Historical Provider MD LAB BLOOD ORDERABLES Liz l Result * (ABNORMAL) Outside Serum Creatinine Level (02/28/2024) Creatinine, serum - External 0.77(A) 0.8 - 1.3 mg/dL Result [facility] Provider MD LAB BLOOD ORDERABLES Liz l Result * Outside HbA1c (11/16/2022) Hemoglobin A1c - External 7.1 % Result [facility] Provider MD LAB BLOOD ORDERABLES Liz l Result * TSH with reflex (08/16/2022 10:03 AM EDT) TSH 1.51 0.27 - 4.20 uIU/mL [facility] Blood 08/16/2022 10:0 3 AM EDT 08/16/2022 10:11 AM EDT Laura Betancur MD LAB BLOOD ORDERABLES F inal Result [facility] [address] [place] [address] from Last 3 Months or Most Recently Relevant to Health Maintenance Insurance [employer] PPO MEDICARE REPLACEMENT [facility] MEDICARE REPLACEMENT [facility] MEDICARE [facility]PLACEMENT [facility] MEDICARE REPLACEMENT [facility] MEDICARE REPLACEMENT [facility] MEDICARE REPLACEMENT Care Teams Filter Press Supervisor Relationship Specialty Start Date End Date Tran Blackwell MD [address] [place] [address] PCP - General Family Medicine 08/16/22 Bettina Rashid MD [address] [place] [id number] [email or web address] Internal [facility] 09/24/24 Additional Source Comments The information contained in this document represents components of the legal health record. It is not the complete legal health record.[facility]
--- OUTSIDE RECORDS SUMMARY | 2025-03-20 06:12 | XMS_ITS | Clinical Summary ---
Author Organization [facility] Address [address] [place] [address] Care Team Providers Care Cleaner Carpet And Upholstery Name Role Phone Tran Blackwell Primary Care Provider [phone] Allergies Active Allergy Reactions Criticality Noted Date Comments Multivit, Min No.[id number] Dyspnea High 04/12 Pregabalin Mood Disturbance 04/12/2023 [...] this topic Insurance [employer] MCR Care Teams Cleaner Carpet And Upholstery Relationship Specialty Start Date End Date Tran Blackwell [address] [place] [id number] PCP - General Family Medicine 03/27/23
--- OUTSIDE RECORDS SUMMARY | 2025-03-20 06:12 | XMS_ITS ---
Author Name DAYNA MORAN, MS. MICHAEL Herron SUSANNE Address [address] [place] [address] Phone [phone] Organization [facility] Care Team Providers Care Site Manager Name Role Phone MICHAEL MCINTOSH Unavailable [phone] Reason for Referral Not Available Allergies, adverse [...] mplaint [facility] [place], [place], 09/25/2024 Encntr for f/u exam aft trtm t for cond oth than malig neoplmUrinary tract infection, site not specified [facility] [place], [place], PC 09/25/2024 Encntr for f/u exam aft trtm t for cond oth than malig neoplmUrinary tract infection, site not specified [facility] [place], [place], 09/25/2024 Encntr for f/u exam aft trtm t for cond oth than malig neoplmUrinary tract infection, site not specified Vital Signs Date of Collection Vitals 2024-09-25 12:47:12 Pain Scale - 4.0 {sc ore} Social History Sex Female History of Procedures Procedures Service Procedure code Service date Servicing provider Phone# [facility] [id number] 2024-09-25 No Data Available No Data Avail [...] (September 2024) pt has an appt with [facility] - seeing Dr Schwab - [...] IPAdm it Date: 09/12/24Discharge Date: 09/16/24[facility]FE[facility], SITE [...]
--- OUTSIDE RECORDS SUMMARY | 2025-03-20 06:12 | XMS_ITS | Encounter Summary ---
Author Organization [facility] Address [address] [place] [address] Care Team Providers Care Gui Developer Name Role Phone Tran [place] Primary Care Provider [phone] Encounter Details Date Type Department Care Team (Late st Contact Info) Description 04/05/2023 Lab Requisition [facility] Three Lab [address] [place] [address] Dre Ronquillo MD PhD [address] [place] [address] Social History Tobacco Use Types Packs/Day [...] of this encounter Procedures * Due to [place] [employer] law, this organization might not be sharing negative HIV tests. Procedure Name Priority Date/Time Associated Diagnosis Comments TISSUE EXAM Routine 04/05/2023 2:14 PM EST documented in this encounter Results * Due to [place] [employer] law, this organization might not be sharing negative HIV tests. * Tissue Exam (04/05/2023 2:14 PM EST) Final Diagnosis Review of Outside Slides Received from [facility] Labeled [id number] Procedure Date 02/09/2023: Bone Marrow, Right Ischial [...] (WHO, 5th edition). Clinical correlation is warranted. [facility] MANUAL 04/06/2023 2:43 PM EST [facility] at 1443 EST Clinical History Macrocytic anemia [facility] MANUAL 04/06/2023 2:43 PM EST [facility] Gross Consult Client Facility: [facility] Slide Identification: [id number] Number of Glass Slides Received: 11 Number of Blocks Received: 0 Client Pathologist: Jude Fong MD Accompanying Report Received: yes [facility] MANUAL 04/06/2023 2:43 PM EST [employer] [facility] Embedded Images [facility] MANUAL 04/06/2023 2:43 PM EST [employer] [facility] Resulting Agency Case was signed out at [facility], Department of Pathology, [employer] 3 CLIA [id number] [facility] MANUAL 04/06/2023 2:43 PM EST [employer] [facility] Report Header Surgical Pathology Report Case: [id number] Authorizing Provider: Dre Ronquillo MD PhD Collected: 04/05/2023 1414 Ordering Location: [facility] Received: 04/05/2023 1414 [facility] Three Lab Pathologist: Manny Villanueva MD Specimen: Bone Marrow Aspirate, Right Ischial Wing, Aspirate and Clot 04/06/2023 2:43 PM EST [facility] [employer] [facility] Tissue Specimen from bone marrow obtained by aspiration / Unknown 04/05/2023 2:14 PM EST 04/05/2023 2:14 PM EST us Dre Ronquillo MD PhD LAB PATHOLOGY/CYTOLOGY ORDERABL ES Final Result [facility] [address] [place] [address] documented in this encounter Visit Diagnoses Not on filedocumented in this encounter Care Teams Gui Developer Relationship Specialty Start Date End Date Tran Blackwell [address] [place] [phone] PCP - General Family Medicine 03/27/23 documented as of this encounter
== END 2025-03-20 06:11 | disposition home or self-care (01) ==
LOC: CF 06:10
PROVIDERS: Visit Provider Internal Medicine
DX: M25.511 Pain in right shoulder (principal); G89.29 Other chronic pain
CPT/HCPCS: 64418; J2795

== ENCOUNTER 2025-03-20 09:38 | Outpatient (AMB) | payer MEDICARE, SELFPAY ==
[2025-03-20 10:06] VITALS: BP 146/66; PULSE 77; RESP 16; O2SAT 97
--- NOTE | 2025-03-20 10:06 | A.OFFVIS_ITS ---
Vital Signs 03/20/25 10:06 03/20/25 10:56 BP 146/66 H 140/62 H Blood Pressure Location Lt brachial Lt brachial Position Sitting Sitting Respiration 16 16 Pulse 77 120 H Pulse Source Pulse Oximeter Pulse Oximeter Pulse Oximetry (%) 97 98 Oxygen Delivery Method Room Air Room Air Intake Visit Reasons: Right suprascapular nerve block Housekeeping And Laundry Team Leader Required: No Allergies pregabalin Allergy (Severe, Verified 03/20/25 10:06) Manic Sulfa (Sulfonamide Antibiotics) Allergy (Severe, Verified 03/20/25 10:06) Hives tramadol Allergy (Verified 03/20/25 10:06) Hives Medication List - Last Reconciled 03/20/25 by Anna Panchal LPN albuterol sulfate 2.5 mg (3 mL) inhalation Q6H PRN 30 days albuterol sulfate 90 mcg/actuation 2 inhalations inhalation Q6H PRN 30 days alendronate (Fosamax) 70 mg PO DAVID@1800 aspirin (Aspirin Childrens) 81 mg PO DAILY atorvastatin 20 mg PO BEDTIME cholecalciferol (vitamin D3) 25 mcg PO DAILY cyanocobalamin (vitamin B-12) 1,000 mcg PO DAILY diltiazem HCl CD 180 mg PO DAILY ehvgealjwld-jqasfnnvn-fkaqcblg 200-62.5-25 mcg (Trelegy Ellipta) 1 inh inhalation DAILY 30 days furosemide (Lasix) 20 mg PO Q OTHER DAY 90 days gabapentin 400 mg PO DAILY lenalidomide 10 mg PO DAILY levothyroxine 112 mcg PO DAILY@0600 loperamide (Imodium A-D) 2 mg PO Q4H PRN losartan 50 mg PO DAILY metformin 1,000 mg PO DAILY metformin 500 mg PO BEDTIME nebulizers As directed omeprazole 20 mg PO DAILY@0630 paroxetine HCl 40 mg PO DAILY prednisone 10 mg PO DAILY simvastatin 40 mg PO BEDTIME tirzepatide (Mounjaro) mg subcut QWEEK HPI HPI Right suprascapular nerve block: Details: Patient presents for scheduled procedure. Denies any recent cough, cold, infection, fever or other significant changes in medical history since last office visit. [facility] Medical History Osteoarthritis of right shoulder Class 3 obesity Current chronic use of systemic steroids T12 compression fracture Breast calcifications Macular degeneration of both eyes Lumbar spondylolysis Adrenal insufficiency Moderate persistent asthma in adult without complication Anxiety Obstructive sleep apnea Osteoporosis Osteopenia Fibromyalgia GERD (gastroesophageal reflux disease) Hypothyroidism Mixed hyperlipidemia Essential hypertension Morbid obesity Diabetes mellitus, type II Steroid dependence Compression fracture Asthma COPD (chronic obstructive pulmonary disease) Surgical History History of cataract surgery History of left hip replacement History of total right knee replacement (TKR) Family History Father COPD (chronic obstructive pulmonary disease) Mother ASCVD (arteriosclerotic cardiovascular disease) Sister Stented coronary artery Social History Household Members: Spouse Housing: House Are you a primary certified social workers in health care to a significant other at home: No Do you presently have visiting nurse or other home services: No Patient Tobacco Use Status: Never used Tobacco Tobacco use type: Cigarette Years Smoked: 30 years Second Hand Smoke Exposure: No service: No Current occupational status: retired Current occupation: left hand Physical Exam Vital Signs: Last Vital Signs Pulse 120 H 03/20/25 10:56 Resp 16 03/20/25 10:56 BP 140/62 H 03/20/25 10:56 Pulse Ox 98 03/20/25 10:56 Oxygen Delivery Method Room Air 03/20/25 10:56 Office Procedures Nerve Block Details: Diagnostic suprascapular nerve block, Right, Ultrasound guided After obtaining written consent, pre-procedure blood pressure and heart rate were stable and recorded in the nursing record. The patient was placed sitting on the table. The area overlying the peripheral nerve was widely prepped with chloraprep, allowed to dry and sterilely draped. Using ultrasound, the appropriate landmarks were identified. A 21 gauge 80 mm echostim needle was advanced under ultrasound guidance using an in-plane technique to the suprascapular notch. Aspiration was negative for air, heme and synovial fluid. 2 cc of ropivacaine 0.5% was injected below the suprascapular ligament. The needle was removed, skin cleansed and a sterile bandage was applied. The patient tolerated the procedure well and no complications were encountered. Following the procedure the patient's vital signs were stable. The patient was discharged home in good condition with post-procedural instructions. Time Out: Immediately prior to the procedure, the following was verbally confirmed that there is a signed consent form and that the correct patient, planned procedure, site and side are consistent with documentation and that necessary equipment and/or blood products are available prior to the start of the case. Complications: none EBL: <5 cc 99269 - Suprascapular Procedure code (CPT) selection complete Assessment & Plan Assessment & Plan (1) Chronic right shoulder pain: Code(s): M25.511 - Pain in right shoulder; G89.29 - Other chronic pain Category: Medical Plan Patient is status post right diagnostic suprascapular nerve block. Patient tolerated procedure well and was discharged home in stable condition with discharge instructions. All questions were answered. We will follow-up via telephone or in clinic to assess response to therapy. A follow-up appointment was made during today's visit. Orders: Orders AMB Nerve Block 03/20/25 G89.29 - Other chronic pain, M25.511 - Pain in right shoulder Coding Level of Care Code Procedure Only Diagnoses Chronic right shoulder pain M25.511; G89.29 CPT Codes Nerve Block - Nerve Block 4: 78582 - Suprascapular ([id number])
[2025-03-20 10:56] VITALS: BP 140/62; PULSE 120; RESP 16; O2SAT 98
--- OUTSIDE RECORDS SUMMARY | 2025-03-20 11:16 | XMS_ITS | Encounter Summary ---
Author Organization [facility] Address [address] [place] [address] Care Team Providers Care Rustic Terrazzo Setter Name Role Phone Leny Brice MD Primary Care Provider [phone] Encounter Details Date Type Department Care Team (Late st Contact Info) Description 02/20/2025 Lab Requisition [facility] [address] [facility] [place] [address] Timoteo Reed MD [address] [facility] [address] [place] [phone] Urinary tract infection, site not specified Social History Tobacco Use Types Packs/Day Years [...] file documented as of this encounter Procedures Procedure Name Priority Date/Time Associated Diagnosis Comments COMPLETE BLOOD COUNT Routine 02/20/2025 12:00 AM EDT Urinary tract infection, site not specified documented in this encounter Results * (ABNORMAL) Complete blood count (02/20/2025 12:00 AM EDT) WBC 4.6(L) 4.8 - 10.8 K/mcL LAB HEMETOLOGY METHOD 02/20/2025 1:26 PM EDT [facility] RBC 3.40(L) 3.80 - 4.80 M/mcL LAB HEMETOLOGY METHOD 02/20/2025 1:26 PM [facility] Hemoglobin 10.4(L) 11.5 - 16.0 g/dL LAB HEMETOLOGY METHOD 02/20/2025 1:26 PM [facility] LAB Hematocrit 33.6(L) 35.0 - 47.0 % LAB HEMETOLOGY METHOD 02/20/2025 1:26 PM [facility] MCV 98.2(H) 79.0 - 98.0 FL LAB HEMETOLOGY METHOD 02/20/2025 1:26 PM [facility] LAB MCH 30.4 27.0 - 32.0 pcg LAB HEMETOLOGY METHOD 02/20/2025 1:26 PM [facility] LAB MCHC 31.0(L) 32.0 - 37.0 g/dL LAB HEMETOLOGY METHOD 02/20/2025 1:26 PM [facility] RDW 20.0(H) 11.0 - 15.0 % LAB HEMETOLOGY METHOD 02/20/2025 1:26 PM [facility] LAB Platelets 220 130 - 400 K/mcL LAB HEMETOLOGY METHOD 02/20/2025 1:26 PM [facility] MPV 10.9 7.0 - 11.0 FL LAB HEMETOLOGY METHOD 02/20/2025 1:26 PM [facility] LAB NRBC 0.0 <1.0 % LAB HEMETOLOGY METHOD 02/20/2025 1:26 PM [facility] LAB NRBC Absolute 0.00 <0.10 K/mcL LAB HEMETOLOGY METHOD 02/20/2025 1:26 PM [facility] Blood Venous blood specimen / Unknown 02/20/2025 02/20/2025 12:44 PM EDT us Timoteo Reed MD LAB BLOOD ORDERABLES Final Res ult [facility] [address] [place] [address], documented in this encounter Visit Diagnoses Diagnosis Urinary tract infection, site not specified documented in this encounter Care Teams Rustic Terrazzo Setter Relationship Specialty Start Date End Date Leny Brice MD [address] [place] [id number] PCP - General Hospitalist Medicine 10/15/24 documented as of this encounter
--- OUTSIDE RECORDS SUMMARY | 2025-03-20 11:16 | XMS_ITS | Encounter Summary ---
Author Organization [facility] Address [address] [place] [address] Care Team Providers Care Accounting Machine Operator Name Role Phone Leny Brice MD Primary Care Provider [phone] Encounter Details Date Type Department Care Team (Latest Contact Info) Description 10/15/2024 Lab Requisition [facility] [address] [facility] [place] [address] Leny Brice MD [address] [place] [address] Anemia, unspecified; Essential (primary) hypertension; snf (current) use of anticoagulants Social History Tobacco [...] AM EDT Anemia, unspecified Essential (primary) hypertension buttermaker (current) use of anticoagulants COMPLETE BLOOD COUNT Routine 10/15/2024 5:21 AM EDT Anemia, unspecified Essential (primary) hypertension buttermaker (current) use of anticoagulants COMPREHENSIVE METABOLIC PANEL Routine 10/15/2024 5:21 AM EDT Anemia, unspecified Essential (primary) hypertension snf (current) use of anticoagulants documented in this encounter Results * (ABNORMAL) Comprehensive metabolic panel (10/15/2024 5:21 AM EDT) Sodium 139 133 - 145 mmol/L LAB CHEMISTRY METHOD 10/15/2024 10:12 AM [facility] Potassium 3.6 3.5 - 5.5 mmol/L LAB CHEMISTRY METHOD 10/15/2024 10:12 AM [facility] Chloride 108 96 - 110 mmol/L LAB CHEMISTRY METHOD 10/15/2024 10:12 AM [facility] CO2 25 21 - 32 mmol/L LAB CHEMISTRY METHOD 10/15/2024 10:12 AM [facility] Anion Gap 6 3 - 11 LAB CHEMISTRY METHOD 10/15/2024 10:12 AM [facility] Glucose 40(L) 70 - 100 mg/dL LAB CHEMISTRY METHOD 10/15/2024 10:12 AM [facility] BUN 19 5 - 25 mg/dL LAB CHEMISTRY METHOD 10/15/2024 10:12 AM [facility] Creatinine 0.77 0.50 - 1.10 mg/dL LAB CHEMISTRY METHOD 10/15/2024 10:12 AM [facility] LAB eGFR 83 >=60 mL/min/1. 73m2 LAB CHEMISTRY METHOD 10/15/2024 10:12 AM [facility] Comment:Calculation based on the Chronic Kidney Disease Epidemiology Collaboration (CKD-EPI) equation refit without adjustment for race. BUN/Creatinine Ratio 24.7 LAB CHEMISTRY METHOD 10/15/2024 10:12 AM [facility] Calcium 8.0(L) 8.5 - 10.5 mg/dL LAB CHEMISTRY METHOD 10/15/2024 10:12 AM [facility] AST (SGOT) 10 10 - 42 unit/L LAB CHEMISTRY METHOD 10/15/2024 10:12 AM EDT [facility] ALT (SGPT) 16 10 - 60 unit/L LAB CHEMISTRY METHOD 10/15/2024 10:12 AM EDT [facility] Alkaline Phosphatase 68 42 - 121 unit/L LAB CHEMISTRY METHOD 10/15/2024 10:12 AM EDT [facility] Total Protein 5.5(L) 6.0 - 8.0 g/dL LAB CHEMISTRY METHOD 10/15/2024 10:12 AM EDT [facility] Albumin 2.8(L) 3.2 - 5.0 g/dL LAB CHEMISTRY METHOD 10/15/2024 10:12 AM EDT [facility] Total Bilirubin 0.5 0.0 - 1.4 mg/dL LAB CHEMISTRY METHOD 10/15/2024 10:12 AM EDT [facility] Blood Venous blood specimen / Unknown Venipuncture / Unknown 10/15/2024 5:21 AM EDT 10/15/2024 9:05 AM EDT Leny Brcie MD LAB BLOOD ORDERABLES Final Resu lt [facility] [address] [place] [address], [place] [phone] * (ABNORMAL) Prothrombin time with INR (10/15/2024 5:21 AM EDT) Protime 10.1(L) 10.6 - 13.9 sec LAB COAGULATION METHOD 10/15/2024 9:44 AM EDT [facility] INR 0.8 LAB COAGULATION METHOD 10/15/2024 9:44 AM EDT [facility] Blood Venous blood specimen / Unknown Venipuncture / Unknown 10/15/2024 5:21 AM EDT 10/15/2024 9:05 AM EDT us eLny Brice MD LAB BLOOD ORDERABLES Final Resu lt [facility] [address] [place] [address], * (ABNORMAL) Complete blood count (10/15/2024 5:21 AM EDT) [facility] Signature WBC 6.0 4.8 - 10.8 K/mcL LAB HEMETOLOGY METHOD 10/15/2024 9:28 AM EDT [facility] RBC 2.90(L) 3.80 - 4.80 M/mcL LAB HEMETOLOGY METHOD 10/15/2024 9:28 AM [facility] Hemoglobin 8.9(L) 11.5 - 16.0 g/dL LAB HEMETOLOGY METHOD 10/15/2024 9:28 AM [facility] LAB Hematocrit 29.4(L) 35.0 - 47.0 % LAB HEMETOLOGY METHOD 10/15/2024 9:28 AM [facility] MCV 102.1(H) 79.0 - 98.0 FL LAB HEMETOLOGY METHOD 10/15/2024 9:28 AM [facility] MCH 30.9 27.0 - 32.0 pcg LAB HEMETOLOGY METHOD 10/15/2024 9:28 AM [facility] MCHC 30.3(L) 32.0 - 37.0 g/dL LAB HEMETOLOGY METHOD 10/15/2024 9:28 AM [facility] RDW 18.5(H) 11.0 - 15.0 % LAB HEMETOLOGY METHOD 10/15/2024 9:28 AM [facility] Platelets 165 130 - 400 K/mcL LAB HEMETOLOGY METHOD 10/15/2024 9:28 AM [facility] MPV 12.1(H) 7.0 - 11.0 FL LAB HEMETOLOGY METHOD 10/15/2024 9:28 AM EDT [facility] NRBC 0.0 <1.0 % LAB HEMETOLOGY METHOD 10/15/2024 9:28 AM EDT [facility] NRBC Absolute 0.00 <0.10 K/mcL LAB HEMETOLOGY METHOD 10/15/2024 9:28 AM EDT [facility] Blood Venous blood specimen / Unknown Venipuncture / Unknown 10/15/2024 5:21 AM EDT 10/15/2024 9:05 AM EDT us Leny Brice MD LAB BLOOD ORDERABLES Final Resu lt [facility] [address] [place] [address], documented in this encounter Visit Diagnoses Diagnosis Anemia, unspecified Essential (primary) hypertension Unspecified essential hypertension buttermaker (current) use of anticoagulants Long-term (current) use of anticoagulants documented in this encounter Care Teams Accounting Machine Operator Relationship Specialty Start Date End Date Leny Brice MD [address] [place] [address] PCP - General Hospitalist Medicine 10/15/24 documented as of this encounter
--- OUTSIDE RECORDS SUMMARY | 2025-03-20 11:16 | XMS_ITS | Encounter Summary ---
Author Organization [facility] Address [address] [place] [address] Care Team Providers Care Billing Machine Operator Name Role Phone Leny Brice MD Primary Care Provider Encounter Details Date Type Department Care Team (Late st Contact Info) Description 10/17/2024 Lab Requisition [facility] - Main Lab [address] [facility] [place] [address] Leny Brice MD [address] [place] [id number] Thrombocytopenia, unspecified (CMS/HCC V24) Social History Tobacco [...] 4:58 AM EDT Thrombocytopenia, unspecified (CMS/HCC V24) BASIC METABOLIC PANEL Routine 10/17/2024 4:58 AM EDT Thrombocytopenia, unspecified (CMS/HCC V24) documented in this encounter Results * (ABNORMAL) Basic metabolic panel (10/17/2024 4:58 AM EDT) Sodium 141 133 - 145 mmol/L LAB CHEMISTRY METHOD 10/17/2024 7:02 AM [facility] Potassium 3.6 3.5 - 5.5 mmol/L LAB CHEMISTRY METHOD 10/17/2024 7:02 AM [facility] Chloride 107 96 - 110 mmol/L LAB CHEMISTRY METHOD 10/17/2024 7:02 AM [facility] CO2 26 21 - 32 mmol/L LAB CHEMISTRY METHOD 10/17/2024 7:02 AM [facility] Anion Gap 8 3 - 11 LAB CHEMISTRY METHOD 10/17/2024 7:02 AM [facility] Glucose 91 70 - 100 mg/dL LAB CHEMISTRY METHOD 10/17/2024 7:02 AM [facility] BUN 17 5 - 25 mg/dL LAB CHEMISTRY METHOD 10/17/2024 7:02 AM [facility] Creatinine 0.86 0.50 - 1.10 mg/dL LAB CHEMISTRY METHOD 10/17/2024 7:02 AM [facility] eGFR 72 >=60 mL/min/1. 73m2 LAB CHEMISTRY METHOD 10/17/2024 7:02 AM [facility] Comment:Calculation based on the Chronic Kidney Disease Epidemiology Collaboration (CKD-EPI) equation refit without adjustment for race. BUN/Creatinine Ratio 19.8 LAB CHEMISTRY METHOD 10/17/2024 7:02 AM [facility] Calcium 7.9(L) 8.5 - 10.5 mg/dL LAB CHEMISTRY METHOD 10/17/2024 7:02 AM [facility] Blood Venous blood specimen / Unknown Venipuncture / Unknown 10/17/2024 4:58 AM EDT 10/17/2024 5:48 AM EDT us Leny Brice MD LAB BLOOD ORDERABLES Final Resu lt [facility] [address] [place] [address], * (ABNORMAL) Complete blood count (10/17/2024 4:58 AM EDT) [facility] Signature WBC 4.6(L) 4.8 - 10.8 K/mcL LAB HEMETOLOGY METHOD 10/17/2024 5:55 AM EDT [facility] RBC 2.70(L) 3.80 - 4.80 M/mcL LAB HEMETOLOGY METHOD 10/17/2024 5:55 AM EDT [facility] Hemoglobin 8.5(L) 11.5 - 16.0 g/dL LAB HEMETOLOGY METHOD 10/17/2024 5:55 AM EDT [facility] Hematocrit 27.8(L) 35.0 - 47.0 % LAB HEMETOLOGY METHOD 10/17/2024 5:55 AM EDT [facility] MCV 102.6(H) 79.0 - 98.0 FL LAB HEMETOLOGY METHOD 10/17/2024 5:55 AM EDT [facility] MCH 31.4 27.0 - 32.0 pcg LAB HEMETOLOGY [facility] MCHC 30.6(L) 32.0 - 37.0 g/dL LAB HEMETOLOGY METHOD 10/17/2024 5:55 AM EDT [facility] RDW 18.5(H) 11.0 - 15.0 % LAB HEMETOLOGY METHOD 10/17/2024 5:55 AM EDT [facility] Platelets 165 130 - 400 K/mcL LAB HEMETOLOGY METHOD 10/17/2024 5:55 AM EDT [facility] MPV 11.2(H) 7.0 - 11.0 FL LAB HEMETOLOGY METHOD 10/17/2024 5:55 AM EDT [facility] NRBC 0.0 <1.0 % LAB HEMETOLOGY METHOD 10/17/2024 5:55 AM EDT [facility] NRBC Absolute 0.00 <0.10 K/mcL LAB HEMETOLOGY METHOD 10/17/2024 5:55 AM EDT [facility] Blood Venous blood specimen / Unknown Venipuncture / Unknown 10/17/2024 4:58 AM EDT 10/17/2024 5:48 AM EDT us Leny Brice MD LAB BLOOD ORDERABLES Final Resu lt [facility] [address] [place] [address], [place] [phone] documented in this encounter Visit Diagnoses Diagnosis Thrombocytopenia, unspecified (CMS/HCC V24) Thrombocytopenia, unspecified documented in this encounter Care Teams Billing Machine Operator Relationship Specialty Start Date End Date Leny Brice MD [address] [place] [id number] PCP - General Hospitalist Medicine 10/15/24 documented as of this encounter
--- OUTSIDE RECORDS SUMMARY | 2025-03-20 11:16 | XMS_ITS | Clinical Summary ---
Author Organization [address] Address [address] [place] [phone] Phone Care Team Providers Care Combiner Name Role Phone Leny Brice MD Primary Care Provider [phone] Encounters Date Type Department Care Team Description 02/20/2025 Lab Requisition [facility] [address] [place] [phone] Timoteo Reed MD Urinary tract infection, site not specified 02/20/2025 Lab Requisition [facility] [address] [place] [address] Timoteo Reed MD Urinary tract infection, site not specified 02/04/2025 Lab Requisition [facility] [address] [place] [address] Leny Brice MD Hypothyroidism, unspecified 02/01/2025 Lab Requisition [facility] [address] [place] [phone] Leny Brice MD Hypothyroidism, unspecified 01/23/2025 Lab Requisition [facility] [address] [place] [phone] Leny Brice MD Myelodysplastic syndrome, unspecified (CMS/HCC V24, CMS/HCC V28); Hyperlipidemia, unspecified; Hypothyroidism, unspecified; Type 2 diabetes mellitus without complications (CMS/HCC V24, CMS/HCC V28); Vitamin D deficiency, unspecified from Last 3 Months Surgical History Surgery Date Site/Laterality Comments HYSTERECTOMY PROCEDURE: HISTORICAL HYSTERECTOMY CATARACT EXTRACTION PROCEDURE: HISTORICAL CATARACT REMOVAL SHOULDER SURGERY PROCEDURE: AL UNLISTED PROCEDURE SHOULDER LITHOTRIPSY PROCEDURE: HISTORICAL LITHOTRIPSY CYST REMOVAL PROCEDURE: AL EXCISION PILONIDAL CYST/SINUS SIMPLE DENTAL SURGERY PROCEDURE: AL UNLISTED PROCEDURE DENTOALVEOLAR STRUCTURES TOTAL KNEE ARTHROPLASTY 2001 Right PROCEDURE: AL ARTHRP KNE CONDYLE&PLATU MEDIAL&LAT COMPARTMENTS HIP ARTHROPLASTY 2012 Left PROCEDURE: HISTORICAL HIP REPLACEMENT OTHER SURGICAL HISTORY 12/29/2021 Left PROCEDURE: AL ARTHRODESIS SI JOINT PERCUTANEOUS/MIN INVASIVE; COMMENT: Left SI joint fusion/revision, Dr. Brock CARPAL TUNNEL RELEASE 05/18/2022 PROCEDURE: HISTORICAL CARPAL TUNNEL REL; COMMENT: Right median nerve decompression, Dr. Brock Medical History Medical History Date Comments Asthma-chronic obstructive p ulmonary disease overlap syndrome ([facility] V24, [facility] V28) 12/29/2016 DX:Asthma-chronic obstructiv e pulmonary disease overlap syndrome (HCC) Hypercholesterolemia 11/29/2016 DX:Hypercho lesterolemia Hypothyroidism 11/29/2016 DX:Hypothyroidis m Obstructive sleep apnea syndrome in adult 017 DX:Obstructive sleep apnea syndrome in adult Morbid obesity with BMI of 4 0.0-44.9, adult ([facility] V24, [facility] V28) 10/03/2017 DX:Morbid obesity wit h BMI of 40.0-44.9, adult ([facility]) Renal calculi DX:Renal calculi Type 2 diabetes mellitus wit h cataract ([facility] V24, [facility] V28) 11/29/2016 DX:Type 2 diabetes mellitus with cataract ([facility]) Cataract 10/03/2017 DX:Cataract; COM MENT: [...] Last Done Comments Breast Cancer Screening 1955 Colorectal Cancer Screening: Colonoscopy 1953 Diabetes: Annual Foot Exam 1963 Diabetes: Annual Retina Eye Exam 1963 DTaP,Tdap,and Td Vaccines (1 - Tdap) 1972 Pneumococcal Vaccine: 50+ Years (1 of 2 - PCV) 1972 RSV Immunization Adult Patients (1 - Risk 50-74 years 1-dose series) 2003 Zoster Vaccines (1 of 2) 2003 Falls Risk Assessment 04/30/2022 Hepatitis C Screening 04/30/2022 Medicare Annual Wellness Visit 04/30/2022 Osteoporosis Screening (Bone Density Screening) 04/30/2022 Social Influencers of Health Screening 04/30/2022 Diabetes: Annual Urine Albumin-Creatinine Ratio (uACR) 08/17/2023 08/16/2022 Depression Screening 05/22/2024 COVID-19 Vaccine ( - season) 2025 04/26/2021 Influenza Vaccine (#1) 2025 Diabetes: Blood Sugar Control Test (HGBA1C) 07/23/2025 01/23/2025 Diabetes: Annual GFR (Glomerular Filtration Rate) 01/23/2026 01/23/2025, 10/22/2024, 10/17/2024, Additional history exists Hypertension/CHF/CAD Annual BMP Blood Test 01/23/2026 01/23/2025, 10/22/2024, 10/17/2024, Additional history exists Cholesterol Screening (Lipid Panel) 01/23/2030 01/23/2025 HIB Vaccines Aged Out No longer eligi [...] EDT Urinary tract infection, site not specified CULTURE URINE Routine 02/20/2025 12:00 AM EDT Urinary tract infection, site not specified THYROID STIMULATING HORMONE Routine 02/04/2025 4:48 AM EDT Hypothyroidism, unspecified THYROID STIMULATING HORMONE Routine 02/03/2025 8:30 AM EDT Hypothyroidism, unspecified CBC WITH AUTO DIFFERENTIAL Routine 01/23/2025 5:39 AM EDT Myelodysplastic syndrome, unspecified ([facility] V24, [facility] V28) Hyperlipidemia, unspecified Hypothyroidism, unspecified Type 2 diabetes mellitus without complications ([facility] V24, [facility] V28) Vitamin D deficiency, unspecified VITAMIN D 25 HYDROXY Routine 01/23/2025 5:39 AM EDT Myelodysplastic syndrome, unspecified ([facility] V24, [facility] V28) Hyperlipidemia, unspecified Hypothyroidism, unspecified Type 2 diabetes mellitus without complications ([facility] V24, [facility] V28) Vitamin D deficiency, unspecified HEMOGLOBIN A1C Routine 01/23/2025 5:39 AM EDT Myelodysplastic syndrome, unspecified ([facility] V24, [facility] V28) Hyperlipidemia, unspecified Hypothyroidism, unspecified Type 2 diabetes mellitus without complications ([facility] V24, [facility] V28) Vitamin D deficiency, unspecified VITAMIN B12 AND FOLATE Routine 01/23/2025 5:39 AM EDT Myelodysplastic syndrome, unspecified (CMS/HCC V24, CMS/HCC V28) Hyperlipidemia, unspecified Hypothyroidism, unspecified Type 2 diabetes mellitus without complications (CMS/HCC V24, CMS/HCC V28) Vitamin D deficiency, unspecified THYROID STIMULATING HORMONE Routine 01/23/2025 5:39 AM EDT Myelodysplastic syndrome, unspecified (CMS/HCC V24, CMS/HCC V28) Hyperlipidemia, unspecified Hypothyroidism, unspecified Type 2 diabetes mellitus without complications (CMS/HCC V24, CMS/HCC V28) Vitamin D deficiency, unspecified LIPID PANEL WITH REFLEX TO DIRECT LDL Routine 01/23/2025 5:39 AM EDT Myelodysplastic syndrome, unspecified (CMS/HCC V24, CMS/HCC V28) Hyperlipidemia, unspecified Hypothyroidism, unspecified Type 2 diabetes mellitus without complications (CMS/HCC V24, CMS/HCC V28) Vitamin D deficiency, unspecified COMPREHENSIVE METABOLIC PANEL Routine 01/23/2025 5:39 AM EDT Myelodysplastic syndrome, unspecified (CMS/HCC V24, CMS/HCC V28) Hyperlipidemia, unspecified Hypothyroidism, unspecified Type 2 diabetes mellitus without complications (CMS/HCC V24, CMS/HCC V28) Vitamin D deficiency, unspecified CBC AND DIFFERENTIAL Routine 01/23/2025 5:39 AM EDT Myelodysplastic syndrome, unspecified (CMS/HCC V24, CMS/HCC V28) Hyperlipidemia, unspecified Hypothyroidism, unspecified Type 2 diabetes mellitus without complications (CMS/HCC V24, CMS/HCC V28) Vitamin D deficiency, unspecified from Last 3 Months Results * (ABNORMAL) Complete blood count (02/20/2025 12:00 AM EDT) [facility] WBC 4.6(L) 4.8 - 10.8 K/mcL LAB HEMETOLOGY METHOD 02/20/2025 1:26 PM EDT [facility] RBC 3.40(L) 3.80 - 4.80 M/mcL LAB HEMETOLOGY METHOD 02/20/2025 1:26 PM EDT [facility] Hemoglobin 10.4(L) 11.5 - 16.0 g/dL LAB HEMETOLOGY METHOD [facility] Hematocrit 33.6(L) 35.0 - 47.0 % LAB HEMETOLOGY METHOD 02/20/2025 [facility] MCV 98.2(H) 79.0 - 98.0 FL LAB HEMETOLOGY METHOD 02/20/2025 1:26 PM [facility] MCH 30.4 27.0 - 32.0 pcg LAB HEMETOLOGY METHOD 02/20/2025 1:26 PM [facility] MCHC 31.0(L) 32.0 - 37.0 g/dL LAB HEMETOLOGY METHOD 02/20/2025 1:26 PM [facility] RDW 20.0(H) 11.0 - 15.0 % LAB HEMETOLOGY METHOD 02/20/2025 1:26 PM [facility] Platelets 220 130 - 400 K/mcL LAB HEMETOLOGY METHOD 02/20/2025 1:26 PM [facility] MPV 10.9 7.0 - 11.0 FL LAB HEMETOLOGY METHOD 02/20/2025 1:26 PM [facility] NRBC 0.0 <1.0 % LAB HEMETOLOGY METHOD 02/20/2025 1:26 PM [facility] NRBC Absolute 0.00 <0.10 K/mcL LAB HEMETOLOGY METHOD 02/20/2025 1:26 PM [facility] Blood Venous blood specimen / Unknown 02/20/2025 02/20/2025 12:44 PM EDT us Timoteo Reed MD LAB BLOOD ORDERABLES Final Res ult [facility] [address] [place] [address], * (ABNORMAL) Culture urine (02/20/2025 12:00 AM EDT) Culture, Urine >=100,000 CFU/mL Morganella morganii ssp morganii(A) PABLO 02/23/2025 10:37 AM EDT [facility] Comment: The organism value for this result has been updated. These results have been appended to the previously preliminary verified report. This is an edited result. Previous organism was Gram negative bacilli on 02/22/2025 at 1148 EDT. Culture, Urine >=100,000 CFU/mL Escherichia coli(A) PABLO 02/23/2025 10:37 AM EDT [facility] Comment: The organism value for this result has been updated. These results have been appended to the previously preliminary verified report. Culture, Urine >=100,000 CFU/mL Aerococcus sanguinicola(A ) PABLO 02/23/2025 10:37 AM EDT [facility] Comment: Susceptibility testing not routinely performed. If further therapeutic information is required, please consult an infectious disease specialist. The organism value for this result has been updated. These results have been appended to the previously preliminary verified report. Urine Urine specimen obtained by clean catch procedure / Unknown 02/20/2025 02/20/2025 2:33 PM EDT Narrative Organism Antibiotic Method Susceptibility Morganella morganii ssp morganii Amoxicillin/Clavulanate PABLO >=32 ug/ml: Resistant Morganella morganii ssp morganii Ampicillin/Sulbactam PABLO >=32 ug/ml: Resistant Morganella morganii ssp morganii Piperacillin/Tazobactam PABLO <=4 ug/ml: Susceptible Morganella morganii ssp morganii Cefoxitin PABLO 16 ug/ml: Intermediate Morganella morganii ssp morganii Meropenem PABLO 0.5 ug/ml: Susceptible Morganella morganii ssp morganii Amikacin PABLO 4 ug/ml: Susceptible Morganella morganii ssp morganii Ciprofloxacin PABLO 0.12 ug/ml: Susceptible Morganella morganii ssp morganii Levofloxacin PABLO 0.5 ug/ml: Susceptible Morganella morganii ssp morganii Trimethoprim/Sulfamethoxaz ole PABLO <=20 ug/ml: Susceptible Escherichia coli Amoxicillin/Clavulanate PABLO <=2 ug/ml: Susceptible Escherichia coli Ampicillin/Sulbactam PABLO <=2 ug/ml: Susceptible Escherichia coli Piperacillin/Tazobactam PABLO <=4 ug/ml: Susceptible Escherichia coli Cefazolin (Urine) PABLO <=1 ug/ml: Susceptible Escherichia coli Cefoxitin PABLO <=4 ug/ml: Susceptible Escherichia coli Ceftazidime PABLO <=0.5 ug/ml: Susceptible Escherichia coli Ceftriaxone PABLO <=0.25 ug/ml: Susceptible Escherichia coli Cefepime PABLO <=0.12 ug/ml: Susceptible Escherichia coli Meropenem PABLO <=0.25 ug/ml: Susceptible Escherichia coli Amikacin PABLO 2 ug/ml: Susceptible Escherichia coli Gentamicin PABLO <=1 ug/ml: Susceptible Escherichia coli Ciprofloxacin PABLO <=0.06 ug/ml: Susceptible Escherichia coli Levofloxacin PABLO <=0.12 ug/ml: Susceptible Escherichia coli Trimethoprim/Sulfame thoxaz ole PABLO <=20 ug/ml: Susceptible Timoteo Reed MD LAB MICROBIOLOGY - GENERAL ORD ERABLES Final Result [facility] [address] [place] [address], * Thyroid stimulating hormone (02/04/2025 4:48 AM EDT) Only the most recent of3 resultswithin the time period is included. [facility] Signature TSH 3.45 0.40 - 4.00 mcIU/mL LAB CHEMISTRY METHOD 02/04/2025 10:41 AM EDT [facility] Blood Venous blood specimen / Unknown Venipuncture / Unknown 02/04/2025 4:48 AM EDT 02/04/2025 8:47 AM EDT us Leny Brice MD LAB BLOOD ORDERABLES Final Resu lt Performing Organization Address City/[facility]/ZIP Co de Phone Number [facility] [address] [place] [address], [place] [phone] * (ABNORMAL) Vitamin B12 and folate (01/23/2025 5:39 AM EDT) Pathologist [facility] Vitamin B-12 365 250 - 900 pcg/mL LAB CHEMISTRY METHOD 01/23/2025 9:39 AM EDT [facility] Folate >20.0(H) 2.8 - 17.0 ng/ml LAB CHEMISTRY METHOD 01/23/2025 9:39 AM EDT [facility] Blood Venous blood specimen / Unknown Venipuncture / Unknown 01/23/2025 5:39 AM EDT 01/23/2025 7:57 AM EDT Leny Brice MD LAB BLOOD ORDERABLES Final Resu lt Performing Organization Address [facility]/ZIP Co de Phone Number [facility] [address] [place] [address], [place] [phone] * Lipid panel with reflex to direct LDL (01/23/2025 5:39 AM EDT) [facility] Signature Cholesterol 149 0 - 200 mg/dL LAB CHEMISTRY METHOD 01/23/2025 9:39 AM EDT [facility] Triglycerides 116 0 - 150 mg/dL LAB CHEMISTRY METHOD 01/23/2025 9:39 AM EDT [facility] HDL 40 >=40 mg/dL LAB CHEMISTRY METHOD 01/23/2025 9:39 AM EDT [facility] LDL Calculated 86 0 - 100 mg/dL LAB CHEMISTRY METHOD 01/23/2025 9:39 AM EDT [facility] Comment:Estimated LDL Calcul ated using equation: Total cholesterol - HDL cholesterol - (Triglycerides/5) VLDL Cholesterol Fredy 23.2 mg/dL LAB CHEMISTRY METHOD 01/23/2025 9:39 AM EDT [facility] Non HDL Chol. (LDL+VLDL) 109 <145 mg/dL LAB CHEMISTRY METHOD 01/23/2025 9:39 AM EDT [facility] Chol/HDL Ratio 3.7 0.0 - 4.4 LAB CHEMISTRY METHOD 01/23/2025 9:39 AM T [facility] Blood Venous blood specimen / Unknown Venipuncture / Unknown 01/23/2025 5:39 AM EDT 01/23/2025 7:57 AM EDT us Leny Brice MD LAB BLOOD ORDERABLES Final Resu lt [facility] [address] [place] [address], [place] [phone] * (ABNORMAL) CBC auto differential (01/23/2025 5:39 AM EDT) WBC 4.6(L) 4.8 - 10.8 K/mcL LAB HEMETOLOGY METHOD 01/23/2025 9:00 AM [facility] RBC 3.40(L) 3.80 - 4.80 M/mcL LAB HEMETOLOGY METHOD 01/23/2025 9:00 AM [facility] Hemoglobin 10.0(L) 11.5 - 16.0 g/dL LAB HEMETOLOGY METHOD 01/23/2025 9:00 AM [facility] Hematocrit 33.0(L) 35.0 - 47.0 % LAB HEMETOLOGY METHOD 01/23/2025 9:00 AM [facility] MCV 97.3 79.0 - 98.0 FL LAB HEMETOLOGY METHOD 01/23/2025 9:00 AM [facility] MCH 29.5 27.0 - 32.0 pcg LAB HEMETOLOGY METHOD 01/23/2025 9:00 AM [facility] MCHC 30.3(L) 32.0 - 37.0 g/dL LAB HEMETOLOGY METHOD 01/23/2025 9:00 AM [facility] RDW 17.2(H) 11.0 - 15.0 % LAB HEMETOLOGY METHOD 01/23/2025 9:00 AM [facility] Platelets 233 130 - 400 K/mcL LAB HEMETOLOGY METHOD 01/23/2025 9:00 AM [facility] MPV 11.8(H) 7.0 - 11.0 FL LAB HEMETOLOGY METHOD 01/23/2025 9:00 AM [facility] NRBC 0.0 <1.0 % LAB HEMETOLOGY METHOD 01/23/2025 9:00 AM [facility] NRBC Absolute 0.00 <0.10 K/mcL LAB HEMETOLOGY METHOD 01/23/2025 9:00 AM [facility] Neutrophils Relative 53.2 % LAB HEMETOLOGY METHOD 01/23/2025 9:00 AM [facility] Lymphocytes Relative 32.4 % LAB HEMETOLOGY METHOD 01/23/2025 9:00 AM [facility] Monocytes Relative 10.4 % LAB HEMETOLOGY METHOD 01/23/2025 9:00 AM [facility] Eosinophils Relative 2.2 % LAB HEMETOLOGY METHOD 01/23/2025 9:00 AM [facility] Basophils Relative 0.9 % LAB HEMETOLOGY METHOD 01/23/2025 9:00 AM [facility] Immature Granulocytes Relative 0.9 % LAB HEMETOLOGY METHOD 01/23/2025 9:00 AM [facility] Neutrophils Absolute 2.47 1.50 - 7.00 K/mcL LAB HEMETOLOGY METHOD 01/23/2025 9:00 AM EDT [facility] Lymphocytes Absolute 1.50 1.00 - 5.00 K/[facility] LAB HEMETOLOGY METHOD 01/23/2025 9:00 AM EDT [facility] Monocytes Absolute 0.48 0.20 - 1.00 K/[facility] LAB HEMETOLOGY METHOD 01/23/2025 9:00 AM EDT [facility] Eosinophils Absolute 0.10 0.00 - 0.50 K/[facility] LAB HEMETOLOGY METHOD 01/23/2025 9:00 AM EDT [facility] Basophils Absolute 0.04 0.00 - 0.20 K/[facility] LAB HEMETOLOGY METHOD 01/23/2025 9:00 AM EDT [facility] Immature Granulocytes Absolute 0.04(H) 0.00 - 0.03 K/[facility] LAB HEMETOLOGY METHOD 01/23/2025 9:00 AM EDT [facility] Blood Venous blood specimen / Unknown Venipuncture / Unknown 01/23/2025 5:39 AM EDT 01/23/2025 7:57 AM EDT us Leny Brice MD LAB BLOOD ORDERABLES Final Resu lt [facility] [address] [place] [address], * (ABNORMAL) Vitamin D 25 hydroxy (01/23/2025 5:39 AM EDT) Vit D, 25-Hydroxy 21.7(L) 30.0 - 80.0 ng/mL LAB CHEMISTRY METHOD 01/23/2025 10:37 AM EDT [facility] Blood Venous blood specimen / Unknown Venipuncture / Unknown 01/23/2025 5:39 AM EDT 01/23/2025 7:57 AM EDT us Leny Brice MD LAB BLOOD ORDERABLES Final Resu lt Performing Organization Address City/[facility]/ZIP Co de Phone Number [facility] [address] [place] [address], [place] [phone] * (ABNORMAL) Hemoglobin A1c (01/23/2025 5:39 AM EDT) Hemoglobin A1C 7.3(H) <6.5 % LAB CHEMISTRY METHOD 01/23/2025 10:29 AM EDT [facility] Mean Bld Glu Estim. 163 mg/dL LAB CHEMISTRY METHOD 01/23/2025 10:29 AM EDT [facility] Blood Venous blood specimen / Unknown Venipuncture / Unknown 01/23/2025 5:39 AM EDT 01/23/2025 7:57 AM EDT us Leny Brice MD LAB BLOOD ORDERABLES Final Resu lt Performing Organization Address [facility]/ZIP Co de Phone Number [facility] [address] [place] [address], [place] [phone] * (ABNORMAL) Comprehensive metabolic panel (01/23/2025 5:39 AM EDT) Pathologist [facility] Sodium 139 133 - 145 mmol/L LAB CHEMISTRY METHOD 01/23/2025 9:39 AM EDT [facility] Potassium 4.2 3.5 - 5.5 mmol/L LAB CHEMISTRY METHOD 01/23/2025 9:39 AM EDT [facility] Chloride 105 96 - 110 mmol/L LAB CHEMISTRY METHOD 01/23/2025 9:39 AM EDT [facility] CO2 28 21 - 32 mmol/L LAB CHEMISTRY METHOD 01/23/2025 9:39 AM EDT [facility] Anion Gap 6 3 - 11 LAB CHEMISTRY METHOD 01/23/2025 9:39 AM EDT [facility] Glucose 93 70 - 100 mg/dL LAB CHEMISTRY METHOD 01/23/2025 9:39 AM [facility] BUN 25 5 - 25 mg/dL LAB CHEMISTRY METHOD 01/23/2025 9:39 AM [facility] Creatinine 0.97 0.50 - 1.10 mg/dL LAB CHEMISTRY METHOD 01/23/2025 9:39 AM [facility] eGFR 63 >=60 mL/min/1. 73m2 LAB CHEMISTRY METHOD 01/23/2025 9:39 AM [facility] Comment:Calculation based on the Chronic Kidney Disease Epidemiology Collaboration (CKD-EPI) equation refit without adjustment for race. BUN/Creatinine Ratio 25.8 LAB CHEMISTRY METHOD 01/23/2025 9:39 AM [facility] Calcium 9.1 8.5 - 10.5 mg/dL LAB CHEMISTRY METHOD 01/23/2025 9:39 AM [facility] AST (SGOT) 16 10 - 42 unit/L LAB CHEMISTRY METHOD 01/23/2025 9:39 AM [facility] ALT (SGPT) 26 10 - 60 unit/L LAB CHEMISTRY METHOD 01/23/2025 9:39 AM [facility] Alkaline Phosphatase 55 42 - 121 unit/L LAB CHEMISTRY METHOD 01/23/2025 9:39 AM [facility] Total Protein 5.2(L) 6.0 - 8.0 g/dL LAB CHEMISTRY METHOD 01/23/2025 9:39 AM [facility] Albumin 2.4(L) 3.2 - 5.0 g/dL LAB CHEMISTRY METHOD 01/23/2025 9:39 AM [facility] Total Bilirubin 0.3 0.0 - 1.4 mg/dL LAB CHEMISTRY METHOD 01/23/2025 9:39 AM [facility] Blood Venous blood specimen / Unknown Venipuncture / Unknown 01/23/2025 5:39 AM EDT 01/23/2025 7:57 AM EDT Leny Brice MD LAB BLOOD ORDERABLES Final Resu lt [facility] [address] [place] [address], [place] [phone] from Last 3 Months Insurance [employer] MED[employer]ARE [employer]VANTAGE Care Teams Combiner Relationship Specialty Start Date End Date Leny Brice MD [address] [place] [phone] PCP - General Hospitalist Medicine 10/15/24
--- OUTSIDE RECORDS SUMMARY | 2025-03-20 11:16 | XMS_ITS | Encounter Summary ---
Author Organization [facility] Address [address] [place] [address] Care Team Providers Care Senior Physical Therapist Name Role Phone Leny Brice MD Primary Care Provider [phone] Encounter Details Date Type Department Care Team (Late st Contact Info) Description 02/01/2025 Lab Requisition [facility] [address] [place] [address] Leny Brice MD [address] [place] [id number] Hypothyroidism, unspecified Social History Tobacco Use Types Packs/Day Years [...] Procedure Name Priority Date/Time Associated Diagnosis Comments THYROID STIMULATING HORMONE Routine 02/03/2025 8:30 AM EDT Hypothyroidism, unspecified documented in this encounter Results * (ABNORMAL) Thyroid stimulating hormone (02/03/2025 8:30 AM EDT) TSH 10.65(H) 0.40 - 4.00 mcIU/mL LAB CHEMISTRY METHOD 02/03/2025 1:40 PM EDT [facility]) [facility] Blood Venous blood specimen / Unknown Venipuncture / Unknown 02/03/2025 8:30 AM EDT 02/03/2025 10:13 AM EDT us Leny Brice MD LAB BLOOD ORDERABLES Final Resu lt [facility] ([facility]) [facility] [address] [place] [address], documented in this encounter Visit Diagnoses Diagnosis Hypothyroidism, unspecified documented in this encounter Care Teams Senior Physical Therapist Relationship Specialty Start Date End Date Leny Brice MD [address] [place] [phone] PCP - General Hospitalist Medicine 10/15/24 documented as of this encounter
--- OUTSIDE RECORDS SUMMARY | 2025-03-20 11:16 | XMS_ITS | Encounter Summary ---
Author Organization [facility] Address [address] [place] [address] Care Team Providers Care Yarn Comber Name Role Phone Leny Brice MD Primary Care Provider [phone] Encounter Details Date Type Department Care Team (Latest Contact Info) Description 01/23/2025 Lab Requisition [facility] - Main Lab 299 [facility] [place] [address] Leny Brice MD [address] [place] [phone] Myelodysplastic syndrome, unspecified ([facility]/HCC V24, [facility] V28); Hyperlipidemia, unspecified; Hypothyroidism, unspecified; Type 2 diabetes mellitus without complications (CMS/[facility] V24, [facility] V28); Vitamin D deficiency, unspecified Social History Tobacco Use Types Packs/Day [...] Procedure Name Priority Date/Time Associated Diagnosis Comments VITAMIN B12 AND FOLATE Routine 01/23/2025 5:39 AM EDT Myelodysplastic syndrome, unspecified (CMS/HCC V24, CMS/[facility] V28) Hyperlipidemia, unspecified Hypothyroidism, unspecified Type 2 diabetes mellitus without complications (CMS/[facility] V24, CMS/[facility] V28) Vitamin D deficiency, unspecified LIPID PANEL WITH REFLEX TO DIRECT LDL Routine 01/23/2025 5:39 AM EDT Myelodysplastic syndrome, unspecified (CMS/HCC V24, CMS/HCC V28) Hyperlipidemia, unspecified Hypothyroidism, unspecified Type 2 diabetes mellitus without complications (CMS/HCC V24, CMS/HCC V28) Vitamin D deficiency, unspecified CBC WITH AUTO DIFFERENTIAL Routine 01/23/2025 5:39 AM EDT Myelodysplastic syndrome, unspecified (CMS/HCC V24, CMS/HCC V28) Hyperlipidemia, unspecified Hypothyroidism, unspecified Type 2 diabetes mellitus without complications (CMS/HCC V24, CMS/HCC V28) Vitamin D deficiency, unspecified VITAMIN D [...] V24, CMS/HCC V28) Vitamin D deficiency, unspecified HEMOGLOBIN A1C Routine 01/23/2025 5:39 AM EDT Myelodysplastic syndrome, unspecified (CMS/HCC V24, CMS/HCC V28) Hyperlipidemia, unspecified Hypothyroidism, unspecified Type 2 diabetes mellitus without complications (CMS/HCC V24, CMS/HCC V28) Vitamin D deficiency, unspecified COMPREHENSIVE METABOLIC PANEL Routine 01/23/2025 5:39 AM EDT Myelodysplastic syndrome, unspecified ([facility] V24, [facility] V28) Hyperlipidemia, unspecified Hypothyroidism, unspecified Type 2 diabetes mellitus without complications ([facility] V24, [facility] V28) Vitamin D deficiency, unspecified documented in this encounter Results * (ABNORMAL) CBC auto differential (01/23/2025 5:39 AM EDT) [facility] WBC 4.6(L) 4.8 - 10.8 K/mcL LAB HEMETOLOGY METHOD 01/23/2025 9:00 AM [facility] RBC 3.40(L) 3.80 - 4.80 M/mcL LAB HEMETOLOGY METHOD 01/23/2025 9:00 AM [facility] Hemoglobin 10.0(L) 11.5 - 16.0 g/dL LAB HEMETOLOGY METHOD 01/23/2025 9:00 AM [facility] Hematocrit 33.0(L) 35.0 - 47.0 % LAB HEMETOLOGY METHOD 01/23/2025 9:00 AM [facility] MCV 97.3 79.0 - 98.0 FL LAB HEMETOLOGY METHOD 01/23/2025 9:00 AM [facility] MCH 29.5 27.0 - 32.0 pcg LAB HEMETOLOGY METHOD 01/23/2025 9:00 AM [facility] MCHC 30.3(L) 32.0 - 37.0 g/dL LAB HEMETOLOGY METHOD 01/23/2025 9:00 AM [facility] RDW 17.2(H) 11.0 - 15.0 % LAB HEMETOLOGY METHOD 01/23/2025 9:00 AM [facility] Platelets 233 130 - 400 K/mcL LAB HEMETOLOGY METHOD 01/23/2025 9:00 AM [facility] MPV 11.8(H) 7.0 - 11.0 FL LAB HEMETOLOGY METHOD 01/23/2025 9:00 AM [facility] NRBC 0.0 <1.0 % LAB HEMETOLOGY METHOD 01/23/2025 9:00 AM [facility] NRBC Absolute 0.00 <0.10 K/mcL LAB HEMETOLOGY METHOD 01/23/2025 9:00 AM [facility] Neutrophils Relative 53.2 % LAB HEMETOLOGY METHOD 01/23/2025 9:00 AM [facility] Lymphocytes Relative 32.4 % LAB HEMETOLOGY METHOD 01/23/2025 9:00 AM [facility] Monocytes Relative 10.4 % LAB HEMETOLOGY METHOD 01/23/2025 9:00 AM [facility] Eosinophils Relative 2.2 % LAB HEMETOLOGY METHOD 01/23/2025 9:00 AM [facility] Basophils Relative 0.9 % LAB HEMETOLOGY METHOD 01/23/2025 9:00 AM [facility] Immature Granulocytes Relative 0.9 % LAB HEMETOLOGY METHOD 01/23/2025 9:00 AM [facility] Neutrophils Absolute 2.47 1.50 - 7.00 K/mcL LAB HEMETOLOGY METHOD 01/23/2025 9:00 AM [facility] Lymphocytes Absolute 1.50 1.00 - 5.00 K/mcL LAB HEMETOLOGY METHOD 01/23/2025 9:00 AM [facility] Monocytes Absolute 0.48 0.20 - 1.00 K/mcL LAB HEMETOLOGY METHOD 01/23/2025 9:00 AM [facility] Eosinophils Absolute 0.10 0.00 - 0.50 K/mcL LAB HEMETOLOGY METHOD 01/23/2025 9:00 AM EDT [facility] Basophils Absolute 0.04 0.00 - 0.20 K/[facility] LAB HEMETOLOGY METHOD 01/23/2025 9:00 AM EDT [facility] LAB Immature Granulocytes Absolute 0.04(H) 0.00 - 0.03 K/[facility] LAB HEMETOLOGY METHOD 01/23/2025 9:00 AM EDT [facility] LAB Blood Venous blood specimen / Unknown Venipuncture / Unknown 01/23/2025 5:39 AM EDT 01/23/2025 7:57 AM EDT us Leny Brice MD LAB BLOOD ORDERABLES Final Resu lt Performing Organization Address [facility]/ZIP Co de Phone Number [facility] LAB [address] [place] [address], [place] [phone] * (ABNORMAL) Vitamin D 25 hydroxy (01/23/2025 5:39 AM EDT) Vit D, 25-Hydroxy 21.7(L) 30.0 - 80.0 ng/mL LAB CHEMISTRY METHOD 01/23/2025 10:37 AM EDT [facility] LAB Blood Venous blood specimen / Unknown Venipuncture / Unknown 01/23/2025 5:39 AM EDT 01/23/2025 7:57 AM EDT us Leny Brice MD LAB BLOOD ORDERABLES Final Resu lt Performing Organization Address [facility]/ZIP Co de Phone Number [facility] [address] [place] [address], [place] [phone] * (ABNORMAL) Hemoglobin A1c (01/23/2025 5:39 AM EDT) Hemoglobin A1C 7.3(H) <6.5 % LAB CHEMISTRY METHOD 01/23/2025 10:29 AM EDT [facility] Mean Bld Glu Estim. 163 mg/dL LAB CHEMISTRY METHOD 01/23/2025 10:29 AM EDT [facility] LAB Blood Venous blood specimen / Unknown Venipuncture / Unknown 01/23/2025 5:39 AM EDT 01/23/2025 7:57 AM EDT Leny Brice MD LAB BLOOD ORDERABLES Final Resu lt Performing Organization Address [facility] de Phone Number [facility] [address] [place] [address], [place] [phone] * (ABNORMAL) Vitamin B12 and folate (01/23/2025 5:39 AM EDT) Pathologist [facility] Vitamin B-12 365 250 - 900 pcg/mL LAB CHEMISTRY METHOD 01/23/2025 9:39 AM EDT [facility] LAB Folate >20.0(H) 2.8 - 17.0 ng/ml LAB CHEMISTRY METHOD 01/23/2025 9:39 AM EDT [facility] LAB Blood Venous blood specimen / Unknown Venipuncture / Unknown 01/23/2025 5:39 AM EDT 01/23/2025 7:57 AM EDT us Leny Brice MD LAB BLOOD ORDERABLES Final Resu lt Performing Organization Address [facility] de Phone Number [facility] LAB [address] [place] [address], [place] [phone] * (ABNORMAL) Thyroid stimulating hormone (01/23/2025 5:39 AM EDT) TSH 9.20(H) 0.40 - 4.00 mcIU/mL LAB CHEMISTRY METHOD 01/23/2025 10:37 AM EDT [facility] LAB Blood Venous blood specimen / Unknown Venipuncture / Unknown 01/23/2025 5:39 AM EDT 01/23/2025 7:57 AM EDT Leny Brice MD LAB BLOOD ORDERABLES Final Resu lt Performing Organization Address City/[facility]/ZIP Co de Phone Number [facility] [address] [place] [address], [place] [phone] * Lipid panel with reflex to direct LDL (01/23/2025 5:39 AM EDT) Cholesterol 149 0 - 200 mg/dL LAB CHEMISTRY METHOD 01/23/2025 9:39 AM EDT [facility] Triglycerides 116 0 - 150 mg/dL LAB CHEMISTRY METHOD 01/23/2025 9:39 AM EDT [facility] HDL 40 >=40 mg/dL LAB CHEMISTRY METHOD 01/23/2025 9:39 AM [facility] LDL Calculated 86 0 - 100 mg/dL LAB CHEMISTRY METHOD 01/23/2025 9:39 AM EDT [facility] LAB Comment:Estimated LDL Calcul ated using equation: Total cholesterol - HDL cholesterol - (Triglycerides/5) VLDL Cholesterol Fredy 23.2 mg/dL LAB CHEMISTRY METHOD 01/23/2025 9:39 AM EDT [facility] Non HDL Chol. (LDL+VLDL) 109 <145 mg/dL LAB CHEMISTRY METHOD 01/23/2025 9:39 AM EDT [facility] Chol/HDL Ratio 3.7 0.0 - 4.4 LAB CHEMISTRY METHOD 01/23/2025 9:39 AM [facility] Blood Venous blood specimen / Unknown Venipuncture / Unknown 01/23/2025 5:39 AM EDT 01/23/2025 7:57 AM EDT Leny Brice MD LAB BLOOD ORDERABLES Final Resu lt Performing Organization Address City/[facility]/ZIP Co de Phone Number [facility] [address] [place] [address], [place] [phone] * (ABNORMAL) Comprehensive metabolic panel (01/23/2025 5:39 AM EDT) Sodium 139 133 - 145 mmol/L LAB CHEMISTRY METHOD 01/23/2025 9:39 AM [facility] Potassium 4.2 3.5 - 5.5 mmol/L LAB CHEMISTRY METHOD 01/23/2025 9:39 AM [facility] Chloride 105 96 - 110 mmol/L LAB CHEMISTRY METHOD 01/23/2025 9:39 AM [facility] CO2 28 21 - 32 mmol/L LAB CHEMISTRY METHOD 01/23/2025 9:39 AM [facility] Anion Gap 6 3 - 11 LAB CHEMISTRY METHOD 01/23/2025 9:39 AM [facility] Glucose 93 70 - 100 mg/dL LAB CHEMISTRY METHOD 01/23/2025 9:39 AM [facility] BUN 25 5 - 25 mg/dL LAB CHEMISTRY METHOD 01/23/2025 9:39 AM [facility] Creatinine 0.97 0.50 - 1.10 mg/dL LAB CHEMISTRY METHOD 01/23/2025 9:39 AM [facility] eGFR 63 >=60 mL/min/1. 73m2 LAB CHEMISTRY METHOD 01/23/2025 9:39 AM [facility] Comment:Calculation based on the Chronic Kidney Disease Epidemiology Collaboration (CKD-EPI) equation refit without adjustment for race. BUN/Creatinine Ratio 25.8 LAB CHEMISTRY METHOD 01/23/2025 9:39 AM [facility] Calcium 9.1 8.5 - 10.5 mg/dL LAB CHEMISTRY METHOD 01/23/2025 9:39 AM [facility] AST (SGOT) 16 10 - 42 unit/L LAB CHEMISTRY METHOD 01/23/2025 9:39 AM [facility] ALT (SGPT) 26 10 - 60 unit/L LAB CHEMISTRY METHOD 01/23/2025 9:39 AM EDT [facility] Alkaline Phosphatase 55 42 - 121 unit/L LAB CHEMISTRY METHOD 01/23/2025 9:39 AM EDT [facility] Total Protein 5.2(L) 6.0 - 8.0 g/dL LAB CHEMISTRY METHOD 01/23/2025 9:39 AM EDT [facility] Albumin 2.4(L) 3.2 - 5.0 g/dL LAB CHEMISTRY METHOD 01/23/2025 9:39 AM EDT [facility] Total Bilirubin 0.3 0.0 - 1.4 mg/dL LAB CHEMISTRY METHOD 01/23/2025 9:39 AM T [facility] LAB Blood Venous blood specimen / Unknown Venipuncture / Unknown 01/23/2025 5:39 AM EDT 01/23/2025 7:57 AM EDT us Leny Brice MD LAB BLOOD ORDERABLES Final Resu lt [facility] [address] [place] [address], documented in this encounter Visit Diagnoses Diagnosis Myelodysplastic syndrome, unspecified (CMS/HCC V24, [facility]/HCC V28) Myelodysplastic syndrome, unspecified Hyperlipidemia, unspecified Hypothyroidism, unspecified Type 2 diabetes mellitus without complications (CMS/HCC V24, CMS/HCC V28) Vitamin D deficiency, unspecified documented in this encounter Care Teams Yarn Comber Relationship Specialty Start Date End Date Leny Brice MD [address] [place] [phone] PCP - General Hospitalist Medicine 10/15/24 documented as of this encounter
--- OUTSIDE RECORDS SUMMARY | 2025-03-20 11:16 | XMS_ITS | Encounter Summary ---
Author Organization [facility] Address [address] [place] [address] Care Team Providers Care Sign Language Teacher Name Role Phone Leny Brice MD Primary Care Provider [phone] Encounter Details Date Type Department Care Team (Late st Contact Info) Description 10/22/2024 Lab Requisition [facility] - Main Lab 299 [facility] [place] [address] Leny Brice MD [address] [place] [phone] Essential (primary) hypertension; Hypokalemia; Thrombocytopenia, unspecified (CMS/HCC [...] unspecified (CMS/HCC V24) BASIC METABOLIC PANEL Routine 10/22/2024 4:28 AM EDT Essential (primary) hypertension Hypokalemia Thrombocytopenia, unspecified (CMS/HCC V24) documented in this encounter Results * (ABNORMAL) Basic metabolic panel (10/22/2024 4:28 AM EDT) Sodium 145 133 - 145 mmol/L LAB CHEMISTRY METHOD 10/22/2024 9:13 AM [facility] Potassium 4.1 3.5 - 5.5 mmol/L LAB CHEMISTRY METHOD 10/22/2024 9:13 AM [facility] Chloride 110 96 - 110 mmol/L LAB CHEMISTRY METHOD 10/22/2024 9:13 AM [facility] CO2 28 21 - 32 mmol/L LAB CHEMISTRY METHOD 10/22/2024 9:13 AM [facility] Anion Gap 7 3 - 11 LAB CHEMISTRY METHOD 10/22/2024 9:13 AM [facility] Glucose 54(L) 70 - 100 mg/dL LAB CHEMISTRY METHOD 10/22/2024 9:13 AM [facility] BUN 21 5 - 25 mg/dL LAB CHEMISTRY METHOD 10/22/2024 9:13 AM [facility] Creatinine 0.80 0.50 - 1.10 mg/dL LAB CHEMISTRY METHOD 10/22/2024 9:13 AM [facility] LAB eGFR 79 >=60 mL/min/1. 73m2 LAB CHEMISTRY METHOD 10/22/2024 9:13 AM [facility] LAB Comment:Calculation based on the Chronic Kidney Disease Epidemiology Collaboration (CKD-EPI) equation refit without adjustment for race. BUN/Creatinine Ratio 26.3 LAB CHEMISTRY METHOD 10/22/2024 9:13 AM [facility] Calcium 7.4(L) 8.5 - 10.5 mg/dL LAB CHEMISTRY METHOD 10/22/2024 9:13 AM [facility] Blood Venous blood specimen / Unknown Venipuncture / Unknown 10/22/2024 4:28 AM EDT 10/22/2024 8:15 AM EDT us Leny Brice MD LAB BLOOD ORDERABLES Final Resu lt [facility] [address] [place] [address], * (ABNORMAL) Complete blood count (10/22/2024 4:28 AM EDT) WBC 6.3 4.8 - 10.8 K/mcL LAB HEMETOLOGY METHOD 10/22/2024 9:00 AM EDT [facility] RBC 2.90(L) 3.80 - 4.80 M/mcL LAB HEMETOLOGY METHOD 10/22/2024 9:00 AM [facility] Hemoglobin 8.8(L) 11.5 - 16.0 g/dL LAB HEMETOLOGY METHOD 10/22/2024 9:00 AM [facility] Hematocrit 29.3(L) 35.0 - 47.0 % LAB HEMETOLOGY METHOD 10/22/2024 9:00 AM [facility] MCV 102.8(H) 79.0 - 98.0 FL LAB HEMETOLOGY METHOD 10/22/2024 9:00 AM [facility] MCH 30.9 27.0 - 32.0 pcg LAB HEMETOLOGY METHOD 10/22/2024 9:00 AM [facility] MCHC 30.0(L) 32.0 - 37.0 g/dL LAB HEMETOLOGY METHOD 10/22/2024 9:00 AM [facility] RDW 18.9(H) 11.0 - 15.0 % LAB HEMETOLOGY METHOD 10/22/2024 9:00 AM [facility] Platelets 183 130 - 400 K/mcL LAB HEMETOLOGY METHOD 10/22/2024 9:00 AM [facility] MPV 10.4 7.0 - 11.0 FL LAB HEMETOLOGY METHOD 10/22/2024 9:00 AM EDT [facility] NRBC 0.0 <1.0 % LAB HEMETOLOGY METHOD 10/22/2024 9:00 AM EDT [facility] NRBC Absolute 0.00 <0.10 K/mcL LAB HEMETOLOGY METHOD 10/22/2024 9:00 AM EDT [facility] Blood Venous blood specimen / Unknown Venipuncture / Unknown 10/22/2024 4:28 AM EDT 10/22/2024 8:15 AM EDT us Leny Brice MD LAB BLOOD ORDERABLES Final Resu lt [facility] [address] [place] [address], documented in this encounter Visit Diagnoses Diagnosis Essential (primary) hypertension Unspecified essential hypertension Hypokalemia Hypopotassemia Thrombocytopenia, unspecified (CMS/HCC V24) Thrombocytopenia, unspecified documented in this encounter Care Teams Sign Language Teacher Relationship Specialty Start Date End Date Leny Brice MD [address] [place] [phone] PCP - General Hospitalist Medicine 10/15/24 documented as of this encounter
--- OUTSIDE RECORDS SUMMARY | 2025-03-20 11:16 | XMS_ITS | Encounter Summary ---
Author Organization [facility] Address [address] [place] [address] Care Team Providers Care University Extension Specialist Name Role Phone Leny Brice MD Primary Care Provider [phone] Encounter Details Date Type Department Care Team (Late st Contact Info) Description 02/20/2025 Lab Requisition [facility] - Main Lab 299 [facility] [place] [address] Timoteo Reed MD [address] [facility] [address] [place] [phone] Urinary tract infection, site not specified Social [...] Procedure Name Priority Date/Time Associated Diagnosis Comments CULTURE URINE Routine 02/20/2025 12:00 AM EDT Urinary tract infection, site not specified documented in this encounter Results * (ABNORMAL) Culture urine (02/20/2025 12:00 AM EDT) Culture, Urine >=100,000 CFU/mL Morganella morganii ssp morganii(A) PABLO 02/23/2025 10:37 AM EDT [facility] ([facility]) [facility] Comment: The organism value for this result has been updated. These results have been appended to the previously preliminary verified report. This is an edited result. Previous organism was Gram negative bacilli on 02/22/2025 at 1148 EDT. Culture, Urine >=100,000 CFU/mL Escherichia coli(A) PABLO 02/23/2025 10:37 AM EDT [facility] Comment: The organism value for this result has been updated. These results have been appended to the previously preliminary verified report. Culture, Urine >=100,000 CFU/mL Aerococcus sanguinicola(A ) PABLO 02/23/2025 10:37 AM EDT [facility] Comment: Susceptibility testing not routinely [...] Trimethoprim/Sulfame thoxaz ole PABLO <=20 ug/ml: Susceptible us Timoteo Reed MD LAB MICROBIOLOGY - GENERAL ORD ERABLES Final Result [facility] ([facility]) [facility] [address] [place] [address], documented in this encounter Visit Diagnoses Diagnosis Urinary tract infection, site not specified documented in this encounter Care Teams University Extension Specialist Relationship Specialty Start Date End Date Leny Brice MD [address] [place] [phone] PCP - General Hospitalist Medicine 10/15/24 documented as of this encounter
--- OUTSIDE RECORDS SUMMARY | 2025-03-20 11:16 | XMS_ITS | Encounter Summary ---
Author Organization [facility] Address [address] [place] [address] Care Team Providers Care Maintenance Service Technician Name Role Phone Leny Brice MD Primary Care Provider [phone] Encounter Details Date Type Department Care Team (Late st Contact Info) Description 02/04/2025 Lab Requisition [facility] - Main Lab [address] [place] [address] Leny Brice MD [address] [place] [phone] Hypothyroidism, unspecified Social History Tobacco Use Types [...] Associated Diagnosis Comments THYROID STIMULATING HORMONE Routine 02/04/2025 4:48 AM EDT Hypothyroidism, unspecified documented in this encounter Results * Thyroid stimulating hormone (02/04/2025 4:48 AM EDT) TSH 3.45 0.40 - 4.00 mcIU/mL LAB CHEMISTRY METHOD 02/04/2025 10:41 AM EDT [facility] ([facility]) [facility] Blood Venous blood specimen / Unknown Venipuncture / Unknown 02/04/2025 4:48 AM EDT 02/04/2025 8:47 AM EDT us Leny Brice MD LAB BLOOD ORDERABLES Final Resu lt [facility] ([facility]) [facility] [address] [place] [address], documented in this encounter Visit Diagnoses Diagnosis Hypothyroidism, unspecified documented in this encounter Care Teams Maintenance Service Technician Relationship Specialty Start Date End Date Leny Brice MD [address] [place] [phone] PCP - General Hospitalist Medicine 10/15/24 documented as of this encounter
== END 2025-03-20 10:54 | disposition home or self-care (01) ==
LOC: HO.PMCPRC 09:38
PROVIDERS: PCP Family Medicine; Visit Provider Internal Medicine
DX: M25.511 Pain in right shoulder (principal); G89.29 Other chronic pain
CPT/HCPCS: 64418; 76942

== ENCOUNTER 2025-03-21 09:07 | Outpatient (REF) | payer MEDICARE, SELFPAY ==
[2025-03-21 09:41] LABS: Anion Gap 15 (12-20); Blood Urea Nitrogen 25 mg/dL (9-16); Calcium 9.5 mg/dL (8.4-10.2); Carbon Dioxide 28 mmol/L (22-29); Chloride 99 mmol/L (96-108); Estimated Glomerular Filt Rate 53; Potassium 3.2 mmol/L (3.3-5.1); Sodium 139 mmol/L (135-145)
--- OUTSIDE RECORDS SUMMARY | 2025-03-21 09:56 | XMS_ITS | Clinical Summary ---
Author Organization [facility] Address [address] [place] [address] Care Team Providers Care Manager Fire Name Role Phone Tran Blackwell Primary Care Provider [phone] Allergies Active Allergy Reactions Criticality Noted Date Comments Multivit, Min No.03-Gyyr-Viqiy Dyspnea High 04/12 Pregabalin Mood Disturbance 04/12/2023 [...] this topic Insurance [employer] MCR Care Teams Manager Fire Relationship Specialty Start Date End Date Tran Blackwell [address] [place] [id number] PCP - General Family Medicine 03/27/23
--- OUTSIDE RECORDS SUMMARY | 2025-03-21 09:56 | XMS_ITS | Encounter Summary ---
Author Organization [facility] Address [address] [place] [address] Care Team Providers Care Zoo Veterinarian Name Role Phone Leny Brice MD Primary Care Provider [phone] Encounter Details Date Type Department Care Team (Late st Contact Info) Description 02/04/2025 Lab Requisition [facility] - Main Lab [address] [place] [address] Leny Brice MD [address] [place] [id number] Hypothyroidism, unspecified Social History Tobacco Use Types [...] LAB CHEMISTRY METHOD 02/04/2025 10:41 AM EDT [facility] Blood Venous blood specimen / Unknown Venipuncture / Unknown 02/04/2025 4:48 AM EDT 02/04/2025 8:47 AM EDT us Leny Brice MD LAB BLOOD ORDERABLES Final Resu lt [facility] [address] [place] [address], documented in this encounter Visit Diagnoses Diagnosis Hypothyroidism, unspecified documented in this encounter Care Teams Zoo Veterinarian Relationship Specialty Start Date End Date Leny Brice MD [address] [place] [phone] PCP - General Hospitalist Medicine 10/15/24 documented as of this encounter
--- OUTSIDE RECORDS SUMMARY | 2025-03-21 09:56 | XMS_ITS | Clinical Summary ---
Author Organization [facility] Address [address] [place] [address] Care Team Providers Care Borematic Operator Name Role Phone Unavailable Primary Care [...]
--- OUTSIDE RECORDS SUMMARY | 2025-03-21 09:56 | XMS_ITS | Clinical Summary ---
Author Organization [facility] Address [address] [place] [address] Care Team Providers Care Media Strategist Name Role Phone Unavailable Primary Care Provider [...]
--- OUTSIDE RECORDS SUMMARY | 2025-03-21 09:56 | XMS_ITS | Encounter Summary ---
Author Organization [facility] Address [address] [place] [address] Care Team Providers Care Drop Worker Name Role Phone Tran Blackwell Primary Care Provider [phone] Encounter Details Date Type Department Care Team (Late st Contact Info) Description 04/05/2023 Lab Requisition [facility] Three Lab [address] [place] [address] Dre Ronquillo MD PhD [address] [place] [address] Social History Tobacco Use Types Packs/Day [...] of this encounter Procedures * Due to [place] [employer] law, this organization might not be sharing negative HIV tests. Procedure Name Priority Date/Time Associated Diagnosis Comments TISSUE EXAM Routine 04/05/2023 2:14 PM EST documented in this encounter Results * Due to [place] [employer] law, this organization might not be sharing negative HIV tests. * Tissue Exam (04/05/2023 2:14 PM EST) Final Diagnosis Review of Outside Slides Received from [facility] Labeled [id number] Procedure Date 02/09/2023: Bone Marrow, Right Ischial [...] (WHO, 5th edition). Clinical correlation is warranted. [facility] MANUAL 04/06/2023 2:43 PM EST exoro system ANATOMIC PATHOLOGY LABORATORY at 1443 EST Clinical History Macrocytic anemia [facility] MANUAL 04/06/2023 2:43 PM EST exoro system ANATOMIC PATHOLOGY LABORATORY Gross Consult Client Facility: [facility] Slide Identification: [id number] Number of Glass Slides Received: 11 Number of Blocks Received: 0 Client Pathologist: Jude Fong MD Accompanying Report Received: yes [facility] MANUAL 04/06/2023 2:43 PM EST [facility] THREE ANATOMIC PATHOLOGY LABORATORY Embedded Images [facility] MANUAL 04/06/2023 2:43 PM EST [facility] THREE ANATOMIC PATHOLOGY LABORATORY Resulting Agency Case was signed out at [facility], Department of Pathology, [employer] 3 CLIA [id number] [facility] MANUAL 04/06/2023 2:43 PM EST [facility] THREE ANATOMIC PATHOLOGY LABORATORY Report Header Surgical Pathology Report Case: [id number] Authorizing Provider: Dre Ronquillo MD PhD Collected: 04/05/2023 1414 Ordering Location: [facility] Received: 04/05/2023 1414 [facility] Three Lab Pathologist: Manny Villanueva MD Specimen: Bone Marrow Aspirate, Right Ischial Wing, Aspirate and Clot 04/06/2023 2:43 PM EST [facility] ANATOMIC PATHOLOGY LABORATORY Tissue Specimen from bone marrow obtained by aspiration / Unknown 04/05/2023 2:14 PM EST 04/05/2023 2:14 PM EST us Dre Ronquillo MD PhD LAB PATHOLOGY/CYTOLOGY ORDERABL ES Final Result [facility] ANATOMIC PATHOLOGY LABORATORY [address] [place] [address] documented in this encounter Visit Diagnoses Not on filedocumented in this encounter Care Teams Drop Worker Relationship Specialty Start Date End Date Tran Blackwell [address] [place] [id number] PCP - General Family Medicine 03/27/23 documented as of this encounter
--- OUTSIDE RECORDS SUMMARY | 2025-03-21 09:56 | XMS_ITS | Encounter Summary ---
Author Organization [facility] Address [address] [place] [address] Care Team Providers Care Loan Manager Name Role Phone Leny Brice MD Primary Care Provider [phone] Encounter Details Date Type Department Care Team (Late st Contact Info) Description 02/01/2025 Lab Requisition [facility] - Main Lab [address] [place] [address] Leny Brice MD [address] [place] [address] Hypothyroidism, unspecified Social History Tobacco Use Types [...] CHEMISTRY METHOD 02/03/2025 1:40 PM EDT [facility] LAB Blood Venous blood specimen / Unknown Venipuncture / Unknown 02/03/2025 8:30 AM EDT 02/03/2025 10:13 AM EDT us Leny Brice MD LAB BLOOD ORDERABLES Final Resu lt [facility] LAB [address] [place] [address], documented in this encounter Visit Diagnoses Diagnosis Hypothyroidism, unspecified documented in this encounter Care Teams Loan Manager Relationship Specialty Start Date End Date Leny Brice MD [address] [place] [address] PCP - General Hospitalist Medicine 10/15/24 documented as of this encounter
--- OUTSIDE RECORDS SUMMARY | 2025-03-21 09:56 | XMS_ITS | Encounter Summary ---
Author Organization [facility] Address [address] [place] [address] Care Team Providers Care Senior Peoplesoft Developer Name Role Phone Leny Briec MD Primary Care Provider [phone] Encounter Details Date Type Department Care Team (Latest Contact Info) Description 01/23/2025 Lab Requisition [facility] - Main Lab [address] [facility] [place] [address] Leny Brice MD [address] [place] [address] Myelodysplastic syndrome, unspecified ([facility]/HCC V24, [facility] V28); Hyperlipidemia, unspecified; Hypothyroidism, unspecified; Type 2 diabetes mellitus without complications (CMS/[facility] V24, [facility] V28); Vitamin D deficiency, unspecified Social History [...] AM EDT Myelodysplastic syndrome, unspecified (CMS/HCC V24, CMS/[facility] V28) Hyperlipidemia, unspecified Hypothyroidism, unspecified Type 2 diabetes mellitus without complications (CMS/[facility] V24, CMS/[facility] V28) Vitamin D deficiency, unspecified LIPID PANEL [...] 01/23/2025 5:39 AM EDT Myelodysplastic syndrome, unspecified ([facility] V24, [facility] V28) Hyperlipidemia, unspecified Hypothyroidism, unspecified Type 2 diabetes mellitus without complications ([facility] V24, [facility] V28) Vitamin D deficiency, unspecified documented in this encounter Results * (ABNORMAL) CBC auto differential (01/23/2025 5:39 AM EDT) [facility] WBC 4.6(L) 4.8 - 10.8 K/mcL LAB HEMETOLOGY METHOD 01/23/2025 9:[address] [facility] LAB RBC 3.40(L) 3.80 - 4.80 M/mcL LAB HEMETOLOGY METHOD 01/23/2025 9:[address] [facility] LAB Hemoglobin 10.0(L) 11.5 - 16.0 g/dL LAB HEMETOLOGY METHOD 01/23/2025 9:[address] [facility] LAB Hematocrit 33.0(L) 35.0 - 47.0 % LAB HEMETOLOGY METHOD 01/23/2025 9:[address] [facility] LAB MCV 97.3 79.0 - 98.0 FL LAB HEMETOLOGY METHOD 01/23/2025 9:[address] [facility] LAB MCH 29.5 27.0 - 32.0 pcg LAB HEMETOLOGY METHOD 01/23/2025 9:[address] [facility] LAB MCHC 30.3(L) 32.0 - 37.0 g/dL LAB HEMETOLOGY METHOD 01/23/2025 9:[address] [facility] LAB RDW 17.2(H) 11.0 - 15.0 % LAB HEMETOLOGY METHOD 01/23/2025 9:[address] [facility] LAB Platelets 233 130 - 400 K/mcL LAB HEMETOLOGY METHOD 01/23/2025 9:[address] [facility] LAB MPV 11.8(H) 7.0 - 11.0 FL LAB HEMETOLOGY METHOD 01/23/2025 9:[address] [facility] LAB NRBC 0.0 <1.0 % LAB HEMETOLOGY METHOD 01/23/2025 9:[address] [facility] LAB NRBC Absolute 0.00 <0.10 K/mcL LAB HEMETOLOGY METHOD 01/23/2025 9:[address] [facility] LAB Neutrophils Relative 53.2 % LAB HEMETOLOGY METHOD 01/23/2025 9:[address] [facility] LAB Lymphocytes Relative 32.4 % LAB HEMETOLOGY METHOD 01/23/2025 9:[address] [facility] LAB Monocytes Relative 10.4 % LAB HEMETOLOGY METHOD 01/23/2025 9:[address] [facility] LAB Eosinophils Relative 2.2 % LAB HEMETOLOGY METHOD 01/23/2025 9:[address] [facility] LAB Basophils Relative 0.9 % LAB HEMETOLOGY METHOD 01/23/2025 9:[address] [facility] LAB Immature Granulocytes Relative 0.9 % LAB HEMETOLOGY METHOD 01/23/2025 9:[address] [facility] LAB Neutrophils Absolute 2.47 1.50 - 7.00 K/mcL LAB HEMETOLOGY METHOD 01/23/2025 9:[address] [facility] LAB Lymphocytes Absolute 1.50 1.00 - 5.00 K/mcL LAB HEMETOLOGY METHOD 01/23/2025 9:[address] [facility] LAB Monocytes Absolute 0.48 0.20 - 1.00 K/mcL LAB HEMETOLOGY METHOD 01/23/2025 9:[address] [facility] LAB Eosinophils Absolute 0.10 0.00 - 0.50 K/mcL LAB HEMETOLOGY METHOD 01/23/2025 9:00 AM EDT [facility] LAB Basophils Absolute 0.04 0.00 - 0.20 K/[facility] LAB HEMETOLOGY METHOD 01/23/2025 9:00 AM EDT [facility] LAB Immature Granulocytes Absolute 0.04(H) 0.00 - 0.03 K/[facility] LAB HEMETOLOGY METHOD 01/23/2025 9:00 AM EDT [facility] LAB Blood Venous blood specimen / Unknown Venipuncture / Unknown 01/23/2025 5:39 AM EDT 01/23/2025 7:57 AM EDT us Leny Brice MD LAB BLOOD ORDERABLES Final Resu lt Performing Organization Address [facility]/ZIP Co de Phone Number [facility] LAB [address] [place] [address], [place] [phone] * (ABNORMAL) Vitamin D 25 hydroxy (01/23/2025 5:39 AM EDT) Vit D, 25-Hydroxy 21.7(L) 30.0 - 80.0 ng/mL LAB CHEMISTRY METHOD 01/23/2025 10:37 AM EDT [facility] LAB Blood Venous blood specimen / Unknown Venipuncture / Unknown 01/23/2025 5:39 AM EDT 01/23/2025 7:57 AM EDT us Leny Brice MD LAB BLOOD ORDERABLES Final Resu lt Performing Organization Address [facility]/ZIP Co de Phone Number [facility] [address] [place] [address], [place] [phone] * (ABNORMAL) Hemoglobin A1c (01/23/2025 5:39 AM EDT) Hemoglobin A1C 7.3(H) <6.5 % LAB CHEMISTRY METHOD 01/23/2025 10:29 AM EDT [facility] LAB Mean Bld Glu Estim. 163 mg/dL LAB CHEMISTRY METHOD 01/23/2025 10:29 AM EDT [facility] LAB Blood Venous blood specimen / Unknown Venipuncture / Unknown 01/23/2025 5:39 AM EDT 01/23/2025 7:57 AM EDT Leny Brice MD LAB BLOOD ORDERABLES Final Resu lt Performing Organization Address [facility] de Phone Number [facility] [address] [place] [address], [place] [phone] * (ABNORMAL) Vitamin B12 and folate (01/23/2025 5:39 AM EDT) Pathologist [facility] Vitamin B-12 365 250 - 900 pcg/mL LAB CHEMISTRY METHOD 01/23/2025 9:39 AM EDT [facility] LAB Folate >20.0(H) 2.8 - 17.0 ng/ml LAB CHEMISTRY METHOD 01/23/2025 9:39 AM EDT [facility] LAB Blood Venous blood specimen / Unknown Venipuncture / Unknown 01/23/2025 5:39 AM EDT 01/23/2025 7:57 AM EDT us Leny Brice MD LAB BLOOD ORDERABLES Final Resu lt Performing Organization Address [facility] de Phone Number [facility] [address] [place] [address], [place] [phone] * (ABNORMAL) Thyroid stimulating hormone (01/23/2025 5:39 AM EDT) TSH 9.20(H) 0.40 - 4.00 mcIU/mL LAB CHEMISTRY METHOD 01/23/2025 10:37 AM EDT [facility] LAB Blood Venous blood specimen / Unknown Venipuncture / Unknown 01/23/2025 5:39 AM EDT 01/23/2025 7:57 AM EDT Leny Brice MD LAB BLOOD ORDERABLES Final Resu lt Performing Organization Address City/[facility]/ZIP Co de Phone Number [facility] [address] [place] [address], [place] [phone] * Lipid panel with reflex to direct LDL (01/23/2025 5:39 AM EDT) Cholesterol 149 0 - 200 mg/dL LAB CHEMISTRY METHOD 01/23/2025 9:39 AM EDT [facility] LAB Triglycerides 116 0 - 150 mg/dL LAB CHEMISTRY METHOD 01/23/2025 9:39 AM EDT [facility] LAB HDL 40 >=40 mg/dL LAB CHEMISTRY METHOD 01/23/2025 9:[address] [facility] LAB LDL Calculated 86 0 - 100 mg/dL LAB CHEMISTRY METHOD 01/23/2025 9:39 AM EDT [facility] LAB Comment:Estimated LDL Calcul ated using equation: Total cholesterol - HDL cholesterol - (Triglycerides/5) VLDL Cholesterol Fredy 23.2 mg/dL LAB CHEMISTRY METHOD 01/23/2025 9:39 AM EDT [facility] LAB Non HDL Chol. (LDL+VLDL) 109 <145 mg/dL LAB CHEMISTRY METHOD 01/23/2025 9:39 AM EDT [facility] LAB Chol/HDL Ratio 3.7 0.0 - 4.4 LAB CHEMISTRY METHOD 01/23/2025 9:[address] [facility] LAB Blood Venous blood specimen / Unknown Venipuncture / Unknown 01/23/2025 5:39 AM EDT 01/23/2025 7:57 AM EDT Leny Brice MD LAB BLOOD ORDERABLES Final Resu lt Performing Organization Address City/[facility]/ZIP Co de Phone Number [facility] [address] [place] [address], [place] [phone] * (ABNORMAL) Comprehensive metabolic panel (01/23/2025 5:39 AM EDT) Sodium 139 133 - 145 mmol/L LAB CHEMISTRY METHOD 01/23/2025 9:[address] [facility] Potassium 4.2 3.5 - 5.5 mmol/L LAB CHEMISTRY METHOD 01/23/2025 9:[address] [facility] Chloride 105 96 - 110 mmol/L LAB CHEMISTRY METHOD 01/23/2025 9:[address] [facility] CO2 28 21 - 32 mmol/L LAB CHEMISTRY METHOD 01/23/2025 9:[address] [facility] Anion Gap 6 3 - 11 LAB CHEMISTRY METHOD 01/23/2025 9:[address] [facility] Glucose 93 70 - 100 mg/dL LAB CHEMISTRY METHOD 01/23/2025 9:[address] [facility] BUN 25 5 - 25 mg/dL LAB CHEMISTRY METHOD 01/23/2025 9:[address] [facility] Creatinine 0.97 0.50 - 1.10 mg/dL LAB CHEMISTRY METHOD 01/23/2025 9:[address] [facility] LAB eGFR 63 >=60 mL/min/1. 73m2 LAB CHEMISTRY METHOD 01/23/2025 9:[address] [facility] LAB Comment:Calculation based on the Chronic Kidney Disease Epidemiology Collaboration (CKD-EPI) equation refit without adjustment for race. BUN/Creatinine Ratio 25.8 LAB CHEMISTRY METHOD 01/23/2025 9:[address] [facility] Calcium 9.1 8.5 - 10.5 mg/dL LAB CHEMISTRY METHOD 01/23/2025 9:[address] [facility] AST (SGOT) 16 10 - 42 unit/L LAB CHEMISTRY METHOD 01/23/2025 9:[address] [facility] ALT (SGPT) 26 10 - 60 unit/L LAB CHEMISTRY METHOD 01/23/2025 9:39 AM EDT [facility] Alkaline Phosphatase 55 42 - 121 unit/L LAB CHEMISTRY METHOD 01/23/2025 9:39 AM EDT [facility] Total Protein 5.2(L) 6.0 - 8.0 g/dL LAB CHEMISTRY METHOD 01/23/2025 9:39 AM EDT [facility] Albumin 2.4(L) 3.2 - 5.0 g/dL LAB CHEMISTRY METHOD 01/23/2025 9:39 AM EDT [facility] Total Bilirubin 0.3 0.0 - 1.4 mg/dL LAB CHEMISTRY METHOD 01/23/2025 9:39 AM T [facility] LAB Blood Venous blood specimen / Unknown Venipuncture / Unknown 01/23/2025 5:39 AM EDT 01/23/2025 7:57 AM EDT us Leny Brice MD LAB BLOOD ORDERABLES Final Resu lt [facility] [address] [place] [address], documented in this encounter Visit Diagnoses Diagnosis Myelodysplastic syndrome, unspecified (CMS/HCC V24, [facility]/HCC V28) Myelodysplastic syndrome, unspecified Hyperlipidemia, unspecified Hypothyroidism, unspecified Type 2 diabetes mellitus without complications (CMS/HCC V24, CMS/HCC V28) Vitamin D deficiency, unspecified documented in this encounter Care Teams Senior Peoplesoft Developer Relationship Specialty Start Date End Date Leny Brice MD [address] [place] [address] PCP - General Hospitalist Medicine 10/15/24 documented as of this encounter
--- OUTSIDE RECORDS SUMMARY | 2025-03-21 09:56 | XMS_ITS | Encounter Summary ---
Author Organization [facility] Address [address] [place] [address] Care Team Providers Care Marketing Project Lead Name Role Phone Leny Brice MD Primary Care Provider [phone] Encounter Details Date Type Department Care Team (Late st Contact Info) Description 02/20/2025 Lab Requisition [facility] - Main Lab [address] [facility] [place] [address] Timoteo Reed MD [address] [facility] [address] [place] [id number] Urinary tract infection, site not specified Social [...] ssp morganii(A) PABLO 02/23/2025 10:37 AM EDT [facility] Comment: The organism value for this result has been updated. These results have been appended to the previously preliminary verified report. This is an edited result. Previous organism was Gram negative bacilli on 02/22/2025 at 1148 EDT. Culture, Urine >=100,000 CFU/mL Escherichia coli(A) PABLO 02/23/2025 10:37 AM EDT [facility] LAB Comment: The organism value for this result has been updated. These results have been appended to the previously preliminary verified report. Culture, Urine >=100,000 CFU/mL Aerococcus sanguinicola(A ) PABLO 02/23/2025 10:37 AM EDT [facility] LAB Comment: Susceptibility testing not routinely performed. [...] MICROBIOLOGY - GENERAL ORD ERABLES Final Result [facility] [address] [place] [address], documented in this encounter Visit Diagnoses Diagnosis Urinary tract infection, site not specified documented in this encounter Care Teams Marketing Project Lead Relationship Specialty Start Date End Date Leny Brice MD [address] [place] [phone] PCP - General Hospitalist Medicine 10/15/24 documented as of this encounter
--- OUTSIDE RECORDS SUMMARY | 2025-03-21 09:56 | XMS_ITS | Encounter Summary ---
Author Organization [facility] Address [address] [place] [address] Care Team Providers Care Barrel Filler Head Name Role Phone Leny Brice MD Primary Care Provider [phone] Encounter Details Date Type Department Care Team (Late st Contact Info) Description 02/20/2025 Lab Requisition [facility] - Main Lab 299 [facility] [place] [address] Timoteo Reed MD [address] [facility] [address] [place] [phone] Urinary tract infection, site not specified Social [...] LAB HEMETOLOGY METHOD 02/20/2025 1:26 PM EDT [facility] RBC 3.40(L) 3.80 - 4.80 M/mcL LAB HEMETOLOGY METHOD 02/20/2025 1:26 PM [facility] LAB Hemoglobin 10.4(L) 11.5 - 16.0 g/dL LAB HEMETOLOGY METHOD 02/20/2025 1:26 PM [facility] LAB Hematocrit 33.6(L) 35.0 - 47.0 % LAB HEMETOLOGY METHOD 02/20/2025 1:26 PM [facility] LAB MCV 98.2(H) 79.0 - 98.0 FL LAB HEMETOLOGY METHOD 02/20/2025 1:26 PM [facility] LAB MCH 30.4 27.0 - 32.0 pcg LAB HEMETOLOGY METHOD 02/20/2025 1:26 PM [facility] LAB MCHC 31.0(L) 32.0 - 37.0 g/dL LAB HEMETOLOGY METHOD 02/20/2025 1:26 PM [facility] LAB RDW 20.0(H) 11.0 - 15.0 % LAB HEMETOLOGY METHOD 02/20/2025 1:26 PM [facility] LAB Platelets 220 130 - 400 K/mcL LAB HEMETOLOGY METHOD 02/20/2025 1:26 PM [facility] LAB MPV 10.9 7.0 - 11.0 FL LAB HEMETOLOGY METHOD 02/20/2025 1:26 PM [facility] LAB NRBC 0.0 <1.0 % LAB HEMETOLOGY METHOD 02/20/2025 1:26 PM [facility] LAB NRBC Absolute 0.00 <0.10 K/mcL LAB HEMETOLOGY METHOD 02/20/2025 1:26 PM [facility] LAB Blood Venous blood specimen / Unknown 02/20/2025 02/20/2025 12:44 PM EDT us Timoteo Reed MD LAB BLOOD ORDERABLES Final Res ult [facility] [address] [place] [address], documented in this encounter Visit Diagnoses Diagnosis Urinary tract infection, site not specified documented in this encounter Care Teams Barrel Filler Head Relationship Specialty Start Date End Date Leny Brice MD [address] [place] [address] PCP - General Hospitalist Medicine 10/15/24 documented as of this encounter
--- OUTSIDE RECORDS SUMMARY | 2025-03-21 09:56 | XMS_ITS ---
Author Name DAYNA MORAN, MS. MICHAEL Herron SUSANNE Address [address] [place] [address] Phone [phone] Organization [facility] Care Team Providers Care Procurement Accountant Name Role Phone MICHAEL MCINTOSH Unavailable [phone] Reason for Referral Not Available Allergies, adverse [...] mplaint [facility] [place], [place], 09/25/2024 Encntr for f/u exam aft trtm t for cond oth than malig neoplmUrinary tract infection, site not specified [facility] [place], [place], PC 09/25/2024 Encntr for f/u exam aft trtm t for cond oth than malig neoplmUrinary tract infection, site not specified [facility] [place], [place], 09/25/2024 Encntr for f/u exam aft trtm t for cond oth than malig neoplmUrinary tract infection, site not specified Vital Signs Date of Collection Vitals 2024-09-25 12:47:12 Pain Scale - 4.0 {sc ore} Social History Sex Female History of Procedures Procedures Service Procedure code Service date Servicing provider Phone# [facility] [id number] 2024-09-25 No Data Available No Data Avail [...] (September 2024) pt has an appt with [facility] - seeing Dr Schwab - [...] IPAdm it Date: 09/12/24Discharge Date: 09/16/24[facility] INFECTION, SITE NOT [...]
--- OUTSIDE RECORDS SUMMARY | 2025-03-21 09:57 | XMS_ITS | Encounter Summary ---
Author Organization [facility] Address [address] [place] [address] Care Team Providers Care Crusher Setter Name Role Phone Leny Brice MD Primary Care Provider [phone] Encounter Details Date Type Department Care Team (Late st Contact Info) Description 10/22/2024 Lab Requisition [facility] - Main Lab [address] [facility] [place] [address] Leny Brice MD [address] [place] [id number] Essential (primary) hypertension; Hypokalemia; Thrombocytopenia, unspecified (CMS/HCC [...] mmol/L LAB CHEMISTRY METHOD 10/22/2024 9:13 AM [facility] Potassium 4.1 3.5 - 5.5 mmol/L LAB CHEMISTRY METHOD 10/22/2024 9:13 AM [facility] Chloride 110 96 - 110 mmol/L LAB CHEMISTRY METHOD 10/22/2024 9:13 AM [facility] CO2 28 21 - 32 mmol/L LAB CHEMISTRY METHOD 10/22/2024 9:13 AM [facility] Anion Gap 7 3 - 11 LAB CHEMISTRY METHOD 10/22/2024 9:13 AM [facility] Glucose 54(L) 70 - 100 mg/dL LAB CHEMISTRY METHOD 10/22/2024 9:13 AM [facility] BUN 21 5 - 25 mg/dL LAB CHEMISTRY METHOD 10/22/2024 9:13 AM [facility] Creatinine 0.80 0.50 - 1.10 mg/dL LAB CHEMISTRY METHOD 10/22/2024 9:13 AM [facility] eGFR 79 >=60 mL/min/1. 73m2 LAB CHEMISTRY METHOD 10/22/2024 9:13 AM [facility] Comment:Calculation based on the Chronic Kidney Disease Epidemiology Collaboration (CKD-EPI) equation refit without adjustment for race. BUN/Creatinine Ratio 26.3 LAB CHEMISTRY METHOD 10/22/2024 9:13 AM [facility] Calcium 7.4(L) 8.5 - 10.5 mg/dL LAB CHEMISTRY METHOD 10/22/2024 9:13 AM [facility] Blood Venous blood specimen / Unknown Venipuncture / Unknown 10/22/2024 4:28 AM EDT 10/22/2024 8:15 AM EDT us Leny Brice MD LAB BLOOD ORDERABLES Final Resu lt [facility] [address] [place] [address], * (ABNORMAL) Complete blood count (10/22/2024 4:28 AM EDT) WBC 6.3 4.8 - 10.8 K/mcL LAB HEMETOLOGY METHOD 10/22/2024 9:00 AM EDT [facility] RBC 2.90(L) 3.80 - 4.80 M/mcL LAB HEMETOLOGY METHOD 10/22/2024 9:00 AM [facility] Hemoglobin 8.8(L) 11.5 - 16.0 g/dL LAB HEMETOLOGY METHOD 10/22/2024 9:00 AM [facility] Hematocrit 29.3(L) 35.0 - 47.0 % LAB HEMETOLOGY METHOD 10/22/2024 9:00 AM [facility] MCV 102.8(H) 79.0 - 98.0 FL LAB HEMETOLOGY METHOD 10/22/2024 9:00 AM [facility] MCH 30.9 27.0 - 32.0 pcg LAB HEMETOLOGY METHOD 10/22/2024 9:00 AM [facility] MCHC 30.0(L) 32.0 - 37.0 g/dL LAB HEMETOLOGY METHOD 10/22/2024 9:00 AM [facility] RDW 18.9(H) 11.0 - 15.0 % LAB HEMETOLOGY METHOD 10/22/2024 9:00 AM [facility] Platelets 183 130 - 400 K/mcL LAB HEMETOLOGY METHOD 10/22/2024 9:00 AM [facility] MPV 10.4 7.0 - 11.0 [...] lt [facility] [address] [place] [address], documented in this encounter Visit Diagnoses Diagnosis Essential (primary) hypertension Unspecified essential hypertension Hypokalemia Hypopotassemia Thrombocytopenia, unspecified (CMS/HCC V24) Thrombocytopenia, unspecified documented in this encounter Care Teams Crusher Setter Relationship Specialty Start Date End Date Leny Brice MD [address] [place] [phone] PCP - General Hospitalist Medicine 10/15/24 documented as of this encounter
--- OUTSIDE RECORDS SUMMARY | 2025-03-21 09:57 | XMS_ITS | Clinical Summary ---
Author Organization [address] Address [address] [place] [phone] Phone Care Team Providers Care Glove Stitcher Name Role Phone Leny Brice MD Primary Care Provider [phone] Encounters Date Type Department Care Team Description 02/20/2025 Lab Requisition [facility] Lab [address] [place] [phone] Timoteo Reed MD Urinary tract infection, site not specified 02/20/2025 Lab Requisition [facility] Lab [address] [place] [address] Timoteo Reed MD Urinary tract infection, site not specified 02/04/2025 Lab Requisition [facility] Lab [address] [place] [address] Leny Brice MD Hypothyroidism, unspecified 02/01/2025 Lab Requisition [facility] Lab [address] [place] [phone] Leny Brice MD Hypothyroidism, unspecified 01/23/2025 Lab Requisition [facility] Lab [address] [place] [phone] Leny Brice MD Myelodysplastic syndrome, unspecified (CMS/HCC [...] Asthma-chronic obstructive p ulmonary disease overlap syndrome [place] [place] [facility] [place] 12/29/2016 DX:Asthma-chronic obstructiv e pulmonary disease overlap syndrome (HCC) Hypercholesterolemia 11/29/2016 DX:Hypercho lesterolemia Hypothyroidism 11/29/2016 DX:Hypothyroidis m Obstructive sleep apnea syndrome in adult 017 DX:Obstructive sleep apnea syndrome in adult Morbid obesity with BMI of 4 0.0-44.9, adult ([facility] V24, [facility] V28) 10/03/2017 DX:Morbid obesity wit h BMI of 40.0-44.9, adult ([facility]) Renal calculi DX:Renal calculi Type 2 diabetes mellitus wit h cataract ([facility] [place], [facility] V28) 11/29/2016 DX:Type 2 diabetes mellitus with cataract ([facility]) Cataract 10/03/2017 DX:Cataract; COM MENT: [...] 01/23/2025 5:39 AM EDT Myelodysplastic syndrome, unspecified ([facility] V24, [facility] V28) Hyperlipidemia, unspecified Hypothyroidism, unspecified Type 2 diabetes mellitus without complications ([facility] V24, [facility] V28) Vitamin D deficiency, unspecified VITAMIN D 25 HYDROXY Routine 01/23/2025 5:39 AM EDT Myelodysplastic syndrome, unspecified ([facility] V24, [facility] V28) Hyperlipidemia, unspecified Hypothyroidism, unspecified Type 2 diabetes mellitus without complications ([facility] V24, [facility] V28) Vitamin D deficiency, unspecified HEMOGLOBIN A1C Routine 01/23/2025 5:39 AM EDT Myelodysplastic syndrome, unspecified ([facility] V24, [facility] V28) Hyperlipidemia, unspecified Hypothyroidism, unspecified Type 2 diabetes mellitus without complications ([facility] V24, [facility] V28) Vitamin D deficiency, unspecified [...] Complete blood count (02/20/2025 12:00 AM EDT) [facility] WBC 4.6(L) 4.8 - 10.8 K/mcL LAB HEMETOLOGY METHOD 02/20/2025 1:26 PM EDT [facility] RBC 3.40(L) 3.80 - 4.80 M/mcL LAB HEMETOLOGY METHOD 02/20/2025 1:26 PM EDT [facility] Hemoglobin 10.4(L) 11.5 - 16.0 g/dL LAB HEMETOLOGY METHOD 02/20[facility]25 [facility] Hematocrit 33.6(L) 35.0 - 47.0 % LAB HEMETOLOGY METHOD 02/20/2025 1:26 [facility] MCV 98.2(H) 79.0 - 98.0 FL LAB HEMETOLOGY METHOD 02/20/2025 1:26 PM [facility] MCH 30.4 27.0 - 32.0 pcg LAB HEMETOLOGY METHOD 02/20/2025 1:26 PM [facility] MCHC 31.0(L) 32.0 - 37.0 g/dL LAB HEMETOLOGY METHOD 02/20/2025 1:26 PM [facility] RDW 20.0(H) 11.0 - 15.0 % LAB HEMETOLOGY METHOD 02/20/2025 1:26 PM [facility] Platelets 220 130 - 400 K/mcL LAB HEMETOLOGY METHOD 02/20/2025 1:26 PM [facility] MPV 10.9 7.0 - 11.0 FL LAB HEMETOLOGY METHOD 02/20/2025 1:26 PM [facility] NRBC 0.0 <1.0 % LAB HEMETOLOGY METHOD 02/20/2025 1:26 PM [facility] NRBC Absolute 0.00 <0.10 K/mcL LAB HEMETOLOGY METHOD 02/20/2025 1:26 PM [facility] Blood Venous blood specimen / Unknown 02/20/2025 02/20/2025 12:44 PM EDT us Timoteo Reed MD LAB BLOOD ORDERABLES Final Res ult [facility] [address] [place] [address], * (ABNORMAL) Culture urine (02/20/2025 12:00 AM EDT) Culture, Urine >=100,000 CFU/mL Morganella morganii ssp morganii(A) PABLO 02/23/2025 10:37 AM EDT [facility] Comment: The organism value for this result has been updated. These results have been appended to the previously preliminary verified report. This is an edited result. Previous organism was Gram negative bacilli on 02/22/2025 at 1148 EDT. Culture, Urine >=100,000 CFU/mL Escherichia coli(A) PABLO 02/23/2025 10:37 AM EDT [facility] Comment: The organism value for this result has been updated. These results have been appended to the previously preliminary verified report. Culture, Urine >=100,000 CFU/mL Aerococcus sanguinicola(A ) PABLO 02/23/2025 10:37 AM EDT [facility] Comment: Susceptibility testing not routinely [...] MICROBIOLOGY - GENERAL ORD ERABLES Final Result [facility] [address] [place] [address], * Thyroid stimulating hormone (02/04/2025 4:48 AM EDT) Only the most recent of3 resultswithin the time period is included. [facility] Signature TSH 3.45 0.40 - 4.00 mcIU/mL LAB CHEMISTRY METHOD 02/04/2025 10:41 AM EDT [facility] Blood Venous blood specimen / Unknown Venipuncture / Unknown 02/04/2025 4:48 AM EDT 02/04/2025 8:47 AM EDT us Leny Brice MD LAB BLOOD ORDERABLES Final Resu lt Performing Organization Address City/[facility]/ZIP Co de Phone Number [facility] [address] [place] [address], [place] [phone] * (ABNORMAL) Vitamin B12 and folate (01/23/2025 5:39 AM EDT) Pathologist [facility] Vitamin B-12 365 250 - 900 pcg/mL LAB CHEMISTRY METHOD 01/23/2025 9:39 AM EDT [facility] Folate >20.0(H) 2.8 - 17.0 ng/ml LAB CHEMISTRY METHOD 01/23/2025 9:39 AM EDT [facility] Blood Venous blood specimen / Unknown Venipuncture / Unknown 01/23/2025 5:39 AM EDT 01/23/2025 7:57 AM EDT Leny Brice MD LAB BLOOD ORDERABLES Final Resu lt Performing Organization Address [facility]/ZIP Co de Phone Number [facility] [address] [place] [address], [place] [phone] * Lipid panel with reflex to direct LDL (01/23/2025 5:39 AM EDT) [facility] Signature Cholesterol 149 0 - 200 mg/dL LAB CHEMISTRY METHOD 01/23/2025 9:39 AM EDT [facility] Triglycerides 116 0 - 150 mg/dL LAB CHEMISTRY METHOD 01/23/2025 9:39 AM EDT [facility] HDL 40 >=40 mg/dL LAB CHEMISTRY METHOD 01/23/2025 9:39 AM EDT [facility] LDL Calculated 86 0 - 100 mg/dL LAB CHEMISTRY METHOD 01/23/2025 9:39 AM EDT [facility] Comment:Estimated LDL Calcul ated using equation: Total cholesterol - HDL cholesterol - (Triglycerides/5) VLDL Cholesterol Fredy 23.2 mg/dL LAB CHEMISTRY METHOD 01/23/2025 9:39 AM EDT [facility] Non HDL Chol. (LDL+VLDL) 109 <145 mg/dL LAB CHEMISTRY METHOD 01/23/2025 9:39 AM EDT [facility] Chol/HDL Ratio 3.7 0.0 - 4.4 LAB CHEMISTRY METHOD 01/23/2025 9:39 AM T [facility] Blood Venous blood specimen / Unknown Venipuncture / Unknown 01/23/2025 5:39 AM EDT 01/23/2025 7:57 AM EDT us Leny Brice MD LAB BLOOD ORDERABLES Final Resu lt [facility] [address] [place] [address], [place] [phone] * (ABNORMAL) CBC auto differential (01/23/2025 5:39 AM EDT) WBC 4.6(L) 4.8 - 10.8 K/mcL LAB HEMETOLOGY METHOD 01/23/2025 9:00 AM [facility] RBC 3.40(L) 3.80 - 4.80 M/mcL LAB HEMETOLOGY METHOD 01/23/2025 9:00 AM [facility] Hemoglobin 10.0(L) 11.5 - 16.0 g/dL LAB HEMETOLOGY METHOD 01/23/2025 9:00 AM [facility] Hematocrit 33.0(L) 35.0 - 47.0 % LAB HEMETOLOGY METHOD 01/23/2025 9:00 AM [facility] MCV 97.3 79.0 - 98.0 FL LAB HEMETOLOGY METHOD 01/23/2025 9:00 AM [facility] MCH 29.5 27.0 - 32.0 pcg LAB HEMETOLOGY METHOD 01/23/2025 9:00 AM [facility] MCHC 30.3(L) 32.0 - 37.0 g/dL LAB HEMETOLOGY METHOD 01/23/2025 9:00 AM [facility] RDW 17.2(H) 11.0 - 15.0 % LAB HEMETOLOGY METHOD 01/23/2025 9:00 AM [facility] Platelets 233 130 - 400 K/mcL LAB HEMETOLOGY METHOD 01/23/2025 9:00 AM [facility] MPV 11.8(H) 7.0 - 11.0 FL LAB HEMETOLOGY METHOD 01/23/2025 9:00 AM [facility] NRBC 0.0 <1.0 % LAB HEMETOLOGY METHOD 01/23/2025 9:00 AM [facility] NRBC Absolute 0.00 <0.10 K/mcL LAB HEMETOLOGY METHOD 01/23/2025 9:00 AM [facility] Neutrophils Relative 53.2 % LAB HEMETOLOGY METHOD 01/23/2025 9:00 AM [facility] Lymphocytes Relative 32.4 % LAB HEMETOLOGY METHOD 01/23/2025 9:00 AM [facility] Monocytes Relative 10.4 % LAB HEMETOLOGY METHOD 01/23/2025 9:00 AM [facility] Eosinophils Relative 2.2 % LAB HEMETOLOGY METHOD 01/23/2025 9:00 AM [facility] Basophils Relative 0.9 % LAB HEMETOLOGY METHOD 01/23/2025 9:00 AM [facility] Immature Granulocytes Relative 0.9 % LAB HEMETOLOGY METHOD 01/23/2025 9:00 AM [facility] Neutrophils Absolute 2.47 1.50 - 7.00 K/mcL LAB HEMETOLOGY METHOD 01/23/2025 9:00 AM EDT [facility] Lymphocytes Absolute 1.50 1.00 - 5.00 K/[facility] LAB HEMETOLOGY METHOD 01/23/2025 9:00 AM EDT [facility] Monocytes Absolute 0.48 0.20 - 1.00 K/[facility] LAB HEMETOLOGY METHOD 01/23/2025 9:00 AM EDT [facility] Eosinophils Absolute 0.10 0.00 - 0.50 K/[facility] LAB HEMETOLOGY METHOD 01/23/2025 9:00 AM EDT [facility] Basophils Absolute 0.04 0.00 - 0.20 K/[facility] LAB HEMETOLOGY METHOD 01/23/2025 9:00 AM EDT [facility] Immature Granulocytes Absolute 0.04(H) 0.00 - 0.03 K/[facility] LAB HEMETOLOGY METHOD 01/23/2025 9:00 AM EDT [facility] Blood Venous blood specimen / Unknown Venipuncture / Unknown 01/23/2025 5:39 AM EDT 01/23/2025 7:57 AM EDT us Leny Brice MD LAB BLOOD ORDERABLES Final Resu lt [facility] [address] [place] [address], * (ABNORMAL) Vitamin D 25 hydroxy (01/23/2025 5:39 AM EDT) Vit D, 25-Hydroxy 21.7(L) 30.0 - 80.0 ng/mL LAB CHEMISTRY METHOD 01/23/2025 10:37 AM EDT [facility] Blood Venous blood specimen / Unknown Venipuncture / Unknown 01/23/2025 5:39 AM EDT 01/23/2025 7:57 AM EDT us Leny Brice MD LAB BLOOD ORDERABLES Final Resu lt Performing Organization Address City/[facility]/ZIP Co de Phone Number [facility] [address] [place] [address], [place] [phone] * (ABNORMAL) Hemoglobin A1c (01/23/2025 5:39 AM EDT) Hemoglobin A1C 7.3(H) <6.5 % LAB CHEMISTRY METHOD 01/23/2025 10:29 AM EDT [facility] Mean Bld Glu Estim. 163 mg/dL LAB CHEMISTRY METHOD 01/23/2025 10:29 AM EDT [facility] Blood Venous blood specimen / Unknown Venipuncture / Unknown 01/23/2025 5:39 AM EDT 01/23/2025 7:57 AM EDT us Leny Brice MD LAB BLOOD ORDERABLES Final Resu lt Performing Organization Address [facility]/ZIP Co de Phone Number [facility] [address] [place] [address], [place] [phone] * (ABNORMAL) Comprehensive metabolic panel (01/23/2025 5:39 AM EDT) Pathologist [facility] Sodium 139 133 - 145 mmol/L LAB CHEMISTRY METHOD 01/23/2025 9:39 AM EDT [facility] Potassium 4.2 3.5 - 5.5 mmol/L LAB CHEMISTRY METHOD 01/23/2025 9:39 AM EDT [facility] Chloride 105 96 - 110 mmol/L LAB CHEMISTRY METHOD 01/23/2025 9:39 AM EDT [facility] CO2 28 21 - 32 mmol/L LAB CHEMISTRY METHOD 01/23/2025 9:39 AM EDT [facility] Anion Gap 6 3 - 11 LAB CHEMISTRY METHOD 01/23/2025 9:39 AM EDT [facility] Glucose 93 70 - 100 mg/dL LAB CHEMISTRY METHOD 01/23/2025 9:39 AM [facility] BUN 25 5 - 25 mg/dL LAB CHEMISTRY METHOD 01/23/2025 9:39 AM [facility] Creatinine 0.97 0.50 - 1.10 mg/dL LAB CHEMISTRY METHOD 01/23/2025 9:39 AM [facility] eGFR 63 >=60 mL/min/1. 73m2 LAB CHEMISTRY METHOD 01/23/2025 9:39 AM [facility] Comment:Calculation based on the Chronic Kidney Disease Epidemiology Collaboration (CKD-EPI) equation refit without adjustment for race. BUN/Creatinine Ratio 25.8 LAB CHEMISTRY METHOD 01/23/2025 9:39 AM [facility] Calcium 9.1 8.5 - 10.5 mg/dL LAB CHEMISTRY METHOD 01/23/2025 9:39 AM [facility] AST (SGOT) 16 10 - 42 unit/L LAB CHEMISTRY METHOD 01/23/2025 9:39 AM [facility] ALT (SGPT) 26 10 - 60 unit/L LAB CHEMISTRY METHOD 01/23/2025 9:39 AM [facility] Alkaline Phosphatase 55 42 - 121 unit/L LAB CHEMISTRY METHOD 01/23/2025 9:39 AM [facility] Total Protein 5.2(L) 6.0 - 8.0 g/dL LAB CHEMISTRY METHOD 01/23/2025 9:39 AM [facility] Albumin 2.4(L) 3.2 - 5.0 g/dL LAB CHEMISTRY METHOD 01/23/2025 9:39 AM [facility] Total Bilirubin 0.3 0.0 - 1.4 mg/dL LAB CHEMISTRY METHOD 01/23/2025 9:39 AM [facility] Blood Venous blood specimen / Unknown Venipuncture / Unknown 01/23/2025 5:39 AM EDT 01/23/2025 7:57 AM EDT Leny Brice MD LAB BLOOD ORDERABLES Final Resu lt [facility] [address] [place] [address], [place] [phone] from Last 3 Months Insurance [employer] Care Teams Glove Stitcher Relationship Specialty Start Date End Date Leny Brice MD [address] [place] [id number] PCP - General Hospitalist Medicine 10/15/24
--- OUTSIDE RECORDS SUMMARY | 2025-03-21 09:57 | XMS_ITS | Encounter Summary ---
Author Organization [facility] Address [address] [place] [address] Care Team Providers Care Ribbing Machine Operator Name Role Phone Leny Brice MD Primary Care Provider [phone] Encounter Details Date Type Department Care Team (Late st Contact Info) Description 10/17/2024 Lab Requisition [facility] - Main Lab [address] [facility] [place] [address] Leny Briec MD [address] [place] [phone] Thrombocytopenia, unspecified (CMS/HCC V24) Social History Tobacco [...] mmol/L LAB CHEMISTRY METHOD 10/17/2024 7:02 AM [facility] Potassium 3.6 3.5 - 5.5 mmol/L LAB CHEMISTRY METHOD 10/17/2024 7:02 AM [facility] Chloride 107 96 - 110 mmol/L LAB CHEMISTRY METHOD 10/17/2024 7:02 AM [facility] CO2 26 21 - 32 mmol/L LAB CHEMISTRY METHOD 10/17/2024 7:02 AM [facility] Anion Gap 8 3 - 11 LAB CHEMISTRY METHOD 10/17/2024 7:02 AM [facility] Glucose 91 70 - 100 mg/dL LAB CHEMISTRY METHOD 10/17/2024 7:02 AM [facility] BUN 17 5 - 25 mg/dL LAB CHEMISTRY METHOD 10/17/2024 7:02 AM [facility] Creatinine 0.86 0.50 - 1.10 mg/dL LAB CHEMISTRY METHOD 10/17/2024 7:02 AM [facility] eGFR 72 >=60 mL/min/1. 73m2 LAB CHEMISTRY METHOD 10/17/2024 7:02 AM [facility] Comment:Calculation based on the Chronic Kidney Disease Epidemiology Collaboration (CKD-EPI) equation refit without adjustment for race. BUN/Creatinine Ratio 19.8 LAB CHEMISTRY METHOD 10/17/2024 7:02 AM [facility] Calcium 7.9(L) 8.5 - 10.5 mg/dL LAB CHEMISTRY METHOD 10/17/2024 7:02 AM [facility] Blood Venous blood specimen / Unknown Venipuncture / Unknown 10/17/2024 4:58 AM EDT 10/17/2024 5:48 AM EDT us Leny Brice MD LAB BLOOD ORDERABLES Final Resu lt [facility] [address] [place] [address], * (ABNORMAL) Complete blood count (10/17/2024 4:58 AM EDT) [facility] Signature WBC 4.6(L) 4.8 - 10.8 K/mcL LAB HEMETOLOGY METHOD 10/17/2024 5:55 AM EDT [facility] RBC 2.70(L) 3.80 - 4.80 M/mcL LAB HEMETOLOGY METHOD 10/17/2024 5:55 AM EDT [facility] Hemoglobin 8.5(L) 11.5 - 16.0 g/dL LAB HEMETOLOGY METHOD 10/17/2024 5:55 AM EDT [facility] Hematocrit 27.8(L) 35.0 - 47.0 % LAB HEMETOLOGY METHOD 10/17/2024 5:55 AM EDT [facility] MCV 102.6(H) 79.0 - 98.0 FL LAB HEMETOLOGY METHOD 10/17/2024 5:55 AM EDT [facility] MCH 31.4 27.0 - 32.0 pcg LAB HEMETOLOGY METHOD 10/[facility]24 [facility] M[facility]C 30.6(L) 32.0 - 37.0 g/dL LAB HEMETOLOGY METHOD 10/17/2024 5:55 AM EDT [facility] RDW 18.5(H) 11.0 - 15.0 % LAB HEMETOLOGY METHOD 10/17/2024 5:55 AM EDT [facility] Platelets 165 130 - 400 K/mcL LAB HEMETOLOGY METHOD 10/17/2024 5:55 AM EDT [facility] MPV 11.2(H) 7.0 - 11.0 FL LAB HEMETOLOGY METHOD 10/17/2024 5:55 AM EDT [facility] NRBC 0.0 <1.0 % LAB HEMETOLOGY METHOD 10/17/2024 5:55 AM EDT [facility] NRBC Absolute 0.00 <0.10 K/mcL LAB HEMETOLOGY METHOD 10/17/2024 5:55 AM EDT [facility] Blood Venous blood specimen / Unknown Venipuncture / Unknown 10/17/2024 4:58 AM EDT 10/17/2024 5:48 AM EDT us Leny Brice MD LAB BLOOD ORDERABLES Final Resu lt [facility] [address] [place] [address], [place] [phone] documented in this encounter Visit Diagnoses Diagnosis Thrombocytopenia, unspecified (CMS/HCC V24) Thrombocytopenia, unspecified documented in this encounter Care Teams Ribbing Machine Operator Relationship Specialty Start Date End Date Leny Brice MD [address] [place] [id number] PCP - General Hospitalist Medicine 10/15/24 documented as of this encounter
--- OUTSIDE RECORDS SUMMARY | 2025-03-21 09:57 | XMS_ITS | Data Portability ---
Author Organization [facility] Pain Managem ent, PAIN OFFICE Address [address] [facility] [address] [place] [address] Care Team Providers Care Event Specialist Name Role Phone RAIZA DUNNE Referring Provider [...] for the same . 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 [...] Ambulance called and she was transported to [facility] Emergency room . Addendum: Patient had a MRI at [facility] and was found to have a compression [...] for the same . 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 [...] By Organization Details Last Modified Time 02/06/2018 14224 She is a diabetic . Blood sugar [...] tolerated. [email or web address] Not available 02/06/2018 09:04:48 03/22/2018 76781 She is a diabetic . Blood sugar [...] tolerated. [email or web address] Not available 03/22/2018 11:45:00 03/27/2018 00479 She was advised against bed rest lasting longer than four days and to continue activities as tolerated. [email or web address] Not available 03/30/2018 08:48:47 06/08/2018 80990 She is a diabetic . Blood sugar [...] tolerated. [email or web address] Not available 07/02/2018 14:32:40 07/03/2018 14961 She is a diabetic . Blood sugar [...] Recorded Time Degeneration of lumbar intervertebral disc 71293639 Active Dino santa MD [address] , [address], [facility], [address], [place] [facility] 8 09:05:20 Lumbosacral spondylosis without myelopathy 09859869 Active Dino santa MD [address] , [address], [facility] [place], [address], [place] [facility] 8 09:49:41 Spinal stenosis of lumbar region 59464333 Active Dino santa MD [address] , [address], [facility] [place], [address], [place] [facility] 8 09:50:00 Diabetic peripheral neuropathy 087084761 Active Dino santa MD [address] , [address], [facility] [place] [address], [place] [facility] 8 10:01:20 Problem Notes None recorded. Procedures Surgical History Date Name Laterality Status Provider Name and Address Organization Details Recorded Time 07/03/19 19 Lumbar Epidural steroid injection under fluoroscopic guidance completed Dino Alcala MD [address] , [address], [place], [address], [place] [facility] 07/11/2018 10:14:00 02/07/20 18 Fluoroscopic Guided Lumbar Facet Steroid Injections of levels completed Dino Alcala MD [address] , [address], [place], [address], [place] [facility] 02/06/2018 [...] Name and Address Organization Details Recorded Time 82174 Bactrim medicatio n anaphylax is Not available Not available 01/10/2018 53739 9 RxNorm Shantelle Sylvesterzier romina [facility] Pain Management 8 08:48:53 08582 Lyrica medicatio n Not available Not available Not available 01/10/2018 69565 1 RxNorm Aggre sive behav ior Shantelle Sylvesterzier romina [facility] Pain Management 8 09:00:22 Medications Name Sig [...] /min 96 % 96 % 44.1 kg/m2 656819. 5 g 176/85 mm[Hg] Shantelle Brantley [facility] Pain Management 9 08:57:54 Date Recorded Body height Heart rate Oxygen saturation Oxygen saturation in Arterial blood by Pulse oximetry Systolic And Diastolic Provider Name and Address Organization Details Last Updated DateTime 9 160.02 cm 87 /min 97 % 97 % 143/46 mm[Hg] Shantelle Brantley [facility] Pain Management 9 09:04:35 Date Recorded Body height Heart rate Oxygen saturation Oxygen saturation in Arterial blood by Pulse oximetry Systolic And Diastolic Provider Name and Address Organization Details Last Updated DateTime 8 160.02 cm 81 /min 94 % 94 % 143/74 mm[Hg] Shantelle Brantley [facility] Pain Management 8 08:34:10 Date Recorded Body height Heart rate Oxygen saturation Oxygen saturation in Arterial blood by Pulse oximetry Systolic And Diastolic Provider Name and Address Organization Details Last Updated DateTime 8 160.02 cm 90 /min 96 % 96 % 137/54 mm[Hg] Dino santa MD [address] [place] [address] , [address], [place], [address], [place] - Pain Management 8 08:46:32 Date Recorded Pain severity - 0-10 verbal numeric rating [Score] - Reported Provider Name and Address Organization Details Last Updated DateTime 03/22/2018 10 Not Available [facility] 8 05:02:19 Date Recorded Body height Heart rate Oxygen saturation Oxygen saturation in Arterial blood by Pulse oximetry Systolic And Diastolic Provider Name and Address Organization Details Last Updated DateTime 8 160.02 cm 98 /min 96 % 96 % 188/48 mm[Hg] Dino santa MD [address] [facility] , [address], [place], [address], [place] - Pain Management 8 14:34:38 Social History Question Answer Notes LastModified by Adzerkizat ion Details LastModified Time Tobacco Smoking Status Former Smoker Quit x 30 years Not Available [facility] 03/06/2020 03:16:11 Which Illicit Or Recreational Drugs Have You Used? No [id number] Information not available 03/06/2020 Education 12 Information no t available 01/10/2018 Live Alone Or With Others? With Others And Mother-in-l aw Information not available 01/10/2018 Marital Status Informatio n not available 01/10/2018 What Was The Date Of Your Most Recent Tobacco Screening? 07/11/2018 [id number] Information not available 03/06/2020 How Many Years Have You Smoked Tobacco? 20 [id number] Information not available 03/06/2020 Sex: Unknown Functional Status Question Answer Note LastModified by Organizat ion Details LastModified Time What is your level of alcohol consumption? 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 Information not available 03/06/2020 What is your [...] ICD10 Code Diagnosis IMO Codes Diagnosis Note 63235 Dino Alcala MD PAIN OFFICE [address] [place] [address] 01/10/2018 08:33:33 01/10/2018 11:47:32 Diabetic peripheral neuropathy 815282264 E11.40 Lumbosacra l spondylosis without myelopathy 94830442 M47.817 Degenerati on of lumbar intervertebral disc 58304203 M51.36 Spinal maryellen nosis of lumbar region 77119995 M48.061 65341 Dino Alcala MD PAIN OFFICE [address] [place] [place] [address] 02/06/2018 08:09:18 02/06/2018 13:30:09 Diabetic peripheral neuropathy 452379887 E11.40 Lumbosacra l spondylosis without myelopathy 73648326 M47.817 Degenerati on of lumbar intervertebral disc 63651478 M51.36 Spinal maryellen nosis of lumbar region 57039006 M48.061 04555 Dino Alcala MD PAIN OFFICE [address] [place] [address] 03/22/2018 08:25:33 03/22/2018 11:52:05 Diabetic peripheral neuropathy 382181883 E11.40 Lumbosacra l spondylosis without myelopathy 59304889 M47.817 Degenerati on of lumbar intervertebral disc 70356083 M51.36 Spinal maryellen nosis of lumbar region 88451096 M48.061 27057 Dino Alcala MD PAIN OFFICE [address] [place] [address] 03/27/2018 14:05:42 03/30/2018 08:52:39 Diabetic peripheral neuropathy 986945291 E11.40 Lumbosacra l spondylosis without myelopathy 44866274 M47.817 Degenerati on of lumbar intervertebral disc 48761476 M51.36 Spinal maryellen nosis of lumbar region 61804566 M48.061 04721 Dino Alcala MD [facility] PAIN OFFICE [address] [place] [address] 06/08/2018 08:46:10 07/02/2018 14:35:55 Diabetic peripheral neuropathy 433209583 E11.40 Lumbosacra l spondylosis without myelopathy 73632685 M47.817 Degenerati on of lumbar intervertebral disc 08700637 M51.36 Spinal maryellen nosis of lumbar region 32319091 M48.061 96079 Dino Alcala MD [facility] PAIN OFFICE [address] [place] [address] 07/03/2018 08:44:34 07/11/2018 11:06:00 Diabetic peripheral neuropathy 571844568 E11.40 Lumbosacra l spondylosis without myelopathy 32936463 M47.817 Degenerati on of lumbar intervertebral disc 48928915 M51.36 Spinal maryellen nosis of lumbar region 55296313 M48.061 Health Concerns Section Related Observation LastModified by Organization Detai ls LastModified Time None Recorded Concern Status LastModified by Organization Details LastModified Time None Recorded Advance Directives Directive None Recorded Payers Insurance Date Sequence Insurance Name Policy Number Policy Tom Covered Member ID Tom Member ID Guarantor Name 01/03/2018 1 [place] Vanessa Harding [id number] Vanessa Vazquezr 07/18/2018 2 [place] [id number] Vanessa Mitchell liver [id number] Vanessa Vazquezr 07/18/2018 2 [place] [id number] Vanessa Isaacs-Eladio liver [id number] Vanessa Vazquezr 07/18/2018 1 [place] [id number] Vanessa Harding [id number] Vanessa Vazquezr 07/18/2018 1 [place] [id number] Vanessa Mitchell liver [id number] Vanessa Vazquezr 07/18/2018 2 MEDICARE B-MD: [facility] Vanessa Vazquezr [id number] Vanessa Isaacs Mehdi 07/02/2018 2 [facility] (MEDICARE REPLACEMENT/A DVANTAGE - PPO) [id number] Vanessa Harding [id number] Vanessa Harding 07/12/2018 1 [facility] (MEDICARE REPLACEMENT/A DVANTAGE - PPO) [id number] Vanessa Isaacs [id number] Vanessa Harding Notes Date Note Type Note Provider Name and Address Organization Details Recorded Time 02/06/2018 text/html She is here for a left facet joint injection under fluoroscopic guidance Dino Alcala MD [address] [facility] , [address], [place], [address], [place] - [facility] 02/09/2018 11:27:05 [...] with pain benefit. Dino Alcala MD [address] [facility] , [address], [place], [address], [facility] - Pain Management 03/26/2018 08:52:51 03/27/2018 text/html [...] and kidney stones. Dino Alcala MD [address] [facility] , [address], [place], [address], [place] - [id number] 04/09/2018 10:16:37 06/08/2018 text/html She is here for a follow up . She states she was admitted to [facility] and had a MRI which showed [...] with pain benefit. Dino Alcala MD [address] [facility] , [address], [place], [address], [facility] - Pain Management 07/10/2018 10:40:51 07/03/2018 text/html She is here for a trial of lumbar epidural steroid injection under fluoroscopic guidance. Dino Alcala MD [address] [facility] , [address], [place], [address], [facility] - Pain Management 07/12/2018 13:29:32 OBGyn Episode No OBEpisode recorded.
--- OUTSIDE RECORDS SUMMARY | 2025-03-21 09:57 | XMS_ITS | Encounter Summary ---
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 Trades Workers Name Role Phone Leny Brice MD Primary Care Provider Encounter Details Date Type Department Care Team (Latest Contact Info) Description 10/15/2024 Lab Requisition [facility] - Main Lab [address] [facility] [place] [address] Leny Brice MD [address] [place] [address] Anemia, unspecified; Essential (primary) hypertension; halfway (current) use of anticoagulants Social History Tobacco [...] AM EDT Anemia, unspecified 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 COMPLETE BLOOD COUNT Routine 10/15/2024 5:21 AM EDT Anemia, unspecified 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 COMPREHENSIVE METABOLIC PANEL Routine 10/15/2024 5:21 AM EDT Anemia, unspecified Essential (primary) hypertension halfway (current) use of anticoagulants documented in this encounter Results * (ABNORMAL) Comprehensive metabolic panel (10/15/2024 5:21 AM EDT) Sodium 139 133 - 145 mmol/L LAB CHEMISTRY METHOD 10/15/2024 10:12 AM [facility] Potassium 3.6 3.5 - 5.5 mmol/L LAB CHEMISTRY METHOD 10/15/2024 10:12 AM [facility] Chloride 108 96 - 110 mmol/L LAB CHEMISTRY METHOD 10/15/2024 10:12 AM [facility] CO2 25 21 - 32 mmol/L LAB CHEMISTRY METHOD 10/15/2024 10:12 AM [facility] Anion Gap 6 3 - 11 LAB CHEMISTRY METHOD 10/15/2024 10:12 AM [facility] Glucose 40(L) 70 - 100 mg/dL LAB CHEMISTRY METHOD 10/15/2024 10:12 AM [facility] BUN 19 5 - 25 mg/dL LAB CHEMISTRY METHOD 10/15/2024 10:12 AM [facility] Creatinine 0.77 0.50 - 1.10 mg/dL LAB CHEMISTRY METHOD 10/15/2024 10:12 AM [facility] eGFR 83 >=60 mL/min/1. 73m2 LAB CHEMISTRY METHOD 10/15/2024 10:12 AM [facility] Comment:Calculation based on the Chronic Kidney Disease Epidemiology Collaboration (CKD-EPI) equation refit without adjustment for race. BUN/Creatinine Ratio 24.7 LAB CHEMISTRY METHOD 10/15/2024 10:12 AM [facility] Calcium 8.0(L) 8.5 - 10.5 mg/dL LAB CHEMISTRY METHOD 10/15/2024 10:12 AM [facility] AST (SGOT) 10 10 - 42 unit/L LAB CHEMISTRY METHOD 10/15/2024 10:12 AM EDT [facility] ALT (SGPT) 16 10 - 60 unit/L LAB CHEMISTRY METHOD 10/15/2024 10:12 AM EDT [facility] Alkaline Phosphatase 68 42 - 121 unit/L LAB CHEMISTRY METHOD 10/15/2024 10:12 AM EDT [facility] Total Protein 5.5(L) 6.0 - 8.0 g/dL LAB CHEMISTRY METHOD 10/15/2024 10:12 AM EDT [facility] Albumin 2.8(L) 3.2 - 5.0 g/dL LAB CHEMISTRY METHOD 10/15/2024 10:12 AM EDT [facility] Total Bilirubin 0.5 0.0 - 1.4 mg/dL LAB CHEMISTRY METHOD 10/15/2024 10:12 AM EDT [facility] Blood Venous blood specimen / Unknown Venipuncture / Unknown 10/15/2024 5:21 AM EDT 10/15/2024 9:05 AM EDT Leny Brice MD LAB BLOOD ORDERABLES Final Resu lt [facility] [address] [place] [address], [place] [phone] * (ABNORMAL) Prothrombin time with INR (10/15/2024 5:21 AM EDT) Protime 10.1(L) 10.6 - 13.9 sec LAB COAGULATION METHOD 10/15/2024 9:44 AM EDT [facility] INR 0.8 LAB COAGULATION METHOD 10/15/2024 9:44 AM EDT [facility] Blood Venous blood specimen / Unknown Venipuncture / Unknown 10/15/2024 5:21 AM EDT 10/15/2024 9:05 AM EDT us Leny Brice MD LAB BLOOD ORDERABLES Final Resu lt [facility] [address] [place] [address], * (ABNORMAL) Complete blood count (10/15/2024 5:21 AM EDT) [facility] Signature WBC 6.0 4.8 - 10.8 K/mcL LAB HEMETOLOGY METHOD 10/15/2024 9:28 AM EDT [facility] RBC 2.90(L) 3.80 - 4.80 M/mcL LAB HEMETOLOGY METHOD 10/15/2024 9:28 AM [facility] Hemoglobin 8.9(L) 11.5 - 16.0 g/dL LAB HEMETOLOGY METHOD 10/15/2024 9:28 AM [facility] Hematocrit 29.4(L) 35.0 - 47.0 % LAB HEMETOLOGY METHOD 10/15/2024 9:28 AM [facility] MCV 102.1(H) 79.0 - 98.0 FL LAB HEMETOLOGY METHOD 10/15/2024 9:28 AM [facility] MCH 30.9 27.0 - 32.0 pcg LAB HEMETOLOGY METHOD 10/15/2024 9:28 AM [facility] MCHC 30.3(L) 32.0 - 37.0 g/dL LAB HEMETOLOGY METHOD 10/15/2024 9:28 AM [facility] RDW 18.5(H) 11.0 - 15.0 % LAB HEMETOLOGY METHOD 10/15/2024 9:28 AM [facility] Platelets 165 130 - 400 K/mcL LAB HEMETOLOGY METHOD 10/15/2024 9:28 AM [facility] MPV 12.1(H) 7.0 - 11.0 FL LAB HEMETOLOGY METHOD 10/15/2024 9:28 AM EDT [facility] NRBC 0.0 <1.0 % LAB HEMETOLOGY METHOD 10/15/2024 9:28 AM EDT [facility] NRBC Absolute 0.00 <0.10 K/mcL LAB HEMETOLOGY METHOD 10/15/2024 9:28 AM EDT [facility] Blood Venous blood specimen / Unknown Venipuncture / Unknown 10/15/2024 5:21 AM EDT 10/15/2024 9:05 AM EDT us Leny Brice MD LAB BLOOD ORDERABLES Final Resu lt [facility] [address] [place] [address], documented in this encounter Visit Diagnoses Diagnosis Anemia, unspecified Essential (primary) hypertension Unspecified essential hypertension halfway (current) use of anticoagulants Long-term (current) use of anticoagulants documented in this encounter Care Teams Clothing Trades Workers Relationship Specialty Start Date End Date Leny Brice MD [address] [place] [address] PCP - General Hospitalist Medicine 10/15/24 documented as of this encounter
== END 2025-03-21 09:08 | disposition home or self-care (01) ==
LOC: HO.LAB 09:07
PROVIDERS: PCP Family Medicine; Visit Provider Nurse Practitioner Family
DX: R60.9 Edema, unspecified (principal)
CPT/HCPCS: 36415; 80048; 83880